=== PATIENT | female | born 1940 | race Caucasian/White ===

== ENCOUNTER 2019-04-22 18:36 | Emergency (ER) | payer MEDICARE, OTHER ==
[~2019-04-22] VITALS: Ht 170.2 cm; Wt 67.1 kg
[~2019-04-22 18:36] MED LIST: GABAPENTIN300 MG PO; LEVOTHYROXINE25 MCG PO
--- OUTSIDE RECORDS SUMMARY | 2019-04-22 18:39 | XMS REPORT ---
Author Author [facility] Address Unknown Phone Unavailable Care Team Providers Care Relationship Consultant Name Role Phone GRISEL EL Unavailable Unavailable SINANArsenio NIRAVKUMAR Unavailable Unavailable RAFAEL, CASSIUS Unavailable Unavailable Problems This patient has no known problems. Allergies, Adverse Reactions, Alerts This patient has no known allergies or adverse reactions. Medications This patient has no known medications. Results Test Description Test Time Test Comments Text Results Atomic Results Result Comments MISCELLANEOUS LAB ORDER 2019-02-27 07:25:00 SCAN RESULT (test vczj=[id number]) FINE NEEDLE ASPIRATION BY [id number] 14:39:00Medical Cytology Report Case: [id number] Authorizing Provider: Tasia El MD Collected: 02/21/2019 1447 Ordering Location: [facility] Endoscopy Received: 02/21/2019 1545 Services Pathologist: Lawson Brtohers MD Specimen: Pancreatic MERRY PANCREATIC LYMPH NODE, FNA BY CLINICIAN (CYTOSPINS AND CELL BLOCK OF ASPIRATE): - NEGATIVE FOR EPITHELIAL MALIGNANCY - LYMPHOID TISSUE PRESENT Signing Pathologist Direct Phone Line: [phone] signed by Lawson Brothers MD on 02/24/2019 at 2:39 [id number], 116327.8 cm x 4.3 cm anechoic body of pancreas lesion; (0.8 x 1.2 cm) enlarged lymph node was visualized in the peripancreatic regionPERI SIDDIQUI CREATIC LYMPH NODE FNAReceived 22.5 ml cytorich red fixative samplePrepared cell block(A2) and 4 cytospins Collected: [id number]: [id number], Department of Pathology, [address] [place] [address], T el [phone] [facility], Department of Pathology, [address] [place] [address], [facility], Department of Pathology, [address] [place] [address], Tel FINE NEEDLE ASPIRATION BY [id number] 14:24:00Medical Cytology Report Case: [id number] Authorizing Provider: Tasia El MD Collected: 02/21/2019 1446 Ordering Location: [facility] Endoscopy Received: 02/21/2019 1545 Services Pathologist: Lawson Brothers MD Specimen: Pancreas, body of pancreas cystic lesion BODY OF PANCREAS CYSTIC LESION FLUID, (CYTOSPINS AND CELL BLOCK): - NEGATIVE FOR MALIGNANCY - Macrophages and small lymphocytes present Signing Pathologist Direct Phone Line: [phone], 880030.8 cm x 4.3 cm anechoic body of pancreas lesion; (0.8 x 1.2 cm) enla rged lymph node was visualized in the peripancreatic regionBODY OF PANCREAS CYST IC LESION FLUIDReceived 27.5ml cytorich red fixative samplePrepared cell block(A 2) using collodion bag and 4 cytospinsCollected: [id number]: [id number] [facility], Department of Pathology, [address] [place] [address], [facility]ckuzvSc[facility], Department of Pathol ogy, [address] [place] [address], [facility], [facility] of [facility]ology, [address] [place] [address], OQBTTW [id number] 13:22:00Surgical Pathology Report Case: [id number] Authorizing Provider: Tasia El MD Collected: 02/21/2019 1422 Ordering Location: [facility] Endoscopy Received: 02/21/2019 1533 Services Pathologist: Shelbie Morfin MD Specimen: Duodenal, duodenal ulcer bx A. ULCER, DUODENUM BULB, BIOPSY - DUODENUM MUCOSA WITH ULCER AND FIBRINOPURULENT EXUDATE - NEGATIVE FOR DYSPLASIA OR CARCINOMA Signing Pathologist Direct Phone Line: [phone] signed by Shelbie Morfin MD on 02/22/2019 at 1:22 [id number] findings on diagnostic imaging Duodenal biopsyA. Received in formalin labeled with the patient's name, accession number and "duodenal ulcer biopsy" are two pieces of smith-white mucosal tissue each measuring 0.3 x 0.3 x 0.2 cm. The specimen is submitted in toto in cassette A1. NW/plThe duodenal biopsy consists of multiple pieces of small bowel mucosa, with ulcer, fibrinopurulent exudates and Elias's gland hyperplasia. It is negative for dysplasia or carcinoma. FINE NEEDLE ASPIRATE (FNA) [id number] 17:00:00* Test Item Value Reference Range Comments CYTOLOGY RESULT POINTER (BEAKER) (test rcbg=0172) See Separate Report FINE NEEDLE ASPIRATE (FNA) [id number] 17:00:00* Test Item Value Reference Range Comments CYTOLOGY RESULT POINTER (BEAKER) (test mera=5918) See Separate Report US, ABDOMINAL, [id number] 08:09:00Reason for Exam:->researchFINAL REPORT EXAM: US, ABDOMINAL, COMPLETEDATE: 08/08/2018 9:37 AM INDICATION: research COMPARISON: Abdominal ultrasound, 05/23/2018 FINDINGS:Grayscale and color flow Doppler ultrasound of the abdomen was perfor med. Liver: 16.9 cm span, borderline hepatomegaly. Mildly hyperechoic parenchyma which may be seen with steatosis. No intrahepatic mass or dilated bile ducts.Sp omar: Surgically absent. Biliary: The gallbladder is surgically absent. Common b ile duct 0.6 cm, normal.Pancreas: Partially obscured by overlying bowel. Visuali zed portions show no mass or ductal dilatation. Right kidney: 10.6 x 4.4 x 5.4 c m. Normal cortical thickness and echogenicity.Left kidney: 10.8 x 4.8 x 4.6 cm. Normal cortical thickness and echogenicity.No hydronephrosis or contour deformin g renal mass. Vessels: Visualized portions of aorta show atherosclerotic plaque. Proximal aortic diameter 2.4 cm, mid aorta 2.4 cm, distal aorta 2.8 cm. Measure ments are stable from previous examination.Visualized portions of IVC unremarkab le.Main portal vein 1.2 cm, normal hepatopedal flow. Ascites: None IMPRESSION: 1 . No sonographic evidence for acute abdominal pathology.2. No evidence for abdom inal aortic aneurysm. Aortic measurements are stable from previous examination.3 . Borderline hepatomegaly. Mildly increased hepatic echogenicity which may be se en with steatosis.4. Surgical absence of the gallbladder. No dilatation of the b iliary tree. Signed: Donavon Burton Verified Date/Time: 08/09/2018 08: 09:47 Reading Location: [facility] Reading Room [address] [place] [address] , ABDOMINAL, COMPLETE 2018-05-23 12:09:00Reason for Exam:->Z00.6 C25.9FINAL REPORT EXAM: Complete Abdominal UltrasoundINDICATION: COMPARISON: None. TECHNIQUE: Transverse and longitudinal images of the upper abdomen were obtained. FINDINGS: Liver: Size: 16.3 cm in the right midclavicular line, normal Appearance: Normal echogenicity, smooth contour Mass: No focal masses Spleen: Splenectomy. Gallbladder: Cholecystectomy Bile Ducts: Intrahepatic Ducts: No dilatation Extrahepatic Ducts: Common bile duct measures 0.6 cm, no dilatation Pancreas: Visualized portions of the pancreatic head, neck and proximal body are normal. Right Kidney: Size: 10.8 cm Echogenicity: Normal Parenchymal thickness: Normal Colle cting System: No hydronephrosis Stone: None Cyst/Mass: None Left Kidney: Size: 10.8 cm Echogenicity: Normal Parenchymal th ickness: Normal Collecting System: No hydronephrosis Stone: None Cyst/Mass: None Vessels: Aorta: Mild atherosclerosis. Aorta measures 2.4cm p roximally and 2.8cm distally. Inferior Vena Cava: Visualized portions are no rmal Main Portal Vein: 1.2 cm, normal size with hepatopetal flow. Free Fluid : No ascites or pleural effusion IMPRESSION: Prior cholecystectomy and splen ectomy Signed: Santos Riveraort Verified Date/Time: 05/23/2018 12:09:54 , TUNNEL CATH CENTRAL INS W/PORT [id number] 13:11:00Reason for Exam:->C25.2FINAL REPORT Procedure: Chest port placement. History: M alignancy Operators: Sinan Conscious Sedation: Versed 2 mg, fentanyl 100 mcg, (A dministered after informed consent was obtained) Vital signs were monitored th roughout the procedure by a nurse, and remained stable. Physician intra-service time was 30 minutes. Total fluoroscopy time: 11 seconds Estimated dose reporte d as ( Ka, r): 0.1 mGy Technique: Informed written consent was obtained. Th e right neck and chest were prepped. All elements maximal sterile barrier techni que was utilized for this procedure, including utilization of sterile scrub solu tion for skin prep, a large sterile sheet to cover the areas of the patient that were not prepped, and hand hygiene, mask, head covering, and sterile gown for p erforming radiologist and scrub technologist. Under direct real-time ultrasound guidance the right internal jugular vein was accessed with a micropuncture need le. A 5 Kenyan sheath and dilator was placed. A 3 J-wire was then advanced and t he access site was dilated. A 7 Kenyan peel-away introducer sheath was then plac ed. The distal end of the 5 Kenyan port catheter was then advanced through the p eel-away and placed with tip under fluoroscopic control at the atriocaval juncti on. The proximal end of the catheter was then back tunneled on the anterior ches t. A subcutaneous pocket was then made. The catheter was then attached to a sin gle-lumen port which was placed into the pocket and anchored with 2 Monocryl sut ures. The port flushed and aspirated easily following placement and was packed w ith 5cc of Heparin at 100U/cc (total dosage of 500U). The overlying skin was c losed with interrupted subcuticular sutures. Steri-strips and dressing was appl ied. There are no immediate complications. The patient tolerated the procedure w ell and left the department in the same condition. Findings: 1. Inital ultrasoun d evaluation prior to port placement showed a patent and compressible right inte rnal jugular vein. An ultrasound image was saved to PACS. 2. Spot radiograph following port placement revealed appropriate positioning with the tip projectin g at the cavoatrial junction. No immediate pneumothorax identified. Impression: Successful placement of a single-lumen right-sided chest port using sonographic and fluoroscopic guidance and conscious sedation. The tip is satisfactorily p ositioned at the atriocaval junction. A "Power" port rated for power CT inject ions was placed. Signed: Tremayne Yoo MDReport Verified Date/Time: 05/08/2018 13 :11:36 Reading Location: [facility] Radiology Reading Room /[id number] 09:26:00* Test Item Value Reference Range Comments PROTIME (BEAKER) (test ttpa=415) 10.9 sec 9.3-12.0 INR (BEAKER) (test lsdm=814) 1.0 <=5.9 PARTIAL THROMBOPLASTIN TIME (BEAKER) (test kkwv=246) 31.2 sec 23.0-35.0 RECOMMENDED COUMADIN/WARFARIN INR THERAPY RANGESSTANDARD DOSE: 2.0 - 3.0 Inclu danielle: PROPHYLAXIS for venous thrombosis, systemic embolization; TREATMENT for jeanne ous thrombosis and/or pulmonary embolus.HIGH RISK: Target INR is 2.5-3.5 for pat ients with mechanical heart valves.Final Information (Auto Output)Final Informat ion (Auto Output)Final Information (Auto Output)U/S, ABDOMINAL, COMPLETE 2018-04-27 09:58:00Reason for Exam:->maligant neoplasm of pancreasFINAL REPORT Ultrasound of the abdomen. Clinical History: maligant neoplasm of pancreas. Comparison study: CT scan of the chest dated March 24, 2018. Findings: The liver is normal in echotexture with no focal masses. It measures 16.4 cm in length. There is no evidence of intrahepatic biliary d ilatation. The proximal CBD measures 4 mm and distal CBD measures 8 mm. The main portal vein diameter is 0.9 cm. The gallbladder has been resected. The spleen has been resected. The pancreas is not well seen. Reportedly, the tail has been resected. No ascites is present. The right kidney measures 9.5 cm and left kidne y measures 9.1 cm, both within normal limits. The proximal aorta and IVC are unr emarkable. No pleural effusions are seen. Impression: 1. Pancreas not well seen. Reportedly, the tail has been resected.2. Status post cholecystectomy and splen ectomy.3. Distal CBD measures 8 mm. Signed: Jamaal Muir MDReport Verified Da te/Time: 04/27/2018 09:58:40 Reading Location: [address] Radiology Reading Room UE [id number] 17:11:00Surgical Pathology Report Case: [id number] Authorizing Provider: Cassius Del Cid MD Collected: 03/22/2018 1101 Ordering Location: [facility] PERIOPERATIVE Received: 03/22/2018 1108 SERVICES Pathologist: Luis Martinez MD Specimens: A) - Pancreas, BODY AND TAIL OF PANCREAS and spleen, Ink jaky is the Distal jaky B) - Gallbladder C) - Soft Tissue, Other, Gerota's fascia - Ink margin is gerota's fascia PART A PANCREAS, SPLEEN, DISTAL PANCREATOMY AND SPLENECTOMY:POORLY DIFFERENTIATED ADENOCARCINOMA, 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 SIX OF THIRTEEN LYMPH NODES POSITIVE FOR ADENOCARCINOMA (6/13)SOME LYMPH NODES WITH NONCASEATING GRANULOMATOUS INFLAMMATION.UNINVOLVED SPLEENAJCC CLASSIFICATIO N (8TH EDITION) [id number] B GALLBLADDER, OPEN CHOLECYSTECTOMY:CHRONIC CHOLECYS TITISCHOLELITHIASIS NEGATIVE FOR CARCINOMA.PART C SOFT TISSUE, GEROTA'S FASCIA, EXCISION:INVOLVED BY CARCINOMA, EXTENDING TO INKED MARGIN. Signing Patholog ist Direct Phone Line: [phone] signed by Luis Martinez MD on 03/29/2018 at 5:11 PMThe operative report was reviewed and discussed w braeden Del Cid, surgeon. Per our discussion, the Gerota's fascia was adher ent to the anterior surface of the distal pancreas. For these reasons, the tumor seen on the Gerota's fascia is best interpreted as a direct extension of tumor from the pancreas. As reported, the final margin of the Gerota's fascia is POSIT DAGO for tumor. The finding of noncaseating granulomatous inflammation is nonspec ific. Potential etiologies include but are not limited to autoimmunity (particul abdiaziz sarcoidosis), infections, drug reactions and environmental exposures. Speci al stains for fungal organisms (GMS) and acid fast bacilli (AFB) performed on bl ock A19 are negative. Correlation with clinical follow up, serological studies, and microbiological studies are required for complete interpretation.PANCREAS (E XOCRINE) (Pancreas Exo - All Specimens)SPECIMEN Procedure: Partial pancrea tectomy, pancreatic tail TUMOR Tumor Site: Pancreatic tail Histologic Ty pe: Ductal adenocarcinoma Histologic Grade: G3: Poorly differentiated Tumor Size: Greatest dimension in Centimeters (cm): 3.7 Centimeters (cm) Additional Dimension in Centimeters (cm): 2.5 Centimeters (cm) Additional Dimension in Centimeters (cm): 1.4 Centimeters (cm) Tumor Extent: Tumor Extension: Tumor invades peripancreatic soft tissues : Tumor invades peripancreatic soft tissue: ANTERIOR SURFACE Tumor Extension: Tumor invades other adjacent organs or structures : LEFT GEROTA'S FASC IA Accessory Findings: Lymphovascular Invasion: Present Perin eural Invasion: Present MARGINS Margins: Proximal Pancreatic Parenc hymal Margin: Uninvolved by invasive carcinoma Distance of Invasive Ca rcinoma from Margin: 3 cm Centimeters (cm) : Other Margin: LEFT GEROTA'S FASCIA MARGIN Margin Status: Involved by invasive carcinoma L YMPH NODES Number of Lymph Nodes Involved: 6 Number of Lymph Nodes Examined: 13 PATHOLOGIC STAGE CLASSIFICATION (pTNM, AJCC 8th Edition) Primary Tumor ( pT): pT2 Regional Lymph Nodes (pN): pN2 72359, 15900, 53205, 57915, 89879 A2Qvthmpxje neoplasm of the tail of the pancreas A. Pancreatectomy, splenectomy; B. Gallbladder; C. Gerota's fasciaSpecimen A is received fresh labeled with the patient's name and the same accession number and consists of a pancreatic tail (6 x 6 x 3 cm) and attached spleen (13 x 3 x 7 cm) with attached fat measuring 10 x 4 x 2 cm and stapled surgical margin measuring 5 cm. The pancreas is biva lved to show 3.7 x 1.4 x 2.5 cm infiltrated yellow-smith tumor mass. The tumor is 3 cm from the pancreatic resection margin: which appears grossly uninvolved. The outer surface of the specimen consists of yellow adipose tissue, variable in th ickness from 0.2 to 2 cm. The serosal layer appears to be grossly uninvolved by tumor, however an area of mild indentation is identified on the anterior aspect of the serosal layer in relation to the tumor mass. The remaining uninvolved siddiqui creatic parenchyma is yellow-smith and is grossly unremarkable. The spleen has a d ark red-brown homogeneous parenchyma with a slight predominance of white pulp. T here are 15 possible lymph nodes identified grossly measuring from 0.3 cm to 1 c m in the greatest dimension. A frozen section was performed in the pancreatic re section margin (en face). The specimen is inked as follows: Ink code: anterior b lack; posterior yellow.Section code: FSA1, pancreatic resection margin (en face) ; A2-A12, technical sales representatives sections from the tumor (A2-A6 nearest proximity of ant erior serosal surface, A7-A9 nearest proximity of posterior serosal surface). ; A13-A16, sections of pancreatic tissue; A17, technical sales representatives section from the spl een; A18-22, three lymph nodes each; A23-A30, technical sales representatives sections from the f at. /plSpecimen B labeled "gallbladder" consists of an intact gallbladder marjorie uring 8 x 2.5 cm, gallbladder wall thickness up to 0.2 cm. Ink code: liver surf piero is inked blue. The gallbladder is opened. The gallbladder lumen is filled wi th green thick fluid and multiple green-yellow faceted stones measuring up to 2. 5 cm. The gallbladder mucosa is smith-red velvety with no masses. Section code: B1 , margin en face; B2, gallbladder wall.Specimen C labeled "Gerota's fascia" cons ists of a segment of Gerota's fascia and adipose tissue measuring 2.5 x 2 x 0.6 cm. There is ink on one surface designating the Gerota's fascia. This area is re -inked blue. Serially sectioned. Cut surface shows some areas of fibrous tissue. No distinct masses are identified. The Gerota's fascia is entirely submitted C1 to C4. CG/pl A. A1FS - DISTAL PANCREATIC MARGIN: - NEGATIVE FOR TUMORPERFORM ED. The interpretation of this case included the use of immunohistochemistry or special stains.BLOCK A19- GMS, AFB Immunohistochemistry technical testing was pe rformed at [facility], Pathology Laboratory where it was d meloped and its performance characteristics were determined. It has not been cl eared or approved by the U.S. Food and Drug Administration. The FDA has determin ed that such clearance or approval is not necessary. The test is used for clinic al purposes. It should not be regarded as investigational or for research. This laboratory is certified under the Clinical Laboratory Improvement Amendments of 1988 (CLIA-88) as qualified to perform high complexity clinical laboratory testi ng.[id number] 13:17:00* Test Item Value Reference Range Comments LIPASE (BEAKER) (test ynda=146) 28 U/L 8-78 Run on blood drawn this amRun on blood drawn [id number] 13:17:00* Test Item Value Reference Range Comments AMYLASE (BEAKER) (test irzy=826) 39 U/L 25-125 Run on blood drawn this amRun on blood drawn thisPOCT-GLUCOSE [id number] 17:26:00* Test Item Value Reference Range Comments POC-GLUCOSE METER (BEAKER) (test clqv=3717) 113 mg/dL 70-110 TESTED AT [facility] [address] [facility] [address] CBC W/PLT COUNT & AUTO [id number] 08:56:00* Test Item Value Reference Range Comments WHITE BLOOD CELL COUNT (BEAKER) (test dyqr=156) 15.7 K/ L 3.5-10.5 RED BLOOD CELL COUNT (BEAKER) (test jbkd=828) 3.46 M/ L 3.93-5.22 HEMOGLOBIN (BEAKER) (test riqg=618) 10.9 GM/DL 11.2-15.7 HEMATOCRIT (BEAKER) (test kxay=843) 32.8 % 34.1-44.9 MEAN CORPUSCULAR VOLUME (BEAKER) (test zxza=241) 94.8 fL 79.4-94.8 MEAN CORPUSCULAR HEMOGLOBIN (BEAKER) (test vtrw=900) 31.5 pg 25.6-32.2 MEAN CORPUSCULAR HEMOGLOBIN CONC (BEAKER) (test vyaj=986) 33.2 GM/DL 32.2-35.5 RED CELL DISTRIBUTION WIDTH (BEAKER) (test hqkx=325) 12.6 % 11.7-14.4 PLATELET COUNT (BEAKER) (test dokg=117) 395 K/CU MM 150-450 MEAN PLATELET VOLUME (BEAKER) (test zfhs=223) 10.2 fL 9.4-12.3 NUCLEATED RED BLOOD CELLS (BEAKER) (test iqvc=253) 0 /100 WBC 0-0 (CELLAVISION MANUAL DIFF)2018-03-28 08:56:00* Test Item Value Reference Range Comments NEUTROPHILS - REL (CELLAVISION)(BEAKER) (test msxs=2157) 73 % LYMPHOCYTES - REL (CELLAVISION)(BEAKER) (test rpnm=1246) 14 % MONOCYTES - REL (CELLAVISION)(BEAKER) (test wuab=0363) 4 % EOSINOPHILS - REL (CELLAVISION)(BEAKER) (test umgo=6272) 2 % BANDS - REL (CELLAVISION)(BEAKER) (test pnmh=3539) 2 % 0-10 ATYPICAL LYMPHOCYTES - REL (CELLAVISION)(BEAKER) (test hies=8826) 5 % 0-0 NEUTROPHILS - ABS (CELLAVISION)(BEAKER) (test addv=3254) 11.46 K/ul 1.56-6.13 LYMPHOCYTES - ABS (CELLAVISION)(BEAKER) (test vznv=8935) 2.20 K/ul 1.18-3.74 MONOCYTES - ABS (CELLAVISION)(BEAKER) (test lpiw=8556) 0.63 K/uL 0.24-0.36 EOSINOPHILS - ABS (CELLAVISION)(BEAKER) (test zpaz=4053) 0.31 K/uL 0.04-0.36 BANDS - ABS (CELLAVISION)(BEAKER) (test urjf=3894) 0.31 K/uL 0.00-0.80 ATYPICAL LYMPHOCYTES - ABS (CELLAVISION)(BEAKER) (test iseq=5139) 0.79 K/uL 0.00-0.00 TOTAL COUNTED (BEAKER) (test upxm=2082) 100 RBC MORPHOLOGY (BEAKER) (test itsa=786) Normal PLT MORPHOLOGY (BEAKER) (test eobf=555) Normal SMUDGE CELLS (BEAKER) (test wzcs=4534) Present PLATELET CONCENTRATION (CELLAVISION)(BEAKER) (test lxlm=6185) Adequate Received comment: User comments: Slide comments: [id number] 05:37:00* Test Item Value Reference Range Comments PHOSPHORUS (BEAKER) (test rftl=141) 3.3 mg/dL 2.3-4.7 [id number] 05:37:00* Test Item Value Reference Range Comments MAGNESIUM (BEAKER) (test rrpw=033) 1.5 mg/dL 1.6-2.6 BASIC METABOLIC [id number] 05:37:00* Test Item Value Reference Range Comments SODIUM (BEAKER) (test fifg=483) 136 meq/L 136-145 POTASSIUM (BEAKER) (test twfm=162) 3.7 meq/L 3.5-5.1 CHLORIDE (BEAKER) (test oxez=297) 99 meq/L 98-107 CO2 (BEAKER) (test zsey=682) 22 meq/L 22-29 BLOOD UREA NITROGEN (BEAKER) (test jkxm=267) 18 mg/dL 7-21 CREATININE (BEAKER) (test otmw=036) 0.75 mg/dL 0.57-1.25 GLUCOSE RANDOM (BEAKER) (test xfhn=500) 95 mg/dL 70-105 CALCIUM (BEAKER) (test bkyv=493) 8.7 mg/dL 8.4-10.2 EGFR (BEAKER) (test mmaf=3872) 75 mL/min/1.73 sq m ESTIMATED GFR IS NOT ACCURATE CREATININE CLEARANCE IN PREDICTING GLOMERULAR FILTRATION RATE. ESTIMATED GFR IS NOT APPLICABLE FOR DIALYSIS PATIENTS. HEMOGLOBIN [id number] 12:48:00* Test Item Value Reference Range Comments HEMOGLOBIN A1C (BEAKER) (test bvsr=061) 5.5 % 4.3-6.1 Received comment: User comments: Slide comments: LIPID [id number] 11:30:00 * Test Item Value Reference Range Comments TRIGLYCERIDES (BEAKER) (test yuvc=128) 144 mg/dL CHOLESTEROL (BEAKER) (test nqns=750) 151 mg/dL HDL CHOLESTEROL (BEAKER) (test dwxw=521) 30 mg/dL LDL CHOLESTEROL CALCULATED (BEAKER) (test ihli=190) 92 mg/dL Triglyceride Reference Range: Low Risk <150 Borderline 150-199 High Risk 200-499 Very High Risk >=500Cholesterol Reference Range: Low Risk <200 Borderline 200-239 High Risk >240HDL Cholesterol Reference Range: Low Risk >=60 High Risk <40LDL Cholesterol Reference Range: Optimal <100 Near Optimal 100-129 Borderline 130-159 High 160-189 Very High >=190 CBC W/PLT COUNT & AUTO [id number] 09:12:00* Test Item Value Reference Range Comments WHITE BLOOD CELL COUNT (BEAKER) (test eaqg=420) 18.2 K/ L 3.5-10.5 RED BLOOD CELL COUNT (BEAKER) (test ybzl=288) 3.43 M/ L 3.93-5.22 HEMOGLOBIN (BEAKER) (test pzbi=707) 10.8 GM/DL 11.2-15.7 HEMATOCRIT (BEAKER) (test vyad=320) 32.8 % 34.1-44.9 MEAN CORPUSCULAR VOLUME (BEAKER) (test ycow=348) 95.6 fL 79.4-94.8 MEAN CORPUSCULAR HEMOGLOBIN (BEAKER) (test snxe=114) 31.5 pg 25.6-32.2 MEAN CORPUSCULAR HEMOGLOBIN CONC (BEAKER) (test eqnr=825) 32.9 GM/DL 32.2-35.5 RED CELL DISTRIBUTION WIDTH (BEAKER) (test oqly=441) 12.7 % 11.7-14.4 PLATELET COUNT (BEAKER) (test chbl=836) 363 K/CU MM 150-450 MEAN PLATELET VOLUME (BEAKER) (test hjvf=202) 10.6 fL 9.4-12.3 NUCLEATED RED BLOOD CELLS (BEAKER) (test sjym=598) 0 /100 WBC 0-0 (CELLAVISION MANUAL DIFF)2018-03-27 09:12:00* Test Item Value Reference Range Comments NEUTROPHILS - REL (CELLAVISION)(BEAKER) (test wxvp=2310) 84 % LYMPHOCYTES - REL (CELLAVISION)(BEAKER) (test cfhx=1335) 5 % MONOCYTES - REL (CELLAVISION)(BEAKER) (test mpmu=7558) 10 % EOSINOPHILS - REL (CELLAVISION)(BEAKER) (test ejgl=2443) 1 % NEUTROPHILS - ABS (CELLAVISION)(BEAKER) (test fufp=7876) 15.29 K/ul 1.56-6.13 LYMPHOCYTES - ABS (CELLAVISION)(BEAKER) (test acdq=5747) 0.91 K/ul 1.18-3.74 MONOCYTES - ABS (CELLAVISION)(BEAKER) (test pwke=0374) 1.82 K/uL 0.24-0.36 EOSINOPHILS - ABS (CELLAVISION)(BEAKER) (test chzp=0805) 0.18 K/uL 0.04-0.36 TOTAL COUNTED (BEAKER) (test vaav=1205) 100 WBC MORPHOLOGY (BEAKER) (test vtjc=442) Normal LARGE PLT(BEAKER) (test kdgo=6374) Present POLYCHROMATOPHILLIC RBCS(BEAKER) (test uchm=668) 1+ few ARTIFACT (CELLAVISION)(BEAKER) (test hklh=4916) Present PLATELET CONCENTRATION (CELLAVISION)(BEAKER) (test oxlr=5400) Adequate Received comment: User comments: Slide comments: [id number] 05:43:00* Test Item Value Reference Range Comments PHOSPHORUS (BEAKER) (test mloi=719) 2.8 mg/dL 2.3-4.7 [id number] 05:43:00* Test Item Value Reference Range Comments MAGNESIUM (BEAKER) (test yfcp=217) 1.6 mg/dL 1.6-2.6 BASIC METABOLIC [id number] 05:43:00* Test Item Value Reference Range Comments SODIUM (BEAKER) (test xbyy=676) 138 meq/L 136-145 POTASSIUM (BEAKER) (test bhsw=192) 3.8 meq/L 3.5-5.1 CHLORIDE (BEAKER) (test qzmm=815) 99 meq/L 98-107 CO2 (BEAKER) (test zkpl=511) 24 meq/L 22-29 BLOOD UREA NITROGEN (BEAKER) (test jgsg=016) 19 mg/dL 7-21 CREATININE (BEAKER) (test xnum=936) 0.70 mg/dL 0.57-1.25 GLUCOSE RANDOM (BEAKER) (test skli=576) 78 mg/dL 70-105 CALCIUM (BEAKER) (test zohi=376) 8.5 mg/dL 8.4-10.2 EGFR (BEAKER) (test uxlu=6511) 82 mL/min/1.73 sq m ESTIMATED GFR IS NOT ACCURATE CREATININE CLEARANCE IN PREDICTING GLOMERULAR FILTRATION RATE. ESTIMATED GFR IS NOT APPLICABLE FOR DIALYSIS PATIENTS. POCT-GLUCOSE [id number] 17:55:00* Test Item Value Reference Range Comments POC-GLUCOSE METER (BEAKER) (test cxcr=3277) 93 mg/dL 70-110 TESTED AT [facility] [address] [facility] [address] [id number] 13:48:00* Test Item Value Reference Range Comments MAGNESIUM (BEAKER) (test wxcc=582) 2.0 mg/dL 1.6-2.6 Specimen slightly hemolyzed [id number] 13:48:00* Test Item Value Reference Range Comments PHOSPHORUS (BEAKER) (test ddpm=065) 2.8 mg/dL 2.3-4.7 Specimen slightly hemolyzed BASIC METABOLIC [id number] 13:48:00* Test Item Value Reference Range Comments SODIUM (BEAKER) (test xjjv=690) 137 meq/L 136-145 POTASSIUM (BEAKER) (test lgjw=058) 3.8 meq/L 3.5-5.1 Specimen slightly hemolyzed CHLORIDE (BEAKER) (test qlsm=076) 97 meq/L 98-107 CO2 (BEAKER) (test efvu=337) 27 meq/L 22-29 BLOOD UREA NITROGEN (BEAKER) (test poyf=512) 14 mg/dL 7-21 CREATININE (BEAKER) (test gixf=544) 0.66 mg/dL 0.57-1.25 Specimen slightly hemolyzed GLUCOSE RANDOM (BEAKER) (test sxxz=765) 88 mg/dL 70-105 CALCIUM (BEAKER) (test isbf=990) 8.8 mg/dL 8.4-10.2 EGFR (BEAKER) (test yibm=0711) 87 mL/min/1.73 sq m ESTIMATED GFR IS NOT ACCURATE CREATININE CLEARANCE IN PREDICTING GLOMERULAR FILTRATION RATE. ESTIMATED GFR IS NOT APPLICABLE FOR DIALYSIS PATIENTS. POCT-GLUCOSE [id number] 12:03:00* Test Item Value Reference Range Comments POC-GLUCOSE METER (BEAKER) (test ktzu=7440) 100 mg/dL 70-110 TESTED AT [facility] [address] [facility] [address] POCT-GLUCOSE [id number] 06:50:00* Test Item Value Reference Range Comments POC-GLUCOSE METER (BEAKER) (test utna=9080) 92 mg/dL 70-110 TESTED AT [facility] [address] [facility] [address] TSH/FREE T4 IF [id number] 05:02:00* Test Item Value Reference Range Comments THYROID STIMULATING HORMONE (BEAKER) (test wbry=336) 0.62 uIU/mL 0.35-4.94 BASIC METABOLIC [id number] 04:15:00* Test Item Value Reference Range Comments SODIUM (BEAKER) (test uzib=916) 139 meq/L 136-145 POTASSIUM (BEAKER) (test zitm=812) 3.5 meq/L 3.5-5.1 CHLORIDE (BEAKER) (test pyed=630) 101 meq/L 98-107 CO2 (BEAKER) (test rkcz=808) 29 meq/L 22-29 BLOOD UREA NITROGEN (BEAKER) (test zyik=581) 10 mg/dL 7-21 CREATININE (BEAKER) (test tsev=026) 0.63 mg/dL 0.57-1.25 GLUCOSE RANDOM (BEAKER) (test xooq=011) 93 mg/dL 70-105 CALCIUM (BEAKER) (test pvia=213) 8.6 mg/dL 8.4-10.2 EGFR (BEAKER) (test knwh=7296) 92 mL/min/1.73 sq m ESTIMATED GFR IS NOT ACCURATE CREATININE CLEARANCE IN PREDICTING GLOMERULAR FILTRATION RATE. ESTIMATED GFR IS NOT APPLICABLE FOR DIALYSIS PATIENTS. [id number] 03:59:00* Test Item Value Reference Range Comments PHOSPHORUS (BEAKER) (test jqhs=312) 3.1 mg/dL 2.3-4.7 [id number] 03:59:00* Test Item Value Reference Range Comments MAGNESIUM (BEAKER) (test ppvm=355) 2.0 mg/dL 1.6-2.6 CBC W/PLT COUNT & AUTO [id number] 03:52:00* Test Item Value Reference Range Comments WHITE BLOOD CELL COUNT (BEAKER) (test ofoe=041) 19.5 K/ L 3.5-10.5 RED BLOOD CELL COUNT (BEAKER) (test nkyu=142) 3.59 M/ L 3.93-5.22 HEMOGLOBIN (BEAKER) (test mwfd=991) 11.2 GM/DL 11.2-15.7 HEMATOCRIT (BEAKER) (test czir=205) 35.1 % 34.1-44.9 MEAN CORPUSCULAR VOLUME (BEAKER) (test azlj=969) 97.8 fL 79.4-94.8 MEAN CORPUSCULAR HEMOGLOBIN (BEAKER) (test rhym=305) 31.2 pg 25.6-32.2 MEAN CORPUSCULAR HEMOGLOBIN CONC (BEAKER) (test pttw=806) 31.9 GM/DL 32.2-35.5 RED CELL DISTRIBUTION WIDTH (BEAKER) (test hmuv=248) 12.9 % 11.7-14.4 PLATELET COUNT (BEAKER) (test xtcu=292) 277 K/CU MM 150-450 MEAN PLATELET VOLUME (BEAKER) (test rdqp=518) 10.0 fL 9.4-12.3 NUCLEATED RED BLOOD CELLS (BEAKER) (test uznv=272) 0 /100 WBC 0-0 NEUTROPHILS RELATIVE PERCENT (BEAKER) (test byhj=777) 78 % LYMPHOCYTES RELATIVE PERCENT (BEAKER) (test gcsv=936) 11 % MONOCYTES RELATIVE PERCENT (BEAKER) (test ukli=927) 9 % EOSINOPHILS RELATIVE PERCENT (BEAKER) (test yzzg=308) 1 % BASOPHILS RELATIVE PERCENT (BEAKER) (test hddn=418) 0 % NEUTROPHILS ABSOLUTE COUNT (BEAKER) (test epke=814) 15.18 K/ L 1.56-6.13 LYMPHOCYTES ABSOLUTE COUNT (BEAKER) (test qlud=563) 2.18 K/ L 1.18-3.74 MONOCYTES ABSOLUTE COUNT (BEAKER) (test fwcp=874) 1.73 K/ L 0.24-0.36 EOSINOPHILS ABSOLUTE COUNT (BEAKER) (test znbt=589) 0.17 K/ L 0.04-0.36 BASOPHILS ABSOLUTE COUNT (BEAKER) (test ewnm=900) 0.07 K/ L 0.01-0.08 IMMATURE GRANULOCYTES-RELATIVE PERCENT (BEAKER) (test xnfp=9682) 1 % 0-1 RAD, CHEST, 1 VIEW, NON [id number] 00:53:00Reason for exam:->SOBShould this be performed at the bedside?->YesFINAL REPORT INDICATION: SOB COMPARISON: None TECHNIQUE: Single frontal view of the chest. FINDINGS: Lungs and pleura: Clear lungs. Trace left pleural effusion and adjacent atelectasisHeart and mediastinum: Normal heart size. Unremarkable mediastinal contours.Osseous structures: No acute abnormality.Other: Surgical drain projects over the left upper quadrant. IMPRESSION: Trace left pleural effusion and adjacent atelectasis Signed: Gail Ladd MDReport Verified Date/Time: 03/26/2018 00:53:33 Reading Location: [address] Neuro Reading Room C METABOLIC [id number] 20:57:00* Test Item Value Reference Range Comments SODIUM (BEAKER) (test hpqe=029) 139 meq/L 136-145 POTASSIUM (BEAKER) (test ykbx=547) 3.3 meq/L 3.5-5.1 Specimen slightly hemolyzed CHLORIDE (BEAKER) (test uriy=334) 105 meq/L 98-107 CO2 (BEAKER) (test twfj=360) 23 meq/L 22-29 BLOOD UREA NITROGEN (BEAKER) (test wqkb=489) 7 mg/dL 7-21 CREATININE (BEAKER) (test wksw=886) 0.54 mg/dL 0.57-1.25 Specimen slightly hemolyzed GLUCOSE RANDOM (BEAKER) (test jmrg=313) 95 mg/dL 70-105 CALCIUM (BEAKER) (test pdst=025) 7.4 mg/dL 8.4-10.2 EGFR (BEAKER) (test ktab=9105) 110 mL/min/1.73 sq m ESTIMATED GFR IS NOT ACCURATE CREATININE CLEARANCE IN PREDICTING GLOMERULAR FILTRATION RATE. ESTIMATED GFR IS NOT APPLICABLE FOR DIALYSIS PATIENTS. [id number] 20:43:00* Test Item Value Reference Range Comments MAGNESIUM (BEAKER) (test bynl=169) 1.3 mg/dL 1.6-2.6 Specimen slightly hemolyzed [id number] 20:43:00* Test Item Value Reference Range Comments PHOSPHORUS (BEAKER) (test fywe=221) 2.2 mg/dL 2.3-4.7 Specimen slightly hemolyzed CBC (HEMOGRAM ONLY)2018-03-25 20:24:00* Test Item Value Reference Range Comments WHITE BLOOD CELL COUNT (BEAKER) (test kqoh=331) 23.2 K/ L 3.5-10.5 RED BLOOD CELL COUNT (BEAKER) (test uzyf=157) 3.73 M/ L 3.93-5.22 HEMOGLOBIN (BEAKER) (test ghti=525) 11.7 GM/DL 11.2-15.7 HEMATOCRIT (BEAKER) (test xjax=469) 36.5 % 34.1-44.9 MEAN CORPUSCULAR VOLUME (BEAKER) (test btdp=758) 97.9 fL 79.4-94.8 MEAN CORPUSCULAR HEMOGLOBIN (BEAKER) (test dkfa=278) 31.4 pg 25.6-32.2 MEAN CORPUSCULAR HEMOGLOBIN CONC (BEAKER) (test nvcd=734) 32.1 GM/DL 32.2-35.5 RED CELL DISTRIBUTION WIDTH (BEAKER) (test rasd=082) 12.8 % 11.7-14.4 PLATELET COUNT (BEAKER) (test hbqj=781) 265 K/CU MM 150-450 MEAN PLATELET VOLUME (BEAKER) (test cria=080) 10.2 fL 9.4-12.3 NUCLEATED RED BLOOD CELLS (BEAKER) (test zzwq=504) 0 /100 WBC 0-0 B-TYPE NATRIURETIC FACTOR (BNP)2018-03-25 13:59:00* Test Item Value Reference Range Comments B-TYPE NATRIURETIC PEPTIDE (BEAKER) (test dmet=706) 359 pg/mL 0-100 [id number] 07:04:00* Test Item Value Reference Range Comments MAGNESIUM (BEAKER) (test vggi=066) 1.6 mg/dL 1.6-2.6 BASIC METABOLIC [id number] 07:04:00* Test Item Value Reference Range Comments SODIUM (BEAKER) (test dfem=857) 137 meq/L 136-145 POTASSIUM (BEAKER) (test kupe=785) 3.8 meq/L 3.5-5.1 CHLORIDE (BEAKER) (test lgpe=237) 102 meq/L 98-107 CO2 (BEAKER) (test tsec=060) 28 meq/L 22-29 BLOOD UREA NITROGEN (BEAKER) (test tuwo=647) 9 mg/dL 7-21 CREATININE (BEAKER) (test bihd=497) 0.60 mg/dL 0.57-1.25 GLUCOSE RANDOM (BEAKER) (test heyo=279) 103 mg/dL 70-105 CALCIUM (BEAKER) (test qrmn=074) 8.6 mg/dL 8.4-10.2 EGFR (BEAKER) (test mlqt=0444) 97 mL/min/1.73 sq m ESTIMATED GFR IS NOT ACCURATE CREATININE CLEARANCE IN PREDICTING GLOMERULAR FILTRATION RATE. ESTIMATED GFR IS NOT APPLICABLE FOR DIALYSIS PATIENTS. AMYLASE, BODY [id number] 06:17:00* Test Item Value Reference Range Comments AMYLASE FLUID (BEAKER) (test miba=919) 198 U/L Absence of reference range indicates that normals have not been defined.Assay pe rformance has not been validated for this type of specimen.CBC (HEMOGRAM ONLY) 2018-03-25 05:49:00* Test Item Value Reference Range Comments WHITE BLOOD CELL COUNT (BEAKER) (test mqne=952) 22.3 K/ L 3.5-10.5 RED BLOOD CELL COUNT (BEAKER) (test gfzb=777) 3.19 M/ L 3.93-5.22 HEMOGLOBIN (BEAKER) (test bngo=408) 10.0 GM/DL 11.2-15.7 HEMATOCRIT (BEAKER) (test wdlh=131) 31.3 % 34.1-44.9 MEAN CORPUSCULAR VOLUME (BEAKER) (test xcgc=134) 98.1 fL 79.4-94.8 MEAN CORPUSCULAR HEMOGLOBIN (BEAKER) (test trpn=536) 31.3 pg 25.6-32.2 MEAN CORPUSCULAR HEMOGLOBIN CONC (BEAKER) (test qddo=130) 31.9 GM/DL 32.2-35.5 RED CELL DISTRIBUTION WIDTH (BEAKER) (test hmal=987) 13.1 % 11.7-14.4 PLATELET COUNT (BEAKER) (test bssw=279) 217 K/CU MM 150-450 MEAN PLATELET VOLUME (BEAKER) (test iuwq=167) 10.2 fL 9.4-12.3 NUCLEATED RED BLOOD CELLS (BEAKER) (test fpis=298) 0 /100 WBC 0-0 CT, CHEST WITH IV CONTRAST- PE TEST [id number] 16:12:00FINAL REPORT TECHNIQUE: CT scan of the chest WITH intravenous contrast. Dose modulation, iterative reconstruction, and/or weight-based ad justment of the mA/kV was utilized to reduce the radiation dose to as low as edilberto sonably achievable. INDICATION: 77-year-old woman with shortness of breath. COMP ARISON: None. FINDINGS: LINES/TUBES: None. PULMONARY ARTERIES: Proximal to the bifurcation of the main pulmonary artery, the main pulmonary artery is 2.9 cm in diameter. No filling defects within the pulmonary arteries to suggest pulmonary embolus. LUNGS AND AIRWAYS: Bronchial wall thickening with mucus/debris in se gmental and subsegmental airways in both lower lobes. Mild consolidative opaciti es in the dependent portions of both lower lobes. Scattered mild groundglass opa cities along the right major fissure and in the anterior aspect of both upper lo bes, probable atelectasis. Pleural-parenchymal scarring in both lung apices cont ains mildly bronchiectatic airways. Few scattered 2-3 mm nodules in both lungs. Subcentimeter calcified granuloma in the left lower lobe. PLEURA: Small bilatera l pleural effusions, left greater than right. HEART AND MEDIASTINUM: The visuali zed thyroid gland is normal. Scattered mildly prominent mediastinal lymph nodes measure up to 1.1 cm and are likely reactive. The heart and pericardium are with in normal limits. Atherosclerotic calcifications in the thoracic aorta and coron fabiana arteries. SOFT TISSUES AND BONES: Osteopenia. 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 Soft tissues are unremarkable. UPPER ABDOMEN: P artially visualized surgical drain in the left upper quadrant. Trace ascites in the left upper quadrant. IMPRESSION:No pulmonary embolism. Mucus/debris in segm ental and subsegmental airways in both lower lobes. Consolidative opacities in b oth lower lobes may represent atelectasis or aspiration/pneumonia. Scattered 2-3 mm bilateral pulmonary nodules. If patient is at high risk for bronchogenic roni plasm, then optional follow-up chest CT may be obtained in 12 months to reassess these pulmonary nodules. Small bilateral pleural effusions. Signed: Arvind Corrales MDReport Verified Date/Time: 03/24/2018 16:12:33 Reading Location: [facility] B1 C013Y CT Body Reading Room ONIN [id number] 13:43:00* Test Item Value Reference Range Comments TROPONIN I (BEAKER) (test hiyl=552) 0.01 ng/mL 0.00-0.03 Troponin I (TnI) levels must be interpreted in the context of the presenting sym ptoms and the clinical findings. Elevated TnI levels indicate myocardial damage, but are not specific for ischemic heart disease. Elevated TnI levels are seen in patients with other cardiac conditions (including myocarditis and congestive h eart failure), and slight TnI elevations occur in patients with other conditions , including sepsis, renal failure, acidosis, acute neurological disease, and per sistent tachyarrhythmia.CREATINE KINASE (CK)2018-03-24 13:37:00* Test Item Value Reference Range Comments CREATINE KINASE TOTAL (BEAKER) (test dgcu=812) 649 U/L 29-200 [id number] 05:26:00* Test Item Value Reference Range Comments MAGNESIUM (BEAKER) (test vhdp=479) 1.8 mg/dL 1.6-2.6 BASIC METABOLIC [id number] 05:26:00* Test Item Value Reference Range Comments SODIUM (BEAKER) (test fokf=393) 138 meq/L 136-145 POTASSIUM (BEAKER) (test srkf=200) 4.0 meq/L 3.5-5.1 CHLORIDE (BEAKER) (test hlxo=046) 106 meq/L 98-107 CO2 (BEAKER) (test uqjh=298) 28 meq/L 22-29 BLOOD UREA NITROGEN (BEAKER) (test nrqw=747) 17 mg/dL 7-21 CREATININE (BEAKER) (test icwb=329) 0.75 mg/dL 0.57-1.25 GLUCOSE RANDOM (BEAKER) (test junn=764) 122 mg/dL 70-105 CALCIUM (BEAKER) (test raej=959) 8.6 mg/dL 8.4-10.2 EGFR (BEAKER) (test adey=2968) 75 mL/min/1.73 sq m ESTIMATED GFR IS NOT ACCURATE CREATININE CLEARANCE IN PREDICTING GLOMERULAR FILTRATION RATE. ESTIMATED GFR IS NOT APPLICABLE FOR DIALYSIS PATIENTS. CBC (HEMOGRAM ONLY)2018-03-24 05:02:00* Test Item Value Reference Range Comments WHITE BLOOD CELL COUNT (BEAKER) (test meel=911) 22.6 K/ L 3.5-10.5 RED BLOOD CELL COUNT (BEAKER) (test dizn=960) 3.36 M/ L 3.93-5.22 HEMOGLOBIN (BEAKER) (test qkvc=267) 10.4 GM/DL 11.2-15.7 HEMATOCRIT (BEAKER) (test ymjs=595) 33.4 % 34.1-44.9 MEAN CORPUSCULAR VOLUME (BEAKER) (test rcks=651) 99.4 fL 79.4-94.8 MEAN CORPUSCULAR HEMOGLOBIN (BEAKER) (test pvbu=999) 31.0 pg 25.6-32.2 MEAN CORPUSCULAR HEMOGLOBIN CONC (BEAKER) (test cfio=655) 31.1 GM/DL 32.2-35.5 RED CELL DISTRIBUTION WIDTH (BEAKER) (test zwrc=799) 13.7 % 11.7-14.4 PLATELET COUNT (BEAKER) (test rqdk=585) 194 K/CU MM 150-450 MEAN PLATELET VOLUME (BEAKER) (test rpwk=635) 10.2 fL 9.4-12.3 NUCLEATED RED BLOOD CELLS (BEAKER) (test ewli=210) 0 /100 WBC 0-0 AMYLASE, BODY [id number] 07:07:00* Test Item Value Reference Range Comments AMYLASE FLUID (BEAKER) (test bxof=374) 2219 U/L Absence of reference range indicates that normals have not been defined.Assay pe rformance has not been validated for this type of specimen.[id number] 06:09:00* Test Item Value Reference Range Comments MAGNESIUM (BEAKER) (test gwph=132) 1.6 mg/dL 1.6-2.6 BASIC METABOLIC [id number] 06:09:00* Test Item Value Reference Range Comments SODIUM (BEAKER) (test aokp=856) 139 meq/L 136-145 POTASSIUM (BEAKER) (test dvqb=023) 4.4 meq/L 3.5-5.1 CHLORIDE (BEAKER) (test hnbt=797) 110 meq/L 98-107 CO2 (BEAKER) (test zgzu=501) 23 meq/L 22-29 BLOOD UREA NITROGEN (BEAKER) (test gxaz=755) 16 mg/dL 7-21 CREATININE (BEAKER) (test lovl=403) 0.79 mg/dL 0.57-1.25 GLUCOSE RANDOM (BEAKER) (test ljil=811) 169 mg/dL 70-105 CALCIUM (BEAKER) (test apky=544) 8.4 mg/dL 8.4-10.2 EGFR (BEAKER) (test tkew=0013) 71 mL/min/1.73 sq m ESTIMATED GFR IS NOT ACCURATE CREATININE CLEARANCE IN PREDICTING GLOMERULAR FILTRATION RATE. ESTIMATED GFR IS NOT APPLICABLE FOR DIALYSIS PATIENTS. CBC (HEMOGRAM ONLY)2018-03-23 05:35:00* Test Item Value Reference Range Comments WHITE BLOOD CELL COUNT (BEAKER) (test hves=242) 19.7 K/ L 3.5-10.5 RED BLOOD CELL COUNT (BEAKER) (test xmkp=358) 3.63 M/ L 3.93-5.22 HEMOGLOBIN (BEAKER) (test ugre=794) 11.3 GM/DL 11.2-15.7 HEMATOCRIT (BEAKER) (test owve=976) 36.1 % 34.1-44.9 MEAN CORPUSCULAR VOLUME (BEAKER) (test ifbb=517) 99.4 fL 79.4-94.8 MEAN CORPUSCULAR HEMOGLOBIN (BEAKER) (test rcmi=216) 31.1 pg 25.6-32.2 MEAN CORPUSCULAR HEMOGLOBIN CONC (BEAKER) (test jrap=485) 31.3 GM/DL 32.2-35.5 RED CELL DISTRIBUTION WIDTH (BEAKER) (test ldvo=006) 13.5 % 11.7-14.4 PLATELET COUNT (BEAKER) (test lqif=152) 164 K/CU MM 150-450 MEAN PLATELET VOLUME (BEAKER) (test thni=445) 11.0 fL 9.4-12.3 NUCLEATED RED BLOOD CELLS (BEAKER) (test cuaw=603) 0 /100 WBC 0-0 BASIC METABOLIC [id number] 14:25:00* Test Item Value Reference Range Comments SODIUM (BEAKER) (test rgro=428) 139 meq/L 136-145 POTASSIUM (BEAKER) (test nazj=381) 4.4 meq/L 3.5-5.1 CHLORIDE (BEAKER) (test utnj=684) 109 meq/L 98-107 CO2 (BEAKER) (test ophy=020) 24 meq/L 22-29 BLOOD UREA NITROGEN (BEAKER) (test zviw=738) 15 mg/dL 7-21 CREATININE (BEAKER) (test afpq=352) 0.75 mg/dL 0.57-1.25 GLUCOSE RANDOM (BEAKER) (test iuvb=291) 203 mg/dL 70-105 CALCIUM (BEAKER) (test ecpm=757) 8.3 mg/dL 8.4-10.2 EGFR (BEAKER) (test sxkd=2502) 75 mL/min/1.73 sq m ESTIMATED GFR IS NOT ACCURATE CREATININE CLEARANCE IN PREDICTING GLOMERULAR FILTRATION RATE. ESTIMATED GFR IS NOT APPLICABLE FOR DIALYSIS PATIENTS. CBC (HEMOGRAM ONLY)2018-03-22 14:07:00* Test Item Value Reference Range Comments WHITE BLOOD CELL COUNT (BEAKER) (test woha=806) 16.9 K/ L 3.5-10.5 RED BLOOD CELL COUNT (BEAKER) (test qrom=948) 3.96 M/ L 3.93-5.22 HEMOGLOBIN (BEAKER) (test sbug=197) 12.3 GM/DL 11.2-15.7 HEMATOCRIT (BEAKER) (test lmct=105) 38.7 % 34.1-44.9 MEAN CORPUSCULAR VOLUME (BEAKER) (test oqcz=108) 97.7 fL 79.4-94.8 MEAN CORPUSCULAR HEMOGLOBIN (BEAKER) (test quub=360) 31.1 pg 25.6-32.2 MEAN CORPUSCULAR HEMOGLOBIN CONC (BEAKER) (test veak=056) 31.8 GM/DL 32.2-35.5 RED CELL DISTRIBUTION WIDTH (BEAKER) (test euqc=234) 13.2 % 11.7-14.4 PLATELET COUNT (BEAKER) (test iybj=202) 182 K/CU MM 150-450 MEAN PLATELET VOLUME (BEAKER) (test zvuh=837) 10.4 fL 9.4-12.3 NUCLEATED RED BLOOD CELLS (BEAKER) (test ytmw=176) 0 /100 WBC 0-0 URINALYSIS WITHOUT [id number] 11:46:00* Test Item Value Reference Range Comments COLOR (BEAKER) (test wsmg=637) Yellow CLARITY (BEAKER) (test ffmu=075) Clear SPECIFIC GRAVITY UA (BEAKER) (test slzq=076) 1.020 1.001-1.035 PH UA (BEAKER) (test jyzn=792) 5.0 5.0-8.0 PROTEIN UA (BEAKER) (test ogph=646) Negative Negative GLUCOSE UA (BEAKER) (test vbgq=063) Negative Negative KETONES UA (BEAKER) (test ejlr=183) Trace Negative BILIRUBIN UA (BEAKER) (test euus=907) Negative Negative BLOOD UA (BEAKER) (test qvqq=473) Small Negative NITRITE UA (BEAKER) (test abod=306) Negative Negative LEUKOCYTE ESTERASE UA (BEAKER) (test ucto=177) Negative Negative UROBILINOGEN UA (BEAKER) (test pqlm=429) 0.2 mg/dL 0.2-1.0 SOURCE(BEAKER) (test qitk=6643) CALCIUM, [id number] 11:25:00* Test Item Value Reference Range Comments CALCIUM IONIZED (BEAKER) (test stwm=548) 1.10 mmol/L 1.12-1.27 PH, BLOOD (BEAKER) (test pccu=0052) 7.33 BLOOD GAS, [id number] 11:25:00* Test Item Value Reference Range Comments PH ARTERIAL (BEAKER) (test rcnj=082) 7.33 7.35-7.45 PCO2 ARTERIAL (BEAKER) (test swuh=404) 48 mmHg 35-45 PO2 ARTERIAL (BEAKER) (test ulhm=064) 186 mmHg 80-90 O2 SATURATION ARTERIAL (BEAKER) (test onvp=209) 99.2 % 96.0-97.0 HCO3 ARTERIAL (BEAKER) (test ogyh=888) 25 mmol/L 21-29 BASE EXCESS ARTERIAL (BEAKER) (test wfsi=774) -1.3 mmol/L -2.0-3.0 PATIENT TEMPERATURE (BEAKER) (test irbg=7674) 37.0 C FIO2 (BEAKER) (test jnhj=3954) 100.0 % GLUCOSE-STAT [id number] 11:25:00* Test Item Value Reference Range Comments GLUCOSE RANDOM (BEAKER) (test jesq=403) 168 mg/dL 70-110 SODIUM NA-STAT [id number] 11:24:00* Test Item Value Reference Range Comments SODIUM (BEAKER) (test erli=429) 139 meq/L 135-148 POTASSIUM-STAT [id number] 11:24:00* Test Item Value Reference Range Comments POTASSIUM (BEAKER) (test hcfr=541) 4.4 meq/L 3.6-5.5 HGB/HCT (H&H) - STAT [id number] 11:24:00* Test Item Value Reference Range Comments HEMOGLOBIN (BEAKER) (test yakc=790) 12.4 g/dL 12.0-15.0 HEMATOCRIT (BEAKER) (test upem=241) 36.0 % 36.0-45.0 [id number] 10:29:00* Test Item Value Reference Range Comments PARTIAL THROMBOPLASTIN TIME (BEAKER) (test ntkw=785) 42.2 seconds 22.5-36.0 [id number] 08:41:00* Test Item Value Reference Range Comments CALCIUM (BEAKER) (test rpqe=196) 9.7 mg/dL 8.4-10.2 [id number] 08:41:00* Test Item Value Reference Range Comments LIPASE (BEAKER) (test kyxz=886) 79 U/L 8-78 [id number] 08:41:00* Test Item Value Reference Range Comments AMYLASE (BEAKER) (test tynf=742) 90 U/L 25-125 Specimen slightly hemolyzed PROTHROMBIN TIME/[id number] 08:35:00* Test Item Value Reference Range Comments PROTIME (BEAKER) (test tvmo=391) 12.8 seconds 11.7-14.7 INR (BEAKER) (test vcjd=263) 1.0 <=5.9 RECOMMENDED COUMADIN/WARFARIN INR THERAPY RANGESSTANDARD DOSE: 2.0 - 3.0 Inclu danielle: PROPHYLAXIS for venous thrombosis, systemic embolization; TREATMENT for jeanne ous thrombosis and/or pulmonary embolus.HIGH RISK: Target INR is 2.5-3.5 for pat ients with mechanical heart valves.CALCIUM, [id number] 08:34:00* Test Item Value Reference Range Comments CALCIUM IONIZED (BEAKER) (test ylft=401) 1.16 mmol/L 1.12-1.27 PH, BLOOD (BEAKER) (test yrpn=6864) 7.38 FINE NEEDLE ASPIRATION BY [id number] 14:46:00Medical Cytology Report Case: [id number] Authorizing Provider: Tasia El MD Collected: 02/21/2018 1233 Ordering Location: [facility] Endoscopy Received: 02/21/2018 1555 Services Pathologist: Rosario Eli MD Specimen: Pancreas, mass pancreas tail TAIL OF PANCREAS MASS, FNA BY CLINICIAN (CYTOSPINS AND CELL BLOCK OF ASPIRATE): - POSITIVE FOR MALIGNANCY - ADENOCARCINOMA Signing Pathologist Direct Phone Line: [phone] signed by Rosario Eli MD on 02/22/2018 at 2:46 [id number], [id number] patient's electronic medical record: irregular hypoechoic 2.4 x 2.9 cm mass identified in the pancreatic tailTAIL OF PANCREAS MASS FNAPrepared cell block(A2) and 4 cytospins from 30 ml cytorich red fixative sampleCollected: [id number]: [id number] [facility], Department of Pathology, [address] [place] [address], [facility], [address] [place] [id number], [facility] , Department of Pathology, [address] [place] [address], Tel FINE NEEDLE ASPIRATE (FNA) [id number] 17:00:00* Test Item Value Reference Range Comments CYTOLOGY RESULT POINTER (BEAKER) (test mnbf=3442) See Separate Report
[2019-04-22 19:42] LABS: BILIRUBIN,URINE NEGATIVE (NEGATIVE); CLARITY,URINE CLEAR (CLEAR); COLOR,URINE YELLOW (YELLOW); NITRITE,URINE NEGATIVE (NEGATIVE); PROTEIN,URINE DIPSTICK NEGATIVE (NEGATIVE); URINE UROBILINOGEN 0.2 mg/dL (0.2 - 1)
[2019-04-22 19:43] LABS: KETONES,URINE 1+ (NEGATIVE); LEUKOCYTE ESTERASE ,URINE TRACE (NEGATIVE)
--- NOTE | 2019-04-22 20:11 | Diagnostic Imaging Report ---
Exam: KUB - 2 views Clinical History: Abdominal pain. Comparison: None. Findings: Nonobstructive bowel gas pattern. No evidence of free intraperitoneal air. No acute bony abnormality. Diffuse osteopenia. Mild degenerative changes of bilateral hips. Surgical clips project over the upper abdomen. Coronary atherosclerosis. Impression: No acute radiographic abnormality. Signed by: Dr. Kristie Mccoy MD on 04/22/2019 8:08 PM
[2019-04-22 20:19] LABS: BASOPHILS # (AUTO) 0.2 (0.0-0.1); BASOPHILS % 1.4 % (0.0-1.0); EOSINOPHILS # (AUTO) 0.2 (0.0-0.4); EOSINOPHILS % 2.2 % (0.0-6.0); HEMATOCRIT 39.9 % (34.2-44.1); HEMOGLOBIN 13.1 g/dL (12.0-16.0); LYMPHOCYTES # (AUTO) 3.2 (1.0-3.2); LYMPHOCYTES % 28.6 % (18.0-39.1); MEAN CORPUSCULAR HEMOGLOBIN 30.8 pg (28-32); MEAN CORPUSCULAR HGB CONC 32.8 g/dL (31-35); MEAN CORPUSCULAR VOLUME 93.7 fL (81-99); MONOCYTES # (AUTO) 0.8 (0.2-0.8); MONOCYTES % 7.6 % (4.4-11.3); NEUTROPHILS # (AUTO) 6.7 (2.1-6.9); NEUTROPHILS % 59.8 % (38.7-80.0); PLATELET COUNT 395 x10e3/uL (140-360); RED BLOOD COUNT 4.26 x10e6/uL (3.6-5.1); RED CELL DISTRIBUTION WIDTH 15.6 % (11.7-14.4)
[2019-04-22 20:21] LABS: BACTERIA,URINE FEW /HPF; EPITHELIAL CELLS,URINE FEW /LPF; RBC,URINE 0-5 /HPF (0-5)
[2019-04-22 20:32] LABS: ALBUMIN 4.2 g/dL (3.5-5.0); ALBUMIN/GLOBULIN RATIO 1.2 (0.8-2.0); AMYLASE 164 U/L (25-125); ANION GAP 12.1 mmol/L (8-16); CALCIUM 9.9 mg/dL (8.4-10.2); CREATININE, SERUM 1.21 mg/dL (0.57-1.11); LIPASE 53 U/L (8-78); POTASSIUM 4.1 mmol/L (3.5-5.1)
[2019-04-22] MEDS ORDERED: SODIUM CHLORIDE 0.9% 1000ML 1,000 ML IV ONE (21:00)
[2019-04-22] MEDS ORDERED: IOPAMIDOL 370 MG/ML 200 ML INFUS..BTL INJ ONE (21:30)
[2019-04-22] MEDS ORDERED: SODIUM CHLORIDE 0.9% 50ML 50 ML ONE (21:31)
--- NOTE | 2019-04-22 22:33 | Diagnostic Imaging Report ---
EXAM: CT Abdomen and Pelvis WITH contrast INDICATION: Abdominal Pain with vomiting, history of pancreas cancer. COMPARISON: None. TECHNIQUE: Abdomen and pelvis were scanned utilizing a multidetector helical scanner from the lung base to the pubic symphysis after administration of IV contrast. Coronal and sagittal reformations were obtained. Routine protocol was performed. Scan was performed when during portal venous phase. IV CONTRAST: 100 cc of Isovue-370 ORAL CONTRAST: Water COMPLICATIONS: None RADIATION DOSE: Total DLP: 427.5 mGy*cm Estimated effective dose: (DLP x 0.015 x size factor) mSv CTDIvol has been reviewed. It is below the limits set by the Radiation Protocol Committee (RPC). FINDINGS: LINES and TUBES: None. LOWER THORAX: There is a 9 mm solid nodule in the right lower lobe on series 2, image 9, and a 6 mm nodule in the right lower lobe on image 8. HEPATOBILIARY: Hepatomegaly with hepatic steatosis. There are multiple ill-defined hyperdense lesions, for example a right hepatic dome lesion measuring 1.1 cm on series 2, image 11, a segment 8 hyperdense lesion measuring 1.5 cm on image 14, and a segment 4 lesion measuring 1.3 cm on image 14. Dilated intrahepatic and hepatic bile ducts, likely secondary to postcholecystectomy reservoir effect. GALLBLADDER: Status post cholecystectomy. SPLEEN: Status post splenectomy. PANCREAS: Status post distal pancreatectomy. There are multiple hypodense cystic lesions adjacent to one another along the superior aspect of the body of the pancreas, the largest measuring up to 4.2 cm measuring simple fluid attenuation on coronal image 35. There is an additional 1.9 cm cystic lesion on image 43 and a 2.8 cm cystic lesion on image 48. Inferiorly, there is a 1.3 cm cystic lesion near the pancreatic anastomotic sutures, on axial series 2, image 30. Mildly dilated pancreatic duct at the head, measuring up to 3 mm. ADRENALS: No adrenal nodules KIDNEYS/URETERS: Kidneys enhance symmetrically. No evidence of hydronephrosis, solid mass, or stone. GI TRACT: No evidence of wall thickening or distension. Per clinical history, the patient is status post appendectomy. PELVIC ORGANS/BLADDER: Uterus is hypodense in appearance. Prominent pelvic collaterals. LYMPH NODES: No retroperitoneal lymphadenopathy. See peritoneal section below. VESSELS: There is moderate to severe atherosclerotic disease in the aorta and major arterial branches. Ectatic infrarenal abdominal aorta, measuring up to 2.6 cm. Postsurgical changes of the celiac artery. PERITONEUM / RETROPERITONEUM: There are multiple peritoneal nodules, for example in the anterior peritoneum measuring 1.3 cm on series 2, image 50. Mesenteric soft tissue nodule measuring 2.1 x 0.7 cm on series 2, image 35. No free air or fluid. BONES AND SOFT TISSUES: No acute osseous abnormality. Postsurgical changes in the anterior abdominal wall. CONCLUSION: Status post distal pancreatectomy and splenectomy for reported history of pancreatic cancer. Peritoneal nodularity and right lower lobe pulmonary nodules, suspicious for metastases. No evidence of bowel obstruction. Hyperdense ill-defined hepatic lesions may represent metastases; hyperdense lesions would be uncommon in the setting of pancreatic adenocarcinoma, but may be seen in neuroendocrine tumor. Recommend comparison with prior imaging. Multiple cystic lesions which abut the pancreatic body, largest measuring up to 4.2 cm. The differential includes pancreatic pseudocysts. There is no significant inflammatory changes to suggest abscess. Malignancy is also on the differential. Recommend comparison with prior imaging and oncologic follow-up. Hypodense appearance of the uterus, incompletely evaluated. Recommend nonemergent follow-up pelvic ultrasound for further evaluation. Prominent pelvic collaterals, which may be seen in pelvic congestion syndrome. Signed by: Dr. Kristie Mccoy MD on 04/22/2019 10:31 PM
== END 2019-04-22 23:07 | disposition home or self-care (01) ==
LOC: ER 18:36
DX: R10.84 Generalized abdominal pain (principal); R11.2 Nausea with vomiting, unspecified; G62.9 Polyneuropathy, unspecified; E03.9 Hypothyroidism, unspecified; Z85.07 Personal history of malignant neoplasm of pancreas
CPT/HCPCS: 36415; 74018; 74177; 80053; 81001; 82150; 83690; 85025; 87086; 99284; J7030; Q9967

== ENCOUNTER 2019-10-01 15:58 | Inpatient (IN) | payer MEDICARE, OTHER ==
[~2019-10-01] VITALS: Ht 170.2 cm; Wt 57.4 kg
[2019-10-01] MEDS ORDERED: HYDROMORPHONE 1MG/1ML INJ IV STA (16:08)
[2019-10-01] MEDS ORDERED: ONDANSETRON HCL INJ 2MG/ML 2ML 2 MG/ML VIAL IV STA (16:08)
[2019-10-01] MEDS ORDERED: SODIUM CHLORIDE 0.9% 1000ML 1,000 ML IV STA ×2 (16:08→19:03)
--- NOTE | 2019-10-01 16:22 | Emergency Department Note ---
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 Patient had chemotherapy over 1 week ago and continues to have nausea vomiting. Patient states that she has had multiple episodes of emesis over the last 3 days and is unable to keep anything down. Patient's doctor is Kath Fox . Historian: Patient Arrival Mode: Car Additional Treatment RN UTILIZATION MANAGEMENT UM: NONE Onset (how long ago): day(s) (3) Location: diffuse Severity: severe Duration (how long): day(s) (3) Timing of current episode: constant Progression: worsening Chronicity: new Context: Reports other (h/o CA) Relieving factors: none Exacerbating factors: none Associated symptoms: Reports loss of appetite, Reports nausea/vomiting, Reports weakness (non focal ); Denies confusion, Denies chest pain, Denies fever/chills, Denies shortness of breath, Denies syncope (SILVIA ARNETT MD) Past Medical/Family History Physician Review I have reviewed the patient's past medical and family history. Any updates have been documented here. (SILVIA ARNETT MD) Past Medical History Recent Fever: No Clinical Suspicion of Infectio: No New/Unexplained Change in Ment: No Past Medical History: Hypothyroidism Other Medical History: NEUROPATHY pancreatic ca Past Surgical History: Cholecysctectomy, Appendectomy Other Surgery: removed part of pancreas due to pancreatic ca spleen removal (SILVIA ARNETT MD) Other Last Tetanus: 2011 (SILVIA ARNETT MD) Review of Systems Review of Systems Constitutional: Reports no symptoms EENTM: Reports no symptoms Cardiovascular: Reports no symptoms Respiratory: Reports no symptoms Gastrointestinal: Reports as per HPI Genitourinary: Reports no symptoms Musculoskeletal: Reports no symptoms Integumentary: Reports no symptoms Neurological: Reports no symptoms Psychological: Reports no symptoms Endocrine: Reports no symptoms Hematological/Lymphatic: Reports no symptoms (SILVIA ARNETT MD) Physical Exam Related Data Allergies: Coded Allergies: No Known Allergies (Unverified , 10/01/19) Triage Vital Signs Vital Signs Date Time Temp Pulse Resp B/P (MAP) Pulse Ox O2 Delivery O2 Flow Rate FiO2 10/01/19 16:04 98.1 87 18 190/97 99 Room Air Vital signs reviewed: Yes (SILVIA ARNETT MD) Physical Exam CONSTITUTIONAL Constitutional: Present other (chronically ill) HENT HENT: Present normocephalic, Present atraumatic, Present oropharynx clear/moist, Present nose normal HENT L/R: Present left ext ear normal, Present right ext ear normal EYES Eyes: Reports PERRL, Reports conjunctivae normal NECK Neck: Present ROM normal PULMONARY Pulmonary: Present effort normal, Present breath sounds normal CARDIOVASCULAR Cardiovascular: Present regular rhythm, Present heart sounds normal, Present capillary refill normal, Present normal rate GASTROINTESTINAL Abdominal: Present soft, Present bowel sounds normal, Present tender (TTP bilateral lower quadrants ) GENITOURINARY Genitourinary: Present exam deferred SKIN Skin: Present warm, Present dry MUSCULOSKELETAL Musculoskeletal: Present ROM normal NEUROLOGICAL Neurological: Present alert, Present oriented x 3, Present no gross motor or sensory deficits PSYCHOLOGICAL Psychological: Present mood/affect normal, Present judgement normal (SILVIA ARNETT MD) Results Laboratory Lab results reviewed: Yes Laboratory comments Laboratory Tests Test 10/01/19 18:41 10/01/19 16:30 10/01/19 16:14 White Blood Count 10.32 x10e3/uL (4.8-10.8) Red Blood Count 4.05 x10e6/uL (3.6-5.1) Hemoglobin 13.2 g/dL (12.0-16.0) Hematocrit 39.1 % (34.2-44.1) Mean Corpuscular Volume 96.5 fL (81-99) Mean Corpuscular Hemoglobin 32.6 pg (28-32) Mean Corpuscular Hemoglobin Concent 33.8 g/dL (31-35) Red Cell Distribution Width 17.9 % (11.7-14.4) Platelet Count 325 x10e3/uL (140-360) Neutrophils (%) (Auto) 60.7 % (38.7-80.0) Lymphocytes (%) (Auto) 27.4 % (18.0-39.1) Monocytes (%) (Auto) 9.9 % (4.4-11.3) Eosinophils (%) (Auto) 0.8 % (0.0-6.0) Basophils (%) (Auto) 0.7 % (0.0-1.0) Neutrophils # (Auto) 6.3 (2.1-6.9) Lymphocytes # (Auto) 2.8 (1.0-3.2) Monocytes # (Auto) 1.0 (0.2-0.8) Eosinophils # (Auto) 0.1 (0.0-0.4) Basophils # (Auto) 0.1 (0.0-0.1) Absolute Immature Granulocyte (auto 0.05 x10e3/uL (0-0.1) Sodium Level 142 mmol/L (136-145) Potassium Level 2.6 mmol/L (3.5-5.1) Chloride Level 98 mmol/L (98-107) Carbon Dioxide Level 22 mmol/L (22-29) Anion Gap 24.6 mmol/L (8-16) Blood Urea Nitrogen 5 mg/dL (7-26) Creatinine 0.74 mg/dL (0.57-1.11) Estimat Glomerular Filtration Rate > 60 ML/MIN (60-) BUN/Creatinine Ratio 7 (6-25) Glucose Level 78 mg/dL (74-118) Calcium Level 8.7 mg/dL (8.4-10.2) Total Bilirubin 0.8 mg/dL (0.2-1.2) Aspartate Amino Transf (AST/SGOT) 22 IU/L (5-34) Alanine Aminotransferase (ALT/SGPT) 7 IU/L (0-55) Alkaline Phosphatase 65 IU/L (40-150) Total Protein 6.3 g/dL (6.5-8.1) Albumin 3.4 g/dL (3.5-5.0) Globulin 2.9 g/dL (2.3-3.5) Albumin/Globulin Ratio 1.2 (0.8-2.0) Lipase 230 U/L (8-78) Urine Color Yellow (YELLOW) Urine Clarity Sl cloudy (CLEAR) Urine pH 6.5 (5 - 7) Urine Specific [place] 1.025 (1.010-1.025) Urine Protein Trace (NEGATIVE) Urine Glucose (UA) Negative (NEGATIVE) Urine Ketones >=160 (NEGATIVE) Urine Blood Negative (NEGATIVE) Urine Nitrite Negative (NEGATIVE) Urine Bilirubin Moderate (NEGATIVE) Urine Urobilinogen 1 mg/dL (0.2 - 1) Urine Leukocyte Esterase Small (NEGATIVE) Urine RBC 0-5 /HPF (0-5) Urine WBC 6-10 /HPF (0-5) Urine Epithelial Cells Few /LPF (NONE) Urine Amorphous Sediment Few (FEW) Urine Bacteria Moderate /HPF (NONE) Urine Hyaline Casts 6-10 (0-1) (GRISELDA PRUITT DO) Imaging Imaging results reviewed: Yes Impressions [place] [id number] [place] [id number] Patient Name: MARITZA JONES MR #: [id number] : 1940 Age/Sex: 78/F Req #: [id number] Adm Physician: Ordered by: SILVIA ARNETT MD Report #: [id number] Location: ER Room/Bed: Procedure: [id number] CT/CT ABDOMEN/PELVIS W Exam Date: 10/01/19 Exam Time: 1747 REPORT STATUS: Signed EXAM: CT Abdomen and Pelvis WITH contrast INDICATION: Abdominal pain. COMPARISON: CT abdomen and pelvis on 04/22/2019. TECHNIQUE: Abdomen and pelvis were scanned utilizing a multidetector helical scanner from the lung base to the pubic symphysis after administration of IV contrast. Coronal and sagittal reformations were obtained. Routine protocol was performed. Scan was performed when during portal venous phase. IV CONTRAST: 100 mL of Isovue 370 ORAL CONTRAST: None COMPLICATIONS: None RADIATION DOSE: Total DLP: 183.37 mGy*cm Estimated effective dose: (DLP x 0.015 x size factor) mSv CTDIvol has been reviewed. It is below the limits set by the Radiation Protocol Committee (RPC). Dose modulation, iterative reconstruction, and/or weight based adjustment of the mA/kV was utilized to reduce the radiation dose to as low as reasonably achievable. FINDINGS: LINES and TUBES: None. LOWER THORAX: Redemonstration of 6 mm nodule in the right lower lobe. HEPATOBILIARY: The liver appears diffusely compatible hepatic steatosis. No focal hepatic lesions identified. No biliary ductal dilation. GALLBLADDER: Surgically absent. SPLEEN: Status post splenectomy. PANCREAS: Status post distal pancreatectomy. There is redemonstration of hypodense nodularity is within the surgical bed, the largest measuring approximately 1.2 x 1.1 cm (series 2 image 27). ADRENALS: No adrenal nodules KIDNEYS/URETERS: Kidneys enhance symmetrically. No hydronephrosis. No cystic or solid mass lesions. No stones. GI TRACT: There is an ill-defined soft tissue mass invading the wall of the gastric antrum (series 2 images 32-36) with tethering of the adjacent mesentery. There is diffuse mucosal wall hyperenhancement and mild thickening of the ascending and transverse colon with subtle pericolonic fat stranding. Additionally, there is soft tissue attenuation in the anterior peritoneal space which appears to invade the adjacent transverse colon (series 2 images 33-38). No abnormal distention or evidence of bowel obstruction. The appendix is not visualized. PELVIC ORGANS/BLADDER: Unremarkable. LYMPH NODES: No lymphadenopathy. VESSELS: The abdominal aorta and its major abdomen and pelvic branches are patent with atherosclerotic calcification. The infrarenal abdominal aorta appears slightly ectatic measuring up to 2.8 x 2.6 cm. PERITONEUM / RETROPERITONEUM: There is redemonstration of multiple peritoneal nodules some of which have increased in size. Foreign stones 1.4 x 1.2 cm nodule (series 2 image 45) 1.9 x 1.6 cm nodule (series 2 image 53). There is small amount of ascites around the liver. BONES: There are degenerative changes in the spine. No suspicious osteolytic or osteoblastic lesions. SOFT TISSUES: Unremarkable. IMPRESSION: 1. Status post pancreatectomy and splenectomy for reported history of pancreatic cancer. There is redemonstration multiple peritoneal nodules some of which have increased in size since prior examination, suspicious for progression of metastatic disease. 2. Redemonstration of multiple cystic lesions in the pancreatic bed the largest measuring up to 1.2 cm which may represent pancreatic pseudocyst or malignancy. 3. Ill-defined soft tissue mass invading the wall of the gastric antrum with tethering of the adjacent mesentery. This finding is suspicious for metastatic disease with gastric involvement. An endoscopy with tissue sampling can be considered. 4. Diffuse mucosal wall hyperenhancement and mild thickening of the ascending and transverse colon with subtle pericolonic fat stranding which may represent colitis. 5. Hepatic steatosis and small ascites. 6. A 6 mm nodule in the right lower lobe. Signed by: Carleen Joiner MD on 10/01/2019 6:44 PM Dictated By: CARLEEN JOINER MD 43 Transcribed By: VERONICA on 10/01/191843 COPY TO: SILVIA ARNETT MD~ (GRISELDA PRUITT DO) Procedures 12 Lead ECG Interpretation ECG Interpretation : ECG: ECG 1 Pastry Chef: Interpreted by ED physician Date: Oct 01, 2019 Time: 18:11 Prior ECG tracings: reviewed Rhythm: sinus tachycardia Rate: tachycardia BPM: 142 ST segments normal: No ST segment flattening: V4, V5, V6 T waves normal: Yes Other findings: prolonged QTc interval Clinical Impression: abnormal ECG (GRISELDA PRUITT DO) Central Line Placement Central Line Location: right femoral Time out performed: Yes Patient Placed on Monitor/Puls: Yes MD Prep: mask, gown, gloves, other Local Anesthetic: lidocaine 1% Amount of anesthesia used (mL): 5 Central Line Lumen Inserted: triple Post Procedure: sutured in place, good blood return, all ports aspirated/flushed/capped, sterile dressing applied Patient tolerated procedure: well Complications: none (GRISELDA PRUITT DO) Assessment & Plan Medical Decision Making MDM Patient is a 78-year-old female with history of pancreatic cancer metastasized to the intestines here for intractable nausea and vomiting. We will workup with lab work, CT and treat symptomatically in the meantime. (SILVIA ARNETT MD) MDM Diff Dx : ACS, metastasis, SBO, biliary obstruction or pathology. During of the ED workup patient was noted to have a rate of 142 which was paroxysmal. CVC placed for admininstration of high dose potassium IV. Admitted to the service of Dr Arsenio Beaulieu (GRISELDA PRUITT DO) Assessment & Plan Final Impression: (1) Intractable nausea and vomiting (2) Pancreatitis (3) UTI (urinary tract infection) (4) Hypokalemia (5) Sinus tachycardia (GRISELDA PRUITT DO) Depart Disposition: ADMITTED Last Vital Signs Date Time Temp Pulse Resp B/P (MAP) Pulse Ox O2 Delivery O2 Flow Rate FiO2 10/01/19 16:04 98.1 87 18 190/97 99 Room Air (SILVIA ARNETT MD) Home Meds Reported Medications Gabapentin (GABAPENTIN) 300 Mg Capsule, 300 MG PO BEDTIME, #60 CAP 02/01/14 Levothyroxine Sodium (LEVOTHYROXINE SODIUM) 25 Mcg Tablet, 25 MCG PO DAILY 07/09/12 Medications in the ED Sodium Chloride 1,000 ml @ 0 mls/hr Q0M STAT IV ; Start 10/01/19 at 16:08; Stop 10/01/19 at 16:09 Hydromorphone HCl 0.5 mg NOW STAT IV ; Start 10/01/19 at 16:08; Stop 10/01/19 at 16:09 Ondansetron HCl 4 mg NOW STAT IV ; Start 10/01/19 at 16:08; Stop 10/01/19 at 16:09 (SILVIA ARNETT MD) SILVIA ARNETT MD Oct 01, 2019 16:21 GRISELDA PRUITT DO Oct 01, 2019 18:39
[2019-10-01 16:34] LABS: BILIRUBIN,URINE MODERATE (NEGATIVE); CLARITY,URINE SL CLOUDY (CLEAR); COLOR,URINE YELLOW (YELLOW); KETONES,URINE >=160 (NEGATIVE); LEUKOCYTE ESTERASE ,URINE SMALL (NEGATIVE); NITRITE,URINE NEGATIVE (NEGATIVE); PROTEIN,URINE DIPSTICK TRACE (NEGATIVE); URINE UROBILINOGEN 1 mg/dL (0.2 - 1)
[2019-10-01 16:45] LABS: AMORPHOUS SEDIMENT,URINE FEW (FEW); BACTERIA,URINE MODERATE /HPF; EPITHELIAL CELLS,URINE FEW /LPF; RBC,URINE 0-5 /HPF (0-5)
[2019-10-01 16:47] LABS: BASOPHILS # (AUTO) 0.1 (0.0-0.1); BASOPHILS % 0.7 % (0.0-1.0); EOSINOPHILS # (AUTO) 0.1 (0.0-0.4); EOSINOPHILS % 0.8 % (0.0-6.0); HEMATOCRIT 39.1 % (34.2-44.1); HEMOGLOBIN 13.2 g/dL (12.0-16.0); LYMPHOCYTES # (AUTO) 2.8 (1.0-3.2); LYMPHOCYTES % 27.4 % (18.0-39.1); MEAN CORPUSCULAR HEMOGLOBIN 32.6 pg (28-32); MEAN CORPUSCULAR HGB CONC 33.8 g/dL (31-35); MEAN CORPUSCULAR VOLUME 96.5 fL (81-99); MONOCYTES % 9.9 % (4.4-11.3); NEUTROPHILS # (AUTO) 6.3 (2.1-6.9); NEUTROPHILS % 60.7 % (38.7-80.0); PLATELET COUNT 325 x10e3/uL (140-360); RED BLOOD COUNT 4.05 x10e6/uL (3.6-5.1); RED CELL DISTRIBUTION WIDTH 17.9 % (11.7-14.4)
[2019-10-01 17:06] LABS: ALANINE AMINOTRANSFERASE 7 IU/L (0-55); ALBUMIN 3.4 g/dL (3.5-5.0); ALBUMIN/GLOBULIN RATIO 1.2 (0.8-2.0); ALKALINE PHOSPHATASE 65 IU/L (40-150); ANION GAP 24.6 mmol/L (8-16); BLOOD UREA NITROGEN 5 mg/dL (7-26); BUN/CREATININE RATIO 7 (6-25); CALCIUM 8.7 mg/dL (8.4-10.2); CARBON DIOXIDE 22 mmol/L (22-29); CHLORIDE 98 mmol/L (98-107); CREATININE, SERUM 0.74 mg/dL (0.57-1.11); EST GLOMERULAR FILTRATION RATE > 60 ML/MIN (60-); GLUCOSE 78 mg/dL (74-118); LIPASE 230 U/L (8-78); SODIUM 142 mmol/L (136-145)
[2019-10-01 17:07] LABS: POTASSIUM 2.6 mmol/L (3.5-5.1)
--- OUTSIDE RECORDS SUMMARY | 2019-10-01 17:14 | XMS REPORT | Clinical Summary ---
Author Author PARAG [employer] [facility] [employer] [facility] Address Unknown Phone Unavailable Care Team Providers Care Hydraulic Design Engineer Name Role Phone Tomás Veronica MD PCP Unavailable Allergies No Known Allergies Medications End Date Status Medication Sig Dispensed Refills Start Date Active levothyroxine (SYNTHROID, Take 75 mcg 0 LEVOTHROID) 75 MCG tablet by mouth Every morning on an empty stomach. Active gabapentin (NEURONTIN) Take 600 mg 0 600 MG tablet by mouth 2 (two) times daily. Active DULoxetine (CYMBALTA) 30 Take 30 mg by 0 MG capsule mouth daily. Active HYDROcodone-acetaminophen Take 1 tablet 0 (NORCO 7.5-325) 7.5-325 by mouth mg per tablet every 6 (six) hours as needed for Pain. Active ondansetron (ZOFRAN-ODT) Take 1 tablet 30 tablet 0 4 MG disintegrating (4 mg total) 0 tablet by mouth every 8 (eight) hours as needed for Nausea for up to 30 doses. Active loperamide (IMODIUM) 2 mg Take 2 mg by 0 capsule mouth 4 (four) times daily as needed for Diarrhea. 06/22/2019 loperamide (IMODIUM) 2 mg Take 1 30 capsule 0 capsule capsule (2 mg 0 total) by mouth 4 (four) times daily as needed for Diarrhea for up to 10 days. 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 Acute postoperative pain 03/25/2018 COPD (chronic obstructive pulmonary disease) 019 Acquired hypothyroidism 03/25/2018 Leukocytosis 03/25/2018 Pancreatic mass 03/22/2018 Encounters Care Team Description Date Type Specialty 07/09/2019 Orders Only General Internal Tx Karma Yeh DO Ali, MD Ekaterina Ortiz Rosemary, MD Intractable nausea and vomiting (Primary Dx); Chemotherapy induced diarrhea; Moderate dehydration; SVT (supraventricular tachycardia) (HCC) 07/08/2019 Emergency Cardiology - 07/10/2019 07/08/2019 Travel Reggie Singh MD Ali, Sanah Qasam, MD Dehydration (Primary Dx); Nausea and vomiting, intractability of vomiting not specified, unspecified vomiting type; Diarrhea, unspecified type 06/11/2019 Emergency General Internal Tx dicine - 06/12/2019 06/11/2019 Travel Giancarlo Lee CRNA 02/21/2019 Anesthesia Gastroenterology Event Tasia Jimenez MD UPPER ENDOSCOPY,FNA W/ULTRASOUND 02/21/2019 Surgery Gastroenterology JimenezTasia forte MD 02/21/2019 Hospital Gastroenterology Encounter 02/20/2019 Hospital Pre-Admission Testi ng Encounter after 09/30/2018 Social History Date Tobacco Use Types Packs/Day Years Used Quit: 03/22/2018 Former Smoker 1 50 Smokeless Tobacco: Never Used Tobacco Cessation: Counseling Given: No Comments: quit 03/22/2018 Alcohol Use Drinks/Week oz/Week Comments No Alcohol Habits Answer Date Recorded How often do you have a drink containing alcohol? Never 02/17/2018 How many drinks containing alcohol do you have on No t asked a typical day when you are drinking? How often do you have six or more drinks on one Not asked occasion? Sex Assigned at Date Recorded Not on file Industry Job Start Date Occupation Not on file Not on file Not on file Travel End Travel History Travel Start No recent travel history available. Last Filed Vital Signs Time Taken Vital Sign Reading 07/10/2019 5:50 AM CDT Blood Pressure 147/67 07/10/2019 5:50 AM CDT Pulse 72 07/10/2019 5:50 AM CDT Temperature 36.5 C (97.7 F) 07/10/2019 5:50 AM CDT Respiratory Rate 20 07/10/2019 5:50 AM CDT Oxygen Saturation 95% - Inhaled Oxygen - Concentration 07/08/2019 11:13 PM CDT Weight 65.8 kg (145 lb) 07/08/2019 11:13 PM CDT Height 167.6 cm (5' 6") 07/08/2019 11:13 PM CDT Body Mass Index 23.4 Plan of Treatment Not on file Implants Device Identifier Shelf Expiration Date Model / Serial / L ot Implanted Type Area Manufactur er 11/07/2019 / [id number] / [id number] Powerport Catheter Implanted: Qty: 1 on 05/08/2018 by Tom/Tremayne Nolasco MD ral Line Procedures Comments Procedure Name Priority Date/Time Associated Diag nosis REPORT OF PROCEDURE - 07/11/2019 ENDOSCOPY SCAN 2:22 PM CDT RHYTHM STRIP - SCAN 07/11/2019 2:22 PM CDT (CELLAVISION MANUAL DIFF) Routine 07/10/2019 7:47 AM CDT CBC W/PLT COUNT & AUTO Routine 07/10/2019 DIFFERENTIAL 7:47 AM CDT MAGNESIUM Routine 07/10/2019 7:47 AM CDT BASIC METABOLIC PANEL (7) Routine 07/10/2019 7:47 AM CDT CBC W/PLT COUNT & AUTO Routine 07/10/2019 DIFFERENTIAL 7:47 AM CDT (CELLAVISION MANUAL DIFF) Routine 07/09/2019 5:51 AM CDT CBC W/PLT COUNT & AUTO Routine 07/09/2019 DIFFERENTIAL 5:51 AM CDT CBC W/PLT COUNT & AUTO Routine 07/09/2019 DIFFERENTIAL 5:51 AM CDT BASIC METABOLIC PANEL (7) Routine 07/09/2019 5:51 AM CDT PHOSPHORUS Routine 07/09/2019 5:51 AM CDT MAGNESIUM Routine 07/09/2019 5:51 AM CDT ECG 12-LEAD Routine 07/09/2019 1:58 AM CDT ECG 12-LEAD Routine 07/09/2019 1:58 AM CDT Procedure Note - Interface, External Ris In - 07/09/2019 2:08 AM CDT Ventricula r Rate 86 BPM Atrial Rate 86 BPM P-R Interval 140 ms QRS Duration 74 ms Q-T Interval 388 ms QTC Calculatio n(Bazett) 464 ms P [place] 69 degrees R [place] 77 degrees T [place] 68 degrees Normal sinus rhythm Normal ECG When compared with ECG of 0 01:53, Vent. rate has decreased BY [address] no longer depressed in Inferior leads ST no longer depressed in Lateral leads T wave inversion no longer evident in Inferior leads Nonspecifi c T wave abnormalit y no longer evident in Lateral leads ECG 12-LEAD Routine 07/09/2019 1:53 AM CDT Procedure Note - Interface, External Ris In - 07/09/2019 2:08 AM CDT Ventricula r Rate 134 BPM Atrial Rate 133 BPM QRS Duration 74 ms Q-T Interval 302 ms QTC Calculatio n(Bazett) 450 ms R [place] 81 degrees T [place] -15 degrees Supravent ricular tachycardi a ST & T wave abnormalit y, consider inferior ischemia Abnormal ECG When compared with ECG of 9 13:09, ST now depressed in Inferior leads ST now depressed in Lateral leads T wave inversion now evident in Inferior leads Nonspecifi c T wave abnormalit y now evident in Anterolate ral leads ECG 12-LEAD STAT 07/09/2019 1:53 AM CDT ED ECG INTERPRETATION Routine 07/08/2019 11:53 PM CDT ED ECG INTERPRETATION Routine 07/08/2019 11:53 PM CDT HEPATIC FUNCTION PANEL STAT 07/08/2019 11:50 PM CDT BASIC METABOLIC PANEL (7) STAT 07/08/2019 11:50 PM CDT (CELLAVISION MANUAL DIFF) STAT 07/08/2019 11:26 PM CDT CBC W/PLT COUNT & AUTO STAT 07/08/2019 DIFFERENTIAL 11:26 PM CDT CBC W/PLT COUNT & AUTO STAT 07/08/2019 DIFFERENTIAL 11:26 PM CDT RHYTHM STRIP - SCAN 06/15/2019 12:30 PM CDT RHYTHM STRIP - SCAN 06/13/2019 10:40 AM CDT POCT-GLUCOSE METER Routine 06/12/2019 7:03 AM CDT CBC W/PLT COUNT & AUTO Routine 06/12/2019 DIFFERENTIAL 6:50 AM CDT CBC W/PLT COUNT & AUTO Routine 06/12/2019 DIFFERENTIAL 6:50 AM CDT BASIC METABOLIC PANEL (7) Routine 06/12/2019 6:50 AM CDT SHIGA TOXIN SCREEN Routine 06/11/2019 6:25 PM CDT STOOL CULTURE + SHIGA Routine 06/11/2019 TOXIN 6:25 PM CDT C. DIFFICILE GDH TOXIN Routine 06/11/2019 6:24 PM CDT MAGNESIUM STAT 06/11/2019 12:49 PM CDT LIPASE STAT 06/11/2019 12:49 PM CDT HEPATIC FUNCTION PANEL STAT 06/11/2019 12:49 PM CDT BASIC METABOLIC PANEL (7) STAT 06/11/2019 12:49 PM CDT XR CHEST 1 VIEW STAT 06/11/2019 PORTABLE/BEDSIDE 12:39 PM CDT (CELLAVISION MANUAL DIFF) STAT 06/11/2019 11:27 AM CDT CBC W/PLT COUNT & AUTO STAT 06/11/2019 DIFFERENTIAL 11:27 AM CDT CBC W/PLT COUNT & AUTO STAT 06/11/2019 DIFFERENTIAL 11:27 AM CDT AMYLASE PERITONEAL FLUID Routine 02/22/2019 10:46 AM CLOTH WASHER OPERATOR FINE NEEDLE ASPIRATE Routine 02/21/2019 (FNA) REQUEST 2:47 PM CLOTH WASHER OPERATOR FINE NEEDLE ASPIRATION BY AP Routine 02/21/2019 CLINICIAN 2:47 PM CLOTH WASHER OPERATOR FINE NEEDLE ASPIRATE Routine 02/21/2019 (FNA) REQUEST 2:46 PM CLOTH WASHER OPERATOR FINE NEEDLE ASPIRATION BY AP Routine 02/21/2019 CLINICIAN 2:46 PM CLOTH WASHER OPERATOR REPORT OF PROCEDURE - 02/21/2019 ENDOSCOPY URL 2:44 PM CLOTH WASHER OPERATOR MISCELLANEOUS LAB ORDER Routine 02/21/2019 2:44 PM CLOTH WASHER OPERATOR TISSUE EXAM AP Routine 02/21/2019 2:22 PM CLOTH WASHER OPERATOR UPPER ENDOSCOPY,BIOPSY 02/21/2019 Abnormal findi ngs on 1:30 PM CLOTH WASHER OPERATOR diagnostic imaging of other abdominal regions, including retroperitoneum Special Needs (LINEAR SCOPE) UPPER ENDOSCOPY,FNA 02/21/2019 Abnormal findings on W/ULTRASOUND 1:30 PM CLOTH WASHER OPERATOR diagnostic imaging of other abdominal regions, including retroperitoneum Special Needs (LINEAR SCOPE) after 09/30/2018 Results * EKG-SCANNED (07/11/2019 2:22 PM CDT) Narrative Performed At This result has an attachment that is n ot available. * RHYTHM STRIP - SCAN (07/11/2019 2:22 PM CDT) Only the most recent of 3 results within the time period is included. Narrative Performed At This result has an attachment that is n ot available. * Manual Differential (07/10/2019 7:47 AM CDT) Only the most recent of 4 results within the time period is included. % Neutros 84 % [facility] % Lymphs 6 % [facility] % Monos 5 % [facility] % Eos 2 % [facility] % Bands 3 0 - 10 % [facility] # Neutros 21.50 (H) 1.56 - 6.13 K/ul [facility] # Lymphs 1.54 1.18 - 3.74 K/ul [facility] # Monos 1.28 (H) 0.24 - 0.36 K/uL [facility] # Eos 0.51 (H) 0.04 - 0.36 K/uL [facility] # Bands 0.77 0.00 - 0.80 K/uL [facility] Total Counted 100 [facility] RBC Morphology Normal [facility] Smudge Cells Present [facility] Giant Platelet Present [facility] Toxic Granulation Present [facility] Platelet Conc Adequate [facility] Specimen Blood Narrative Performed At Healthcare Translator ID - Hailey Gabe [facility] User comments: [facility] Slide comments: Performing Organization Address City/State/Zipcode Ph one Number [address] [facility] [place] * CBC with platelet count + automated diff (07/10/2019 7:47 AM CDT) Only the most recent of 5 results within the time period is included. WBC 25.6 (H) 3.5 - 10.5 K/L [facility] RBC 3.53 (L) 3.93 - 5.22 M/L [facility] Hemoglobin 11.2 11.2 - 15.7 GM/DL [facility] Hematocrit 33.8 (L) 34.1 - 44.9 % [facility] MCV 95.8 (H) 79.4 - 94.8 fL [facility] MCH 31.7 25.6 - 32.2 pg [facility] MCHC 33.1 32.2 - 35.5 GM/DL [facility] RDW 14.8 (H) 11.7 - 14.4 % [facility] Platelets 279 150 - 450 K/CU MM [facility] MPV 9.8 9.4 - 12.3 fL [facility] nRBC 0 0 - 0 /100 WBC [facility] Specimen Blood Performing Organization Address [facility] Ph one Number [address] 0 [phone] [place] [address] * Magnesium (07/10/2019 7:47 AM CDT) Only the most recent of 3 results within the time period is included. Magnesium 2.1 1.6 - 2.6 mg/dL [facility] Specimen Blood Narrative Performed At Healthcare Translator ID - PIAYA L [facility] Performing Organization Address [facility] Ph one Number [address] 0 [phone] [place] [address] * Basic Metabolic Panel (07/10/2019 7:47 AM CDT) Only the most recent of 5 results within the time period is included. Sodium 138 136 - 145 meq/L [facility] Potassium 3.0 (L) 3.5 - 5.1 meq/L [facility] Chloride 105 98 - 107 meq/L [facility] CO2 24 22 - 29 meq/L [facility] BUN 7 7 - 21 mg/dL [facility] Creatinine 0.68 0.57 - 1.25 mg/dL [facility] Glucose 104 70 - 105 mg/dL [facility] Calcium 8.1 (L) 8.4 - 10.2 mg/dL [facility] EGFR 84Comment: ESTIMATED GFR IS mL/min/1.[address] [facility] NOT ACCURATE CREATININE [facility] CLEARANCE IN PREDICTING GLOMERULAR FILTRATION RATE. ESTIMATED GFR IS NOT APPLICABLE FOR DIALYSIS PATIENTS. Specimen Blood Narrative Performed At Healthcare Translator ID - GALE Wilkins [facility] Performing Organization Address City/[facility] Ph one Number [address] [facility] * Phosphorus (07/09/2019 5:51 AM CDT) Phosphorus 2.3 2.3 - 4.7 mg/dL [facility] Specimen Blood Narrative Performed At Healthcare Translator ID - GALE Wilkins [facility] Performing Organization Address [facility] one Number [address] [facility] * ECG 12 lead (07/09/2019 1:58 AM CDT) Only the most recent of 2 results within the time period is included. Specimen Narrative Performed At Ventricular Rate 86 BPM GE MUSE Atrial Rate 86 BPM P-R Interval 140 ms QRS Duration 74 ms Q-T Interval 388 ms QTC Calculation(Bazett) 464 ms P [place] 69 degrees R [place] 77 degrees T [place] 68 degrees Normal sinus rhythm Prolonged QT When compared with ECG of 09-JUL-2019 0 1:53, Vent. rate has decreased BY48 BPM ST no longer depressed in Inferior lead s ST no longer depressed in Lateral leads ST less elevated now in aVR T wave inversion no longer evident in I nferior leads Nonspecific T wave abnormality no longe r evident in Lateral leads QT has lengthened Confirmed by MD SAADIA, DEREK ([id number] ) on 07/09/2019 7:24:18 AM Procedure Note Interface, External Ris In - 07/09/2019 7:24 AM CDT Ventricular Rate 86 BPM Atrial Rate 86 BPM P-R Interval 140 ms QRS Duration 74 ms Q-T Interval 388 ms QTC Calculation(Bazett) 464 ms P [place] 69 degrees R [place] 77 degrees T [place] 68 degrees Normal sinus rhythm Prolonged QT When compared with ECG of 09-JUL-2019 01:53, Vent. rate has decreased BY [address] no longer depressed in Inferior leads ST no longer depressed in Lateral leads ST less elevated now in aVR T wave inversion no longer evident in Inferior leads Nonspecific T wave abnormality no longer evident in Lateral leads QT has lengthened Confirmed by MD SAADIA, [facility] ([id number]) on 07/09/2019 7:24:18 AM Performing Organization Address City/State/Zipcode Ph one Number GE MUSE * ECG/EKG Interpretation (07/08/2019 11:53 PM CDT) Only the most recent of 2 results within the time period is included. Narrative Performed At Karma Serrano DO 02:22 AM ECG/EKG Interpretation Date/Time: 07/09/2019 1:58 AM Performed by: Karma Serrano DO Authorized by: Karma Serrano DO The ECG was interpreted by ED physician . This ECG was not compared with previous ECG(s).Rate is normal rate. He art rate is 86 BPM. Conduction: conduction normal. ST segme nts normal. T waves normal. [place] is normal. Other findings: no other findings. Righ t sided lead use: right-sided leads not used. Left sided lead use: Posterior leads we re not used. Clinical Impression: non-specific ECGECG reviewed and does n ot meet STEMI criteria. * Hepatic function panel (07/08/2019 11:50 PM CDT) Only the most recent of 2 results within the time period is included. Protein, Total 6.5 6.0 - 8.3 gm/dL [facility] Albumin 3.7 3.5 - 5.0 g/dL [facility] Total Bilirubin 0.5 0.2 - 1.2 mg/dL [facility] Bilirubin, Direct 0.3 0.1 - 0.5 mg/dL [facility] Alkaline Phosphatase 123 40 - 150 U/L [facility] AST 24 5 - 34 U/L [facility] ALT 13 6 - 55 U/L [facility] Specimen Blood Narrative Performed At Healthcare Translator NORA Wilkins [facility] Performing Organization Address [facility] one Number [address] [facility] * POC-Glucose meter (06/12/2019 7:03 AM CDT) POC-Glucose Meter 99Comment: : TESTED AT [facility] 70 - 110 mg/dL [address] [address]: Healthcare Translator/Layout Mechanic ID = [id number] for [facility] Specimen Blood Performing Organization Address [facility] Ph one Number [address] [facility] * Shiga Toxin Screen (06/11/2019 6:25 PM CDT) Shiga toxin 1 Not detected Not detected [facility] Shiga toxin 2 Not detected Not detected [facility] Specimen Stool Performing Organization Address [facility] Ph one Number [address] [facility] * Stool culture + Shiga toxin (06/11/2019 6:25 PM CDT) Result No Salmonella or Shigella [facility] isolated [facility] Specimen Stool Performing Organization Address [facility] one Number [address] [facility] * Clostridium difficile [facility] Toxin (06/11/2019 6:24 PM CDT) C. Difficle Toxin Negative Negative [facility] C. Difficile GDH Antigen NegativeComment: No indication Negat edwin [facility] of Clostridium difficile [facility] infection and no colonization. Discontinue enteric isolation and therapy. Specimen Stool Narrative Performed At Testing performed by [employer] Rapid Cassette Assay.F or G[facility], published [facility] sensitivity of the assay is 98.7% sorin red to cytotoxicity testing.For Toxin [facility] AB, published sensitivity is 87.8% and specificity 99.4% compared to cytotoxicity testing. Verification of kit performance was don e by the [facility] Microbiology Lab prior to clinical use. Performing Organization Address City/[facility] Ph one Mattie [facility] [address] [place] [address] [address] [facility] * Lipase (06/11/2019 12:49 PM CDT) Lipase 70 8 - 78 U/L [facility] Specimen Blood Narrative Performed At Healthcare Translator ID - [place] [facility] Performing Organization Address City/[facility] Ph one [address] 0 [phone] [place] [address] * XR chest 1 view portable / bedside (06/11/2019 12:39 PM CDT) Specimen Narrative Performed At FINAL REPORT [facility] RAD, CHEST, 1 VIEW, NON DEPT INDICATION: DIARRHEA EMESIS COMPARISON: March 25, 2019 FINDINGS: Portable frontal view of the chest. IMPRESSION: Support Lines: Port-A-Cath tip overlies the SVC Lungs and pleura: Lungs are clear No pn eumothorax. Heart and mediastinum: Stable contours. Additional findings: None. Signed: Gail Ladd MD Report Verified Date/Time: 0 12:54:43 Reading Location: [facility] Radiolo gy Reading Room Procedure Note Interface, External Ris In - 06/11/2019 12:56 PM CDT FINAL REPORT RAD, CHEST, 1 VIEW, NON DEPT INDICATION: DIARRHEA EMESIS COMPARISON: March 25, 2019 FINDINGS: Portable frontal view of the chest. IMPRESSION: Support Lines: Port-A-Cath tip overlies the SVC Lungs and pleura: Lungs are clear No pneumothorax. Heart and mediastinum: Stable contours. Additional findings: None. Signed: Gail Ladd MD Report Verified Date/Time: 06/11/2019 12:54:43 Reading Location: [facility] Radiology Reading Room Performing Organization Address City/State/Zipcode Ph one Number GE [facility] * Amylase Peritoneal Fluid (02/22/2019 10:46 AM CLOTH WASHER OPERATOR) AMYLASE, PERITONEAL FLUID [address] [facility] Specimen Body Fluid Narrative Performed At This result has an attachment that is n ot available. Performing Organization Address City/State/Zipcode Ph one Number [facility], [address] [place] [place] [facility] [address] [address] * FINE NEEDLE ASPIRATE (FNA) REQUEST (02/21/2019 2:47 PM CLOTH WASHER OPERATOR) Only the most recent of 2 results within the time period is included. Cytology See Separate Report [facility] Specimen Fine Needle Aspirate Performing Organization Address City/[facility] Ph one Number [facility] [address] [place] [address] MEDICAL CENTER * Fine Needle Aspirate by Clinician (02/21/2019 2:47 PM CLOTH WASHER OPERATOR) Only the most recent of 2 results within the time period is included. Case Report Medical Cytology [facility] Report [facility] Case: [id number] Authorizing Provider:Tasia Jimenez MDCollected: 02/21/2019 1447 Ordering Location: [facility] Endoscopy Received: 02/21/2019 1545 Services Pathologist: Lawson Brothers MD Specimen:Pancreatic DIAGNOSIS MERRY PANCREATIC LYMPH NODE, [facility] FNA BY CLINICIAN (CYTOSPINS [facility] AND CELL BLOCK OF ASPIRATE): - NEGATIVE FOR EPITHELIAL MALIGNANCY - LYMPHOID TISSUE PRESENT Signing Pathologist Direct Phone Line: [phone] CPT Code(s) 39268, [address] [facility] CLINICAL DATA 2.8 cm x 4.3 cm anechoic body [facility] of pancreas lesion; (0.8 x 1.2 [facility] cm) enlarged lymph node was visualized in the peripancreatic region SPECIMEN SOURCE MERRY PANCREATIC LYMPH NODE FNA [facility] GROSS DESCRIPTION Received 22.5 ml cytorich red [facility] fixative sample [facility] Prepared cell block(A2) and 4 cytospins Collected: [id number] Received: [id number] Gross assessment was [facility] performed at [place], Department of [facility] Pathology, [address] [place] [id number], Technical component was [facility] performed at [place], Department of [facility] Pathology, [address] [place] [address], Professional component [facility] was performed at [place], Department of [facility] Pathology, [address] [place] [address], Specimen Fine Needle Aspirate Narrative Performed At This result has an attachment that is n ot available. Performing Organization Address City/[facility] Ph one Number [address] [facility] * REPORT OF PROCEDURE - ENDOSCOPY URL (02/21/2019 2:44 PM CLOTH WASHER OPERATOR) Narrative Performed At This result has an attachment that is n ot available. * CEA (02/21/2019 2:44 PM CLOTH WASHER OPERATOR) Scan Result [facility] Specimen Body Fluid Narrative Performed At This result has an attachment that is n ot available. Performing Organization Address City/[facility] Ph one Number [facility] [address] [place] [address] * Tissue Exam (02/21/2019 2:22 PM CLOTH WASHER OPERATOR) Case Report Surgical Pathology [facility] Report [facility] Case: [id number] Authorizing Provider:Tasia Jimenez MDCollected: 02/21/2019 1422 Ordering Location: [facility] Endoscopy Received: 02/21/2019 1533 Services Pathologist: Shelbie Morfin MD Specimen:Duodenal, duodenal ulcer bx DIAGNOSIS A. ULCER, DUODENUM BULB, [facility] BIOPSY [facility] - DUODENUM MUCOSA WITH ULCER AND FIBRINOPURULENT EXUDATE - NEGATIVE FOR DYSPLASIA OR CARCINOMA Signing Pathologist Direct Phone Line: [phone] CPT Code(s) 26410 [facility] CLINICAL HISTORY Abnormal findings on [facility] diagnostic imaging [facility] SPECIMEN SOURCE Duodenal biopsy [facility] GROSS DESCRIPTION A. Received in formalin [facility] labeled with the patient's [facility] name, accession number and "duodenal ulcer biopsy" are two pieces of smith-white mucosal tissue each measuring 0.3 x 0.3 x 0.2 cm. The specimen is submitted in toto in cassette A1. NW/pl MICROSCOPIC DESCRIPTION The duodenal biopsy consists [facility] of multiple pieces of small [facility] bowel mucosa, with ulcer, fibrinopurulent exudates and Elias's gland hyperplasia. It is negative for dysplasia or carcinoma. Specimen Tissue Performing Organization Address City/State/Zipcode Ph one Number [address] [facility] after 09/30/2018 Insurance Payer Benefit Subscriber ID Type Phone Address Plan / Group [facility] [place] MEDIC[place] ADV -[id number] Advance Directives For more information, please contact: [address] [phone] Date Inactivated Comments Code Status Date Activated 07/10/2019 1:33 PM Full Code 07/09/2019 2:44 AM This code status was determined by: Patient 06/12/2019 6:59 PM Full Code 06/11/2019 12:34 PM This code status was determined by: Patient 03/28/2018 10:14 PM Full Code 03/22/2018 6:06 AM This code status was determined by: Patient
--- OUTSIDE RECORDS SUMMARY | 2019-10-01 17:15 | XMS REPORT | Continuity of Care Document ---
Author Author [facility] t Organization [facility] Address [address] [place] [address] Phone Unavailable Care Team Providers Care Manufacturing Worker Name Role Phone Lexus DAVIS MD PCP Sobia Serrano DO Attphys Lisa Mai MD Attphys Ella Broderick MD Attphys SOBIA SERRANO Attphys Unavailable JALEN SINGH Attphys Unavailable Jalen Singh MD Attphys Catracho Del Cid MD Attphys Arsenio RICHARD Attphys Unavailable GRISEL EL Attphys Unavailable Barbara TANG, Grisel Dozier Attphys Susanna Lee CRNA Attphys Arsenio YOOKUMAR Attphys Unavailable RAFAEL, CATRACHO Attphys Unavailable ELLA BRODERICK Admphys Unavailable LISA MAI Admphys Unavailable GRISEL EL Admphys Unavailable LEI YOO Admphys Unavailable RAFAEL, CATRACHO Admphys Unavailable Payers Payer Name Policy Type Policy Number Effective Date Expiration Date Gee mejia KELSEYCAREKELSEYCARE MEDICARE ADVxxxxxxxxxxx xxxxxxxxxxx [facility] Kelsey Care Medicare Advantage [id number] [facility] Problems Condition Name Condition Details Condition Category Status Onset Date Resolution Date Last Treatment Date Treating Clinician Comments Source SVT (supraventricular tachycardia) SVT (supraventricular tachyca rdia) Disease Active 2019-07-09 00:00:00 [facility] Moderate dehydration Moderate dehydration Disease Active 00:00:00 [facility] Intractable nausea and vomiting Intractable nausea and vomiting Dis ease Active 2019-07-09 00:00:00 [facility] 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 2019-07-09 00:00:00 [facility] Dehydration Dehydration Disease Active 2019-06-11 00:00:00 [facility] Atrial tachycardia Atrial tachycardia Disease Active 2018-03-28 00:00:0 0 [facility] History of pancreatectomy History of pancreatectomy Disease Ac tive 2018-03-25 00:00:00 [facility] Acute postoperative pain Acute postoperative pain Disease Acti ve 2018-03-25 00:00:00 [facility] COPD (chronic obstructive pulmonary disease) COPD (chr onic obstructive pulmonary disease) Disease Active 2018-03-25 00:00:00 [facility] Acquired hypothyroidism Acquired hypothyroidism Disease Active 2018-03-25 00:00:00 [facility] Leukocytosis Leukocytosis Disease Active 2018-03-25 00:00:00 [facility] Pancreatic mass Pancreatic mass Disease Active 2018-03-22 00:00:00 [facility] Allergies, Adverse Reactions, Alerts This patient has no known allergies or adverse reactions. Social History Social Habit Start Date Stop Date Quantity Comments Source History SDOH Alcohol Std Drinks [facility] History SDOH Alcohol Binge [facility] Sex Assigned At [facility] Cigarettes smoked current (pack per day) - Reported 00:00:00 2019-07-08 00:00:00 [facility] Cigarette pack-years 2019-07-08 00:00:00 2019-07-08 00:00:00 [facility] Tobacco Comment 2019-02-20 00:00:00 2019-02-20 00:00:00 quit 9 [facility] History of tobacco use 2018-03-22 00:00:00 Current smoker [facility] History SDOH Alcohol Frequency 2018-02-17 00:00:00 2018-02-17 00:00:0 0 1 [facility] Smoking Status Start Date Stop Date Source Former smoker 2019-07-08 00:00:00 2019-07-08 00:00:00 [facility] Medications Ordered Medication Name Filled Medication Name Start Date Stop Da te Current Medication? Ordering Clinician Indication Dosage Frequency Signature (SIG) Comments Components Source loperamide (IMODIUM) 2 mg capsule 2019-07-09 02:43:03 Yes 2mg Take 2 mg by mouth 4 (four) times daily as needed for Diarrhea. [facility] ondansetron (ZOFRAN-ODT) 4 MG disintegrating tablet 06-11 00:00:00 Yes 4mg Take 1 tablet (4 mg total) by mouth every 8 (eight) hours as needed for Nausea for up to 30 doses. [facility] loperamide (IMODIUM) 2 mg capsule 2019-06-12 00:00:00 2019 23:59:00 No 2mg Take 1 capsule ( 2 mg total) by mouth 4 (four) times daily as needed for Diarrhea for up to 10 days. [facility] HYDROcodone-acetaminophen (NORCO 7.5-325) 7.5-325 mg per tab let 2019-06-11 13:11:16 Yes 1{tbl} Take 1 tab let by mouth every 6 (six) hours as needed for Pain. [facility] DULoxetine (CYMBALTA) 30 MG capsule 2019-02-20 19:19:06 Yes 30mg QD Take 30 mg by mouth daily. [facility] gabapentin (NEURONTIN) 600 MG tablet 2019-02-20 19:17:17 Ye s 600mg Q.5D Take 600 mg by mouth 2 (two) times daily. [facility] levothyroxine (SYNTHROID, LEVOTHROID) 75 MCG tablet 02-17 12:30:54 Yes 75ug Take 75 mcg by mouth Every morning on an empty stomach. [facility] Gabapentin 300 Mg Capsule Gabapentin 300 Mg Capsule Yes 300 Bedtime [facility] Levothyroxine Sodium 25 Mcg Tablet Levothyroxine Sodium 25 Mcg Tablet Yes 25 Daily [facility] Vital Signs Vital Name Observation Time Observation Value Comments Source Systolic blood pressure 2019-07-10 05:50:00 147 mm[Hg] [facility] Diastolic blood pressure 2019-07-10 05:50:00 67 mm[Hg] [facility] Heart rate 2019-07-10 05:50:00 72 /min [facility] Body temperature 2019-07-10 05:50:00 36.5 Cristy [facility] Respiratory rate 2019-07-10 05:50:00 20 /min [facility] Oxygen saturation in Arterial blood by Pulse oximetry 07-09 05:50:00 95 [facility] height 2019-07-08 23:13:00 167.6 cm [facility] Body weight Measured 2019-07-08 23:13:00 65.772 kg [facility] BMI 2019-07-08 23:13:00 23.40 kg/m2 [facility] Procedures Procedure Date / Time Performed Performing Clinician [facility] e REPORT OF PROCEDURE - ENDOSCOPY SCAN 2019-07-11 14:22:15 Pro vider, Default Scanning [facility] RHYTHM STRIP - SCAN 2019-07-11 14:22:13 Provider, Default Scanclovis evans [facility] BASIC METABOLIC PANEL (7) 2019-07-10 07:47:00 Marlene Mai [facility] MAGNESIUM 2019-07-10 07:47:00 [facility] CBC W/PLT COUNT & AUTO DIFFERENTIAL 2019-07-10 07:47:00 Lucian Mai [facility] (CELLAVISION MANUAL DIFF) 2019-07-10 07:47:00 Marlene Mai [facility] MAGNESIUM 2019-07-09 05:51:00 Kirit Erickson [facility] PHOSPHORUS 2019-07-09 05:51:00 Dre [facility] BASIC METABOLIC PANEL (7) 2019-07-09 05:51:00 [facility] CBC W/PLT COUNT & AUTO DIFFERENTIAL 2019-07-09 05:51:00 Dre [facility] (CELLAVISION MANUAL DIFF) 2019-07-09 05:51:00 [facility] ECG 12-LEAD 2019-07-09 01:58:21 Dre [facility] ECG 12-LEAD 2019-07-09 01:53:09 Unknown, Hl7 Doctor [facility] ED ECG INTERPRETATION 2019-07-08 23:53:28 Zach, Karmafawad [facility] BASIC METABOLIC PANEL (7) 2019-07-08 23:50:00 Zach, Karma [facility] HEPATIC FUNCTION PANEL 2019-07-08 23:50:00 Zach, Karma Pinon [facility] CBC W/PLT COUNT & AUTO DIFFERENTIAL 2019-07-08 23:26:00 Zach, Karma Sobia [facility] (CELLAVISION MANUAL DIFF) 2019-07-08 23:26:00 [facility], [facility] RHYTHM STRIP - SCAN 2019-06-15 12:30:41 Provider, Default Scanclovis [facility] RHYTHM STRIP - SCAN 2019-06-13 10:40:33 Provider, Default Scanni [facility] POCT-GLUCOSE METER 2019-06-12 07:03:00 Marlene Mai [facility] BASIC METABOLIC PANEL (7) 2019-06-12 06:50:00 Comfort Mont[place]ro [facility] CBC W/PLT COUNT & AUTO DIFFERENTIAL 2019-06-12 06:50:00 Comfort [place] [facility] STOOL CULTURE + SHIGA TOXIN 2019-06-11 18:25:00 Shaniquechristoph Comfort Treviñorina [facility] SHIGA TOXIN SCREEN 2019-06-11 18:25:00 Comfort [place] Kathrin [facility] C. DIFFICILE GDH TOXIN 2019-06-11 18:24:00 Shaniquechristoph Comfort Pena fawad [facility] BASIC METABOLIC PANEL (7) 2019-06-11 12:49:00 Reggie Singh [facility] HEPATIC FUNCTION PANEL 2019-06-11 12:49:00 Reggie Singh CH I [facility] LIPASE 2019-06-11 12:49:00 Reggie Singh [facility] MAGNESIUM 2019-06-11 12:49:00 Reggie Singh [facility] XR CHEST 1 VIEW PORTABLE/BEDSIDE 2019-06-11 12:39:00 Reggie Singh [facility] CBC W/PLT COUNT & AUTO DIFFERENTIAL 2019-06-11 11:27:00 Hailee Singh [facility] (CELLAVISION MANUAL DIFF) 2019-06-11 11:27:00 Reggie Singh [facility] Computed tomography of abdomen and pelvis with contrast 2019 00:00:00 SELENE YANCEY [facility] AMYLASE PERITONEAL FLUID 2019-02-22 10:46:00 Tasia El [facility] FINE NEEDLE ASPIRATE (FNA) REQUEST 2019-02-21 14:47:50 Coco El [facility] FINE NEEDLE ASPIRATION BY CLINICIAN 2019-02-21 14:47:00 Tasia El [facility] FINE NEEDLE ASPIRATE (FNA) REQUEST 2019-02-21 14:46:58 Coco [facility] FINE NEEDLE ASPIRATION BY CLINICIAN 2019-02-21 14:46:00 Tasia El [facility] REPORT OF PROCEDURE - ENDOSCOPY URL 2019-02-21 14:44:56 Tasia El [facility] MISCELLANEOUS LAB ORDER 2019-02-21 14:44:33 Tasia El I [facility] TISSUE EXAM 2019-02-21 14:22:00 [facility],FNA W/ULTRASOUND 2019-02-21 13:30:00 Eric [facility] UPPER ENDOSCOPY,BIOPSY 2019-02-21 13:30:00 Tasia El [facility] Encounters Start Date/Time End Date/Time Encounter Type Admission Type Attendi [facility] Care Department Encounter ID Source 2019-05-31 13:01:21 2019-05-31 13:56:23 Office Visit Tony diaz Catracho [facility] Real [id number] 2019-04-22 18:36:00 2019-04-22 23:07:00 Departed Emergency Room [address] [facility] [id number] [facility] Results Test Description Test Time Test Comments Results Result Comments Source CBC with platelet count + automated diff 2019-07-10 10:43:00 Test Item WBC (test code = 6690-2) 25.6 3.5- 10.5 K/L H RBC (test code = 789-8) 3.53 3.93- 5.22 M/L L MCHC (test code = 786-4) 33.1 32.2- 35.5 GM/DL Hematocrit (test code = 4544-3) 33.8 % 34.1-44.9 L MCV (test code = 787-2) 95.8 fL 79.4-94.8 H MCH (test code = 785-6) 31.7 pg 25.6-32.2 RDW (test code = 788-0) 14.8 % 11.7-14.4 H Platelets (test code = 777-3) 279 150- 450 K/CU MM MPV (test code = 62487-6) 9.8 fL 9.4-12.3 nRBC (test code = 413) 0 0- 0 /100 WBC Lab Interpretation (test code = 59641-6) Abnormal [facility] [id number] 10:43:00* Test Item Value Reference Range Interpretation Comments % Neutros (test code = 2816) 84 % % Lymphs (test code = 2817) 6 % % Monos (test code = 2818) 5 % % Eos (test code = 2819) 2 % % Bands (test code = 2826) 3 % 0-10 # Neutros (test code = 2830) 21.50 K/ul 1.56-6.13 H # Lymphs (test code = 2831) 1.54 K/ul 1.18-3.74 # Monos (test code = 2832) 1.28 K/uL 0.24-0.36 H # Eos (test code = 2834) 0.51 K/uL 0.04-0.36 H # Bands (test code = 2840) 0.77 K/uL 0-0.8 Total Counted (test code = 1351) 100 RBC Morphology (test code = 762) Normal Smudge Cells (test code = 1371) Present Giant Platelet (test code = 313) Present Toxic Granulation (test code = 771) Present Platelet Conc (test code = 3438) Adequate MARISELA (test code = MARISELA) Flatcar Whacker ID - Hailey [place] comments: Slid e comments: Lab Interpretation (test code = 73406-7) [facility] AUTO [id number] 10:43:00* Test Item Value Reference Range Interpretation Comments WHITE BLOOD CELL COUNT (BEAKER) (test code = 775) 25.6 K/ L 3.5- 10.5 H RED BLOOD CELL COUNT (BEAKER) (test code = 761) 3.53 M/ L 3.93-5 .22 L HEMOGLOBIN (BEAKER) (test code = 410) 11.2 GM/DL 11.2-15.7 HEMATOCRIT (BEAKER) (test code = 411) 33.8 % 34.1-44.9 L MEAN CORPUSCULAR VOLUME (BEAKER) (test code = 753) 95.8 fL 79. 4-94.8 H MEAN CORPUSCULAR HEMOGLOBIN (BEAKER) (test code = 751) 31.7 pg 25.6-32.2 MEAN CORPUSCULAR HEMOGLOBIN CONC (BEAKER) (test code = 752) 33.1 GM/DL 32.2-35.5 RED CELL DISTRIBUTION WIDTH (BEAKER) (test code = 412) 14.8 % 11.7-14.4 H PLATELET COUNT (BEAKER) (test code = 756) 279 K/CU MM 150-450 MEAN PLATELET VOLUME (BEAKER) (test code = 754) 9.8 fL 9.4-12 .3 NUCLEATED RED BLOOD CELLS (BEAKER) (test code = 413) 0 /100 WBC 0 -0 (CELLAVISION MANUAL DIFF)2019-07-10 10:43:00* Test Item Value Reference Range Interpretation Comments NEUTROPHILS - REL (CELLAVISION)(BEAKER) (test code = 2816) 84 % LYMPHOCYTES - REL (CELLAVISION)(BEAKER) (test code = 2817) 6 % MONOCYTES - REL (CELLAVISION)(BEAKER) (test code = 2818) 5 % EOSINOPHILS - REL (CELLAVISION)(BEAKER) (test code = 2819) 2 % BANDS - REL (CELLAVISION)(BEAKER) (test code = 2826) 3 % 0 -10 NEUTROPHILS - ABS (CELLAVISION)(BEAKER) (test code = 2830) 21.50 K/ul 1.56-6.13 H LYMPHOCYTES - ABS (CELLAVISION)(BEAKER) (test code = 2831) 1.54 K/ul 1.18-3.74 MONOCYTES - ABS (CELLAVISION)(BEAKER) (test code = 2832) 1.28 K/uL 0.24-0.36 H EOSINOPHILS - ABS (CELLAVISION)(BEAKER) (test code = 2834) 0.51 K/uL 0.04-0.36 H BANDS - ABS (CELLAVISION)(BEAKER) (test code = 2840) 0.77 K/uL 0 .00-0.80 TOTAL COUNTED (BEAKER) (test code = 1351) 100 RBC MORPHOLOGY (BEAKER) (test code = 762) Normal SMUDGE CELLS (BEAKER) (test code = 1371) Present GIANT PLATELETS (BEAKER) (test code = 313) Present TOXIC GRANULATION (BEAKER) (test code = 771) Present PLATELET CONCENTRATION (CELLAVISION)(BEAKER) (test code = 3438) Jeanie quate Flat[facility] Whacker ID - Hailey Santiagoshahriar comments: Slide comments: Basic Metabolic Panel 2019-07-10 08:39:00* Test Item Value Reference Range Interpretation Comments Sodium (test code = 2951-2) 138 meq/L 136-145 Potassium (test code = 2823-3) 3.0 meq/L 3.5-5.1 L Chloride (test code = 2075-0) 105 meq/L 98-107 CO2 (test code = 8-9) 24 meq/L 22-29 BUN (test code = 3094-0) 7 mg/dL 7-21 Creatinine (test code = 2160-0) 0.68 mg/dL 0.57-1.25 Glucose (test code = 2345-7) 104 mg/dL 70-105 Calcium (test code = 03264-3) 8.1 mg/dL 8.4-10.2 L EGFR (test code = 05360-2) 84 mL/min/1.73 sq m ESTIMATED GFR IS NOT ACCURATE CREATININE CLEARANCE IN PREDICTING GLOMERULAR FILTRATION RATE. ESTIMATED GFR IS NOT APPLICABLE FOR DIALYSIS PATIENTS. MARISELA (test code = MARISELA) Flat[employer] Whacker ID - VICENTEAYA L Lab Interpretation (test code = 79604-1) [facility]normal [facility] 08:39:00* Test Item Value Reference Range Interpretation Comments Magnesium (test code = 36239-1) 2.1 mg/dL 1.6-2.6 MARISELA (test code = MARISELA) Flatcar Whacker ID - PIAYA L Lab Interpretation (test code = 44194-2) [facility] 08:39:00* Test Item Value Reference Range Interpretation Comments MAGNESIUM (BEAKER) (test code = 627) 2.1 mg/dL 1.6-2.6 Flatcar Whacker ID - GALE LBASIC METABOLIC [id number] 08:39:00* Test Item Value Reference Range Interpretation Comments SODIUM (BEAKER) (test code = 381) 138 meq/L 136-145 POTASSIUM (BEAKER) (test code = 379) 3.0 meq/L 3.5-5.1 L CHLORIDE (BEAKER) (test code = 382) 105 meq/L 98-107 CO2 (BEAKER) (test code = 355) 24 meq/L 22-29 BLOOD UREA NITROGEN (BEAKER) (test code = 354) 7 mg/dL 7-21 CREATININE (BEAKER) (test code = 358) 0.68 mg/dL 0.57-1.25 GLUCOSE RANDOM (BEAKER) (test code = 652) 104 mg/dL 70-105 CALCIUM (BEAKER) (test code = 697) 8.1 mg/dL 8.4-10.2 L EGFR (BEAKER) (test code = 1092) 84 mL/min/1.73 sq m ESTIMATED GFR IS NOT ACCURATE CREATININE CLEARANCE IN PREDICTING GLOMERULAR FILTRATION RATE. ESTIMATED GFR IS NOT APPLICABLE FOR DIALYSIS PATIENTS. Flatcar Whacker ID - PIAYA LCBC W/PLT COUNT & AUTO [id number] 14:14:00* Test Item Value Reference Range Interpretation Comments WHITE BLOOD CELL COUNT (BEAKER) (test code = 775) 39.7 K/ L 3.5- 10.5 H RED BLOOD CELL COUNT (BEAKER) (test code = 761) 3.90 M/ L 3.93-5 .22 L HEMOGLOBIN (BEAKER) (test code = 410) 12.1 GM/DL 11.2-15.7 HEMATOCRIT (BEAKER) (test code = 411) 37.6 % 34.1-44.9 MEAN CORPUSCULAR VOLUME (BEAKER) (test code = 753) 96.4 fL 79. 4-94.8 H MEAN CORPUSCULAR HEMOGLOBIN (BEAKER) (test code = 751) 31.0 pg 25.6-32.2 MEAN CORPUSCULAR HEMOGLOBIN CONC (BEAKER) (test code = 752) 32.2 GM/DL 32.2-35.5 RED CELL DISTRIBUTION WIDTH (BEAKER) (test code = 412) 14.8 % 11.7-14.4 H PLATELET COUNT (BEAKER) (test code = 756) 347 K/CU MM 150-450 MEAN PLATELET VOLUME (BEAKER) (test code = 754) 9.9 fL 9.4-12 .3 NUCLEATED RED BLOOD CELLS (BEAKER) (test code = 413) 0 /100 WBC 0 -0 (CELLAVISION MANUAL DIFF)2019-07-09 14:14:00* Test Item Value Reference Range Interpretation Comments NEUTROPHILS - REL (CELLAVISION)(BEAKER) (test code = 2816) 87 % LYMPHOCYTES - REL (CELLAVISION)(BEAKER) (test code = 2817) 7 % MONOCYTES - REL (CELLAVISION)(BEAKER) (test code = 2818) 2 % BANDS - REL (CELLAVISION)(BEAKER) (test code = 2826) 4 % 0 -10 NEUTROPHILS - ABS (CELLAVISION)(BEAKER) (test code = 2830) 34.54 K/ul 1.56-6.13 H LYMPHOCYTES - ABS (CELLAVISION)(BEAKER) (test code = 2831) 2.78 K/ul 1.18-3.74 MONOCYTES - ABS (CELLAVISION)(BEAKER) (test code = 2832) 0.79 K/uL 0.24-0.36 H BANDS - ABS (CELLAVISION)(BEAKER) (test code = 2840) 1.59 K/uL 0 .00-0.80 H TOTAL COUNTED (BEAKER) (test code = 1351) 100 PLT MORPHOLOGY (BEAKER) (test code = 486) Normal SMUDGE CELLS (BEAKER) (test code = 1371) Present DOHLE BODIES (BEAKER) (test code = 359) Present TOXIC GRANULATION (BEAKER) (test code = 771) Present POIKILOCYTES (BEAKER) (test code = 966) 1+ few PLATELET CONCENTRATION (CELLAVISION)(BEAKER) (test code = 3438) Jeanie quate Flat[employer] Whacker ID - Hailey Felix comments: Slide comments: ECG 12 [id number] 07:24:21Interface, External Ris In - 07/09/2019 7:24 AM CDTVentricular Rate 86 BPMAtrial Rate 86 BPMP-R Interval 140 msQRS Duration 74 msQ-T Interval 388 msQTC Calculation(Bazett) 464 msP [place] 69 degreesR [place] 77 degreesT [place] 68 degreesNormal sinus rhythmProlonged QTWhen compared with ECG of 09-JUL-2019 01:53,Vent. rate has decreased BY 48 BPMST no longer depressed in Inferior leadsST no longer depressed in Lateral leadsST less elevated now in aVRT wave inversion no longer evident in Inferior leadsNonspecific T wave abnormality no longer evident in Lateral leadsQT has lengthenedConfirmed by MD SAADIA, [facility] ([id number]) on 07/09/2019 7:24:18 [facility] 06:52:00* Test Item Value Reference Range Interpretation Comments Phosphorus (test code = 2777-1) 2.3 mg/dL 2.3-4.7 MARISELA (test code = MARISELA) Flatcar Whacker ID Cy BEASLEY L Lab Interpretation (test code = 87756-3) Normal [id number] 06:52:00* Test Item Value Reference Range Interpretation Comments PHOSPHORUS (BEAKER) (test code = 604) 2.3 mg/dL 2.3-4.7 Flatcar Whacker ID Cy BEASLEY [id number] 06:52:00* Test Item Value Reference Range Interpretation Comments MAGNESIUM (BEAKER) (test code = 627) 1.7 mg/dL 1.6-2.6 Flatcar Whacker ID Cy BEASLEY LBASIC METABOLIC [id number] 06:52:00* Test Item Value Reference Range Interpretation Comments SODIUM (BEAKER) (test code = 381) 137 meq/L 136-145 POTASSIUM (BEAKER) (test code = 379) 3.3 meq/L 3.5-5.1 L CHLORIDE (BEAKER) (test code = 382) 102 meq/L 98-107 CO2 (BEAKER) (test code = 355) 25 meq/L 22-29 BLOOD UREA NITROGEN (BEAKER) (test code = 354) 7 mg/dL 7-21 CREATININE (BEAKER) (test code = 358) 0.74 mg/dL 0.57-1.25 GLUCOSE RANDOM (BEAKER) (test code = 652) 137 mg/dL 70-105 H CALCIUM (BEAKER) (test code = 697) 8.3 mg/dL 8.4-10.2 L EGFR (BEAKER) (test code = 1092) 76 mL/min/1.73 sq m ESTIMATED GFR IS NOT ACCURATE CREATININE CLEARANCE IN PREDICTING GLOMERULAR FILTRATION RATE. ESTIMATED GFR IS NOT APPLICABLE FOR DIALYSIS PATIENTS. Flatcar Whacker ID Cy BEASLEY LCBC W/PLT COUNT & AUTO [id number] 00:45:00* Test Item Value Reference Range Interpretation Comments WHITE BLOOD CELL COUNT (BEAKER) (test code = 775) 33.9 K/ L 3.5- 10.5 H RED BLOOD CELL COUNT (BEAKER) (test code = 761) 3.76 M/ L 3.93-5 .22 L HEMOGLOBIN (BEAKER) (test code = 410) 12.3 GM/DL 11.2-15.7 HEMATOCRIT (BEAKER) (test code = 411) 36.6 % 34.1-44.9 MEAN CORPUSCULAR VOLUME (BEAKER) (test code = 753) 97.3 fL 79. 4-94.8 H MEAN CORPUSCULAR HEMOGLOBIN (BEAKER) (test code = 751) 32.7 pg 25.6-32.2 H MEAN CORPUSCULAR HEMOGLOBIN CONC (BEAKER) (test code = 752) 33.6 GM/DL 32.2-35.5 RED CELL DISTRIBUTION WIDTH (BEAKER) (test code = 412) 15.0 % 11.7-14.4 H PLATELET COUNT (BEAKER) (test code = 756) 344 K/CU MM 150-450 MEAN PLATELET VOLUME (BEAKER) (test code = 754) 10.1 fL 9.4-12 .3 NUCLEATED RED BLOOD CELLS (BEAKER) (test code = 413) 0 /100 WBC 0 -0 (CELLAVISION MANUAL DIFF)2019-07-09 00:45:00* Test Item Value Reference Range Interpretation Comments NEUTROPHILS - REL (CELLAVISION)(BEAKER) (test code = 2816) 85 % LYMPHOCYTES - REL (CELLAVISION)(BEAKER) (test code = 2817) 1 % MONOCYTES - REL (CELLAVISION)(BEAKER) (test code = 2818) 1 % EOSINOPHILS - REL (CELLAVISION)(BEAKER) (test code = 2819) 1 % BANDS - REL (CELLAVISION)(BEAKER) (test code = 2826) 12 % 0 -10 H NEUTROPHILS - ABS (CELLAVISION)(BEAKER) (test code = 2830) 28.82 K/ul 1.56-6.13 H LYMPHOCYTES - ABS (CELLAVISION)(BEAKER) (test code = 2831) 0.34 K/ul 1.18-3.74 L MONOCYTES - ABS (CELLAVISION)(BEAKER) (test code = 2832) 0.34 K/uL 0.24-0.36 EOSINOPHILS - ABS (CELLAVISION)(BEAKER) (test code = 2834) 0.34 K/uL 0.04-0.36 BANDS - ABS (CELLAVISION)(BEAKER) (test code = 2840) 4.07 K/uL 0 .00-0.80 H TOTAL COUNTED (BEAKER) (test code = 1351) 100 WBC MORPHOLOGY (BEAKER) (test code = 487) Normal PLT MORPHOLOGY (BEAKER) (test code = 486) Normal SCHISTOCYTES (BEAKER) (test code = 765) 1+ few OVALOCYTES (BEAKER) (test code = 477) 2+ moderate NENA CELLS (BEAKER) (test code = 474) 1+ few ARTIFACT (CELLAVISION)(BEAKER) (test code = 3432) Present HELMET CELLS (CELLAVISION)(BEAKER) (test code = 3434) 1+ few PLATELET CONCENTRATION (CELLAVISION)(BEAKER) (test code = 3438) Jeanie quate Flat[employer] Whacker ID - Ana Cristina Theodore comments: Slide comments: BASIC METABOLIC PANEL 2019-07-09 00:24:00* Test Item Value Reference Range Interpretation Comments SODIUM (BEAKER) (test code = 381) 137 meq/L 136-145 POTASSIUM (BEAKER) (test code = 379) 3.2 meq/L 3.5-5.1 L CHLORIDE (BEAKER) (test code = 382) 101 meq/L 98-107 CO2 (BEAKER) (test code = 355) 24 meq/L 22-29 BLOOD UREA NITROGEN (BEAKER) (test code = 354) 9 mg/dL 7-21 CREATININE (BEAKER) (test code = 358) 0.76 mg/dL 0.57-1.25 GLUCOSE RANDOM (BEAKER) (test code = 652) 160 mg/dL 70-105 H CALCIUM (BEAKER) (test code = 697) 8.5 mg/dL 8.4-10.2 EGFR (BEAKER) (test code = 1092) 74 mL/min/1.73 sq m ESTIMATED GFR IS NOT ACCURATE CREATININE CLEARANCE IN PREDICTING GLOMERULAR FILTRATION RATE. ESTIMATED GFR IS NOT APPLICABLE FOR DIALYSIS PATIENTS. [employer] ID - PIAYA LHepatic function [id number] 00:18:00* Test Item Value Reference Range Interpretation Comments Protein, Total (test code = 2885-2) 6.5 6.0- 8.3 gm/dL Albumin (test code = 83043-9) 3.7 g/dL 3.5-5 Total Bilirubin (test code = 1975-2) 0.5 mg/dL 0.2-1.2 Bilirubin, Direct (test code = 1968-7) 0.3 mg/dL 0.1-0.5 Alkaline Phosphatase (test code = 6768-6) 123 U/L 40-150 AST (test code = 1920-8) 24 U/L 5-34 ALT (test code = 1742-6) 13 U/L 6-55 MARISELA (test code = MARISELA) [facility] [facility] ID - GALE L Lab Interpretation (test code = 91752-2) [facility] [id number] 00:18:00* Test Item Value Reference Range Interpretation Comments TOTAL PROTEIN (BEAKER) (test code = 770) 6.5 gm/dL 6.0-8.3 ALBUMIN (BEAKER) (test code = 1145) 3.7 g/dL 3.5-5.0 BILIRUBIN TOTAL (BEAKER) (test code = 377) 0.5 mg/dL 0.2-1.2 BILIRUBIN DIRECT (BEAKER) (test code = 706) 0.3 mg/dL 0.1-0.5 ALKALINE PHOSPHATASE (BEAKER) (test code = 346) 123 U/L 40-150 AST (SGOT) (BEAKER) (test code = 353) 24 U/L 5-34 ALT (SGPT) (BEAKER) (test code = 347) 13 U/L 6-55 [employer] Wh[facility] ID - GALE LECG/EKG Gavrentmvukryd1008-36-47 23:53:28Karma Serrano DO 07/09/2019 2:22 AMECG/EKG InterpretationDate/Time: 07/09/2019 1:58 AMPerformed by: Karma Serrano DOAuthorized by: Karma Serrano DO The ECG was interpreted by ED physician. This ECG was not compared with previous ECG(s).Rate is normal rate. Heart rate is 86 BPM.Conduction: conduction normal. ST segments normal. T waves normal. [place] is normal. Other findings: no other findings. Right sided lead use: right-sided leads not used. Left sided lead use: Posterior leads were not used. Clinical Impression: non-specific ECGECG reviewed and does not meet STEMI criteria. [facility] Shiga [id number] 11:34:00* Test Item Value Reference Range Interpretation Comments Result (test code = 6463-4) No Salmonella or Shigella isolated [facility] Toxin Txeegn1374-40-40 11:34:00* Test Item Value Reference Range Interpretation Comments Shiga toxin 1 (test code = 81197-1) Not detected Not detected Shiga toxin 2 (test code = 96152-3) Not detected Not detected Lab Interpretation (test code = 44913-5) [facility] [id number] 11:34:00* Test Item Value Reference Range Interpretation Comments SHIGA TOXIN 1 (BEAKER) (test code = 2177) Not detected Not detected SHIGA TOXIN 2 (BEAKER) (test code = 2179) Not detected Not detected STOOL CULTURE + SHIGA [id number] 11:34:00* Test Item Value Reference Range Interpretation Comments CULTURE (BEAKER) (test code = 1095) No Salmonella or Shigella isola sanjuana Clostridium difficile GDH [id number] 14:25:00* Test Item Value Reference Range Interpretation Comments C. Difficle Toxin (test code = 4154922076) Negative Negative C. Difficile GDH Antigen (test code = 2055966274) Negative Nega tive No indication of Clostridium difficile infection and no colonization. Discontinue enteric isolation and therapy. MARISELA (test code = MARISELA) Testing performed by [employer] apid Cassette Assay. For GDH, published sensitivity of the assay is 98.7% compared to cytotoxicity testing. For Toxin AB, published sensitivity is 87.8% and specificity 99.4% compared to cytotoxicity testing.Verification of kit performance was done by the [facility] Microbiology Lab prior to clinical use. Lab Interpretation (test code = 15407-9) [facility] DIFFICILE G[facility] [id number] 14:25:00* Test Item Value Reference Range Interpretation Comments CDT TOXIN (test code = 6084108052) Negative Negative CDT GDH ANTIGEN (test code = 4801014303) Negative Negative No indication of Clostridium difficile infection and no colonization. Discontinue enteric isolation and therapy. Testing performed by [employer] Rapid Cassette Assay. For GDH, published sensitivity of the assay is 98.7% compared to cytotoxicity testing. For Toxin AB, publishe d sensitivity is 87.8% and specificity 99.4% compared to cytotoxicity testing.Ve rification of kit performance was done by the [facility] Microbiology Lab prior to cl inical use.CBC W/PLT COUNT & AUTO [id number] 07:47:00* Test Item Value Reference Range Interpretation Comments WHITE BLOOD CELL COUNT (BEAKER) (test code = 775) 18.8 K/ L 3.5- 10.5 H RED BLOOD CELL COUNT (BEAKER) (test code = 761) 3.82 M/ L 3.93-5 .22 L HEMOGLOBIN (BEAKER) (test code = 410) 12.5 GM/DL 11.2-15.7 HEMATOCRIT (BEAKER) (test code = 411) 36.5 % 34.1-44.9 MEAN CORPUSCULAR VOLUME (BEAKER) (test code = 753) 95.5 fL 79. 4-94.8 H MEAN CORPUSCULAR HEMOGLOBIN (BEAKER) (test code = 751) 32.7 pg 25.6-32.2 H MEAN CORPUSCULAR HEMOGLOBIN CONC (BEAKER) (test code = 752) 34.2 GM/DL 32.2-35.5 RED CELL DISTRIBUTION WIDTH (BEAKER) (test code = 412) 14.3 % 11.7-14.4 PLATELET COUNT (BEAKER) (test code = 756) 274 K/CU MM 150-450 MEAN PLATELET VOLUME (BEAKER) (test code = 754) 9.8 fL 9.4-12 .3 NUCLEATED RED BLOOD CELLS (BEAKER) (test code = 413) 0 /100 WBC 0 -0 NEUTROPHILS RELATIVE PERCENT (BEAKER) (test code = 429) 78 % LYMPHOCYTES RELATIVE PERCENT (BEAKER) (test code = 430) 17 % MONOCYTES RELATIVE PERCENT (BEAKER) (test code = 431) 3 % EOSINOPHILS RELATIVE PERCENT (BEAKER) (test code = 432) 1 % BASOPHILS RELATIVE PERCENT (BEAKER) (test code = 437) 1 % NEUTROPHILS ABSOLUTE COUNT (BEAKER) (test code = 670) 14.63 K/ L 1.56-6.13 H LYMPHOCYTES ABSOLUTE COUNT (BEAKER) (test code = 414) 3.15 K/ L 1.18-3.74 MONOCYTES ABSOLUTE COUNT (BEAKER) (test code = 415) 0.47 K/ L 0. 24-0.36 H EOSINOPHILS ABSOLUTE COUNT (BEAKER) (test code = 416) 0.24 K/ L 0.04-0.36 BASOPHILS ABSOLUTE COUNT (BEAKER) (test code = 417) 0.09 K/ L 0. 01-0.08 H IMMATURE GRANULOCYTES-RELATIVE PERCENT (BEAKER) (test code = 2801) 1 % 0-1 BASIC METABOLIC [id number] 07:25:00* Test Item Value Reference Range Interpretation Comments SODIUM (BEAKER) (test code = 381) 133 meq/L 136-145 L POTASSIUM (BEAKER) (test code = 379) 3.8 meq/L 3.5-5.1 Specimen slightly hemolyzed CHLORIDE (BEAKER) (test code = 382) 105 meq/L 98-107 CO2 (BEAKER) (test code = 355) 20 meq/L 22-29 L BLOOD UREA NITROGEN (BEAKER) (test code = 354) 15 mg/dL 7-21 CREATININE (BEAKER) (test code = 358) 0.79 mg/dL 0.57-1.25 Specimen slightly hemolyzed GLUCOSE RANDOM (BEAKER) (test code = 652) 106 mg/dL 70-105 H CALCIUM (BEAKER) (test code = 697) 8.4 mg/dL 8.4-10.2 EGFR (BEAKER) (test code = 1092) 71 mL/min/1.73 sq m ESTIMATED GFR IS NOT ACCURATE CREATININE CLEARANCE IN PREDICTING GLOMERULAR FILTRATION RATE. ESTIMATED GFR IS NOT APPLICABLE FOR DIALYSIS PATIENTS. [facility] Whacker ID - PIAYA LPOC-Glucose nxhve5629-82-50 07:18:00* Test Item Value Reference Range Interpretation Comments POC-Glucose Meter (test code = 1538) 99 mg/dL 70-110 : TESTED AT [facility] [address], [address]: [employer] Whacker/Inspector Repairer [place] ID = [id number] for QUEEN MONTEMAYOR Lab Interpretation (test code = 08200-4) [facility] [id number] 07:18:00* Test Item Value Reference Range Interpretation Comments POC-GLUCOSE METER (BEAKER) (test code = 1538) 99 mg/dL 70-110 : TESTED AT [facility] [address], [address]: [employer] Whacker/Inspector Repairer [place] ID = [id number] for QUEEN MONTEMAYOR BASIC METABOLIC [id number] 13:22:00* Test Item Value Reference Range Interpretation Comments SODIUM (BEAKER) (test code = 381) 134 meq/L 136-145 L POTASSIUM (BEAKER) (test code = 379) 3.7 meq/L 3.5-5.1 CHLORIDE (BEAKER) (test code = 382) 106 meq/L 98-107 CO2 (BEAKER) (test code = 355) 19 meq/L 22-29 L BLOOD UREA NITROGEN (BEAKER) (test code = 354) 19 mg/dL 7-21 CREATININE (BEAKER) (test code = 358) 0.85 mg/dL 0.57-1.25 GLUCOSE RANDOM (BEAKER) (test code = 652) 101 mg/dL 70-105 CALCIUM (BEAKER) (test code = 697) 7.8 mg/dL 8.4-10.2 L EGFR (BEAKER) (test code = 1092) 65 mL/min/1.73 sq m ESTIMATED GFR IS NOT ACCURATE CREATININE CLEARANCE IN PREDICTING GLOMERULAR FILTRATION RATE. ESTIMATED GFR IS NOT APPLICABLE FOR DIALYSIS PATIENTS. [employer] Whacker ID - LAKE [id number] 13:18:00* Test Item Value Reference Range Interpretation Comments Lipase (test code = 3040-3) 70 U/L 8-78 MARISELA (test code = MARISELA) [employer] Whacker ID - LAKE F Lab Interpretation (test code = 81822-3) [facility]2020-[facility] 13:18:00* Test Item Value Reference Range Interpretation Comments MAGNESIUM (BEAKER) (test code = 627) 1.8 mg/dL 1.6-2.6 [employer] Whacker ID Cy BETHEA FHEPATIC FUNCTION [id number] 13:18:00* Test Item Value Reference Range Interpretation Comments TOTAL PROTEIN (BEAKER) (test code = 770) 6.3 gm/dL 6.0-8.3 ALBUMIN (BEAKER) (test code = 1145) 3.5 g/dL 3.5-5.0 BILIRUBIN TOTAL (BEAKER) (test code = 377) 0.8 mg/dL 0.2-1.2 BILIRUBIN DIRECT (BEAKER) (test code = 706) 0.3 mg/dL 0.1-0.5 ALKALINE PHOSPHATASE (BEAKER) (test code = 346) 92 U/L 40-150 AST (SGOT) (BEAKER) (test code = 353) 18 U/L 5-34 ALT (SGPT) (BEAKER) (test code = 347) 11 U/L 6-55 [employer] Wh[facility] ID - [place] [id number] 13:18:00* Test Item Value Reference Range Interpretation Comments LIPASE (BEAKER) (test code = 749) 70 U/L 8-78 [employer] Whacker ID Cy [place] FCBC W/PLT COUNT & AUTO [id number] 13:08:00* Test Item Value Reference Range Interpretation Comments WHITE BLOOD CELL COUNT (BEAKER) (test code = 775) 27.9 K/ L 3.5- 10.5 H RED BLOOD CELL COUNT (BEAKER) (test code = 761) 4.21 M/ L 3.93-5 .22 HEMOGLOBIN (BEAKER) (test code = 410) 13.7 GM/DL 11.2-15.7 HEMATOCRIT (BEAKER) (test code = 411) 40.3 % 34.1-44.9 MEAN CORPUSCULAR VOLUME (BEAKER) (test code = 753) 95.7 fL 79. 4-94.8 H MEAN CORPUSCULAR HEMOGLOBIN (BEAKER) (test code = 751) 32.5 pg 25.6-32.2 H MEAN CORPUSCULAR HEMOGLOBIN CONC (BEAKER) (test code = 752) 34.0 GM/DL 32.2-35.5 RED CELL DISTRIBUTION WIDTH (BEAKER) (test code = 412) 14.4 % 11.7-14.4 PLATELET COUNT (BEAKER) (test code = 756) 303 K/CU MM 150-450 MEAN PLATELET VOLUME (BEAKER) (test code = 754) 9.9 fL 9.4-12 .3 NUCLEATED RED BLOOD CELLS (BEAKER) (test code = 413) 0 /100 WBC 0 -0 (CELLAVISION MANUAL DIFF)2019-06-11 13:08:00* Test Item Value Reference Range Interpretation Comments NEUTROPHILS - REL (CELLAVISION)(BEAKER) (test code = 2816) 93 % LYMPHOCYTES - REL (CELLAVISION)(BEAKER) (test code = 2817) 5 % MONOCYTES - REL (CELLAVISION)(BEAKER) (test code = 2818) 2 % NEUTROPHILS - ABS (CELLAVISION)(BEAKER) (test code = 2830) 25.95 K/ul 1.56-6.13 H LYMPHOCYTES - ABS (CELLAVISION)(BEAKER) (test code = 2831) 1.40 K/ul 1.18-3.74 MONOCYTES - ABS (CELLAVISION)(BEAKER) (test code = 2832) 0.56 K/uL 0.24-0.36 H TOTAL COUNTED (BEAKER) (test code = 1351) 100 RBC MORPHOLOGY (BEAKER) (test code = 762) Normal WBC MORPHOLOGY (BEAKER) (test code = 487) Normal PLT MORPHOLOGY (BEAKER) (test code = 486) Normal ARTIFACT (CELLAVISION)(BEAKER) (test code = 3432) Present PLATELET CONCENTRATION (CELLAVISION)(BEAKER) (test code = 3438) Jeanie quate [employer] Whacker ID - Ashley Joanna comments: Slide comments: RAD, CHEST, 1 VIEW, NON [id number] 12:54:00Reason for exam:->DIARRHEAReason for exam:->EMESISShould this be performed at the bedside?->YesFINAL REPORT RAD, CHEST, 1 VIEW, NON DEPT INDICATION: DIARRHEAEMESIS COMPARISON: March 25, 2019 FINDINGS: Portable frontal view of the chest. IMPRESSION: Support Lines: Port-A-Cath tip overlies the SVC Lungs and pleura: Lungs are clear No pneumothorax.Heart and mediastinum: Stable contours. Additional findings: None. Signed: Jesika Ladd Verified Date/Time: 06/11/2019 12:54:43 Reading Location: [facility] Radiology Reading Room chest 1 view portable / [id number] 12:54:00Interface, External Ris In - 06/11/2019 12:56 PM CDTFINAL REPORT RAD, CHEST, 1 VIEW, NON DEPT INDICATION: DIARRHEAEMESIS COMPARISON: March 25, 2019 FINDINGS: Portable frontal view of the chest. IMPRESSION: Support Lines: Port-A-Cath tip overlies the SVC Lungs and pleura: Lungs are clear No pneumothorax.Heart and mediastinum: Stable contours. Additional findings: None. Signed: Jesika Ladd MDReport Verified Date/Time: 06/11/2019 12:54:43 Reading Location: [facility] Radiology Reading Room [facility] [id number] 22:08:00 [place] [address] Patient Name: MARITZA JONES MR #: [id number] : 1940 Age/Sex: 78/F Req #: [id number] Adm Physician: Ordered by: SELNEE YANCEY MD Report #: [id number] Location: ER Room/Bed: Procedure: 0315-[address]/CT ABDOMEN/PELVIS W Exam Date: 04/22/19 Exam Time: 2129 REPORT STATUS: Signed EXAM: CT Abdomen and Pelvis WITH contrast INDICATION: Abdominal Pain wit h vomiting, history of pancreas cancer. COMPARISON: None. TECHNIQUE: Abdo men and pelvis were scanned utilizing a multidetector helical scanner from the lung base to the pubic symphysis after administration of IV contrast. Coronal and sagittal reformations were obtained. Routine protocol was performed. Scan was performed when during portal venous phase. IV CONTRAST: 100 cc o f Isovue-370 ORAL CONTRAST: Water COMPLICATIONS: None RADIATION DOSE: Total DLP: 427.5 mGy*cm Estimated effective dos e: (DLP x 0.015 x size factor) mSv CTDIvol has been reviewed. It is below the limits set by the Radiation Protocol Committee (RPC). FINDINGS: LI RAF and TUBES: None. LOWER THORAX: There is a 9 mm solid nodule in the rig ht lower lobe on series 2, image 9, and a 6 mm nodule in the right lower lobe on image 8. HEPATOBILIARY: Hepatomegaly with hepatic steatosis. There are m ultiple ill-defined hyperdense lesions, for example a right hepatic dome lesio n measuring 1.1 cm on series 2, image 11, a segment 8 hyperdense lesion measur ing 1.5 cm on image 14, and a segment 4 lesion measuring 1.3 cm on image 14. Dilated intrahepatic and hepatic bile ducts, likely secondary to postcholecys tectomy reservoir effect. GALLBLADDER: Status post cholecystectomy. SP OMAR: Status post splenectomy. PANCREAS: Status post distal pancreatectomy. There are multiple hypodense cystic lesions adjacent to one another along the superior aspect of the body of the pancreas, the largest measuring up to 4.2 cm measuring simple fluid attenuation on coronal image 35. There is an additio nal 1.9 cm cystic lesion on image 43 and a 2.8 cm cystic lesion on image 48. I nferiorly, there is a 1.3 cm cystic lesion near the pancreatic anastomotic sut ures, on axial series 2, image 30. Mildly dilated pancreatic duct at the head, measuring up to 3 mm. ADRENALS: No adrenal nodules KIDNEYS/URETERS: Kidneys enhance symmetrically. No evidence of hydronephrosis, solid mass, or stone. GI TRACT: No evidence of wall thickening or distension. Per clinica l history, the patient is status post appendectomy. PELVIC ORGANS/BLADDER : Uterus is hypodense in appearance. Prominent pelvic collaterals. LYMPH NODES: No retroperitoneal lymphadenopathy. See peritoneal section below. V ESSELS: There is moderate to severe atherosclerotic disease in the aorta and m ajor arterial branches. Ectatic infrarenal abdominal aorta, measuring up to 2. 6 cm. Postsurgical changes of the celiac artery. PERITONEUM / RETROPERITONE UM: There are multiple peritoneal nodules, for example in the anterior periton eum measuring 1.3 cm on series 2, image 50. Mesenteric soft tissue nodule marjorie uring 2.1 x 0.7 cm on series 2, image 35. No free air or fluid. BONES AND SOFT TISSUES: No acute osseous abnormality. Postsurgical changes in the anter ior abdominal wall. CONCLUSION: Status post distal pancreatectomy and spl enectomy for reported history of pancreatic cancer. Peritoneal nodularity and right lower lobe pulmonary nodules, suspicious for metastases. No evidence of bowel obstruction. Hyperdense ill-defined hepatic lesions may represent metast ases; hyperdense lesions would be uncommon in the setting of pancreatic adenoc arcinoma, but may be seen in neuroendocrine tumor. Recommend comparison with p rior imaging. Multiple cystic lesions which abut the pancreatic body, larg est measuring up to 4.2 cm. The differential includes pancreatic pseudocysts. There is no significant inflammatory changes to suggest abscess. Malignancy is also on the differential. Recommend comparison with prior imaging and oncolog ic follow-up. Hypodense appearance of the uterus, incompletely evaluated. R ecommend nonemergent follow-up pelvic ultrasound for further evaluation. Promi nent pelvic collaterals, which may be seen in pelvic congestion syndrome. Signed by: Dr. Sabra Cui MD on 04/22/2019 10:31 PM Dictated By: SABRA CUI MD 30 Transcribed By : VERONICA on 04/22/192230 COPY TO: SELENE YANCEY MD Sodium [id number] 20:34:00* Test Item Value Reference Range Interpretation Comments Sodium Level (test code = 2951-2) 138 136-145 [facility] PasoPotassium Gbjch8780-55-22 20:34:00* Test Item Value Reference Range Interpretation Comments Potassium Level (test code = 2823-3) 4.1 3.5-5.1 [facility] PasoChloride [id number] 20:34:00* Test Item Value Reference Range Interpretation Comments Chloride Level (test code = 2075-0) 102 98-107 [facility] PasoCarbon Dioxide Yspnw0504-50-57 20:34:00* Test Item Value Reference Range Interpretation Comments Carbon Dioxide Level (test code = 2028-9) 28 22-29 [facility] PasoAnion [id number] 20:34:00* Test Item Value Reference Range Interpretation Comments Anion Gap (test code = 61383-9) 12.1 8-16 [facility] PasoBlood Urea [id number] 20:34:00* Test Item Value Reference Range Interpretation Comments Blood Urea Nitrogen (test code = 3094-0) 22 7-26 [facility] PasoCreatinine2020-03-15 20:34:00* Test Item Value Reference Range Interpretation Comments Creatinine (test code = 2160-0) 1.21 0.57-1.11 H [facility] PasoBUN/Creatinine Fdqyb5715-97-84 20:34:00* Test Item Value Reference Range Interpretation Comments BUN/Creatinine Ratio (test code = 3097-3) 18 6-25 [facility] PasoEstimat Glomerular Filtration Rate 2019-04-22 20:34:00* Test Item Value Reference Range Interpretation Comments Estimat Glomerular Filtration Rate (test code = 439252313) 43 >60 L Ranges were taken from the National Kidney Disease Education Program and the [place] [facility] health[facility] [employer] literature.Reference ranges:60 or greater: Ujmdgk88-94 ( for 3 consecutive months): Chronic kidney disease 15 or less: Kidney failureFoundation Surgical Hospital of El PasoGlucose Dnlig4216-44-46 20:34:00* Test Item Value Reference Range Interpretation Comments Glucose Level (test code = IWG5930) 119 74-118 H [facility] PasoCalcium Ldedb1303-88-65 20:34:00* Test Item Value Reference Range Interpretation Comments Calcium Level (test code = 63850-3) 9.9 8.4-10.2 [facility] PasoTotal Clnpqkyjp9049-83-82 20:34:00* Test Item Value Reference Range Interpretation Comments Total Bilirubin (test code = 1975-2) 0.4 0.2-1.2 [facility] PasoAspartate Amino Transf (AST/SGOT) 2019-04-22 20:34:00* Test Item Value Reference Range Interpretation Comments Aspartate Amino Transf (AST/SGOT) (test code = Aspartate Amino Transf (AST/SGOT)) 18 5-34 [facility] PasoAlanine Aminotransferase (ALT/SGPT) 2019-04-22 20:34:00* Test Item Value Reference Range Interpretation Comments Alanine Aminotransferase (ALT/SGPT) (test code = 1742-6) 12 0-55 [facility] PasoTotal Adcocqt0574-75-98 20:34:00* Test Item Value Reference Range Interpretation Comments Total Protein (test code = 2885-2) 7.7 6.5-8.1 [facility] PasoAlbumin2020-03-15 20:34:00* Test Item Value Reference Range Interpretation Comments Albumin (test code = 1751-7) 4.2 3.5-5.0 [facility] PasoGlobulin2020-03-15 20:34:00* Test Item Value Reference Range Interpretation Comments Globulin (test code = 69125-3) 3.5 2.3-3.5 [facility] PasoAlbumin/Globulin Oxulh3321-56-64 20:34:00 * Test Item Value Reference Range Interpretation Comments Albumin/Globulin Ratio (test code = 1759-0) 1.2 0.8-2.0 [facility] PasoAlkaline Tbqlvzkihwt9654-87-05 20:34:00* Test Item Value Reference Range Interpretation Comments Alkaline Phosphatase (test code = 6768-6) 72 40-150 [facility] PasoAmylase Syqfb6803-36-63 20:33:00* Test Item Value Reference Range Interpretation Comments Amylase Level (test code = 1798-8) 164 25-125 H [facility] El PasoLipase2020-03-15 20:33:00* Test Item Value Reference Range Interpretation Comments Lipase (test code = 3040-3) 53 8-78 [facility] PasoUrine HQC1528-21-23 20:21:00* Test Item Value Reference Range Interpretation Comments Urine WBC (test code = 5821-4) 6-10 0-5 H [facility] PasoUrine [id number] 20:21:00* Test Item Value Reference Range Interpretation Comments Urine RBC (test code = 53841-9) 0-5 0-5 [facility] PasoUrine Komhzbgu0155-54-47 20:21:00* Test Item Value Reference Range Interpretation Comments Urine Bacteria (test code = 28513-8) FEW NONE [facility] PasoUrine Epithelial Acfox7704-86-66 20:21:00 * Test Item Value Reference Range Interpretation Comments Urine Epithelial Cells (test code = 25411-3) FEW NONE [facility] PasoWhite Blood [id number] 20:20:00* Test Item Value Reference Range Interpretation Comments White Blood Count (test code = 6690-2) 11.10 4.8-10.8 H [facility] PasoRed Blood Dxaak6830-59-04 20:20:00* Test Item Value Reference Range Interpretation Comments Red Blood Count (test code = 789-8) 4.26 3.6-5.1 [facility] PasoHemoglobin2020-03-15 20:20:00* Test Item Value Reference Range Interpretation Comments Hemoglobin (test code = 76149-9) 13.1 12.0-16.0 [facility] PasoHematocrit2020-03-15 20:20:00* Test Item Value Reference Range Interpretation Comments Hematocrit (test code = 4544-3) 39.9 34.2-44.1 [facility] PasoMean Corpuscular Udmdkd0924-24-64 20:20:00* Test Item Value Reference Range Interpretation Comments Mean Corpuscular Volume (test code = 787-2) 93.7 81-99 [facility] PasoMean Corpuscular Zevokapnir2125-43-85 20:20:00* Test Item Value Reference Range Interpretation Comments Mean Corpuscular Hemoglobin (test code = 785-6) 30.8 28-32 [facility] PasoMean Corpuscular Hemoglobin Concent 2019-04-22 20:20:00* Test Item Value Reference Range Interpretation Comments Mean Corpuscular Hemoglobin Concent (test code = 786-4) 32.8 31-35 [facility] PasoRed Cell Distribution Jaune4492-43-84 20:20:00* Test Item Value Reference Range Interpretation Comments Red Cell Distribution Width (test code = 00013-8) 15.6 11.7 -14.4 H [facility] PasoPlatelet Keybn8769-24-50 20:20:00* Test Item Value Reference Range Interpretation Comments Platelet Count (test code = 777-3) 395 140-360 H [facility] PasoNeutrophils (%) (Auto)2019-04-22 20:20:00 * Test Item Value Reference Range Interpretation Comments Neutrophils (%) (Auto) (test code = 20263-2) 59.8 38.7-80.0 [facility] PasoLymphocytes (%) (Auto)2019-04-22 20:20:00 * Test Item Value Reference Range Interpretation Comments Lymphocytes (%) (Auto) (test code = 736-9) 28.6 18.0-39.1 [facility] PasoMonocytes (%) (Auto)2019-04-22 20:20:00* Test Item Value Reference Range Interpretation Comments Monocytes (%) (Auto) (test code = 5905-5) 7.6 4.4-11.3 [facility] PasoEosinophils (%) (Auto)2019-04-22 20:20:00 * Test Item Value Reference Range Interpretation Comments Eosinophils (%) (Auto) (test code = 713-8) 2.2 0.0-6.0 [facility] PasoBasophils (%) (Auto)2019-04-22 20:20:00* Test Item Value Reference Range Interpretation Comments Basophils (%) (Auto) (test code = 706-2) 1.4 0.0-1.0 H [facility] PasoIM GRANULOCYTES %2019-04-22 20:20:00* Test Item Value Reference Range Interpretation Comments IM GRANULOCYTES % (test code = IM GRANULOCYTES %) 0.4 0.0- 1.0 [facility] PasoNeutrophils # (Auto)2019-04-22 20:20:00* Test Item Value Reference Range Interpretation Comments Neutrophils # (Auto) (test code = 751-8) 6.7 2.1-6.9 [facility] PasoLymphocytes # (Auto)2019-04-22 20:20:00* Test Item Value Reference Range Interpretation Comments Lymphocytes # (Auto) (test code = 71647-6) 3.2 1.0-3.2 [facility] PasoMonocytes # (Auto)2019-04-22 20:20:00* Test Item Value Reference Range Interpretation Comments Monocytes # (Auto) (test code = 742-7) 0.8 0.2-0.8 [facility] PasoEosin[facility] # (Auto)2019-04-22 20:20:00* Test Item Value Reference Range Interpretation Comments Eosinophils # (Auto) (test code = 711-2) 0.2 0.0-0.4 [facility] # (Auto)2019-04-22 20:20:00* Test Item Value Reference Range Interpretation Comments Basophils # (Auto) (test code = 704-7) 0.2 0.0-0.1 H [facility] PasoAbsolute Immature Granulocyte (auto 2019-04-22 20:20:00* Test Item Value Reference Range Interpretation Comments Absolute Immature Granulocyte (auto (tyree t code = Absolute Immature Granulocyte (auto) 0.04 0-0.1 [facility] PasoABDOM[facility]1VIEW (KUB)2019-04-22 20:06:00 [place] [address] Patient Name: MARITZA JONES MR #: [id number] : [birth year] Age/Sex: 78/F Req #: [id number] Adm Physician: Ordered by: GRISELDA LIU ELECTRICAL MANUFACTURING ENGINEER Report #: [id number] Location: ER Room/Bed: Procedure: [id number] D X/ABDOMEN-1VIEW (KUB) Exam Date: 04/22/19 Exam Time: 1929 REPORT STATUS: Signed Exam : KUB - 2 views Clinical History: Abdominal pain. Comparison: None. Findings: Nonobstructive bowel gas pattern. No evidence of free intraperit acevedo air. No acute bony abnormality. Diffuse osteopenia. Mild degenerative changes of bilateral hips. Surgical clips project over the upper abdome n. Coronary atherosclerosis. Impression: No acute radiographic abnormalit y. Signed by: Dr. Sabra Cui MD on 04/22/2019 8:08 PM Dictated By: Gee CUI MD 07 Transcri bed By: VERONICA on 04/22/192007 COPY TO: GRISELDA LIU ELECTRICAL MANUFACTURING ENGINEER Urine Imoou6710-69-85 19:43:00* Test Item Value Reference Range Interpretation Comments Urine Color (test code = 5778-6) YELLOW YELLOW [facility] PasoUrine Iydzrzk9744-98-42 19:43:00* Test Item Value Reference Range Interpretation Comments Urine Clarity (test code = 46678-8) CLEAR CLEAR [facility] Paso[facility] Specific Onnmwfr7608-86-11 19:43:00 * Test Item Value Reference Range Interpretation Comments Urine Specific [place] (test code = 5811-5) 1.025 1.010-1.02 5 [facility] PasoUrine aT3660-40-27 19:43:00* Test Item Value Reference Range Interpretation Comments Urine pH (test code = 98442-9) 5 5-7 [facility] Leukocyte Sbjbfqdt0084-41-38 19:43:00* Test Item Value Reference Range Interpretation Comments Urine Leukocyte Esterase (test code = 5799-2) TRACE NEGATIVE H [facility] Paso[facility] Zcapbdc2058-00-13 19:43:00* Test Item Value Reference Range Interpretation Comments Urine Nitrite (test code = 95161-3) NEGATIVE NEGATIVE [facility] Paso[facility] Rtlajbh9740-13-02 19:43:00* Test Item Value Reference Range Interpretation Comments Urine Protein (test code = 5804-0) NEGATIVE NEGATIVE [facility] Paso[facility] Glucose (UA)2019-04-22 19:43:00* Test Item Value Reference Range Interpretation Comments Urine Glucose (UA) (test code = 2349-9) NEGATIVE NEGATIVE [facility] PasoU[facility] Fgxpkuu1636-97-10 19:43:00* Test Item Value Reference Range Interpretation Comments Urine Ketones (test code = 69957-0) 1+ NEGATIVE H [facility] PasoU[facility] Sscxujgajmte1194-85-44 19:43:00* Test Item Value Reference Range Interpretation Comments Urine Urobilinogen (test code = 12503-2) 0.2 0.2-1 [facility] Paso[facility] Pubnerrgg7368-84-19 19:43:00* Test Item Value Reference Range Interpretation Comments Urine Bilirubin (test code = 1978-6) NEGATIVE NEGATIVE [facility] Zjqpm2459-21-16 19:43:00* Test Item Value Reference Range Interpretation Comments Urine Blood (test code = 32355-4) TRACE NEGATIVE H [facility] PasoMISCELLANEOUS LAB UBFDM8190-48-86 07:25:00* Test Item Value Reference Range Interpretation Comments SCAN RESULT (test code = 1721912) UKU6371-62-43 07:25:00Scan ResultQUEST NON-INTERFACED LABSutter Delta Medical CenterFine Needle Aspirate by Snvmubzgf1373-45-85 14:39:00* Test Item Value Reference Range Interpretation Comments Case Report (test code = 104) Medical Cytology Report Case: [id number] Authorizing Provider: Tasia El MD Collected: 02/21/2019 1446 Ordering Location: [facility] Endoscopy Received: 02/21/2019 1545 Services Pathologist: Lawson Brothers MD Specimen: Siddiqui creatic DIAGNOSIS (test code = 3220) d4jryWQaOMIzm5rvRZFykUDiVoCeFnGmUaGyBsuosCPpHSfnocMuWElbc8BaK1XjCyLrCCyrbvXkQRVm AjfrxswxGNGjGDA1efIpJNKiYHmgZWVyXFfpIm7rmVGuiOtyOeTtYCWkk5dleuOFgrlmwCe0m3cyGUNs MpR2nGQhZSasJ4ghemCipVLjTQJzLJi1sY40MTOukA 9ykZRnOSfbewEjYQwsvqWpcdIqPqq2GHYwT3esRRNoRZCiD7UbOX3nVXBiVpz9UHI6LVU9nXxhi4P6rB SrtUHutYjyQmKmXoOhLPAWn3MvCJt8lGoxL5AsGIBqOlB9sXWoVODdSWzfPWYrBTCwbhN6mE31KXbzig J5aKFxl0Qgk93gz075sI8leIYuGJS7UACfDQUfdVKz XTUiCII5ZZXtuCVlM9v7ZxMloQHmO2M7HaUhaKXeH9F3SlMlyGPoV7Y3RsPbzIKuKCIiyHTfTy4lhSKm eQGyxh1cuq96SXZ4q3KodUuiBBO8XLJ5MeGcQy1moGSjZYXvCH9mVsSblDQpYGOaap21mHqtTBpxxcGp rL2oIyTtMDQrqFOhUZIxOO8uuXRjUUCbvW7dgiwnII ApMnDhnulbXKUwuBkyvjZuTl9wfBiyTKO9XRfeH2mneU0dYvG8ZZxvO6epyD3tUGh2IDergQX2MCIqwF 4kQF9nxhhcf4gkZdDzXR4rgnaot1seXoVePR5bpyu3p6ocHeUgNM3qaizgo9pdXaKfCWqzUDHkfjjbLL Kfw0MyjgnxYLCax7LkA2JuwDtaV23rzAdwF59tPYWv aZqjrT8hzLeqzO8qHlKkMsPyBUduxMphmKMkedkwUTtibbEsKRHpSNcnUQHsUKGuHxHyIJGREIMOZN4R IgQKPFcEYNsHZCJJFI1QOSHfVGFADNAZNORSOYaVRBFEVK5eZVGDYW0VLFdYYpFKRnLiZ3HRTCBBGC7P [file] p9DtPPkvFNH7RLGhe26cWKxveiP9AJrmHa7mOFVnEeo9WuwiuHAhbT3= CPT Code(s) (test code = 3357) p0twxDUbHWZhfMYiDrBnXFXmXBRxg4ljZDVnxPIgQtRkRsUfUcXfFnnhfMWtJBUnUxZvk9zei553rZVs z0dsCQSfQeG9gSOgOCMtiTTlW964e7pep1atvtIprEM9FWXiQQS4KFqytlFlwxE0BYunxDOxGwL8LOpz ycRjMRplwzLujeOsOlc8ITCbR984AKZ7gSebx8pgOO G1GKWdURAhArKkYp0chNKjU970WTLgYQMUSRXypMs6CINtvkUgqgFzoGOVz755B372r9hjMZDgzbYzaC xAnpgqf2btZ152SHQyqWUxidWmAtBtGPBkbJJueHC8HLKqMB2mooofNuIlMW3nxhnjFaRmOH4rhts6Qi IwXN3rkhixKsFxPSlpEVXfdzprYQIvs0BdkhbeKB9j I9Hei0M2uO9vcXUfAESldSNoDlOeFOAqjk1yvPYcPMgcb8YuHHH8cvG7pJDxoZDbFWMlCP98Lcfnv0Gz KlrcYLV3RKSntqMko9Wbs4dtHrFdrlVeQ6eaL5CvCUCfXTGcSQPgYjEslyEhd8Ttt0KuvGHlqQb9y4oc SUAiCNNjgHwsa7fwMTK4GTNbX4M2jQVuu9adQZrvKE KpcWZ0hfzfYIivEOXndkH6njxnIXzgOLFquNN8edzmDMwbGJReMiX4sakjFWxgKJWlRVH6CLtjn152KU T0CDkeGmlyPXylVNSuzzDsuqKlvFftBUWtKCPzIHzzRGJwTEmySNLqKQBtAqXwgYmtvGmrbN6rAiLoDn GkRRrzDL6vSUNuU2yuqLYaUSFqDOBnW0dkQdYznC3hxQniJThslnWpINf5KVhjETG4RISaHIcyTDP8 CLINICAL DATA (test code = 3355) n1wqiUXtFLIuzLGfEtXkHKFzQVTnq0pnHURdlWVgXsFfXzQwUlIaSkqrtSOhAZUqUzQyi4iwm901iNOt x4qhUWQmKbR5gMZdJPPnmCHvB287SCTbVJxai1fnb7ReJSQctWPmh1Y7XJDTmytdpRe3uKlcP69zk3G5 RgibF6btNYYuZMGmB0XdUH7nLOGsEdc5MTQ4RHV0PI OzSAKyK5McGP5eDFFcrESqNMn8r0aedHtnIFMrERN1w6bcCCeoscUiTJ7vkz1srMs8e6bjcvIjPXEfRR IopFQQWFZhP3EvgQopMb3cbYd9hVtgWyvpIZZ6Orl9YJ8geq71mak6nVyrUNQjhtwyPuX7FDixHWIlia ggZTu0YIfhKTYcwYntHZwrMSPqneqpSAsaWYUkzKne BCimRCFaIidzMAxyASIrDTO7CHyjl240UUW2FVocf8gjr2hskTYyRit2CFVnEmZgFinpYQdni9Bpr9vv GWKyqq6tRXE7iUMdkFzse1U1iIIgWOMzyDUafzVfGJMzMxQ0XEimKB3wms42MEXdGXA7zm4ajPZssMoi vjRlwDVdQKkcV8TdNDWan620ZMJrD2TwZFAeq5X8bx UhNeXtWRSeyIT4doK6VQVjUJa4yKIgggO3hvLwxCIfM0ywzD34NxEzgADfY0FtiO71ZcAexXEtR5TjnM 36WuAuxOXtZ9ObbN40GtKzbUMbWWKvbQUrGv9daLDfnIYff1HvuZNwKNshO82iw221UXKxxkUjA0umvX JyzmcxsQIergstTInfckN9QHLoLIRsSYglIPYlQPUe IwHgeMIhAnEbQbBljRzthLdsRGtgJhAiHJAmSZomQ6isAlZjEyJxJSEaWtutS27bsNN1NiIvB74bMF4d N9jjeUMpSs1bxAKvWpIzWJ1reiIogrDrZLGkr384BDtiPlqiiBMlPwYgF34rTVLrzWKkY4NcZLs4zRAo VN0yTOJhd8ObILXjd4WgdOn4SLPdyA8zzMeeNCIxidepSC3kaeWoyCxoANHaZ4tglpyuGAW1 SPECIMEN SOURCE (test code = 3377) l0xofVYgPMQmcSGoCdRaCRVwWDQuv3huMJIlcSDkWkMfPvHiYlYtKczlzCNnTAVyBuTzb9hbj424iPGo v2spPXRzQhW4hHEuDIWvyHKfL715JVAgTGszr2vht9QaQNRenROix5U9MDZWjkccrUf0pBhaF77yp0J4 XjpiX8emZWZcKKEcP8TtZT2mFGPhSil3HPZ9AJY2SV MqTUItN4XiOK0nRDJcfJLrPQv0e8qliLmfQRXzDSJ1a4cqEGmuspJrXC5fdr6efFc8y5zzqpUqDXWgSZ DoqZZVTVHiF5MbrOisEg0iwAl1jCtmWezhKJP4Rwr8EX3amy90lna5gIaqPPKyuifwIhG4XDawQLLdfr wuEWj8TVxpOCGbdNlsBRemHVLcjjqqJKziBRTazAns MZivIRAkIwudJDepWOFgZHB0QCtsn751ZPW0DXbnt8bji0qsnOJlQzr9GEDxWdLlIuvfLLntk9Kde9xu PXQozg9lRCH4lJXjgPekf2C1mATmOOMjmTQtkqBvFXZgJlB7KLtfQX6kjm62OAJwIYV3ic5erTUafZxg krMteICvOGttG2CnVUZwq255JVQnG3OxTLCcz4A1di LdJlBxOEUcnMQ3aeQ1FAIhSOt8mPVzkzY2agDlrBYkV4umoG29GmQvdDTzO3FcmJ35PjVqrVOdX4RtoF 91IbLqsITlU9TdyS68HwSclRFnTBQjkFWkVr2zhEIbsFFsy2GuhTHqTQndK11ji611MLXvxeWbB7stpJ IflpvebJHdlzgbESdfumN1AIWjSHEgBQmfEIGbROId MiDpnGSvKcBtMtJqnSowzXbhPWcuKiVkBYOsAFzsL7ugEzVnHgCjGCGQJDMDVELVWlFTYCMRCGXqDYsV JMwoHl2ODAPEKtRrbYGfiQ== GROSS DESCRIPTION (test code = 3366) h8utbNEnIYYdjJLpLlYeIUZqMSCuc2kwZAFanXMlSqUlWuOjVkFtKbodvCLiIEGyMuWvv5kvl213gMYd p8wlEMRcNsY0jOKsMATwuQPuM847YEPhFCyqm6cnj2TxVLZpiUYhe1L0NHTYginisTu6nMyeL12yo6G9 UmhlP4prFZCoVNWmY1WhME5gANGhJlv8VFX1CZM8JZ SfNAVcP5BkJL2wYECctOTzIHv8m6emoTwvOOXyVTU1t1dmNFqntpDqGN4dao7amHj3w4efdoRaLGBqAW WpqNYYESBnO6TsrBrbGu6wmGe8lZfpPfepFHO9Lto9YB3kxb83qvz7rLmbVUHcehcmPuL6KAgnFRYmho mdAUx2WYprDODrrTdcDPcxBWAejefxTJuhUMXnaXpl WYmvTCHiPsbhILquYKHyUGK2JGovr404HYN2YOjll9igv0dinWEzZny2ODRwZjAdCbacMWfxs3Bgn7pu VRHuqf5hLTI3kKJkvLstr7A9jYFqDNFgyNZlhsPgCVNeYhP8OYncJD6mgt72DRWiLXV3oe3wrCTwnOtq ncAjoZHcXLkyH5SbBAJwc623YIFpD5FyMXQfv6V9qc CwJeMtWJYwnWJ1gfZ4BAKgMNd0iQMkjdP6uuOtoLDjO3cjcX09DlKmuWOcK8EhnN77XfOmvTNyH0EylF 83RyMuoGIiM7EfjE32XzPggGIqHUXfcUTqMk6jkBEfvSGeq4EjeEKnPZqlO72gk276AZHyidXqL8yryB NweeezxIDjfjnmPYrzmcE2PXHhSYZiJWonCJPlNAWn DjRrqZHgNwGbCtWohZuhbDqgUOhmSrFgICRuFMnuS9mkClAqWsQhGpHDADQlmNNvVKRrTf43LC1yAEQ6 lF7rfUXcLZQePNJtuQpxpLd0CRMfFY9gvVSiqLKyYKBcSUFpjxAwVBLecTfnFwkhR5obGFKcMUAjQBG7 ZNN8vQ3fyCxvqyKqgSGhIJEbhJzfJ5GpCJcwNWAmCIGhLFRycaKIQMOjbPFeTQkkQCTxXYBkQKWzod8= Gross assessment was performed at (test code = 2777) [facility], Department of Pathology, [address] [place] [address], Technical component was performed at (test code = 2778 ) [facility], Department of Pathology, [address] [place] [address], Professional component was performed at (test code = 2 779) [facility], Department of Pathology, [address] [place] [address], [facility] CenterFINE NEEDLE ASPIRATION BY YKXNZBZAT9284-45-55 14:39:00Medical Cytology Report Case: [id number] Authorizing Provider: Tasia El MD Collected: 02/21/20197 Ordering Location: [facility] Endoscopy Received: 02/21/2019 1545 Services Pathologist: Lawson Brothers MD Specimen: Pancreatic MERRY PANCREATIC LYMPH NODE, FNA BY CLINICIAN (CYTOSPINS AND CELL BLOCK OF ASPIRATE): - NEGATIVE FOR EPITHELIAL MALIGNANCY - LYMPHOID TISSUE PRESENT Signing Pathologist Direct Phone Line: [phone] signed by Lawson Brothers MD on 02/24/2019 at 2:39 [id number], 692269.8 cm x 4.3 cm anechoic body of pancreas lesion; (0.8 x 1.2 cm) enlarged lymph node was visualized in the peripancreatic regionPERI PANCREATIC LYMPH NODE FNAReceived 22.5 ml cytorich red fixative samplePrepared cell block(A2) and 4 cytospins Collected: [id number]: [id number], Department of Pathology, [address] [place] [address], [facility], Department of Pathology, [address] [place] [address], SnqsesSonoma Speciality Hospital, Department of Pathology, [address] [place], [place] [address], UWMF NEEDLE ASPIRATION BY CGSPDKLGN7527-64-09 14:24:00Medical Cytology Report Case: [id number] Authorizing Provider: Tasia El MD Collected: 02/21/2019 1446 Ordering Location: [facility] Endoscopy Received: 02/21/2019 1545 Services Pathologist: Lawson Brothers MD Specimen: Pancreas, body of pancreas cystic lesion BODY OF PANCREAS CYSTIC LESION FLUID, (CYTOSPINS AND CELL BLOCK): - NEGATIVE FOR MALIGNANCY - Macrophages and small lymphocytes present Signing Pathologist Direct Phone Line: [phone] signed by Lawson Brothers MD on 02/24/2019 at 2:24 [id number], 325149.8 cm x 4.3 cm anechoic body of pancreas lesion; (0.8 x 1.2 cm) enlarged lymph node was visualized in the peripancreatic regionBODY OF PANCREAS CYSTIC LESION FLUIDReceived 27.5ml cytorich red fixative samplePrepared cell block(A2) using collodion bag and 4 cytospinsCollected: [id number]: [id number] [facility], Department of Pathology, [address] [place] [address], CfdvdhSon[facility], Department of Pathology, [address] [place] [address], HkbqfxSonoma [facility]ity Hospital, Department of Pathology, [address] [place] [address], Eqhsmrj Peritoneal Snigt1274-30-18 06:40:00* Test Item Value Reference Range Interpretation Comments AMYLASE, PERITONEAL FLUID (test code = 1797-0) [address] [facility] CenterTissue Ogea7604-18-92 13:22:00* Test Item Value Reference Range Interpretation Comments Case Report (test code = 104) Surgical Pathology Repor t Case: [id number] Authorizing Provider: Tasia El MD Collected: 02/21/2019 1422 Ordering Location: [facility] Endoscopy Received: 02/21/2019 1533 Services Pathologist: Shelbie Morfin MD Specimen: Duodenal, duodenal ulcer bx DIAGNOSIS (test code = 3220) o0msgYTzMALhr0ejIZFgaJEfIjZzTrPlDdPhMwmffGDwMEabqrBqUGcbe5KvW7LrGmJaJOfglcAePQFq WfthvmdlCNCuPRM1xmWyVUQxCReaMSXuCAerOw6keCXedIflMwVmPOKrj6udyxPUpllzuGe9m9hkVUIv SzO8dJUhNYenM0lrriWuyVPkGXIkCJo1uP32LTRyzJ 0opQGbQNvtsxDzMpS4TCzrAJAyToE9DYFzfRBpZKDjI4iuDRNtESnaFXNcOCsvnJJoJMY0nCnjs7I8gK PyeUGfyWevBtVsFrUwBGOLp4BwVWf8zJjdE6QqBORoJaM6wTKoZPNzIWxlTZFtZXCbgrS3xQ89SXxtah G0wVYgw9Xxp11uw859bG6nkTWgKQS5MRLyIVGxsCYt UEVjOQW9IAEzsXAhK4t1WzQpgRFyO6H5ZgBizSDxE9O5XhBttBYxO4X2VdGqbGDhIBIkkTGfPx8vwGAr oBEmod8gdp09CQS0p3WgfJonZLX5GIW9TiZoKi5wkTDpGTAnOL3yCmGetCXkQYHtuy07dDhlIDlohgPx aG1lPsShHKTduHMsYHBiKT1ojUPqQWFgrX6oitxsMD FyIaXkwptmBZEmpCapmkWoBm0mqXczPAB2PXmvG6hjrH3gLjL7FGomS8rfxI1qCNa2OQtrwIZ8HNWxhX 8uLF5xtlmjo5jaNtDgRU3xusyfg9pmRlViIH7ciih9r6ivRzAfXK4uqkurw2tbLsReGBbsYJZiuakvIU Brn7WpfhoiKDNkg7FrZ7MuhFdqC78vqQrdO56iQGVh wGmecD4bdSdopD9hKqIfTxZwLIpcmUcshHMoftjpTPyjzaKtHQtdfcqeQRKzXWlzR2vcZkQgGLHmyMyw BIior7ImHGIqJZJwKgLfFX9iFXcYJHNmLSNIX1BXOlEFEGBPGZNfUXFWM4CMZYmoWKWiDE1tVXFYY3YR PaXOLS1QJ12UNROHHXOVHOKEV5OZJXXRRBBKDUHOIV 0RJRRUIJvJSwMsYCyOZLSKCAerEPEeSZ9eGA8RA3XOSDXSZUAWDgCIDWKIYXGRGDChX0VnN4USE6pAA1 0PVCDcqcaqFYG7w6cwwPJsZCCchBHnYUVfXDdwuaLdIBXkZdxxrjgbEHFbRLD2nmCaJLCsCXczIZCgNS fuJv1ywXVjjTyeHxTeVLPgo1pedpEUfdlnqXs7d9oq XLYiVaG8mTEsLYwlZ2khmyEemDQdBULiDAl5tH24LQFtiI7wkQXwKGkgqmRzTtD7WGbzQTUoAdC0FGXj cQQhOPQiY5wsOAYxQSuwZCUoPFvoeYEpGUZ6jSolv9X6qLSkzAKzpFwvSwEnTwVuTjCXo7AlAIt6jDgb D1HzTELoOdS0hJWeVYDkXGvbKQTvKJUousF7fB88KP wmslV4oXNwc6Dna39se264qM4xdWNfFEY2RLYoLCSpgKQjZEIjXEK8XDZbnFCpI8juIWXjWC7jpgujQC coRBzlMEKzfDD8XAClnQYsV1TqOTWuZNprBYSbcrb8VhNeSf0niHZbtMrzQEntx0ghk7dgsTXrFyd9IJ DqUhCfRzvmXKhgt7Zkb0lfCINwhd0vCVA5fMWetVzv j3P4wTAaMZJcfHHuESNeSY0ldHNyIYOtgI9xocaqCTXqXlGttxlyALSxiKpawwGvFl3pdNncKMB0KQfc N2qmdA6kJgK0BTxgO9cudA6hDCq3IAzgPIUhpKT9mgR4IFCzcPYaL8DohB4oEMInGZ5lcru4p8deOCD4 NSyvNNIqJoN6sdA5VBFbuZXgYSLthBikVTlgp080DE O6PnUfTZSit4BhC2YlyYogM44kuBwaP23hDROnuZoivN2mkRzkaX1jHbKeCwImAOyneXqoHB7oDIFrI0 subIJhUTOcNDQvK3uxJkWecK4uiVqpRMtmuyBxWWIlWwp8LBXunNLwDPHbVik0WCBxKSYsT97ndeonBJ M2sF5ly0uit3AcJEdlKXO5NASoy30rCDpifqR7DKeuAl76YUklHJL9KYssDRP7cT== CPT Code(s) (test code = 3357) y5dvrCArCUMuhOZiMtSaDFOzRJIww7efUHPdgFDeLvIkKkYeAmVhFhvliIBlUNQgFaMrh8ywn810sIIj y7olYIBkPoL0dZEvHZOphKZoE719x9mpp7svgyOyaIK8NFCxFRC5KBkdmfQfnqF2TMzqaEGcPlR4IUjp efCeOXpkkqJhubGjIbq5CTLzO554BFI7gGglu5jiRH T1YWXqKNPzWlCkFy2rcBPhG100PBGsOFVZADUrlHq1SCQfanGfsqLjoCLWm216A937c9adJYVlupBtpP aOegslw1roH769XQGobRNvfhHxPjXbUOJvzJAqrTQ2YZXxHL7sdtbtPtUeYZ2gcdokSmOeMT5uaax0Rg SxYJ6xbllqBmIjKGqyECZkjyjqFYSih4VqqvmfUX4x X2Kvm7G0eT5ceECtOLZkcFGlPmMtQZHxoo8ivPMlOZrsn8QpOXP7wuG7wCRivESfOOZwOE51Mlhep6Gs OyqmRJD9WTPxczVkn9Rew9jdDcKuazOsX7fhB5ZdTFEaWGWaSWHnOjLuvjSkj1Yge0MdkFHxlBq0k6ur DWFqEXSnzThcu6nwQXE0OZGtI9K6eBFdx4gjXFxoVW EvdWQ5qwiiJQgkCDBczaT9rjnzMEvrOFPffEJ5owvxZGorVUGaHlT4trjuYAgcVMEmEAC3VXqmr369HI V4GSowQhwqNMtfYQYhipUabyHlkLnmJHFaKHNkQQszIUGzCFaqUXJdBNRkLrTawApwcOzhrD4oEoGrUj ZnNYhkOC3jVVVxV5jupOBfSGJjHWSkP4qvNbMieS6hvCemRAprxlZvYGb6VcM5YXZlmi3= CLINICAL HISTORY (test code = 3356) c3solSXqNTCtkDCuOnLeZZCoMJBgh9reIUVmmAMeWmRjNjWmDcHsSioybXJuBPDxQaMmd6rtq145bVEa g4yjJLCdSgU9fTApKHQwyLMdF808m5dbq0cqriLuwJG1SJEnRRU7KUbduwWpcaZ9MJqybVZaOkS9VNrc inXiVIlborEvmzOyJad1JMExI760LPU3wBolf6fcTF E1QIUoJZFeEmIeZp5zxXVlM087HQUzUHPGTVCvbFi9CTInmyOgjxAqhUOTe929V251k7bbQJYykvNdfF cRmyrur2niO765TZFpkXCowmLkIyRdTLYgmCXdzNA3ZNIrJE6nkrdeZvInIG1vufeyFwMcBZ1yzar6No UqGU9mgxfwSpDyATtjRKIztxfrQGIdm9ZepnraBI9q Z1Hqb2N8yS8weYZmYUPcbJHkMqVvAMYmsa7etMWqYCewx4TfFQC5yhY8bTNgdSRoHZOrNQ61Ueygd3Lx HpluHJY7LHIsocBah3Jix8abXoMtvaJwU1uyX5GvISXzGPNrLCXmPoGcyaTlu8Ukt2ZuvFThlYa9l3hv NYDeYRQguVfyu5dqNTF5FHZvS4C1jSNym7ahRGdiIC SidET2uzjgECvqFVCojjM8ppptMTfpGUSytWY6rfppYZyfDMVdBtW3ovhvTPtwQKPbETW8IMivk730FA U0TNbwDtinRKdcEZYwicKociCfgPwnDYMgRHTfEMrzPUBvKZubQGHyIGWbAaYopTkspYiyqD9qIyClWv OjDJncBI1wABApZ4xcsHTvVHSmDAOnW4hfLePwcF2q fWisZSitiqEvMBBbqv6mfUIsGTKpvhCsiwssYA2tLXTmGAnmm8L7eTWsjX1hW2jtCaLjdGOsxM== SPECIMEN SOURCE (test code = 3377) x7siqBIuJLHzuHOdEmJvVFIsAYPcw5bsPANlqZXiHhXnErQiXrZiEryfvHKwTHJzRtHrk8rlm873xIVx d2inRAUkJcL6zNLaKXHdeNZhY886c9vgi1ywhfIkmUC3TNCcBFQ6NPcaokQygtE1ZHkvvGDrMhR2ZYha xvCcBNvjqtBcxfWgMxq6WJDaU269JGH6iVrua4gdVJ A2OCJsSYEmIhUgLf0ayDOnH481QQGtLLDJYMFzkLe7LGXrvhZobuUsvSWUq685Z955e8vqVQNtgyNatF zSkvbco9ocK353HFZhgDRxhhUoOqTdDWGqnNBogMP1RURdSJ3ovtnaNmDeMR1zwoqzCfTxXI0rwtk6Ky KoMG6jvjhaZaAaJIteCDMyqgtuOICue9NwqqbvOJ1j O7Jie6C7yC8chGKpFTJwcTHrTjEgYKRpoa3qbZCsTEaho0InFZZ5eaV6eDJioQLoEQKzYQ51Bsded3Xy ApviTJK6VYGxggJxl1Xrs1lhUlKivvHiG2pzO8ItFEWxXVFaXDTwSyUxsdWxj9Cpr2FjjSXihHu4g3vl BNRlUHJexCxce7iePSD9CCClF2Z7tRXhj5ekHGedXO SwiYS0ounlMNxlOHXgjoU6xrqqMMdfLGYwpPZ9qkhzFYxcIEMnLnR8bceiACrlFZHqOWV8IMssy866AH Y1RAlzYjbfWLvoHDAicvQfhnJlqTrvAKIfHKEqJNjkSTTgKOkaDYXnKGYhFgJxfRxpkDbvfN9zSfIqGg EhBBllJR5vYMIjB7eoeYSkSPSrVAGlB4quStZtjD 6htKblEZkmcsZxRLE5h9YvzmTwEEKgw5VvrAkdRGU3 GROSS DESCRIPTION (test code = 3366) x0pqtTCaERUudLAaIpFrOTYiPBAji9jnKHIglODxGhBaAjOcTxTqNhshxBIyXLGqEgYab0ayp390vFYr y1bpRYGaCbN2nORcHBVylPGlS105AJOiJEugw4xad7QwJOXnzJJwv3B8BSRSrkotrUp3uDvhS78ku0B0 JnpiC7yxLTUgQInrUAOmPZxznKFqGDO0DJRoHMA1UL pqjuLwhnX5VUkscYGuBcT0BFu0g5eskQhyVNZkPBJ7j7heEBtsxzHeKD8xbx4nxOx5l6mbrhHiPCTeQE KtwCVNNAIpQ7QleHjuHc6eeNu6jTcfUduqJZI1Hii1OT0fgc16lco7dZkbUWOjpcesRyF5HOckAYGmcw bzFEi4TMmyVQRcgXfyCQtyWKYqsrvlNYywUQTujJhl VLvkMMShLnswXEnbFQIbQKA2DXxkg493XWM8MFiit5zab8wdmKCcChd5COChNbIjZsnjIDrjn4Qov2cp SNZhia5dBWD0cIGdlCbmq2Y8cKSwSLWphJLiuvTqFBOgGrC3AKgnWH6fmv95EZSjVRF4zz3mtWSmeScx scTbiREpUXsjA2SvUOKoo664PFXcV2JsFNWrt2T0dj VtQnXlUONjcKI1ptH5EXLjHUc2lNWnvjB2kzUvdPSbK7imnK01CvYyvOUiF4KfiI89KzGteOWdW7VxuK 69YbKxfFBlO2DvwR11FrLtuBXyZRUheDIeQm2egIYanKNuf9IprSGxLHupT11le680NDTjolFmQ9fxrG FpblxwbGFpblxmMFxmczIwXHFsXHBsYWluXGYwXGZz SmByzIwloS2jEiEyDeIiNDWOJmZouUsveK2vWsQlDwCjGSZJPHAqvMStWMXduqFdx3GjOBgycsCeCRDk vPMyAOczuDwczMotZVXqmSdvmxNxrpSiIX4vGJFpQ5Czk9Iyy41mmvBuIjHnFUIbSUWhPFMhCMExHZlb jIsfGGPyXaldqIU5MdYtarDvaUkkCHVaLKUyoaBjYx M7PP7xk1awgKQwyXKcf5QqdHW7wEPxxWHuFIPrxCAoQRTjbUDtsjclDA4vBDviZS7vSSjkOW7uHQGqDk GDuBQti5CbD1dpWI0dqOBjy2QprIo7vXFcEKqbKKZitQ3hhT1wH1Ghn2D3vABwlXcwwA1qMnWwSvYmJR CeLOQsTNDALq3bxNyiVUK1 MICROSCOPIC DESCRIPTION (test code = 3371) p7zwiUPjMOLqhUFnGqPhEFSkYDLwi0blNOOczEBvAkIqUdOdZtMcFifkfVMlGRSsAqHbm0rfc876nXYp t7ytOXDwPvP2cYSaEQFzeYUoM556GLOhOWrfy6erj6WyANDtnAJns8R9CVAMxxfguBf1yWxnA06fl9A0 JeewD1hpXOVdBUJxO4RgJW4oMARpZrm6HUL4CXF2UF DeSUKzU8VnAG2jRGBpmUXzYNb9w4tljSsrWQXbJKY1k8jtCHirhkNhJX8aaf1oeNn6c8nkyvCqEEYoGK PbbTALNFAeS6MnjXwtIt6seIy9oEibFezcEHF8Oqg7HU6end39ich9tLpwFFYooqreXiK8ESipYRVhmz fiQCg2ORfwAXHakOlgDWmzUEHqjcysDCedCONdfDvi BYntEJVkFijcTBtbYZNvDQW5QZyvh198UDS3NWgqc2bpp1fxhNFaEws6SWSbPwSnSmezSOwdg3Dxu4sy RNLdjj9mVLS2gHNsiYnsf9J3mUInZLPynDQlheUfISBvRrH8DAvlJQ2ypp32WFJcFNF6uc6nuUNgmRwv mcZwlVVzCOkrW9YaKIPqc852ADNjP1AmEPCef0B8xn WzEqPkZQNssHW4kmY0SCJdCKh7uVHbsmE5eqLxbUOdM5yxeK39BsCjhIIjV0ZdwD64LbSgsJNhY7GujV 13DtWosPAqJ6PvpK08HhLdsDTdVYOwsYPiIa4qdOIieEEbf9UvtVDtYEbgL03mg269NKQipmOaI7bboF TcxddtaNCyrgqhNWyqpzH5KZVrXAHwARygRZWoNJGh SnXwnSScGvYqVsUgfQjbvNabJYjvUdBnKCSxQNjsG2ymPvDhHxYhHHDEhCIjLVMdWZCdYOqkHlremCM8 NNDtzlUzc2FnLE7iYC34rJPsfNwpRHCtXFBtnyOmHyOyaXPdwFIaw5wmtFAhgDPgh6SsBKxcyDihgSqa GCMuKYJsIfIltr3sjVL1oJDziTWahLBpFWXlxyZypm DtMzG6gm4xsyszLRzxNX6eGMn0xIOleYxyw2loNsOJoTUxslVbBNjwdMw5ASAzj1PsCJyyvJelc6hmRC 1wXBXrpnFifc8mSQ9dGCCaib4= [id number] 13:22:00Surgical Pathology Report Case: [id number] Authorizing Provider: Tasia El MD Collected: 02/21/2019 1422 Ordering Location: [facility] Endoscopy Received: 02/21/2019 1533 Services Pathologist: Shelbie Morfin MD Specimen: Duodenal, duodenal ulcer bx A. ULCER, DUODENUM BULB, BIOPSY - DUODENUM MUCOSA WITH ULCER AND FIBRINOPURULENT EXUDATE - NEGATIVE FOR DYSPLASIA OR CARCINOMA Signing Pathologist Direct Phone Line: [phone] signed by Shelbie Smallwood MD on 02/22/2019 at 1:22 [id number] findings on diagnostic imagin g Duodenal biopsyA. Received in formalin labeled with the patient's name, access ion number and "duodenal ulcer biopsy" are two pieces of smith-white mucosal tissu e each measuring 0.3 x 0.3 x 0.2 cm. The specimen is submitted in toto in casset te A1. NW/plThe duodenal biopsy consists of multiple pieces of small bowel muco sa, with ulcer, fibrinopurulent exudates and Elias's gland hyperplasia. It is negative for dysplasia or carcinoma. FINE NEEDLE ASPIRATE (FNA) REQUEST 2019-02-21 17:00:00* Test Item Value Reference Range Interpretation Comments Cytology (test code = 2629) [facility] [id number] 17:00:00* Test Item Value Reference Range Interpretation Comments CYTOLOGY RESULT POINTER (BEAKER) (test code = 2629) See Separate Re port FINE NEEDLE ASPIRATE (FNA) [id number] 17:00:00* Test Item Value Reference Range Interpretation Comments CYTOLOGY RESULT POINTER (BEAKER) (test code = 2629) See Separate Re port US, ABDOMINAL, [id number] 08:09:00Reason for Exam:->researchFINAL REPORT EXAM: US, ABDOMINAL, [...] dilatation of the b iliary tree. Signed: Brian Burton Verified Date/Time: 08/09/2018 08: 09:47 Reading Location: [facility] Reading Room [address] [place] [address] , ABDOMINAL, COMPLETE 2018-05-23 12:09:00Reason for Exam:->Z00.6 [...] Prior cholecystectomy and splen ectomy Signed: Santos Rivera Verified Date/Time: 05/23/2018 12:09:54 , TUNNEL CATH CENTRAL INS W/PORT [id number] 13:11:00Reason for Exam:->C25.2FINAL REPORT Procedure: Chest port placement. History: M alignancy Operators: Naila Conscious Sedation: Versed 2 mg, fentanyl 100 [...] with a micropuncture need le. A 5 Sudanese sheath and dilator was placed. A 3 J-wire was then advanced and t he access site was dilated. A 7 Sudanese peel-away introducer sheath was then plac ed. The distal end of the 5 Sudanese port catheter was then advanced through the [...] Verified Date/Time: 05/08/2018 13 :11:36 Reading Location: [facility] Radiology Reading Room /[id number] 09:26:00* Test Item Value Reference Range Interpretation Comments PROTIME (BEAKER) (test code = 759) 10.9 sec 9.3-12.0 INR (BEAKER) (test code = 370) 1.0 <=5.9 PARTIAL THROMBOPLASTIN TIME (BEAKER) (test code = 760) 31.2 sec 23.0-35.0 RECOMMENDED COUMADIN/WARFARIN INR THERAPY [...] ectomy.3. Distal CBD measures 8 mm. Signed: Dee Muir MDReport Verified Da te/Time: 04/27/2018 09:58:40 Reading Location: [address] Radiology Reading Room UE [id number] 17:11:00Surgical Pathology Report Case: [id number] Authorizing Provider: Catracho Del Cid MD Collected: 03/22/2018 1101 Ordering Location: [facility] PERIOPERATIVE Received: 03/22/2018 1108 SERVICES Pathologist: [...] GRANULOMATOUS INFLAMMATION.UNINVOLVED SPLEENAJCC CLASSIFICATIO N (8TH EDITION) [id number] GALLBLADDER, OPEN CHOLECYSTECTOMY:CHRONIC CHOLECYS TITISCHOLELITHIASIS NEGATIVE FOR CARCINOMA.PART C SOFT TISSUE, GEROTA'S FASCIA, EXCISION:INVOLVED BY CARCINOMA, EXTENDING TO INKED MARGIN. 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 Pancreatectomy, splenectomy; B. Gallbladder; C. Gerota's fasciaSpecimen A is received fresh labeled with th e patient's name and the same accession number and consists of a pancreatic rome l (6 x 6 x 3 cm) and [...] pancreatic resection margin (en face) ; A2-A12, signs and displays sales representative sections from the tumor (A2-A6 nearest proximity of ant erior serosal surface, A7-A9 nearest proximity of posterior serosal surface). ; A13-A16, sections of pancreatic tissue; A17, signs and displays sales representative section from the spl een; A18-22, three lymph nodes each; A23-A30, signs and displays sales representative sections from the f at. /plSpecimen B [...] Immunohistochemistry technical testing was pe rformed at [facility], Pathology Laboratory where it was d eveloped and its performance characteristics were determined. It [...] to perform high complexity clinical laboratory testi ng.[id number] 13:17:00* Test Item Value Reference Range Interpretation Comments LIPASE (BEAKER) (test code = 749) 28 U/L 8-78 Run on blood drawn this amRun on blood drawn [id number] 13:17:00* Test Item Value Reference Range Interpretation Comments AMYLASE (BEAKER) (test code = 349) 39 U/L 25-125 Run on blood drawn this amRun on blood drawn thisPOCT-GLUCOSE [id number] 17:26:00* Test Item Value Reference Range Interpretation Comments POC-GLUCOSE METER (BEAKER) (test code = 1538) 113 mg/dL 70-110 H TESTED AT [facility] [address] [facility] [address] CBC W/PLT COUNT & AUTO [id number] 08:56:00* Test Item Value Reference Range Interpretation Comments WHITE BLOOD CELL COUNT (BEAKER) (test code = 775) 15.7 K/ L 3.5- 10.5 H RED BLOOD CELL COUNT (BEAKER) (test code = 761) 3.46 M/ L 3.93-5 .22 L HEMOGLOBIN (BEAKER) (test code = 410) 10.9 GM/DL 11.2-15.7 L HEMATOCRIT (BEAKER) (test code = 411) 32.8 % 34.1-44.9 L MEAN CORPUSCULAR VOLUME (BEAKER) (test code = 753) 94.8 fL 79. 4-94.8 MEAN CORPUSCULAR HEMOGLOBIN (BEAKER) (test code = 751) 31.5 pg 25.6-32.2 MEAN CORPUSCULAR HEMOGLOBIN CONC (BEAKER) (test code = 752) 33.2 GM/DL 32.2-35.5 RED CELL DISTRIBUTION WIDTH (BEAKER) (test code = 412) 12.6 % 11.7-14.4 PLATELET COUNT (BEAKER) (test code = 756) 395 K/CU MM 150-450 MEAN PLATELET VOLUME (BEAKER) (test code = 754) 10.2 fL 9.4-12 .3 NUCLEATED RED BLOOD CELLS (BEAKER) (test code = 413) 0 /100 WBC 0 -0 (CELLAVISION MANUAL DIFF)2018-03-28 08:56:00* Test Item Value Reference Range Interpretation Comments NEUTROPHILS - REL (CELLAVISION)(BEAKER) (test code = 2816) 73 % LYMPHOCYTES - REL (CELLAVISION)(BEAKER) (test code = 2817) 14 % MONOCYTES - REL (CELLAVISION)(BEAKER) (test code = 2818) 4 % EOSINOPHILS - REL (CELLAVISION)(BEAKER) (test code = 2819) 2 % BANDS - REL (CELLAVISION)(BEAKER) (test code = 2826) 2 % 0 -10 ATYPICAL LYMPHOCYTES - REL (CELLAVISION)(BEAKER) (test code = 2829) 5 % 0-0 H NEUTROPHILS - ABS (CELLAVISION)(BEAKER) (test code = 2830) 11.46 K/ul 1.56-6.13 H LYMPHOCYTES - ABS (CELLAVISION)(BEAKER) (test code = 2831) 2.20 K/ul 1.18-3.74 MONOCYTES - ABS (CELLAVISION)(BEAKER) (test code = 2832) 0.63 K/uL 0.24-0.36 H EOSINOPHILS - ABS (CELLAVISION)(BEAKER) (test code = 2834) 0.31 K/uL 0.04-0.36 BANDS - ABS (CELLAVISION)(BEAKER) (test code = 2840) 0.31 K/uL 0 .00-0.80 ATYPICAL LYMPHOCYTES - ABS (CELLAVISION)(BEAKER) (test code = 4878) 0.79 K/uL 0.00-0.00 H TOTAL COUNTED (BEAKER) (test code = 1351) 100 RBC MORPHOLOGY (BEAKER) (test code = 762) Normal PLT MORPHOLOGY (BEAKER) (test code = 486) Normal SMUDGE CELLS (BEAKER) (test code = 1371) Present PLATELET CONCENTRATION (CELLAVISION)(BEAKER) (test code = 3438) Jeanie quate Received comment: User comments: Slide comments: [id number] 05:37:00* Test Item Value Reference Range Interpretation Comments PHOSPHORUS (BEAKER) (test code = 604) 3.3 mg/dL 2.3-4.7 [id number] 05:37:00* Test Item Value Reference Range Interpretation Comments MAGNESIUM (BEAKER) (test code = 627) 1.5 mg/dL 1.6-2.6 L BASIC METABOLIC [id number] 05:37:00* Test Item Value Reference Range Interpretation Comments SODIUM (BEAKER) (test code = 381) 136 meq/L 136-145 POTASSIUM (BEAKER) (test code = 379) 3.7 meq/L 3.5-5.1 CHLORIDE (BEAKER) (test code = 382) 99 meq/L 98-107 CO2 (BEAKER) (test code = 355) 22 meq/L 22-29 BLOOD UREA NITROGEN (BEAKER) (test code = 354) 18 mg/dL 7-21 CREATININE (BEAKER) (test code = 358) 0.75 mg/dL 0.57-1.25 GLUCOSE RANDOM (BEAKER) (test code = 652) 95 mg/dL 70-105 CALCIUM (BEAKER) (test code = 697) 8.7 mg/dL 8.4-10.2 EGFR (BEAKER) (test code = 1092) 75 mL/min/1.73 sq m ESTIMATED GFR IS NOT ACCURATE CREATININE CLEARANCE IN PREDICTING GLOMERULAR FILTRATION RATE. ESTIMATED GFR IS NOT APPLICABLE FOR DIALYSIS PATIENTS. HEMOGLOBIN [id number] 12:48:00* Test Item Value Reference Range Interpretation Comments HEMOGLOBIN A1C (BEAKER) (test code = 368) 5.5 % 4.3-6.1 Received comment: User comments: Slide comments: LIPID [id number] 11:30:00 * Test Item Value Reference Range Interpretation Comments TRIGLYCERIDES (BEAKER) (test code = 540) 144 mg/dL CHOLESTEROL (BEAKER) (test code = 631) 151 mg/dL HDL CHOLESTEROL (BEAKER) (test code = 976) 30 mg/dL LDL CHOLESTEROL CALCULATED (BEAKER) (test code = 633) 92 mg/dL Triglyceride Reference Range: Low Risk <150 Borderline 150-199 High Risk 200-499 Very High Risk >=500Cholesterol Reference Range: Low Risk <200 Borderline 200-239 High Risk >240HDL Cholesterol Reference Range: Low Risk >=60 High Risk <40LDL Cholesterol Reference Range: Optimal <100 Near Optimal 100-129 Borderline 130-159 High 160-189 Very High >=190 CBC W/PLT COUNT & AUTO [id number] 09:12:00* Test Item Value Reference Range Interpretation Comments WHITE BLOOD CELL COUNT (BEAKER) (test code = 775) 18.2 K/ L 3.5- 10.5 H RED BLOOD CELL COUNT (BEAKER) (test code = 761) 3.43 M/ L 3.93-5 .22 L HEMOGLOBIN (BEAKER) (test code = 410) 10.8 GM/DL 11.2-15.7 L HEMATOCRIT (BEAKER) (test code = 411) 32.8 % 34.1-44.9 L MEAN CORPUSCULAR VOLUME (BEAKER) (test code = 753) 95.6 fL 79. 4-94.8 H MEAN CORPUSCULAR HEMOGLOBIN (BEAKER) (test code = 751) 31.5 pg 25.6-32.2 MEAN CORPUSCULAR HEMOGLOBIN CONC (BEAKER) (test code = 752) 32.9 GM/DL 32.2-35.5 RED CELL DISTRIBUTION WIDTH (BEAKER) (test code = 412) 12.7 % 11.7-14.4 PLATELET COUNT (BEAKER) (test code = 756) 363 K/CU MM 150-450 MEAN PLATELET VOLUME (BEAKER) (test code = 754) 10.6 fL 9.4-12 .3 NUCLEATED RED BLOOD CELLS (BEAKER) (test code = 413) 0 /100 WBC 0 -0 (CELLAVISION MANUAL DIFF)2018-03-27 09:12:00* Test Item Value Reference Range Interpretation Comments NEUTROPHILS - REL (CELLAVISION)(BEAKER) (test code = 2816) 84 % LYMPHOCYTES - REL (CELLAVISION)(BEAKER) (test code = 2817) 5 % MONOCYTES - REL (CELLAVISION)(BEAKER) (test code = 2818) 10 % EOSINOPHILS - REL (CELLAVISION)(BEAKER) (test code = 2819) 1 % NEUTROPHILS - ABS (CELLAVISION)(BEAKER) (test code = 2830) 15.29 K/ul 1.56-6.13 H LYMPHOCYTES - ABS (CELLAVISION)(BEAKER) (test code = 2831) 0.91 K/ul 1.18-3.74 L MONOCYTES - ABS (CELLAVISION)(BEAKER) (test code = 2832) 1.82 K/uL 0.24-0.36 H EOSINOPHILS - ABS (CELLAVISION)(BEAKER) (test code = 2834) 0.18 K/uL 0.04-0.36 TOTAL COUNTED (BEAKER) (test code = 1351) 100 WBC MORPHOLOGY (BEAKER) (test code = 487) Normal LARGE PLT(BEAKER) (test code = 2156) Present POLYCHROMATOPHILLIC RBCS(BEAKER) (test code = 478) 1+ few ARTIFACT (CELLAVISION)(BEAKER) (test code = 3432) Present PLATELET CONCENTRATION (CELLAVISION)(BEAKER) (test code = 3438) Jeanie quate Received comment: User comments: Slide comments: [id number] 05:43:00* Test Item Value Reference Range Interpretation Comments PHOSPHORUS (BEAKER) (test code = 604) 2.8 mg/dL 2.3-4.7 [id number] 05:43:00* Test Item Value Reference Range Interpretation Comments MAGNESIUM (BEAKER) (test code = 627) 1.6 mg/dL 1.6-2.6 BASIC METABOLIC [id number] 05:43:00* Test Item Value Reference Range Interpretation Comments SODIUM (BEAKER) (test code = 381) 138 meq/L 136-145 POTASSIUM (BEAKER) (test code = 379) 3.8 meq/L 3.5-5.1 CHLORIDE (BEAKER) (test code = 382) 99 meq/L 98-107 CO2 (BEAKER) (test code = 355) 24 meq/L 22-29 BLOOD UREA NITROGEN (BEAKER) (test code = 354) 19 mg/dL 7-21 CREATININE (BEAKER) (test code = 358) 0.70 mg/dL 0.57-1.25 GLUCOSE RANDOM (BEAKER) (test code = 652) 78 mg/dL 70-105 CALCIUM (BEAKER) (test code = 697) 8.5 mg/dL 8.4-10.2 EGFR (BEAKER) (test code = 1092) 82 mL/min/1.73 sq m ESTIMATED GFR IS NOT ACCURATE CREATININE CLEARANCE IN PREDICTING GLOMERULAR FILTRATION RATE. ESTIMATED GFR IS NOT APPLICABLE FOR DIALYSIS PATIENTS. POCT-GLUCOSE [id number] 17:55:00* Test Item Value Reference Range Interpretation Comments POC-GLUCOSE METER (BEAKER) (test code = 1538) 93 mg/dL 70-110 TESTED AT [facility] [address] [facility] [address] [id number] 13:48:00* Test Item Value Reference Range Interpretation Comments MAGNESIUM (BEAKER) (test code = 627) 2.0 mg/dL 1.6-2.6 Specimen slightly hemolyzed [id number] 13:48:00* Test Item Value Reference Range Interpretation Comments PHOSPHORUS (BEAKER) (test code = 604) 2.8 mg/dL 2.3-4.7 Specimen slightly hemolyzed BASIC METABOLIC [id number] 13:48:00* Test Item Value Reference Range Interpretation Comments SODIUM (BEAKER) (test code = 381) 137 meq/L 136-145 POTASSIUM (BEAKER) (test code = 379) 3.8 meq/L 3.5-5.1 Specimen slightly hemolyzed CHLORIDE (BEAKER) (test code = 382) 97 meq/L 98-107 L CO2 (BEAKER) (test code = 355) 27 meq/L 22-29 BLOOD UREA NITROGEN (BEAKER) (test code = 354) 14 mg/dL 7-21 CREATININE (BEAKER) (test code = 358) 0.66 mg/dL 0.57-1.25 Specimen slightly hemolyzed GLUCOSE RANDOM (BEAKER) (test code = 652) 88 mg/dL 70-105 CALCIUM (BEAKER) (test code = 697) 8.8 mg/dL 8.4-10.2 EGFR (BEAKER) (test code = 1092) 87 mL/min/1.73 sq m ESTIMATED GFR IS NOT ACCURATE CREATININE CLEARANCE IN PREDICTING GLOMERULAR FILTRATION RATE. ESTIMATED GFR IS NOT APPLICABLE FOR DIALYSIS PATIENTS. POCT-GLUCOSE [id number] 12:03:00* Test Item Value Reference Range Interpretation Comments POC-GLUCOSE METER (BEAKER) (test code = 1538) 100 mg/dL 70-110 TESTED AT [facility] [address] [facility] [address] POCT-GLUCOSE [id number] 06:50:00* Test Item Value Reference Range Interpretation Comments POC-GLUCOSE METER (BEAKER) (test code = 1538) 92 mg/dL 70-110 TESTED AT [facility] [address] [facility] [address] TSH/FREE T4 IF [id number] 05:02:00* Test Item Value Reference Range Interpretation Comments THYROID STIMULATING HORMONE (BEAKER) (test code = 772) 0.62 uIU/mL 0.35-4.94 BASIC METABOLIC [id number] 04:15:00* Test Item Value Reference Range Interpretation Comments SODIUM (BEAKER) (test code = 381) 139 meq/L 136-145 POTASSIUM (BEAKER) (test code = 379) 3.5 meq/L 3.5-5.1 CHLORIDE (BEAKER) (test code = 382) 101 meq/L 98-107 CO2 (BEAKER) (test code = 355) 29 meq/L 22-29 BLOOD UREA NITROGEN (BEAKER) (test code = 354) 10 mg/dL 7-21 CREATININE (BEAKER) (test code = 358) 0.63 mg/dL 0.57-1.25 GLUCOSE RANDOM (BEAKER) (test code = 652) 93 mg/dL 70-105 CALCIUM (BEAKER) (test code = 697) 8.6 mg/dL 8.4-10.2 EGFR (BEAKER) (test code = 1092) 92 mL/min/1.73 sq m ESTIMATED GFR IS NOT ACCURATE CREATININE CLEARANCE IN PREDICTING GLOMERULAR FILTRATION RATE. ESTIMATED GFR IS NOT APPLICABLE FOR DIALYSIS PATIENTS. [id number] 03:59:00* Test Item Value Reference Range Interpretation Comments PHOSPHORUS (BEAKER) (test code = 604) 3.1 mg/dL 2.3-4.7 [id number] 03:59:00* Test Item Value Reference Range Interpretation Comments MAGNESIUM (BEAKER) (test code = 627) 2.0 mg/dL 1.6-2.6 CBC W/PLT COUNT & AUTO [id number] 03:52:00* Test Item Value Reference Range Interpretation Comments WHITE BLOOD CELL COUNT (BEAKER) (test code = 775) 19.5 K/ L 3.5- 10.5 H RED BLOOD CELL COUNT (BEAKER) (test code = 761) 3.59 M/ L 3.93-5 .22 L HEMOGLOBIN (BEAKER) (test code = 410) 11.2 GM/DL 11.2-15.7 HEMATOCRIT (BEAKER) (test code = 411) 35.1 % 34.1-44.9 MEAN CORPUSCULAR VOLUME (BEAKER) (test code = 753) 97.8 fL 79. 4-94.8 H MEAN CORPUSCULAR HEMOGLOBIN (BEAKER) (test code = 751) 31.2 pg 25.6-32.2 MEAN CORPUSCULAR HEMOGLOBIN CONC (BEAKER) (test code = 752) 31.9 GM/DL 32.2-35.5 L RED CELL DISTRIBUTION WIDTH (BEAKER) (test code = 412) 12.9 % 11.7-14.4 PLATELET COUNT (BEAKER) (test code = 756) 277 K/CU MM 150-450 MEAN PLATELET VOLUME (BEAKER) (test code = 754) 10.0 fL 9.4-12 .3 NUCLEATED RED BLOOD CELLS (BEAKER) (test code = 413) 0 /100 WBC 0 -0 NEUTROPHILS RELATIVE PERCENT (BEAKER) (test code = 429) 78 % LYMPHOCYTES RELATIVE PERCENT (BEAKER) (test code = 430) 11 % MONOCYTES RELATIVE PERCENT (BEAKER) (test code = 431) 9 % EOSINOPHILS RELATIVE PERCENT (BEAKER) (test code = 432) 1 % BASOPHILS RELATIVE PERCENT (BEAKER) (test code = 437) 0 % NEUTROPHILS ABSOLUTE COUNT (BEAKER) (test code = 670) 15.18 K/ L 1.56-6.13 H LYMPHOCYTES ABSOLUTE COUNT (BEAKER) (test code = 414) 2.18 K/ L 1.18-3.74 MONOCYTES ABSOLUTE COUNT (BEAKER) (test code = 415) 1.73 K/ L 0. 24-0.36 H EOSINOPHILS ABSOLUTE COUNT (BEAKER) (test code = 416) 0.17 K/ L 0.04-0.36 BASOPHILS ABSOLUTE COUNT (BEAKER) (test code = 417) 0.07 K/ L 0. 01-0.08 IMMATURE GRANULOCYTES-RELATIVE PERCENT (BEAKER) (test code = 2801) 1 % 0-1 RAD, CHEST, 1 VIEW, NON [id number] 00:53:00Reason for exam:->SOBShould this be performed at the bedside?->YesFINAL REPORT INDICATION: SOB COMPARISON: None TECHNIQUE: Single frontal view of the chest. FINDINGS: Lungs and pleura: Clear lungs. Trace left pleural effusion and adjacent atelectasisHeart and mediastinum: Normal heart size. Unremarkable mediastinal contours.Osseous structures: No acute abnormality.Other: Surgical drain projects over the left upper quadrant. IMPRESSION: Trace left pleural effusion and adjacent atelectasis Signed: Jesika Ladd MDRst. [facility] Verified Date/Time: 03/26/2018 00:53:33 Reading Location: [address] Neuro Reading Room C METABOLIC [id number] 20:57:00* Test Item Value Reference Range Interpretation Comments SODIUM (BEAKER) (test code = 381) 139 meq/L 136-145 POTASSIUM (BEAKER) (test code = 379) 3.3 meq/L 3.5-5.1 L Specimen slightly hemolyzed CHLORIDE (BEAKER) (test code = 382) 105 meq/L 98-107 CO2 (BEAKER) (test code = 355) 23 meq/L 22-29 BLOOD UREA NITROGEN (BEAKER) (test code = 354) 7 mg/dL 7-21 CREATININE (BEAKER) (test code = 358) 0.54 mg/dL 0.57-1.25 L Specimen slightly hemolyzed GLUCOSE RANDOM (BEAKER) (test code = 652) 95 mg/dL 70-105 CALCIUM (BEAKER) (test code = 697) 7.4 mg/dL 8.4-10.2 L EGFR (BEAKER) (test code = 1092) 110 mL/min/1.73 sq m ESTIMATED GFR IS NOT ACCURATE CREATININE CLEARANCE IN PREDICTING GLOMERULAR FILTRATION RATE. ESTIMATED GFR IS NOT APPLICABLE FOR DIALYSIS PATIENTS. [id number] 20:43:00* Test Item Value Reference Range Interpretation Comments MAGNESIUM (BEAKER) (test code = 627) 1.3 mg/dL 1.6-2.6 L Specimen slightly hemolyzed [id number] 20:43:00* Test Item Value Reference Range Interpretation Comments PHOSPHORUS (BEAKER) (test code = 604) 2.2 mg/dL 2.3-4.7 L Specimen slightly hemolyzed CBC (HEMOGRAM ONLY)2018-03-25 20:24:00* Test Item Value Reference Range Interpretation Comments WHITE BLOOD CELL COUNT (BEAKER) (test code = 775) 23.2 K/ L 3.5- 10.5 H RED BLOOD CELL COUNT (BEAKER) (test code = 761) 3.73 M/ L 3.93-5 .22 L HEMOGLOBIN (BEAKER) (test code = 410) 11.7 GM/DL 11.2-15.7 HEMATOCRIT (BEAKER) (test code = 411) 36.5 % 34.1-44.9 MEAN CORPUSCULAR VOLUME (BEAKER) (test code = 753) 97.9 fL 79. 4-94.8 H MEAN CORPUSCULAR HEMOGLOBIN (BEAKER) (test code = 751) 31.4 pg 25.6-32.2 MEAN CORPUSCULAR HEMOGLOBIN CONC (BEAKER) (test code = 752) 32.1 GM/DL 32.2-35.5 L RED CELL DISTRIBUTION WIDTH (BEAKER) (test code = 412) 12.8 % 11.7-14.4 PLATELET COUNT (BEAKER) (test code = 756) 265 K/CU MM 150-450 MEAN PLATELET VOLUME (BEAKER) (test code = 754) 10.2 fL 9.4-12 .3 NUCLEATED RED BLOOD CELLS (BEAKER) (test code = 413) 0 /100 WBC 0 -0 B-TYPE NATRIURETIC FACTOR (BNP)2018-03-25 13:59:00* Test Item Value Reference Range Interpretation Comments B-TYPE NATRIURETIC PEPTIDE (BEAKER) (test code = 700) 359 pg/mL 0-100 H [id number] 07:04:00* Test Item Value Reference Range Interpretation Comments MAGNESIUM (BEAKER) (test code = 627) 1.6 mg/dL 1.6-2.6 BASIC METABOLIC [id number] 07:04:00* Test Item Value Reference Range Interpretation Comments SODIUM (BEAKER) (test code = 381) 137 meq/L 136-145 POTASSIUM (BEAKER) (test code = 379) 3.8 meq/L 3.5-5.1 CHLORIDE (BEAKER) (test code = 382) 102 meq/L 98-107 CO2 (BEAKER) (test code = 355) 28 meq/L 22-29 BLOOD UREA NITROGEN (BEAKER) (test code = 354) 9 mg/dL 7-21 CREATININE (BEAKER) (test code = 358) 0.60 mg/dL 0.57-1.25 GLUCOSE RANDOM (BEAKER) (test code = 652) 103 mg/dL 70-105 CALCIUM (BEAKER) (test code = 697) 8.6 mg/dL 8.4-10.2 EGFR (BEAKER) (test code = 1092) 97 mL/min/1.73 sq m ESTIMATED GFR IS NOT ACCURATE CREATININE CLEARANCE IN PREDICTING GLOMERULAR FILTRATION RATE. ESTIMATED GFR IS NOT APPLICABLE FOR DIALYSIS PATIENTS. AMYLASE, BODY [id number] 06:17:00* Test Item Value Reference Range Interpretation Comments AMYLASE FLUID (BEAKER) (test code = 350) 198 U/L Absence of reference range indicates that normals have not been defined.Assay pe rformance has not been validated for this type of specimen.CBC (HEMOGRAM ONLY) 2018-03-25 05:49:00* Test Item Value Reference Range Interpretation Comments WHITE BLOOD CELL COUNT (BEAKER) (test code = 775) 22.3 K/ L 3.5- 10.5 H RED BLOOD CELL COUNT (BEAKER) (test code = 761) 3.19 M/ L 3.93-5 .22 L HEMOGLOBIN (BEAKER) (test code = 410) 10.0 GM/DL 11.2-15.7 L HEMATOCRIT (BEAKER) (test code = 411) 31.3 % 34.1-44.9 L MEAN CORPUSCULAR VOLUME (BEAKER) (test code = 753) 98.1 fL 79. 4-94.8 H MEAN CORPUSCULAR HEMOGLOBIN (BEAKER) (test code = 751) 31.3 pg 25.6-32.2 MEAN CORPUSCULAR HEMOGLOBIN CONC (BEAKER) (test code = 752) 31.9 GM/DL 32.2-35.5 L RED CELL DISTRIBUTION WIDTH (BEAKER) (test code = 412) 13.1 % 11.7-14.4 PLATELET COUNT (BEAKER) (test code = 756) 217 K/CU MM 150-450 MEAN PLATELET VOLUME (BEAKER) (test code = 754) 10.2 fL 9.4-12 .3 NUCLEATED RED BLOOD CELLS (BEAKER) (test code = 413) 0 /100 WBC 0 -0 CT, CHEST WITH IV CONTRAST- PE TEST [id number] 16:12:00FINAL REPORT TECHNIQUE: CT scan of the [...] the main pulmonary artery is 2.9 cm i n diameter. No filling defects within the pulmonary arteries to suggest pulmona ry embolus. LUNGS AND AIRWAYS: Bronchial wall thickening [...] MDReport Verified Date/Time: 03/24/2018 16:12:33 Reading Location: [facility] [id number] CT Body Reading Room ONIN [id number] 13:43:00* Test Item Value Reference Range Interpretation Comments TROPONIN I (BEAKER) (test code = 397) 0.01 ng/mL 0.00-0.03 Troponin I (TnI) levels must be interpreted in the context of the presenting sym ptoms and the clinical findings. Elevated TnI levels indicate myocardial damage, but are not specific for ischemic heart disease. Elevated TnI levels are seen i n patients with other cardiac conditions (including myocarditis and congestive h eart failure), and slight TnI elevations occur in patients with other conditions , including sepsis, renal failure, acidosis, acute neurological disease, and per sistent tachyarrhythmia.CREATINE KINASE (CK)2018-03-24 13:37:00* Test Item Value Reference Range Interpretation Comments CREATINE KINASE TOTAL (BEAKER) (test code = 380) 649 U/L 29-20 0 H [id number] 05:26:00* Test Item Value Reference Range Interpretation Comments MAGNESIUM (BEAKER) (test code = 627) 1.8 mg/dL 1.6-2.6 BASIC METABOLIC [id number] 05:26:00* Test Item Value Reference Range Interpretation Comments SODIUM (BEAKER) (test code = 381) 138 meq/L 136-145 POTASSIUM (BEAKER) (test code = 379) 4.0 meq/L 3.5-5.1 CHLORIDE (BEAKER) (test code = 382) 106 meq/L 98-107 CO2 (BEAKER) (test code = 355) 28 meq/L 22-29 BLOOD UREA NITROGEN (BEAKER) (test code = 354) 17 mg/dL 7-21 CREATININE (BEAKER) (test code = 358) 0.75 mg/dL 0.57-1.25 GLUCOSE RANDOM (BEAKER) (test code = 652) 122 mg/dL 70-105 H CALCIUM (BEAKER) (test code = 697) 8.6 mg/dL 8.4-10.2 EGFR (BEAKER) (test code = 1092) 75 mL/min/1.73 sq m ESTIMATED GFR IS NOT ACCURATE CREATININE CLEARANCE IN PREDICTING GLOMERULAR FILTRATION RATE. ESTIMATED GFR IS NOT APPLICABLE FOR DIALYSIS PATIENTS. CBC (HEMOGRAM ONLY)2018-03-24 05:02:00* Test Item Value Reference Range Interpretation Comments WHITE BLOOD CELL COUNT (BEAKER) (test code = 775) 22.6 K/ L 3.5- 10.5 H RED BLOOD CELL COUNT (BEAKER) (test code = 761) 3.36 M/ L 3.93-5 .22 L HEMOGLOBIN (BEAKER) (test code = 410) 10.4 GM/DL 11.2-15.7 L HEMATOCRIT (BEAKER) (test code = 411) 33.4 % 34.1-44.9 L MEAN CORPUSCULAR VOLUME (BEAKER) (test code = 753) 99.4 fL 79. 4-94.8 H MEAN CORPUSCULAR HEMOGLOBIN (BEAKER) (test code = 751) 31.0 pg 25.6-32.2 MEAN CORPUSCULAR HEMOGLOBIN CONC (BEAKER) (test code = 752) 31.1 GM/DL 32.2-35.5 L RED CELL DISTRIBUTION WIDTH (BEAKER) (test code = 412) 13.7 % 11.7-14.4 PLATELET COUNT (BEAKER) (test code = 756) 194 K/CU MM 150-450 MEAN PLATELET VOLUME (BEAKER) (test code = 754) 10.2 fL 9.4-12 .3 NUCLEATED RED BLOOD CELLS (BEAKER) (test code = 413) 0 /100 WBC 0 -0 AMYLASE, BODY [id number] 07:07:00* Test Item Value Reference Range Interpretation Comments AMYLASE FLUID (BEAKER) (test code = 350) 2219 U/L Absence of reference range indicates that normals have not been defined.Assay pe rformance has not been validated for this type of specimen.[id number] 06:09:00* Test Item Value Reference Range Interpretation Comments MAGNESIUM (BEAKER) (test code = 627) 1.6 mg/dL 1.6-2.6 BASIC METABOLIC [id number] 06:09:00* Test Item Value Reference Range Interpretation Comments SODIUM (BEAKER) (test code = 381) 139 meq/L 136-145 POTASSIUM (BEAKER) (test code = 379) 4.4 meq/L 3.5-5.1 CHLORIDE (BEAKER) (test code = 382) 110 meq/L 98-107 H CO2 (BEAKER) (test code = 355) 23 meq/L 22-29 BLOOD UREA NITROGEN (BEAKER) (test code = 354) 16 mg/dL 7-21 CREATININE (BEAKER) (test code = 358) 0.79 mg/dL 0.57-1.25 GLUCOSE RANDOM (BEAKER) (test code = 652) 169 mg/dL 70-105 H CALCIUM (BEAKER) (test code = 697) 8.4 mg/dL 8.4-10.2 EGFR (BEAKER) (test code = 1092) 71 mL/min/1.73 sq m ESTIMATED GFR IS NOT ACCURATE CREATININE CLEARANCE IN PREDICTING GLOMERULAR FILTRATION RATE. ESTIMATED GFR IS NOT APPLICABLE FOR DIALYSIS PATIENTS. CBC (HEMOGRAM ONLY)2018-03-23 05:35:00* Test Item Value Reference Range Interpretation Comments WHITE BLOOD CELL COUNT (BEAKER) (test code = 775) 19.7 K/ L 3.5- 10.5 H RED BLOOD CELL COUNT (BEAKER) (test code = 761) 3.63 M/ L 3.93-5 .22 L HEMOGLOBIN (BEAKER) (test code = 410) 11.3 GM/DL 11.2-15.7 HEMATOCRIT (BEAKER) (test code = 411) 36.1 % 34.1-44.9 MEAN CORPUSCULAR VOLUME (BEAKER) (test code = 753) 99.4 fL 79. 4-94.8 H MEAN CORPUSCULAR HEMOGLOBIN (BEAKER) (test code = 751) 31.1 pg 25.6-32.2 MEAN CORPUSCULAR HEMOGLOBIN CONC (BEAKER) (test code = 752) 31.3 GM/DL 32.2-35.5 L RED CELL DISTRIBUTION WIDTH (BEAKER) (test code = 412) 13.5 % 11.7-14.4 PLATELET COUNT (BEAKER) (test code = 756) 164 K/CU MM 150-450 MEAN PLATELET VOLUME (BEAKER) (test code = 754) 11.0 fL 9.4-12 .3 NUCLEATED RED BLOOD CELLS (BEAKER) (test code = 413) 0 /100 WBC 0 -0 BASIC METABOLIC [id number] 14:25:00* Test Item Value Reference Range Interpretation Comments SODIUM (BEAKER) (test code = 381) 139 meq/L 136-145 POTASSIUM (BEAKER) (test code = 379) 4.4 meq/L 3.5-5.1 CHLORIDE (BEAKER) (test code = 382) 109 meq/L 98-107 H CO2 (BEAKER) (test code = 355) 24 meq/L 22-29 BLOOD UREA NITROGEN (BEAKER) (test code = 354) 15 mg/dL 7-21 CREATININE (BEAKER) (test code = 358) 0.75 mg/dL 0.57-1.25 GLUCOSE RANDOM (BEAKER) (test code = 652) 203 mg/dL 70-105 H CALCIUM (BEAKER) (test code = 697) 8.3 mg/dL 8.4-10.2 L EGFR (BEAKER) (test code = 1092) 75 mL/min/1.73 sq m ESTIMATED GFR IS NOT ACCURATE CREATININE CLEARANCE IN PREDICTING GLOMERULAR FILTRATION RATE. ESTIMATED GFR IS NOT APPLICABLE FOR DIALYSIS PATIENTS. CBC (HEMOGRAM ONLY)2018-03-22 14:07:00* Test Item Value Reference Range Interpretation Comments WHITE BLOOD CELL COUNT (BEAKER) (test code = 775) 16.9 K/ L 3.5- 10.5 H RED BLOOD CELL COUNT (BEAKER) (test code = 761) 3.96 M/ L 3.93-5 .22 HEMOGLOBIN (BEAKER) (test code = 410) 12.3 GM/DL 11.2-15.7 HEMATOCRIT (BEAKER) (test code = 411) 38.7 % 34.1-44.9 MEAN CORPUSCULAR VOLUME (BEAKER) (test code = 753) 97.7 fL 79. 4-94.8 H MEAN CORPUSCULAR HEMOGLOBIN (BEAKER) (test code = 751) 31.1 pg 25.6-32.2 MEAN CORPUSCULAR HEMOGLOBIN CONC (BEAKER) (test code = 752) 31.8 GM/DL 32.2-35.5 L RED CELL DISTRIBUTION WIDTH (BEAKER) (test code = 412) 13.2 % 11.7-14.4 PLATELET COUNT (BEAKER) (test code = 756) 182 K/CU MM 150-450 MEAN PLATELET VOLUME (BEAKER) (test code = 754) 10.4 fL 9.4-12 .3 NUCLEATED RED BLOOD CELLS (BEAKER) (test code = 413) 0 /100 WBC 0 -0 URINALYSIS WITHOUT [id number] 11:46:00* Test Item Value Reference Range Interpretation Comments COLOR (BEAKER) (test code = 470) Yellow CLARITY (BEAKER) (test code = 469) Clear SPECIFIC GRAVITY UA (BEAKER) (test code = 468) 1.020 1.001-1 .035 PH UA (BEAKER) (test code = 467) 5.0 5.0-8.0 PROTEIN UA (BEAKER) (test code = 464) Negative Negative GLUCOSE UA (BEAKER) (test code = 365) Negative Negative KETONES UA (BEAKER) (test code = 371) Trace Negative A BILIRUBIN UA (BEAKER) (test code = 462) Negative Negative BLOOD UA (BEAKER) (test code = 461) Small Negative A NITRITE UA (BEAKER) (test code = 465) Negative Negative LEUKOCYTE ESTERASE UA (BEAKER) (test code = 466) Negative Negat dago UROBILINOGEN UA (BEAKER) (test code = 463) 0.2 mg/dL 0.2-1.0 SOURCE(BEAKER) (test code = 2795) CALCIUM, [id number] 11:25:00* Test Item Value Reference Range Interpretation Comments CALCIUM IONIZED (BEAKER) (test code = 698) 1.10 mmol/L 1.12-1.27 L PH, BLOOD (BEAKER) (test code = 1810) 7.33 BLOOD GAS, [id number] 11:25:00* Test Item Value Reference Range Interpretation Comments PH ARTERIAL (BEAKER) (test code = 383) 7.33 7.35-7.45 L PCO2 ARTERIAL (BEAKER) (test code = 384) 48 mmHg 35-45 H PO2 ARTERIAL (BEAKER) (test code = 385) 186 mmHg 80-90 H O2 SATURATION ARTERIAL (BEAKER) (test code = 386) 99.2 % 96.0 -97.0 H HCO3 ARTERIAL (BEAKER) (test code = 388) 25 mmol/L 21-29 BASE EXCESS ARTERIAL (BEAKER) (test code = 387) -1.3 mmol/L -2.0-3 .0 PATIENT TEMPERATURE (BEAKER) (test code = 1818) 37.0 C FIO2 (BEAKER) (test code = 1819) 100.0 % GLUCOSE-STAT [id number] 11:25:00* Test Item Value Reference Range Interpretation Comments GLUCOSE RANDOM (BEAKER) (test code = 652) 168 mg/dL 70-110 H SODIUM NA-STAT [id number] 11:24:00* Test Item Value Reference Range Interpretation Comments SODIUM (BEAKER) (test code = 381) 139 meq/L 135-148 POTASSIUM-STAT [id number] 11:24:00* Test Item Value Reference Range Interpretation Comments POTASSIUM (BEAKER) (test code = 379) 4.4 meq/L 3.6-5.5 HGB/HCT (H&H) - STAT [id number] 11:24:00* Test Item Value Reference Range Interpretation Comments HEMOGLOBIN (BEAKER) (test code = 410) 12.4 g/dL 12.0-15.0 HEMATOCRIT (BEAKER) (test code = 411) 36.0 % 36.0-45.0 [id number] 10:29:00* Test Item Value Reference Range Interpretation Comments PARTIAL THROMBOPLASTIN TIME (BEAKER) (test code = 760) 42.2 seconds 22.5-36.0 H [id number] 08:41:00* Test Item Value Reference Range Interpretation Comments CALCIUM (BEAKER) (test code = 697) 9.7 mg/dL 8.4-10.2 [id number] 08:41:00* Test Item Value Reference Range Interpretation Comments LIPASE (BEAKER) (test code = 749) 79 U/L 8-78 H [id number] 08:41:00* Test Item Value Reference Range Interpretation Comments AMYLASE (BEAKER) (test code = 349) 90 U/L 25-125 Specimen slightly hemolyzed PROTHROMBIN TIME/[id number] 08:35:00* Test Item Value Reference Range Interpretation Comments PROTIME (BEAKER) (test code = 759) 12.8 seconds 11.7-14.7 INR (BEAKER) (test code = 370) 1.0 <=5.9 RECOMMENDED COUMADIN/WARFARIN INR THERAPY RANGESSTANDARD DOSE: 2.0 - 3.0 Inclu danielle: PROPHYLAXIS for venous thrombosis, systemic embolization; TREATMENT for jeanne ous thrombosis and/or pulmonary embolus.HIGH RISK: Target INR is 2.5-3.5 for pat ients with mechanical heart valves.CALCIUM, [id number] 08:34:00* Test Item Value Reference Range Interpretation Comments CALCIUM IONIZED (BEAKER) (test code = 698) 1.16 mmol/L 1.12-1.27 PH, BLOOD (BEAKER) (test code = 1810) 7.38 FINE NEEDLE ASPIRATION BY [id number] 14:46:00Medical Cytology Report Case: [id number] Authorizing Provider: Tasia El MD Collected: 02/21/2018 1233 Ordering Location: [facility] Endoscopy Received: 02/21/2018 1555 Services Pathologist: Rosario Eli MD Specimen: Pancreas, mass pancreas tail TAIL OF PANCREAS MASS, FNA BY CLINICIAN (CYTOSPINS AND CELL BLOCK OF ASPIRATE): - POSITIVE FOR MALIGNANCY - ADENOCARCINOMA Signing Pathologist Direct Phone Line: [phone] signed by Rosario Eli MD on 02/22/2018 at 2:46 [id number], [id number] patient's electronic medical record: irregular hypoechoic 2.4 x 2.9 cm mass identified in the pancreatic rome lTAIL OF PANCREAS MASS FNAPrepared cell block(A2) and 4 cytospins from 30 ml cyt orich red fixative sampleCollected: [id number]: [id number] [facility], Department of Pathology, [address] [place] [address], [place] [address], [facility], [facility], [address] [place] [id number], [facility] , Department of Pathology, [address] [place] [id number], Tel FINE NEEDLE ASPIRATE (FNA) [id number] 17:00:00* Test Item Value Reference Range Interpretation Comments CYTOLOGY RESULT POINTER (ALISHA) (test code = 2629) See Separate Re port
[2019-10-01] MEDS ORDERED: METOCLOPRAMIDE HCL 10 MG/2ML VIAL ONE (17:42)
[2019-10-01] MEDS ORDERED: METOCLOPRAMIDE HCL 10 MG/2ML VIAL IV ONE (18:00)
[2019-10-01] MEDS ORDERED: IOPAMIDOL 370 MG/ML 200 ML INFUS..BTL INJ ONE (18:08)
[2019-10-01] MEDS ORDERED: SODIUM CHLORIDE 0.9% 50ML 50 ML ONE (18:08)
--- NOTE | 2019-10-01 18:33 | NUR ---
PT STATES SHE WAS AT [facility] TODAY AT THE [facility] FOR IVF EARLIER TODAY.
[2019-10-01] MEDS ORDERED: POTASSIUM CHLORIDE 20MEQ/100ML 200 ML IV ONE (18:45)
--- NOTE | 2019-10-01 18:47 | Diagnostic Imaging Report ---
EXAM: CT Abdomen and Pelvis WITH contrast INDICATION: Abdominal pain. COMPARISON: CT abdomen and pelvis on 04/22/2019. TECHNIQUE: Abdomen and pelvis were scanned utilizing a multidetector helical scanner from the lung base to the pubic symphysis after administration of IV contrast. Coronal and sagittal reformations were obtained. Routine protocol was performed. Scan was performed when during portal venous phase. IV CONTRAST: 100 mL of Isovue 370 ORAL CONTRAST: None COMPLICATIONS: None RADIATION DOSE: Total DLP: 183.37 mGy*cm Estimated effective dose: (DLP x 0.015 x size factor) mSv CTDIvol has been reviewed. It is below the limits set by the Radiation Protocol Committee (RPC). Dose modulation, iterative reconstruction, and/or weight based adjustment of the mA/kV was utilized to reduce the radiation dose to as low as reasonably achievable. FINDINGS: LINES and TUBES: None. LOWER THORAX: Redemonstration of 6 mm nodule in the right lower lobe. HEPATOBILIARY: The liver appears diffusely compatible hepatic steatosis. No focal hepatic lesions identified. No biliary ductal dilation. GALLBLADDER: Surgically absent. SPLEEN: Status post splenectomy. PANCREAS: Status post distal pancreatectomy. There is redemonstration of hypodense nodularity is within the surgical bed, the largest measuring approximately 1.2 x 1.1 cm (series 2 image 27). ADRENALS: No adrenal nodules KIDNEYS/URETERS: Kidneys enhance symmetrically. No hydronephrosis. No cystic or solid mass lesions. No stones. GI TRACT: There is an ill-defined soft tissue mass invading the wall of the gastric antrum (series 2 images 32-36) with tethering of the adjacent mesentery. There is diffuse mucosal wall hyperenhancement and mild thickening of the ascending and transverse colon with subtle pericolonic fat stranding. Additionally, there is soft tissue attenuation in the anterior peritoneal space which appears to invade the adjacent transverse colon (series 2 images 33-38). No abnormal distention or evidence of bowel obstruction. The appendix is not visualized. PELVIC ORGANS/BLADDER: Unremarkable. LYMPH NODES: No lymphadenopathy. VESSELS: The abdominal aorta and its major abdomen and pelvic branches are patent with atherosclerotic calcification. The infrarenal abdominal aorta appears slightly ectatic measuring up to 2.8 x 2.6 cm. PERITONEUM / RETROPERITONEUM: There is redemonstration of multiple peritoneal nodules some of which have increased in size. Foreign stones 1.4 x 1.2 cm nodule (series 2 image 45) 1.9 x 1.6 cm nodule (series 2 image 53). There is small amount of ascites around the liver. BONES: There are degenerative changes in the spine. No suspicious osteolytic or osteoblastic lesions. SOFT TISSUES: Unremarkable. IMPRESSION: 1. Status post pancreatectomy and splenectomy for reported history of pancreatic cancer. There is redemonstration multiple peritoneal nodules some of which have increased in size since prior examination, suspicious for progression of metastatic disease. 2. Redemonstration of multiple cystic lesions in the pancreatic bed the largest measuring up to 1.2 cm which may represent pancreatic pseudocyst or malignancy. 3. Ill-defined soft tissue mass invading the wall of the gastric antrum with tethering of the adjacent mesentery. This finding is suspicious for metastatic disease with gastric involvement. An endoscopy with tissue sampling can be considered. 4. Diffuse mucosal wall hyperenhancement and mild thickening of the ascending and transverse colon with subtle pericolonic fat stranding which may represent colitis. 5. Hepatic steatosis and small ascites. 6. A 6 mm nodule in the right lower lobe. Signed by: Salvador Lazo MD on 10/01/2019 6:44 PM
--- NOTE | 2019-10-01 18:48 | NUR ---
rt femoral tlc per protocol placement successful x first attempt. site cleaned and drsg with antimicrobial square. all lines flush and return well.
--- OUTSIDE RECORDS SUMMARY | 2019-10-01 19:04 | XMS REPORT | Continuity of Care Document ---
Author Author Formerly [facility] t Organization [facility] Address 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 Name Role Phone Lexus DAVIS MD PCP GRISELDA PRUITT Attphys Unavailable Zach Sobia SANTO Attphys Lisa Mai MD Attphys Ella Broderick MD Attphys SOBIA SERRANO Attphys Unavailable JALEN SINGH Attphys Unavailable Francisco TANG, Jalen Paredes Attphys Rafael TANG, Catracho Attphys Arsenio RICHARD Attphys Unavailable GRISEL EL [...] [facility] Medicare Advantage [id number] [facility] Problems Condition Name Condition Details Condition Category Status Onset Date Resolution Date Last Treatment Date Treating Clinician Comments Source SVT (supraventricular tachycardia) SVT (supraventricular tachyca rdia) Disease Active 2019-07-09 00:00:00 [facility] Moderate dehydration Moderate dehydration Disease Active 00:00:00 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 2019-07-09 00:00:00 [facility] Dehydration Dehydration Disease Active 2019-06-11 00:00:00 [facility] Atrial tachycardia Atrial tachycardia Disease Active 2018-03-28 00:00:0 0 [facility] History of pancreatectomy History of pancreatectomy Disease Ac tive 2018-03-25 00:00:00 [facility] Acute postoperative pain Acute postoperative pain Disease Acti ve 2018-03-25 00:00:00 [facility] COPD (chronic obstructive pulmonary disease) COPD (chr onic obstructive pulmonary disease) Disease Active 2018-03-25 00:00:00 [facility] Acquired hypothyroidism Acquired hypothyroidism Disease Active 2018-03-25 00:00:00 [facility] Leukocytosis Leukocytosis Disease Active 2018-03-25 00:00:00 [facility] Pancreatic mass Pancreatic mass Disease Active 2018-03-22 00:00:00 [facility] Allergies, Adverse Reactions, Alerts This patient has no known allergies or adverse reactions. Social History Social Habit Start Date Stop Date Quantity Comments Source History SDOH Alcohol Std Drinks [facility] History SDOH Alcohol Binge [facility] Sex Assigned At [facility] Cigarettes smoked current (pack per day) - Reported 00:00:00 2019-07-08 00:00:00 [facility] Cigarette pack-years 2019-07-08 00:00:00 2019-07-08 00:00:00 [facility] Tobacco Comment 2019-02-20 00:00:00 2019-02-20 00:00:00 quit 9 [facility] History of tobacco use 2018-03-22 00:00:00 Current smoker [facility] History SDOH Alcohol Frequency 2018-02-17 00:00:00 2018-02-17 00:00:0 0 1 [facility] Smoking Status Start Date Stop Date Source Former smoker 2019-07-08 00:00:00 2019-07-08 00:00:00 [facility] Medications Ordered Medication Name Filled Medication Name Start Date Stop Da te Current Medication? Ordering Clinician Indication Dosage Frequency Signature (SIG) Comments Components Source loperamide (IMODIUM) 2 mg capsule 2019-07-09 02:43:03 Yes 2mg Take 2 mg by mouth 4 (four) times daily as needed for Diarrhea. [facility] ondansetron (ZOFRAN-ODT) 4 MG disintegrating tablet 06-11 00:00:00 Yes 4mg Take 1 tablet (4 mg total) by mouth every 8 (eight) hours as needed for Nausea for up to 30 doses. [facility] loperamide (IMODIUM) 2 mg capsule 2019-06-12 00:00:00 2019 23:59:00 No 2mg Take 1 capsule ( 2 mg total) by mouth 4 (four) times daily as needed for Diarrhea for up to 10 days. [facility] HYDROcodone-acetaminophen (NORCO 7.5-325) 7.5-325 mg per tab let 2019-06-11 13:11:16 Yes 1{tbl} Take 1 tab let by mouth every 6 (six) hours as needed for Pain. [facility] DULoxetine (CYMBALTA) 30 MG capsule 2019-02-20 19:19:06 Yes 30mg QD Take 30 mg by mouth daily. [facility] gabapentin (NEURONTIN) 600 MG tablet 2019-02-20 19:17:17 Ye s 600mg Q.5D Take 600 mg by mouth 2 (two) times daily. [facility] levothyroxine (SYNTHROID, LEVOTHROID) 75 MCG tablet 2019-0 1-11 12:30:54 Yes 75ug Take 75 mcg by mouth Every morning on an empty stomach. [facility] Gabapentin 300 Mg Capsule Gabapentin 300 Mg Capsule Yes 300 Bedtime [facility] Levothyroxine Sodium 25 Mcg Tablet Levothyroxine Sodium 25 Mcg Tablet Yes 25 Daily [facility] Vital Signs Vital Name Observation Time Observation Value Comments Source Systolic blood pressure 2019-07-10 05:50:00 147 mm[Hg] [facility] Diastolic blood pressure 2019-07-10 05:50:00 67 mm[Hg] [facility] Heart rate 2019-07-10 05:50:00 72 /min [facility] Body temperature 2019-07-10 05:50:00 36.5 Cristy [facility] Respiratory rate 2019-07-10 05:50:00 20 /min [facility] Oxygen saturation in Arterial blood by Pulse oximetry 07-09 05:50:00 95 /[facility] height 2019-07-08 23:13:00 167.6 cm [facility] Body weight Measured 2019-07-08 23:13:00 65.772 kg [facility] BMI 2019-07-08 23:13:00 23.40 kg/m2 [facility] Procedures Procedure Date / Time Performed Performing Clinician [facility] e REPORT OF PROCEDURE - ENDOSCOPY SCAN 2019-07-11 14:22:15 Pro vider, Default Scanning [facility] RHYTHM STRIP - SCAN 2019-07-11 14:22:13 Provider, Default Scanni ng [facility] BASIC METABOLIC PANEL (7) 2019-07-10 07:47:00 Marlene Mai [facility] MAGNESIUM 2019-07-10 07:47:00 Marlene Mai deb [facility] CBC W/PLT COUNT & AUTO DIFFERENTIAL 2019-07-10 07:47:00 Lucian Mai [facility] (CELLAVISION MANUAL DIFF) 2019-07-10 07:47:00 Marlene Mai [facility] MAGNESIUM 2019-07-09 05:51:00 [facility] PHOSPHORUS 2019-07-09 05:51:00 [facility] BASIC METABOLIC PANEL (7) 2019-07-09 05:51:00 [facility] Gu[facility] CBC W/PLT COUNT & AUTO DIFFERENTIAL 2019-07-09 05:51:00 [facility] (CELLAVISION MANUAL DIFF) 2019-07-09 05:51:00 Dre [facility] ECG 12-LEAD 2019-07-09 01:58:21 Dre [facility] ECG 12-LEAD 2019-07-09 01:53:09 Unknown, H[facility] ED ECG INTERPRETATION 2019-07-08 23:53:28 Zach, Karmafawad Ramsay [facility] BASIC METABOLIC PANEL (7) 2019-07-08 23:50:00 Zach, Karma [facility] HEPATIC FUNCTION PANEL 2019-07-08 23:50:00 Zach, Karma Pinon [facility] CBC W/PLT COUNT & AUTO DIFFERENTIAL 2019-07-08 23:26:00 Zach, Karmafawad Ramsay [facility] (CELLAVISION MANUAL DIFF) 2019-07-08 23:26:00 Zach, [facility] e [facility] RHYTHM STRIP - SCAN 2019-06-15 12:30:41 Provider, Default [facility] RHYTHM STRIP - SCAN 2019-06-13 10:40:33 Provider, Default [facility] POCT-GLUCOSE METER 2019-06-12 07:03:00 Marlene Mai [facility] BASIC METABOLIC PANEL (7) 2019-06-12 06:50:00 Comfort [place] [facility] CBC W/PLT COUNT & AUTO DIFFERENTIAL 2019-06-12 06:50:00 [place] [facility] STOOL CULTURE + SHIGA TOXIN 2019-06-11 18:25:00 [place] [facility] SHIGA TOXIN SCREEN 2019-06-11 18:25:00 Com[place] Kathrin [facility] C. DIFFICILE GDH TOXIN 2019-06-11 18:24:00 LanComfort fawad [facility] BASIC METABOLIC PANEL (7) 2019-06-11 12:49:00 Reggie Singh [facility] HEPATIC FUNCTION PANEL 2019-06-11 12:49:00 Reggie Singh [facility] LIPASE 2019-06-11 12:49:00 Reggie Singh [facility] MAGNESIUM 2019-06-11 12:49:00 Reggie Singh [facility] XR CHEST 1 VIEW PORTABLE/BEDSIDE 2019-06-11 12:39:00 Reggie Singh [facility] CBC W/PLT COUNT & AUTO DIFFERENTIAL 2019-06-11 11:27:00 Hailee Singh [facility] (CELLAVISION MANUAL DIFF) 2019-06-11 11:27:00 Reggie Singh [facility] Computed tomography of abdomen and pelvis with contrast 2019 00:00:00 SELENE YANCEY [facility] AMYLASE PERITONEAL FLUID 2019-02-22 10:46:00 Tasia El [facility] FINE NEEDLE ASPIRATE (FNA) REQUEST 2019-02-21 14:47:50 Coco El [facility] FINE NEEDLE ASPIRATION BY CLINICIAN 2019-02-21 14:47:00 Tasia El [facility] FINE NEEDLE ASPIRATE (FNA) REQUEST 2019-02-21 14:46:58 Coco El [facility] FINE NEEDLE ASPIRATION BY CLINICIAN 2019-02-21 14:46:00 Tasia El [facility] REPORT OF PROCEDURE - ENDOSCOPY URL 2019-02-21 14:44:56 [facility] 2019-02-21 14:44:33 Tasia El Grisel I [facility] TISSUE EXAM 2019-02-21 14:22:00 [facility],FNA W/ULTRASOUND 2019-02-21 13:30:00 Eric El [facility] UPPER ENDOSCOPY,BIOPSY 2019-02-21 13:30:00 Tasia El [facility] Encounters Start Date/Time End Date/Time Encounter Type Admission Type Attendi [facility] Care Department Encounter ID Source 2019-05-31 13:01:21 2019-05-31 13:56:23 Office Visit Tony emily Catracho [facility] Real [id number] 2019-04-22 18:36:00 2019-04-22 23:07:00 Departed Emergency Room 1 ALEXIA RICHARD [facility] [id number] [facility] Results Test Description Test Time Test Comments Results Result Comments Source CT ABDOMEN/PELVIS W 2019-10-01 17:57:00 [facility] [address] [place] [address] Patient Name: MARITZA JONES MR #: [id number] : 1940 Age/Sex: 78/F Req #: [id number] Adm Physician: Ordered by: SILVIA ARNETT MD Report #: [id number] Location: ER Room/Bed: Procedure: [id number] CT/CT ABDOMEN/PELVIS W Exam Date: 10/01/19 Exam Time: 1747 REPORT STATUS: Signed EXAM: CT Abdomen and Pelvis WITH contrast INDICATION: Abdominal pain. COMPARISON: CT abdomen and pelvis on 04/22/2019. TECHNIQUE: Abdomen and pelvis were scanned utilizing a multidetector helical scanner from the lung base to the pubic symphysis after administration of IV contrast. Coronal and sagittal reformations were obtained. Routine protocol was performed. Scan was performed when during portal venous phase. IV CONTRAST: 100 mL of Isovue 370 ORAL CONTRAST: None COMPLICATIONS: None RADIATION DOSE: Total DLP: 183.37 mGy*cm Estimated effective dose: (DLP x 0.015 x size factor) mSv CTDIvol has been reviewed. It is below the limits set by the Radiation Protocol Committee (RPC). Dose modulation, iterative reconstruction, and/or weight based adjustment of the mA/kV was utilized to reduce the radiation dose to as low as reasonably achievable. FINDINGS: LINES and TUBES: None. LOWER THORAX: Redemonstration of 6 mm nodule in the right lower lobe. HEPATOBILIARY: The liver appears diffusely compatible hepatic steatosis. No focal hepatic lesions identified. No biliary ductal dilation. GALLBLADDER: Surgically absent. SPLEEN: Status post splenectomy. PANCREAS: Status post distal pancreatectomy. There is redemonstration of hypodense nodularity is within the surgical bed, the largest measuring approximately 1.2 x 1.1 cm (series 2 image 27). ADRENALS: No adrenal nodules KIDNEYS/URETERS: Kidneys enhance symmetrically. No hydronephrosis. No cystic or solid mass lesions. No stones. GI TRACT: There is an ill-defined soft tissue mass invading the wall of the gastric antrum (series 2 images 32-36) with tethering of the adjacent mesentery. There is diffuse mucosal wall hyperenhancement and mild thickening of the ascending and transverse colon with subtle pericolonic fat stranding. Additionally, there is soft tissue attenuation in the anterior peritoneal space which appears to invade the adjacent transverse colon (series 2 images 33-38). No abnormal distention or evidence of bowel obstruction. The appendix is not visualized. PELVIC ORGANS/BLADDER: Unremarkable. LYMPH NODES: No lymphadenopathy. VESSELS: The abdominal aorta and its major abdomen and pelvic branches are patent with atherosclerotic calcification. The infrarenal abdominal aorta appears slightly ectatic measuring up to 2.8 x 2.6 cm. PERITONEUM / RETROPERITONEUM: There is redemonstration of multiple peritoneal nodules some of which have increased in size. Foreign stones 1.4 x 1.2 cm nodule (series 2 image 45) 1.9 x 1.6 cm nodule (series 2 image 53). There is small amount of ascites around the liver. BONES: There are degenerative changes in the spine. No suspicious osteolytic or osteoblastic lesions. SOFT TISSUES: Unremarkable. IMPRESSION: 1. Status post pancreatectomy and splenectomy for reported history of pancreatic cancer. There is redemonstration multiple peritoneal nodules some of which have increased in size since prior examination, suspicious for progression of metastatic disease. 2. Redemonstration of multiple cystic lesions in the pancreatic bed the largest measuring up to 1.2 cm which may represent pancreatic pseudocyst or malignancy. 3. Ill-defined soft tissue mass invading the wall of the gastric antrum with tethering of the adjacent mes entery. This finding is suspicious for metastatic disease with gastric involvement. An endoscopy with tissue sampling can be considered. 4. Diffuse mucosal wall hyperenhancement and mild thickening of the ascending and transverse colon with subtle pericolonic fat stranding which may represent colitis. 5. Hepatic steatosis and small ascites. 6. A 6 mm nodule in the right lower lobe. Signed by: Salvador Joiner MD on 10/01/2019 6:44 PM Dictated By: SALVADOR JOINER MD 43 Transcribed By: VERONICA on 10/01/191843 COPY TO: SILVIA ARNETT MD CBC with platelet count + automated diff [...] 450 K/CU MM MPV (test code = 55159-5) 9.8 fL 9.4-12.3 nRBC (test code = 413) 0 0- 0 /100 WBC Lab Interpretation (test code = 34044-6) [facility] [id number] 10:43:00* Test Item Value Reference Range Interpretation [...] 3438) Adequate MARISELA (test code = MARISELA) Services Advisor ID - Haileyarsenio BernalLuther comments: Slid e comments: Lab Interpretation (test code = 15030-9) [facility]normal [facility] & AUTO [id number] 10:43:00* Test Item Value Reference Range Interpretation [...] (CELLAVISION)(BEAKER) (test code = 3438) Jeanie quate Services Advisor ID - Hailey [place] comments: Slide comments: Basic Metabolic Panel 2019-07-10 [...] 104 mg/dL 70-105 Calcium (test code = 06643-2) 8.1 mg/dL 8.4-10.2 L EGFR (test code = 53077-6) 84 mL/min/1.73 sq m ESTIMATED GFR IS NOT ACCURATE CREATININE CLEARANCE IN PREDICTING GLOMERULAR FILTRATION RATE. ESTIMATED GFR IS NOT APPLICABLE FOR DIALYSIS PATIENTS. MARISELA (test code = MARISELA) Services Advisor ID - PIAYA L Lab Interpretation (test code = 34571-4) [facility] 08:[facility]00* Test Item Value Reference Range Interpretation Comments Magnesium (test code = 67078-2) 2.1 mg/dL 1.6-2.6 MARISELA (test code = MARISELA) Services Advisor ID - PIAYA L Lab Interpretation (test code = 05233-0) [facility] 08:39:00* Test Item Value Reference Range Interpretation Comments MAGNESIUM (BEAKER) (test code = 627) 2.1 mg/dL 1.6-2.6 Services Advisor ID - PIAYA LBASIC METABOLIC [id number] 08:39:00* Test Item Value Reference Range Interpretation [...] GFR IS NOT APPLICABLE FOR DIALYSIS PATIENTS. Services Advisor ID - PIAYA LCBC W/PLT COUNT & AUTO [id number] 14:14:00* Test Item Value Reference Range Interpretation [...] (CELLAVISION)(BEAKER) (test code = 3438) Jeanie quate Services Advisor ID - Hailey Felix comments: Slide comments: ECG 12 [id number] 07:24:21Interface, External Ris In 07/09/2019 7:24 AM CDTVentricular Rate 86 BPMAtrial Rate 86 BPMP-R Interval 140 msQRS Duration 74 msQ-T Interval 388 msQTC Calculation(Bazett) 464 msP Carmen 69 degreesR Carmen 77 degreesT Carmen 68 degreesNormal sinus rhythmProlonged QTWhen compared with ECG of 09-JUL-2019 01:53,Vent. rate has decreased BY 48 BPMST no longer depressed in Inferior leadsST no longer depressed in Lateral leadsST less elevated now in aVRT wave inversion no longer evident in Inferior leadsNonspecific T wave abnormality no longer evident in Lateral leadsQT has lengthenedConfirmed by MD SAADIA, DEREK ([id number]) on 07/09/2019 7:24:18 [facility] 06:52:00* Test Item Value Reference Range Interpretation Comments Phosphorus (test code = 2777-1) 2.3 mg/dL 2.3-4.7 MARISELA (test code = MARISELA) Services Advisor ID - GALE L Lab Interpretation (test code = 00848-1) Normal [facility]2020-[facility]-01 06:52:00* Test Item Value Reference Range Interpretation Comments PHOSPHORUS (BEAKER) (test code = 604) 2.3 mg/dL 2.3-4.7 Services Advisor ID - GALE [id number] 06:52:00* Test Item Value Reference Range Interpretation Comments MAGNESIUM (BEAKER) (test code = 627) 1.7 mg/dL 1.6-2.6 Services Advisor ID - GALE LBASIC METABOLIC [id number] 06:52:00* Test Item Value Reference Range Interpretation [...] GFR IS NOT APPLICABLE FOR DIALYSIS PATIENTS. Services Advisor ID - GALE LCBC W/PLT COUNT & AUTO [id number] 00:45:00* Test Item Value Reference Range Interpretation [...] (CELLAVISION)(BEAKER) (test code = 3438) Jeanie quate Services Advisor ID - Ana Cristina Theodore comments: Slide [...] GFR IS NOT APPLICABLE FOR DIALYSIS PATIENTS. Services Advisor ID - VICENTEAYA LHepatic function [id number] 00:18:00* Test Item Value Reference Range Interpretation Comments Protein, Total (test code = 2885-2) 6.5 6.0- 8.3 gm/dL Albumin (test code = 83849-6) 3.7 g/dL 3.5-5 Total Bilirubin (test code = 1975-2) 0.5 mg/dL 0.2-1.2 Bilirubin, Direct (test code = 1968-7) 0.3 mg/dL 0.1-0.5 Alkaline Phosphatase (test code = 6768-6) 123 U/L 40-150 AST (test code = 1920-8) 24 U/L 5-34 ALT (test code = 1742-6) 13 U/L 6-55 MARISELA (test code = MARISELA) Services Advisor ID - GALE L Lab Interpretation (test code = 77553-3) Normal [facility] [id number] 00:18:00* Test Item Value Reference Range Interpretation [...] (test code = 347) 13 U/L 6-55 Services Advisor ID - GALE LECG/EKG [id number] 23:53:28Karma Serrano DO 07/09/2019 2:22 AMECG/EKG InterpretationDate/Time: 07/09/2019 1:58 AMPerformed by: Karma Serrano DOAuthorized by: Karma Serrano DO The ECG was interpreted by ED physician. This ECG was not compared with previous ECG(s).Rate is normal rate. Heart rate is 86 BPM.Conduction: conduction normal. ST segments normal. T waves normal. Carmen is normal. Other findings: no other findings. Right sided lead use: right-sided leads not used. Left sided lead use: Posterior leads were not used. Clinical Impression: non-specific ECGECG reviewed and does not meet STEMI criteria. [facility] + Shiga [id number] 11:34:00* Test Item Value Reference Range Interpretation Comments Result (test code = 6463-4) No Salmonella or Shigella isolated [facility] Toxin [id number] 11:34:00* Test Item Value Reference Range Interpretation Comments Shiga toxin 1 (test code = 56158-8) Not detected Not detected Shiga toxin 2 (test code = 86970-0) Not detected Not detected Lab Interpretation (test code = 44492-8) Normal [facility] TO[facility]IN [id number] 11:34:00* Test Item Value Reference Range Interpretation Comments SHIGA TOXIN 1 (BEAKER) (test code = 2177) Not detected Not detected SHIGA TOXIN 2 (BEAKER) (test code = 2179) Not detected Not detected STOOL CULTURE + SHIGA [id number] 11:34:00* Test Item Value Reference Range Interpretation Comments CULTURE (BEAKER) (test code = 1095) No Salmonella or Shigella isola sanjuana Clostridium difficile GDH [id number] 14:25:00* Test Item Value Reference Range Interpretation Comments C. Difficle Toxin (test code = 9776027932) Negative Negative C. Difficile GDH Antigen (test code = 1449713270) Negative Nega tive No indication of Clostridium difficile infection and no colonization. Discontinue enteric isolation and therapy. MARISELA (test code = MARISELA) Testing performed by [employer] Cass[employer] Assay. For GDH, published sensitivity of the assay is 98.7% compared to cytotoxicity testing. For Toxin AB, published sensitivity is 87.8% and specificity 99.4% compared to cytotoxicity testing.Verification of kit performance was done by the [facility] Microbiology Lab prior to clinical use. Lab Interpretation (test code = 86013-3) [facility] DIFFICILE [facility]DH [id number] 14:25:00* Test Item Value Reference Range Interpretation Comments CDT TOXIN (test code = 4129047522) Negative Negative CDT GDH ANTIGEN (test code = 8365377049) Negative Negative No indication of Clostridium difficile infection and no colonization. Discontinue enteric isolation and therapy. Testing performed by [employer] Rapid Cassette Assay. For GDH, published sensitivity of the assay is 98.7% compared to cytotoxicity testing. For Toxin AB, publishe d sensitivity is 87.8% and specificity 99.4% compared to cytotoxicity testing.Ve rification of kit performance was done by the [facility] Microbiology Lab prior to cl inical use.CBC W/PLT COUNT & AUTO [id number] 07:47:00* Test Item Value Reference Range Interpretation [...] = 2801) 1 % 0-1 BASIC METABOLIC [id number] 07:25:00* Test Item Value Reference Range Interpretation [...] GFR IS NOT APPLICABLE FOR DIALYSIS PATIENTS. Services Advisor ID - GALE LPOC-Glucose [id number] 07:18:00* Test Item Value Reference Range Interpretation Comments POC-Glucose Meter (test code = 1538) 99 mg/dL 70-110 : TESTED AT [facility] [address] [facility], [address]: Services Advisor/Machine Umbrella Tipper ID = [id number] for QUEEN [place]OR Lab Interpretation (test code = 66866-9) Normal [facility]SE [id number] 07:18:00* Test Item Value Reference Range Interpretation Comments POC-GLUCOSE METER (BEAKER) (test code = 1538) 99 mg/dL 70-110 : TESTED AT [facility] [address] [facility], [address]: Services Advisor/Machine Umbrella Tipper ID = [id number] for QUEEN [place]EMAYOR BASIC METABOLIC [id number] 13:22:00* Test Item Value Reference Range Interpretation [...] GFR IS NOT APPLICABLE FOR DIALYSIS PATIENTS. Services Advisor ID - LAKE [id number] 13:18:00* Test Item Value Reference Range Interpretation Comments Lipase (test code = 3040-3) 70 U/L 8-78 MARISELA (test code = MARISELA) Services Advisor ID - LAKE F Lab Interpretation (test code = 56455-7) Normal [facility]2020-05-04 13:18:00* Test Item Value Reference Range Interpretation Comments MAGNESIUM (BEAKER) (test code = 627) 1.8 mg/dL 1.6-2.6 Services Advisor ID Cy BETHEA FHEPATIC FUNCTION [id number] 13:18:00* Test Item Value Reference Range Interpretation [...] (test code = 347) 11 U/L 6-55 Services Advisor ID Cy LKAE [id number] 13:18:00* Test Item Value Reference Range Interpretation Comments LIPASE (BEAKER) (test code = 749) 70 U/L 8-78 Services Advisor ID Cy BETHEA FCBC W/PLT COUNT & AUTO [id number] 13:08:00* Test Item Value Reference Range Interpretation [...] (CELLAVISION)(BEAKER) (test code = 3438) Jeanie quate Services Advisor ID - Ashley McgovernLuther comments: Slide comments: RAD, CHEST, 1 VIEW, NON [id number] 12:54:00Reason for exam:->DIARRHEAReason for exam:->EMESISShould this be performed at the bedside?->YesFINAL REPORT RAD, CHEST, 1 VIEW, NON DEPT INDICATION: DIARRHEAEMESIS COMPARISON: March 25, 2019 FINDINGS: Portable frontal view of the chest. IMPRESSION: Support Lines: Port-A-Cath tip overlies the SVC Lungs and pleura: Lungs are clear No pneumothorax.Heart and mediastinum: Stable contours. Additional findings: None. Signed: Jesika Ladd Verified Date/Time: 06/11/2019 12:54:43 Reading Location: [facility] Radiology Reading Room chest 1 view portable / spycdzc1949-24-20 12:54:00Interface, External Ris In - 06/11/2019 12:56 PM CDTFINAL REPORT RAD, CHEST, 1 VIEW, NON DEPT INDICATION: DIARRHEAEMESIS COMPARISON: March 25, 2019 FINDINGS: Portable frontal view of the chest. IMPRESSION: Support Lines: Port-A-Cath tip overlies the SVC Lungs and pleura: Lungs are clear No pneumothorax.Heart and mediastinum: Stable contours. Additional findings: None. Signed: Jesika Ladd Verified Date/Time: 06/11/2019 12:54:43 Reading Location: [facility] Radiology Reading [facility] S9622-52-73 22:08:00 [place] [address] Patient Name: MARITZA JONES MR #: [id number] : 1940 Age/Sex: 78/F Req #: [id number] Adm Physician: Ordered by: SELENE YANCEY MD Report #: [id number] Location: ER Room/Bed: Procedure: 0315-[address]/CT [...] 04/22/192230 COPY TO: SELENE YANCEY MD Sodium Qtdhh2452-74-45 20:34:00* Test Item Value Reference Range Interpretation Comments Sodium Level (test code = 2951-2) 138 136-145 [facility] AustinPotassium Lxkip7826-18-10 20:34:00* Test Item Value Reference Range Interpretation Comments Potassium Level (test code = 2823-3) 4.1 3.5-5.1 [facility] AustinChloride Vpkmi4211-48-66 20:34:00* Test Item Value Reference Range Interpretation Comments Chloride Level (test code = 2075-0) 102 98-107 [facility] AustinCarbon Dioxide Ruume2100-21-65 20:34:00* Test Item Value Reference Range Interpretation Comments Carbon Dioxide Level (test code = 2028-9) 28 22-29 [facility] AustinAnion Nkl0302-26-94 20:34:00* Test Item Value Reference Range Interpretation Comments Anion Gap (test code = 58371-2) 12.1 8-16 [facility] AustinBlood Urea Oimqsjff3245-49-75 20:34:00* Test Item Value Reference Range Interpretation Comments Blood Urea Nitrogen (test code = 3094-0) 22 7-26 [facility] AustinCreatinine2020-03-15 20:34:00* Test Item Value Reference Range Interpretation Comments Creatinine (test code = 2160-0) 1.21 0.57-1.11 H [facility] AustinBUN/Creatinine Wedlb7090-82-08 20:34:00* Test Item Value Reference Range Interpretation Comments BUN/Creatinine Ratio (test code = 3097-3) 18 6- [facility] AustinEstimat Glomerular Filtration Rate 2019-04-22 20:34:00* Test Item Value Reference Range Interpretation Comments Estimat Glomerular Filtration Rate (test code = 816174792) 43 >60 L Ranges were taken from the National Kidney Disease Education Program and the [facility] literature.Reference ranges:60 or greater: Oycrug34-67 ( for 3 consecutive months): Chronic kidney disease 15 or less: Kidney failureAscension Seton Medical Center AustinGlucose Tpxzw8718-43-89 20:34:00* Test Item Value Reference Range Interpretation Comments Glucose Level (test code = JUF9393) 119 74-118 H [facility] AustinCalcium Rwbmd8949-97-64 20:34:00* Test Item Value Reference Range Interpretation Comments Calcium Level (test code = 00536-3) 9.9 8.4-10.2 [facility] AustinTotal Stttljakw3431-55-77 20:34:00* Test Item Value Reference Range Interpretation Comments Total Bilirubin (test code = 1975-2) 0.4 0.2-1.2 [facility] AustinAspartate Amino Transf (AST/SGOT) 2019-04-22 20:34:00* Test Item Value Reference Range Interpretation Comments Aspartate Amino Transf (AST/SGOT) (test code = Aspartate Amino Transf (AST/SGOT)) 18 5-34 [facility] AustinAlanine Aminotransferase (ALT/SGPT) 2019-04-22 20:34:00* Test Item Value Reference Range Interpretation Comments Alanine Aminotransferase (ALT/SGPT) (test code = 1742-6) 12 0-55 [facility] AustinTotal Ofdjlhg5172-68-20 20:34:00* Test Item Value Reference Range Interpretation Comments Total Protein (test code = 2885-2) 7.7 6.5-8.1 [facility] AustinAlbumin2020-03-15 20:34:00* Test Item Value Reference Range Interpretation Comments Albumin (test code = 1751-7) 4.2 3.5-5.0 [facility] AustinGlobulin2020-03-15 20:34:00* Test Item Value Reference Range Interpretation Comments Globulin (test code = 94437-9) 3.5 2.3-3.5 [facility] AustinAlbumin/Globulin Vuvpj1180-65-98 20:34:00 * Test Item Value Reference Range Interpretation Comments Albumin/Globulin Ratio (test code = 1759-0) 1.2 0.8-2.0 [facility] AustinAlkaline Tmunbhvombb1170-83-26 20:34:00* Test Item Value Reference Range Interpretation Comments Alkaline Phosphatase (test code = 6768-6) 72 40-150 [facility] AustinAmylase Sqfre2906-36-49 20:33:00* Test Item Value Reference Range Interpretation Comments Amylase Level (test code = 1798-8) 164 25-125 H [facility] AustinLipase2020-03-15 20:33:00* Test Item Value Reference Range Interpretation Comments Lipase (test code = 3040-3) 53 8-78 [facility] AustinUrine RMW9377-67-82 20:21:00* Test Item Value Reference Range Interpretation Comments Urine WBC (test code = 5821-4) 6-10 0-5 H [facility] AustinUrine KYZ8246-59-90 20:21:00* Test Item Value Reference Range Interpretation Comments Urine RBC (test code = 81005-3) 0-5 0-5 [facility] AustinUrine Bruoqrro0555-12-12 20:21:00* Test Item Value Reference Range Interpretation Comments Urine Bacteria (test code = 95985-0) FEW NONE [facility] AustinUrine Epithelial Bazex6759-49-29 20:21:00 * Test Item Value Reference Range Interpretation Comments Urine Epithelial Cells (test code = 22608-1) FEW NONE [facility] AustinWhite Blood Dcncz9358-92-59 20:20:00* Test Item Value Reference Range Interpretation Comments White Blood Count (test code = 6690-2) 11.10 4.8-10.8 H [facility] AustinRed Blood Brvop5417-23-49 20:20:00* Test Item Value Reference Range Interpretation Comments Red Blood Count (test code = 789-8) 4.26 3.6-5.1 [facility] AustinHemoglobin2020-03-15 20:20:00* Test Item Value Reference Range Interpretation Comments Hemoglobin (test code = 78998-0) 13.1 12.0-16.0 [facility] AustinHematocrit2020-03-15 20:20:00* Test Item Value Reference Range Interpretation Comments Hematocrit (test code = 4544-3) 39.9 34.2-44.1 [facility] AustinMean Corpuscular Czwpff1079-16-61 20:20:00* Test Item Value Reference Range Interpretation Comments Mean Corpuscular Volume (test code = 787-2) 93.7 81-99 [facility] AustinMean Corpuscular Qxlvuhcmpn3035-14-14 20:20:00* Test Item Value Reference Range Interpretation Comments Mean Corpuscular Hemoglobin (test code = 785-6) 30.8 28-32 [facility] AustinMean Corpuscular Hemoglobin Concent 2019-04-22 20:20:00* Test Item Value Reference Range Interpretation Comments Mean Corpuscular Hemoglobin Concent (test code = 786-4) 32.8 31-35 [facility] AustinRed Cell Distribution Azfji1851-01-61 20:20:00* Test Item Value Reference Range Interpretation Comments Red Cell Distribution Width (test code = 28793-3) 15.6 11.7 -14.4 H [facility] AustinPlatelet Hulya6845-32-07 20:20:00* Test Item Value Reference Range Interpretation Comments Platelet Count (test code = 777-3) 395 140-360 H [facility] AustinNeutrophils (%) (Auto)2019-04-22 20:20:00 * Test Item Value Reference Range Interpretation Comments Neutrophils (%) (Auto) (test code = 17849-0) 59.8 38.7-80.0 [facility] AustinLymphocytes (%) (Auto)2019-04-22 20:20:00 * Test Item Value Reference Range Interpretation Comments Lymphocytes (%) (Auto) (test code = 736-9) 28.6 18.0-39.1 [facility] AustinMonocytes (%) (Auto)2019-04-22 20:20:00* Test Item Value Reference Range Interpretation Comments Monocytes (%) (Auto) (test code = 5905-5) 7.6 4.4-11.3 [facility] AustinEosinophils (%) (Auto)2019-04-22 20:20:00 * Test Item Value Reference Range Interpretation Comments Eosinophils (%) (Auto) (test code = 713-8) 2.2 0.0-6.0 [facility] AustinBasophils (%) (Auto)2019-04-22 20:20:00* Test Item Value Reference Range Interpretation Comments Basophils (%) (Auto) (test code = 706-2) 1.4 0.0-1.0 H [facility] AustinIM GRANULOCYTES %2019-04-22 20:20:00* Test Item Value Reference Range Interpretation Comments IM GRANULOCYTES % (test code = IM GRANULOCYTES %) 0.4 0.0- 1.0 [facility] AustinNeutrophils # (Auto)2019-04-22 20:20:00* Test Item Value Reference Range Interpretation Comments Neutrophils # (Auto) (test code = 751-8) 6.7 2.1-6.9 [facility] AustinLymphocytes # (Auto)2019-04-22 20:20:00* Test Item Value Reference Range Interpretation Comments Lymphocytes # (Auto) (test code = 07957-0) 3.2 1.0-3.2 [facility] AustinMonocytes # (Auto)2019-04-22 20:20:00* Test Item Value Reference Range Interpretation Comments Monocytes # (Auto) (test code = 742-7) 0.8 0.2-0.8 [facility] AustinEosinophils # (Auto)2019-04-22 20:20:00* Test Item Value Reference Range Interpretation Comments Eosinophils # (Auto) (test code = 711-2) 0.2 0.0-0.4 [facility] AustinBasophils # (Auto)2019-04-22 20:20:00* Test Item Value Reference Range Interpretation Comments Basophils # (Auto) (test code = 704-7) 0.2 0.0-0.1 H [facility] AustinAbsolute Immature Granulocyte (auto 2019-04-22 20:20:00* Test Item Value Reference Range Interpretation Comments Absolute Immature Granulocyte (auto (tyree t code = Absolute Immature Granulocyte (auto) 0.04 0-0.1 [facility] AustinABDOMEN-1VIEW (KUB)2019-04-22 20:06:00 [place] [address] Patient Name: MARITZA JONES MR #: [id number] : [birth year] Age/Sex: 78/F Req #: [id number] Adm Physician: Ordered by: GRISELDA LIU VICE PRESIDENT OF MANUFACTURING Report #: [id number] Location: ER Room/Bed: Procedure: 6267-2374 D X/ABDOMEN-1VIEW (KUB) Exam Date: 04/22/19 Exam [...] VERONICA on 04/22/192007 COPY TO: GRISELDA LIU VICE PRESIDENT OF [employer]UFA[employer]URING Urine Ygvba3059-13-78 19:43:00* Test Item Value Reference Range Interpretation Comments Urine Color (test code = 5778-6) YELLOW YELLOW [facility] AustinUrine Fgjdlmm1977-92-16 19:43:00* Test Item Value Reference Range Interpretation Comments Urine Clarity (test code = 80564-5) CLEAR CLEAR [facility] AustinUrine Specific Ntlhsxw6463-94-48 19:43:00 * Test Item Value Reference Range Interpretation Comments Urine Specific [place] (test code = 5811-5) 1.025 1.010-1.02 5 [facility] AustinUrine nW8910-52-04 19:43:00* Test Item Value Reference Range Interpretation Comments Urine pH (test code = 67238-0) 5 5-7 [facility] AustinUrine Leukocyte Cejslght2533-25-25 19:43:00* Test Item Value Reference Range Interpretation Comments Urine Leukocyte Esterase (test code = 5799-2) TRACE NEGATIVE H [facility] AustinUrine Jighoev3356-19-79 19:43:00* Test Item Value Reference Range Interpretation Comments Urine Nitrite (test code = 24278-8) NEGATIVE NEGATIVE [facility] AustinUrine Oqpieak4760-63-72 19:43:00* Test Item Value Reference Range Interpretation Comments Urine Protein (test code = 5804-0) NEGATIVE NEGATIVE [facility] AustinUrine Glucose (UA)2019-04-22 19:43:00* Test Item Value Reference Range Interpretation Comments Urine Glucose (UA) (test code = 2349-9) NEGATIVE NEGATIVE [facility] AustinUrine Ekfdrhc6180-96-73 19:43:00* Test Item Value Reference Range Interpretation Comments Urine Ketones (test code = 53134-3) 1+ NEGATIVE H [facility] AustinUrine Tdlemmjpakmu4983-30-23 19:43:00* Test Item Value Reference Range Interpretation Comments Urine Urobilinogen (test code = 53221-8) 0.2 0.2-1 [facility] AustinUrine Srkgdlkfo7083-19-15 19:43:00* Test Item Value Reference Range Interpretation Comments Urine Bilirubin (test code = 1978-6) NEGATIVE NEGATIVE [facility] AustinUrine Juuww1385-11-52 19:43:00* Test Item Value Reference Range Interpretation Comments Urine Blood (test code = 47549-0) TRACE NEGATIVE [facility] EVMWI6785-77-54 07:25:00* Test Item Value Reference Range Interpretation Comments SCAN RESULT (test code = 8384707) CPX2368-48-64 07:25:00Scan ResultQUEST NON-INTERFACED LABKaiser Medical CenterFine Needle Aspirate by Saurtghsg0283-29-28 14:39:00* Test Item Value Reference Range Interpretation Comments Case Report (test code = 104) Medical Cytology Report Case: [id number] Authorizing Provider: Tasia El MD Collected: 02/21/2019 2895 Ordering Location: [facility] Endoscopy Received: 02/21/2019 1541 Services Pathologist: Lawson Brothers MD Specimen: Siddiqui creatic DIAGNOSIS (test code = 3220) p0vyjUDlUGLqc1ktDBZjtJHtLmCaMmWtDiOgLvpafZAgONavrsGgKXgbp0FeM1PnGcAxMYzbppSjQSBz VnzgamsmXOOdNVA9jhDmHIFhGRmpFDOpMKiaQd6mtDNbeOpbXaEhOMXfs2xqohPGuraezVt3t8pjNASb PkZ5mVEtCDauT0pcmxLfrXYwEJUtLHj1iP52HAQukX 4tiXXgXYrzarNsFRownjInlnZwFvt1XELqQ5xpNZTsRHGcX5ClIG3dZMLyDtz0GPH6FUI4lMuwk0V1eY UxdHDurLwwBeUnUgKlMDUJk7BkIFp5nFqgI9BjHFWnJzW3zUQiOZWeTSuvIISbIKEwmiH1aZ57GIveuq A8zONel5Eno79ep565mZ0txQYqMEN7CKKeAJDumJTu VQEkGJB0KMWzpQYoU3l2UeVkaTKvX8F8AxXmfDFjP1N4NsEmhJKpS8F5GfKrxUUlZMUkwXVjFd8lsXYk oEOwqi4aig58HDX5d6RhzAgvLQQ3LQR0ThZzIj6xvFOyBVLcRT5lAnKxfGQpSRCtwg47sLpiZXyfksTh qR0bXnZjGIGolMGhRRZbEZ5uqOEnKXYzaE5havugHT PiFsJtwwsbWDZeyWshdhUpGw3coNftJUG6NZgbP9ogiN2iQdL2KEyoV3bgfC9lCPb3YIkfpFB1JKCcsT 1nFS7wygfjr6koLvOnGP1huufed1hgCrCiMJ0cwvl7l1mfOeIqYA0enlwjr1bvSpGdWEfbCDOmdljyIA Sgf7UnxxvzRJRfl7EmQ6LaoIikB09txRlnJ24kKWVi zOggmA7jvVndzC5hVaIuFkLoDEnadFammVVxqmdcKCrkkwUgMDDgDOlsOQJdKCKjHqBiDQFPECPENN6M CzGRBPrIYBzDTFTFOV7WEIAsHMKZQIBDVCXPKZhUIHGFVV8qVVKLOB0UREgNZpMDBqTiR6BDQXNDEU8P [file] j7EqJSpiLOS3EZCje14wTEzsqnR4TJckLd1oXBGhMmh6SyofwQHmiH9= CPT Code(s) (test code = 3357) l6fcaICbKIAupDEbYnUqLJVyLLErf4xtOCCicFZeTyWkUaOaAcXqBfqffVKlIWXyBvJdn2syz949uRAa g7ztHBGhOwZ5fLCxQQWvrHWaR306l7tvn2aimjSyaNN6CZJoXTE4DVoohsYqkdX7BZomePTuOpF7IMci bsDpPWiuxtEwsrHlUql8JFGkZ170QBN7fAbsv0zfKJ Y3DQEsYRNlDaKmAf2ryEXnT664ZLVvAXCJCJEefCe3OBLtfpRrcnFfxGHZc322H538p2gnCKJgteTefP nPzfrku6bhS499PUGcnATgrbPsFyBgLSRblZOzyRT1XHPjKJ5ukbdxUiUwWJ0zslagMcSuRV0vpoo9Gc UqMQ4xtaohQmMwJXhmSKJcarlrCWJjs6JwqkoyOM5x W0Toa7K8oN9giGAdUCIlqIIrNqFbLHEmsm6wrZMxGNndq2WrDLL6qnW0tPBenJDdQTDsLJ66Kvdja3Fc JhtxEUB8LMOhsxBeh3Yav1lgJlVmvkDuN4gbX9JqCKJgVRLjVEZdOuXrwvBgu9Vpj6JucYXazIc2q2xg VQErJPHpgMhrn1eoGNM1LRNkQ1K4wGCry1azWArzTG EccOL0tsilOCamBEVwdfH0gtpaIWurDBCniON3lseiTApoZDJfNkE8hkmqHHtmJTKaDCG3EJvgi854QR B1GBhiDhswXEcjNJWsyuVnvoEefSrcZDLuIVOvIMpnPXVjSLerEZJfKYFqEfZdsNdviZonrK4kZtVaZh OcTHmjGS2fNNVuV2qogDReDLBbTTJpB3sbVfDrtQ6fkMqaSIbzwyKlFDj0BRsuLBU7RTArSJiaQLQ0 CLINICAL DATA (test code = 3355) w8gekKKsDUQoyGBpCpZcVGMuMIXip8zfLKBraCCmXhXyTqHnBgUxNhylxWPfCTRwMzDqi4qmf871xPJb i4ipWGJpEhU1tMRpCRUsqEYhJ139QEXtVYxce0wgy1XhDDDshHXfz4Y4OGKFpskgsWg1bDzlY86dv5Z8 PwbtX9ugKFDhETLmB2DrIQ1dIMGtIob6NPZ3HFE2PL EyNDNgZ9QgBH1uTELiaIRnJOv7k0jcuPgvWDWxCME7f4laKVgmtuQhSR0uur1awSc6o7nizwVzOMKnXS VerXGXQWDvX2JmlVpyMd2uiSa7eTjnRuqvUAI2Ilj8ZG1acm81bdc4kUqnHUKvruqlAcW9NKzgDHZvel dePOz3AUdsHCZdePasOYjyRCWbhrhgBLwpXGUykZbw STyvAXAdHzsjGPzoENDoTBI2NTlqc971MLW4JAkmz0dpi9urvHMwZzx4XVYnNbZiNcgsUSaee5Xom8oz ZSDyea2gCSW6pKIkyLmqf9V1fOBjYXZazCHqnjXsAWGxHeV9ZZygWO2qvw76DVAtEWO0vb3efVFljPih cpMuyJNwVByhM3KvMWBxj774NVQpX0JfHBSly8C3yx FfWzIsVRMtsYK9wtR8GZYpHBl0yCLboxE2amWzrCVcF5shrL10EwLshCVrH2GwqI95CrCrmKLuX2PuwI 47MoKqgGJiM5CuvE41ZsCmuZKeMOAhlLKiNb1xkEXwhOFvm0CxjNSxMOqnZ68ai076CAZblvOtW7fihB EqtugrwSYtajdtKKyhvtP7VBCzEBLaXPkcMZDqOHUb SsJajAQaOhOpUlDmpFitjNvlXIjfGqOnKCVxKAasW3csNvMwSiMnNPSlDmegC91nzGH6ItZdJ19xCK3y G3fsxYWsUs5tcNHsZmCgMI8cagZezbTjASXjq768QCnzZtcoeYRkExTwN62vKIXnxUWtT4HcXPj5kEGm PW3pCHRec5VrQYObn5ArbVx4OIMjgP8mpThkSPKebgixOF2tyiXtrUciDSAqJ1xjfgctRTE4 SPECIMEN SOURCE (test code = 3377) c1cgpIQaKSZeaBScKnAkNUDgXWIlf6vsFTWpgWUsTgVkFjCyDjSnSonsmPVvFEZmLtFvn9bzx985kGXd u7swUPZgIzQ3yHVfCOBjiLUnR409HKLmDGipa4wgo7JsKNAnsNAhx5T3INOBrmcblXn4iAumP13qf9T4 VjzeI2azJWEjMABrO2KxEX7sGWOaVqf4NOO9FZX5UV GtOAFxH9JpUR9fQIMrsIAsSRx8r4dnqFctOTQoUWC5a5iuEPqgvfWtOD5omf7btZs8k9oyziHiGXWfWU IxtBNEKNBzE3AfnIehPf1jwYl7cFaeUepeHBS0Zcb8HP3ucx79tje5tUrsWPIqijbkUwC3BCgvNJBvux lyRIc1OOxaSBAmaNmoYFdoPDSzhnnjPYxdAYLjvDao VYyvBBUbYsthTUscLAYeWPN9XCnsi309FDU9SVnvi5hki5snoSUtIfk9LJOpRfCxNhazMClpg0Zwv9mt ZUGnbf8kICW5fOEvdGuhd3L3iRGiDJNmiESsrmMpFLVaUnR3YWdtZV0brm93YZBzFII1cu4dsTIedPxa kwIihIOxAEwbY0MdWJGmq734VUPsT8NlIETaf8L5qj JkLvDcCNNvkNA9uuC1TLSiQGz7oZCfjeD2ulEagLBpC7jmcD55OmZhaZUrN4TsjO06DhNryXAaD2RhwE 84UfVylNQhJ3LynB66EuDfbGPlYPVbtMCuKz7ryCAmsFKgh7NrvVBaCWqaI39mn202YYIlniYoN2ejeA OnmalfbIJybddaXCjtkoO3DTBnNYSnOWapDIAbMFAf SlLlkDHdCsInMtEntIyvjBeiOTxkFlIcQBMxPJajT8uvTeJgGoCbLKKIAABRHWJLWhNGHRNFKUIzGOrY XTxnEy8KEGBHMaRklZYzdP== GROSS DESCRIPTION (test code = 3366) p9xesGCuPGFdqFJhPcTmOPViOICmi9erXBLvlHOqOjPhRrRuWbQzJwreaGPlLZTgJbBrz3fgg028sCLy m1wqEUOsElA9dSCsYIGemIIuO561RSPtSJmgc7qqg7IaDIPpvAJmv8F2TEICoyumbCs1wWgsK62iu7I0 RjqoV4liIVIrALVzB6RzRK8hXMGqSmb2AHY2TNG4HH BwAVMkJ0LvTD3wAIHbdKJjUKl6o0sulRpuWVRgELY3k7bkLBzzanWvAT0xue5hmYj4n3vgawQlXSQoOL DecCDCEOTxR2XcyRajMo2seTn2tXhaDgwpGDU6Fyd9QK0qbn31dlw3pSkmLQKrkgrlAoB2GXrbCUZsaq tvMAi8HFswCFRjhVcpPMvsFQHqadwuFOzpCTIteMsd MXvaZYTfUtnfMHwrCOIqCJY5AJusw576XLH2FJhit7rgr0fhlRMfIgs1XDCzAjMuTnzgPEkyb3Gft7mj OIIpig5iFOO1kOZmjDcqt5U9eUSrQIJcvHDscbGtTFOiHiA4VCrmLM2wfv29ZGChSPX1wm1wgRJzvMfe tzJuwWWhZBsjN0GiFMQbm734LKKxU2SfPNKgy0P6ww FqIzGdYGOnuTP1deN6WRZyBMz6pXLiksO8chVqdWDqA3tsoZ20QlMbrCEvH2DykL69RjVgmBEyH9OqqS 65YlSxoDQrM3HypP55OxOubHAaZZNbfOAaYx1kdWTcfUEyv8YdcCElCHahD88ch081ZAYjoqKxD8fciH FxqyhjqSGdzzxbAIzmfvD0UZMaNTBuWVqcZXRuINEa VnIbhOYuWwVoVnHiiEdsrPsnGUsbTfAkFWGwYHthN5iwHnKhWzVaIeZENGSpdXKoEDCnPq22RL9eHGB1 lN4kdMZmXZJrUATebBgmlCt5AGGbZC6gcSNujRAcAQBdXBWilwSxYHUdnAriEprxW6xdFPWdHIVcXMS3 RUS3iQ7eeElfruFdnMEqRPXjsTsvN2HtEVdsRPXiOBGeIZAchcHRMFRinKOoAKojIPYpBXQbCBDzda3= Gross assessment was performed at (test code = 2777) [facility], Department of Pathology, [address] [place] [address], Technical component was performed at (test code = 2778 ) [facility], Department of Pathology, [address] [place] [address], Professional component was performed at (test code = 2 779) [facility], Department of Pathology, [address] [place] [address], [facility] CenterFINE NEEDLE ASPIRATION BY TIVNRORHJ1318-72-66 14:39:00Medical Cytology Report Case: [id number] Authorizing Provider: Tasia El MD Collected: 02/21/2019 1447 Ordering Location: [facility] Endoscopy Received: 02/21/2019 1545 Services Pathologist: Lawson Brothers MD Specimen: Pancreatic MERRY PANCREATIC LYMPH NODE, FNA BY CLINICIAN (CYTOSPINS AND CELL BLOCK OF ASPIRATE): - NEGATIVE FOR EPITHELIAL MALIGNANCY - LYMPHOID TISSUE PRESENT Signing Pathologist Direct Phone Line: [phone] signed by Lawson Brothers MD on 02/24/2019 at 2:39 [id number], 088831.8 cm x 4.3 cm anechoic body of pancreas lesion; (0.8 x 1.2 cm) enlarged lymph node was visualized in the peripancreatic regionPERI PANCREATIC LYMPH NODE FNAReceived 22.5 ml cytorich red fixative samplePrepared cell block(A2) and 4 cytospins Collected: [id number]: [id number], [facility] of [facility], [address] [place] [address], [facility], [facility], [address] [place] [address], [facility], [facility], [address] [place] [address], TCUR NEEDLE ASPIRATION BY XCVLJVOIH3557-26-50 14:24:00Medical Cytology Report Case: [id number] Authorizing Provider: Tasia El MD Collected: 02/21/2019 1446 Ordering Location: [facility] Endoscopy Received: 02/21/2019 1545 Services Pathologist: Lawson Brothers MD Specimen: Pancreas, body of pancreas cystic lesion BODY OF PANCREAS CYSTIC LESION FLUID, (CYTOSPINS AND CELL BLOCK): - NEGATIVE FOR MALIGNANCY - Macrophages and small lymphocytes present Signing Pathologist Direct Phone Line: [phone] signed by Lawson Brothers MD on 02/24/2019 at 2:24 [id number], 930198.8 cm x 4.3 cm anechoic body of pancreas lesion; (0.8 x 1.2 cm) enlarged lymph node was visualized in the peripancreatic regionBODY OF PANCREAS CYSTIC LESION FLUIDReceived 27.5ml cytorich red fixative samplePrepared cell block(A2) using collodion bag and 4 cytospinsCollected: [id number]: [id number] [facility], Department of Pathology, [address] [place] [address], [facility], [facility], [address] [place] [address], [facility], [facility], [address] [place] [address], Mlvhpoy Peritoneal [id number] 06:40:00* Test Item Value Reference Range Interpretation Comments AMYLASE, PERITONEAL FLUID (test code = 1797-0) [id number] [facility] 13:22:00* Test Item Value Reference Range Interpretation Comments Case Report (test code = 104) Surgical Pathology Repor t Case: [id number] Authorizing Provider: Tasia El MD Collected: 02/21/2019 1422 Ordering Location: [facility] Endoscopy Received: 02/21/2019 1533 Services Pathologist: Shelbie Morfin MD Specimen: Duodenal, duodenal ulcer bx DIAGNOSIS (test code = 3220) f3lknGUpOQGzf6umGUEvrMOmOwIhZnZwWtBeNtowlCQzTLoqpdDoQDnch2ReE9HsFnGfLRiigqYfBWRf IrfhwabtCTWvVFD7qwJwHPJvHJrcTZWdRQwrHf3uuWMvxQcqRnZjWUFoa8aubmOOyvikhFn6x7ujSMEs HdL2vMPqHSsnT5hkktWydGOqIMExBNz9lS11NHEtxM 8sfQSnAQteqbXzHlJ0DWkeNDOwPlX3ZYZhaCNsHYXzC6doPJVhSYsuXEDtSUpgqLQpFEJ6fNkuq5V4eL GujSSrpBgiKcHsOyPhSEBOk4FxXNk2nHspW6RqOOBnNsF1xTFiXSSsCEouGLNyWRRfmkJ2zW92TMfdeb T0iPEcv6Ajn77uu373cD1avOErIQT3SNEwUAZtgCTs VLFfAFG1FUBjsPNnT3j9IdAzeSHxF6J2SxOrzHImB3B8CkZkhGMzG8F0MvEylHNjLPJdvSJnNb0tbTJb sVYkrc1rtj18IYH2s9AycHdaFRM2FGV9HkTrAl3otSPpCZIuDQ7xByOazGTsRHBgvk59gDjiPQmnylWh tB5uPjGjTJUyeOGcIHLdBY5fbMWvFKHcjE8fkcnoOA GeJyDsnghsWOKvcHunqiXiOw5faZfiAHG0AYpdK6iynQ0lRpC0ZLctI9kauO7rBDs8PAubaAU2KNIopO 9tXY1rurbvf4lbXfYgRE3lllswb5ouJeGtAC1gsyn4v0rwOiMzGC1wiabno9wjFnLnLHmbAUNtmmxtAI Kzz9RaubndOMAih9QsD8HutEddU25ooNiwV21nEMPe aSelbX1xtMlfmV3rCjZiElVrPWqwvVfafSKkcneoKDxnvxSwLKeqltvoZVOuXEtmF4bdRnIuESFczBnx YJdwi4HvKCDvIZRmVqQgGS2ePHbOZSZgNWKAP7YIYmBTXYXFWMCfEVYYN2NGAQwfNZBsFX3zHNKLB7KA GwHJYT3ZR42DTJKLOQQJNRKXG9RKVSAPNWQHNZIHLC 4BDDLMTWzNOxFjMBeUKAHYHAcgQFUqMV8aWI8QL9XHMUHMIWCURhVECHYXPMRTZANwU4GoL5DHY3pSX8 1CLWMhfhdfALO6d5prjDXoWXIzrAGgSKTiJLsidlZePNPaQtuygiowOTAtKXU0bsQvLBIuQBheXPRdZU ibNg8bsQWspNmaLxTdNKLlv9roiuOSlqhykJx8d9wi UGVsXcJ0fOIdZCuoG0pmtnDnwIEbNZIrTBb1xI27QSPwbA6bsFImSMbhkfJvRzH9GWjpMDZrMeV0AVIu qNQjJWSyK7amODPpEBysQIOvDRefbCVzDBQ6wBudr8I7aRNkhGCwoPkcBoYtHjEbIvYEk4BuGAc3jAss O2ZrZTKoFcG9oUUzIBPuNSbbJNDtQFWhozE3lG90XG ekbvO6xPZfh3Svm54nf481fY0loGIvPHZ1SMLcMZSepJPuHFYpGZX0XLOagWKqV3nyOKFyZE3lmkryPR wwMBubDKDycWO1QYErqISoC3MtJDSeCInjYHWmcxz3PhVbEo3zlHVitYwhIVqjc6jvy1ykgWIkNpz0UH PkXiQuIevdLIohz6Hrx7uaAWInwb4eKXP5vBRvuZjo v2K4zSYzOYZrlYRzMFLqVW4pdRAcJJIvtX5kcvqmXHKjPbVggowiUZKkoIahnmGmVb4rgYfuFCI9SRkb Z0gpzZ8aYaC8UVdbN4mtsA0lQWg0SVfwOJVefMV7tkE1WQZjzDLvD9XorS6wLXSaBI4lkys8z0mjGCE2 RCsjAMPxDuG5mpM4MWZudKUpQOWazGdmQYukm402KT L4SwPeBPHeq4JlD7QsjSqhT73jbMcdJ20gGNLfxKngnY6prWjcsD1jNkFlYkXjPYcujSxcSR1lTRSpZ5 zrgTTlTIRsZFPsK1ydQuJznE9dpEaoMWqnvyXgZADtWis0LZFbsHBsOCLpRtl0WUPgDHZoI80bmlxtHU O9mC0uk3atl6MgJVxeSLI3UWUiw29uBShysaX7SMklBx62CGvhOWG5KZzbMIB0mW== CPT Code(s) (test code = 3357) r3lssVOdHTMvaDReNhPnAIThBEAqe9boDUJwsGRkQbBsCsPdZpXcFqgsuOZfYNHbScVhk2xrr774qGTl j7oiYJNaKyE2hCMzWVOatCClH447e0rgm5ybkkJncFB3JLKgHFU3AHiopwPjyhC3AHfwyELlVgH9HQpq rdBtEMeureIpjvYcYlc2TDAsY619OEJ2qScqm7keWV O0RNTwEOEmPqOjVn0vyHByX692FPXeXPLOJJHnnHw7GJPhioBbetKzhQIZj387G389q5hgAVEehcOutO mTjgzev3aiI358HUBnnHQmddSiKvUwPZGiaKYgyKG7WOTyJM8dpadgHkSjZE8ytcwsOwHzBF1rqnp2Co VbWM8utlsqZqAmOOxxGHOxmnxkOSJep3DlqcsnJG8y H6Cvf7G3yY9ncTFpKLBdwJGqRxFsKYFtdk4apDOdHIfpw7KoWTX1hvK9uOKgtGVgGNPbMI80Cprur1Jy BhfqOXH1PABsrfPtm8Mrb4tkBuHksmMgS6ruZ4QzIHLxKQTdQWYdQeOafqHne8Ttx3LqnOVsbVo2u1qu JDJbHNRbgNerl7rgETD9ALEzF3Z3lQHmf0wrXTdpDQ ErwCD1pdhmMIgtVGSgftR5plweKEzfOLRwrIW5dlsgBTjrPEDnKzX7zpmaFTpuXYCnYJL4TQnog818ZJ Y1EWkfBkruLUvmLOMeynMmsmGtbKuzMXYtEGIkRJxmSUHdHDzuMYBlNHZzMhNqqZsriImocP6rAjFfWn WjBGpnGC5pPQDdH6ggeHCoXIZlYFMqO5hqMkIowE2fqZbmWFetgdUuYXg2XsJ8HKGpuh9= CLINICAL HISTORY (test code = 3356) u0bcuLRzLXKgtYExEsIrNETvMHSnc5ylTGXofPIoJvZnBiFkMnRfLpflvPMiCQVsEcIhg0ljb038wZLy o9djANMoDgZ3zSQjHTSavRVwO976v0tgs2yggpVcwAH8VCJpVVG8DSamloZjiuB7SGxuoDEwIuS7YSor piLjPXimluBiliDcTou3AIHtN346QZN3nZsql5udKL T5EPUdVMBzYtUrWf2lqVLmL703VYSpAFACCEJlaWg7TTVnwkLliuLioQLZk966Z773x8kyUBInqaGaeC yHgugsl5qdB840WODtxKSazlOwSeCiGIFkpGXvcRE9JDCtLY6mixfoNkGlME4xntmhOlLaGT6rnyq7Za IuPA5kcgigOaBvNJezSTGkiricPCZhk8TkshfuCN8y Q2Tbx2T0dG3ncLQdPQApcYUmMdBuLYCiyj7roRMyPQtfo2SkUQM4fzI5fTRuuNZyIRFvRK61Uplua4Xu QukzBIK6DZRjddUay5Jbb3qtTkIlwnKxS6ruD9TiERYaFVRwMTRhAgBtzoUyc1Znb1NpcXTkiKw4z5hq PLJpNHXwbEtcr3xuAAP7DHTaB5R1fPUpd7pwUVjyMQ VtaBV9bvvzVEkyQHIfbaN6eppjPXllOLKymKI3qlibRYwjEUJiCgE0tblrDWnfKSEkHRR4ABodv066JH C4BQxiCxpfVTouPYDdiuCjpjOdnSezLVHtYVEpXAngXYVwRDbjPFNxNHVrFuGxsOjqhVoldD5lEaXxVy NdKLsjGS3mCNLoJ1ngfBMcIXMsMWBwU0ckBdTrtU3w kEtqSWptbyVnHLFdjg5zvPTbIVIredJvcmppHJ2yQISxGCwgo2H8qTIyzX1lR4muSqScrDVloG== SPECIMEN SOURCE (test code = 3377) p3uquQUuAUDxsVBaXzJfHHVtHUAyu0kwNBJnnBMaIzAdXiLuQpEeEjphdYVcFDFgPdMes6cbk649xWIa y4nnEPMzTeC7qECkCAJvbQQxE356r9xta6atkeGpyVQ1JULlUBO9MLxscuJtqoZ3KHsylDXyDmR5GCbe pdPzHQnpqdCaglJyKvl2OCKuX022TFR6oJmmv3vvBX U0QWAlMVKrRnBiMb8vfMBtK040WHFzLIEJTGAgyHa2ESFuzcDyrhLepQIRb099P036v4hvRNXhkcXunZ yCuuinb6wzT102WNEnnHJaadCfHhIuLLVgdYMmzHO3SWWzVO9ihemnIrXsPW5ijhefDoGlUN9hynq2Bh ZzDI9bwhsaSpQrLHqlSRYlgqwiZEBxo0GmsbhqNP3x M1Arf5B2gI3zbWVkCXElcWMqFiLiUWXxih5wlIJhLBqep8XmZCX6faI3tRBwkJCzWLMpRH35Dcmpg4Qv ZbabLON6IICbnlRyt6Kgl5zwSqYdnjPyY4jkE9GlDPEjXDIiYNQuYmQtrmUtp2Iyk4KqrQXbjJe0v0en UDYeOKQtxNizc3lpCRH9DGPpR5Q4iTXwn4dhNRbpZZ FuzWP2kesdFPvlOSBeobI5adndWGmdCTEhvUB9lobdXFxbZXRlEqQ4oyfjUHruONGyLTS4ALzmd752CN Q2OAgyGcjuMByuZOLekqMcsvAxtFneQCAuMYHrPYlzOZKnOSkcYCFmPENrCdTdwPcuxYaoyA4lYjJmIl FmLSjxWT2xHQBkO7yqwTRqXGYtFLBjY1meKaEizB 1npEksUPelneNhIGG7q2LqnrMxMEUhi4ScaIgiSNP1 GROSS DESCRIPTION (test code = 3366) t8qlkSDnAINeiDTiDoVrYTDrSHAgc0zhHVJsqGXjQyHrCvLtNwAuWtblxABxYFWwUzMid2szx697pLXa f9yaLOBsSmL7rYYtRXEhrLNiY295UYGgGXhiu6obr7FgOSOevOWqj5C3PPNPceefzFf3eJnfL22bn6Z5 EnizO4uzALMqBQhrZBRoLCfnmVXqLOC9QJQbLMO8XE hhdoLcygS9DKrfrAYdTeN2KZd3n7kzbVdfATNsEKM7i3ogUGncxnYxUA6iiz9dkMx0r9ovtmFhYBPiEV TiuYKGNCEjB8GklQogZn1nnUy9gAthUnnlDLX3Hkm7KO6fcn35hfy9vRoqPGOkuhhyOnE9IOivVGEcjv blWHf7WNyuNFRumXgiEBdzEIXenpayQKjuLTAzvOxz GVqjCLNuUdqnZJfdPEOjCVR9SKeet482AKW1HSmdt0iet7oawNEbRrh8VJKmFgQoTymjKEbqg8Tiv8jq FAOmuw8dYEP4uMZfsKuey6J7iXFnURUhzRPzlcWmZDJxXzW7UQcxAP3npm46QLBrWJB2uz6raLWwmRmo vyUfdATcUZhrA1WtTIOrr407RRHwG2NtTXEqq3P5cm OiUiCtOJXbkNO0arI8DIWaOXx6bAVgemW3onMktFBtL7zinC69JnJkwTIuW0KbvL81PoEcmLPeO3HdxC 88OcYpxRMjD7OwkF15PzZpjPPyASFqkKUdRa4btUOkeTOmw7EkdPVsEXccX25ua779EHXsogEyA9prgK FpblxwbGFpblxmMFxmczIwXHFsXHBsYWluXGYwXGZz JiAdsVxqyV2sKxEiPhYzBKDYCvQuoTglbJ4jMjTsWoXhERSDSLAhnYUiFZNwwdHax2XcVIaagxZgLLLb dIDkCSuewMuxtAkoDINagSxrwgVrzxKzRX7iZBLmK7Hvs0Ynn09isxCjKgLfEGUjAMBeVPXfJDHnWXsd nHpzBDCoQzqcvRZ3DdHxnuNbpOkzPQMoEXCateSyTd P6CA4tn4kxqMOhwWTfk8KjkIK8rBEtsHLcXOXtoTHxVSXywPCcutiiJN7dHEykRC1tSSfhLV2yTPEnVz HFoPXvg0OkA7iiKF6tfPLzv9MhtWl0dMZxXQiyGIMafY1dxE4iI0Xnv7S6tDYjgGdzgZ4kPgMkUiXjFU ItBIRkPOOWNf6ohXouUYZ3 MICROSCOPIC DESCRIPTION (test code = 3371) d6airLOcZFMkhQNrShKzGZSlXYCei0etRPYppVNiHdDmNjVgRnNoRtcroZAzYUIjMzWsr6mnt858iATk m4iwNPGiAsS1kKNbFKQhgSNjN939TZOqRCgzm9opq3WmTLQwfDMdm7F9VQDNwqoxeRt6uBvaQ66kj1Q8 AvwpD2ggPRDrWMEbL6MlCU2zBZAyYhx0CSU5POD7KI DaYNMcO2YmZU4dEJJsrVVjGCs1w5hxzUzcPIDrMOU8n7zzPVdzdrEsBN2rim7jrBu4a4liavZdSUCfUF OcjMUXJMLoJ4UzbHrxKg9llOv2sYceYgpdTVF7Ayr7RD7fib20nlt1dDxyCFKfytycDnD2EUczQZXgjk gxZHh3MQcxHWJgyLcfYDxsVELxrbbuQQfyODLzwKtj FPgdCLOpOtseVNqeYYYtVZG4ELsiv186GWW8XDwhw3kvy2oelAJjWet7KDSxPqWvWsgeQYzkg2Zvi5qy GCHjdg1cDTM4zRXuzTyym3M0hTMiQNNwlADgplMlNUWnJaU2WYqaLK5jwk20ITUtDCT3wy3yqOWubMga xzIbyQGePJqvV3DnCAEzx268NTHkK2UnGCDgu0B2wn QlLpAeIIMwlRH9wjM6MNJeUHb5fTZvotI4ssVsiMOyK3yadK44QwZahARcO4MqkI94SqGwzAImG7JkaO 70XeLxqOQlY1ZhfB93MkYnlFDbSXXgdUHhId5jdLXilZWvl8GezMYfPUbmT77we633CERokmSjS2lpaP CdzivsnNNuylsqYPxoiiR6CMZpTZVyABihNWRoVGIh LjFztYMxFlVeMoSllQluyYoeZSdpPmFdPXHiDTbdO7wrVeOmKnUjKXUMwZLkNDGxGCPhFCtkTnsjvXV3 LRPeyhYqn3OhRY2vPG72oCMyqJorIRBhVHAiukXmKoGwgFNraBSdm7npnAQmbOMhl1XtIXicgCvosTjw NUAyLOSwVnKzru9avOO7sRJhpINscNCkDXRreoJzyk ZuWxV6qw7lvdeqAEbbBR7uXJe6oUNujJsqp1cdVgSHmEHnlxSnBXrztSp7PPCzz4ErGKaqzRbpg7yfYN 6lQAPzweGaoc6cFF6yYPSyqn6= [id number] 13:22:00Surgical Pathology Report Case: [id number] Authorizing Provider: Tasia El MD Collected: 02/21/2019 1422 Ordering Location: [facility] Endoscopy Received: 02/21/2019 1533 Services Pathologist: Shelbie Morfin MD Specimen: Duodenal, duodenal ulcer bx A. ULCER, DUODENUM BULB, BIOPSY - DUODENUM MUCOSA WITH ULCER AND FIBRINOPURULENT EXUDATE - NEGATIVE FOR DYSPLASIA OR CARCINOMA Signing Pathologist Direct Phone Line: [phone] signed by Shelbie Smallwood MD on 02/22/2019 at 1:22 [id number] findings on diagnostic imagin g Duodenal biopsyA. [...] (test code = 2629) See [facility] [id number] 17:00:00* Test Item Value Reference Range Interpretation Comments CYTOLOGY RESULT POINTER (BEAKER) (test code = 2629) See Separate Re port FINE NEEDLE ASPIRATE (FNA) [id number] 17:00:00* Test Item Value Reference Range Interpretation Comments CYTOLOGY RESULT POINTER (BEAKER) (test code = 2629) See Separate Re port US, ABDOMINAL, [id number] 08:09:00Reason for Exam:->researchFINAL REPORT EXAM: US, ABDOMINAL, [...] the b iliary tree. Signed: Brian Burton MDReport Verified Date/Time: 08/09/2018 08: 09:47 Reading Location: [facility] Reading Room [address] [place] [address] , ABDOMINAL, COMPLETE 2018-05-23 12:09:00Reason for Exam:->Z00.6 [...] cholecystectomy and splen ectomy Signed: Santos Rivera MDReport Verified Date/Time: 05/23/2018 12:09:54 , [facility] INS W/PORT [id number] 13:11:00Reason for Exam:->C25.2FINAL REPORT Procedure: Chest port [...] with a micropuncture need le. A 5 Thai sheath and dilator was placed. A 3 J-wire was then advanced and t he access site was dilated. A 7 Thai peel-away introducer sheath was then plac ed. The distal end of the 5 Thai port catheter was then advanced through the [...] Verified Date/Time: 05/08/2018 13 :11:36 Reading Location: [facility] Radiology Reading Room /[id number] 09:26:00* Test Item Value Reference Range Interpretation [...] Verified Da te/Time: 04/27/2018 09:58:40 Reading Location: [address] Radiology Reading Room UE [id number] 17:11:00Surgical Pathology Report Case: [id number] Authorizing Provider: Catracho Del Cid MD Collected: 03/22/2018 1101 Ordering Location: [facility] PERIOPERATIVE Received: 03/22/2018 1108 SERVICES Pathologist: Luis [...] GRANULOMATOUS INFLAMMATION.UNINVOLVED SPLEENAJCC CLASSIFICATIO N (8TH EDITION) [id number] B GALLBLADDER, OPEN CHOLECYSTECTOMY:CHRONIC CHOLECYS TITISCHOLELITHIASIS NEGATIVE FOR CARCINOMA.PART C SOFT TISSUE, GEROTA'S FASCIA, EXCISION:INVOLVED BY CARCINOMA, EXTENDING TO INKED MARGIN. 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 ; A13-A16, sections of pancreatic tissue; A17, financial services sales representative section from the spl een; A18-22, three lymph nodes each; A23-A30, financial services sales representative sections from the f at. [...] Immunohistochemistry technical testing was pe rformed at [facility], Pathology Laboratory where it was d eveloped [...] to perform high complexity clinical laboratory testi ng.[id number] 13:17:00* Test Item Value Reference Range Interpretation Comments LIPASE (BEAKER) (test code = 749) 28 U/L 8-78 Run on blood drawn this amRun on blood drawn [id number] 13:17:00* Test Item Value Reference Range Interpretation Comments AMYLASE (BEAKER) (test code = 349) 39 U/L 25-125 Run on blood drawn this amRun on blood drawn thisPOCT-GLUCOSE [id number] 17:26:00* Test Item Value Reference Range Interpretation Comments POC-GLUCOSE METER (BEAKER) (test code = 1538) 113 mg/dL 70-[address] [facility] [address] [facility] [address] CBC W/PLT COUNT & AUTO [id number] 08:56:00* Test Item Value Reference Range Interpretation [...] LYMPHOCYTES - ABS (CELLAVISION)(BEAKER) (test code = 5038) 0.79 K/uL 0.00-0.00 H TOTAL COUNTED (BEAKER) (test code = 1351) 100 RBC MORPHOLOGY (BEAKER) (test code = 762) Normal PLT MORPHOLOGY (BEAKER) (test code = 486) Normal SMUDGE CELLS (BEAKER) (test code = 1371) Present PLATELET CONCENTRATION (CELLAVISION)(BEAKER) (test code = 3438) Jeanie quate Received comment: User comments: Slide comments: [id number] 05:37:00* Test Item Value Reference Range Interpretation Comments PHOSPHORUS (BEAKER) (test code = 604) 3.3 mg/dL 2.3-4.7 [id number] 05:37:00* Test Item Value Reference Range Interpretation Comments MAGNESIUM (BEAKER) (test code = 627) 1.5 mg/dL 1.6-2.6 L BASIC METABOLIC [id number] 05:37:00* Test Item Value Reference Range Interpretation [...] IS NOT APPLICABLE FOR DIALYSIS PATIENTS. HEMOGLOBIN [id number] 12:48:00* Test Item Value Reference Range Interpretation Comments HEMOGLOBIN A1C (BEAKER) (test code = 368) 5.5 % 4.3-6.1 Received comment: User comments: Slide comments: LIPID [id number] 11:30:00 * Test Item Value Reference Range [...] High >=190 CBC W/PLT COUNT & AUTO [id number] 09:12:00* Test Item Value Reference Range Interpretation [...] quate Received comment: User comments: Slide comments: [id number] 05:43:00* Test Item Value Reference Range Interpretation Comments PHOSPHORUS (BEAKER) (test code = 604) 2.8 mg/dL 2.3-4.7 [id number] 05:43:00* Test Item Value Reference Range Interpretation Comments MAGNESIUM (BEAKER) (test code = 627) 1.6 mg/dL 1.6-2.6 BASIC METABOLIC [id number] 05:43:00* Test Item Value Reference Range Interpretation [...] IS NOT APPLICABLE FOR DIALYSIS PATIENTS. POCT-GLUCOSE [id number] 17:55:00* Test Item Value Reference Range Interpretation Comments POC-GLUCOSE METER (BEAKER) (test code = 1538) 93 mg/dL 70-[address] [facility] [address] [facility] [address] [id number] 13:48:00* Test Item Value Reference Range Interpretation Comments MAGNESIUM (BEAKER) (test code = 627) 2.0 mg/dL 1.6-2.6 Specimen slightly hemolyzed [id number] 13:48:00* Test Item Value Reference Range Interpretation Comments PHOSPHORUS (BEAKER) (test code = 604) 2.8 mg/dL 2.3-4.7 Specimen slightly hemolyzed BASIC METABOLIC [id number] 13:48:00* Test Item Value Reference Range Interpretation [...] IS NOT APPLICABLE FOR DIALYSIS PATIENTS. POCT-GLUCOSE [id number] 12:03:00* Test Item Value Reference Range Interpretation Comments POC-GLUCOSE METER (BEAKER) (test code = 1538) 100 mg/dL 70-110 TESTED AT [place] [id number] [facility] [address] POCT-GLUCOSE [id number] 06:50:00* Test Item Value Reference Range Interpretation Comments POC-GLUCOSE METER (BEAKER) (test code = 1538) 92 mg/dL 70-110 TESTED AT [address] [address] TSH/FREE T4 IF [id number] 05:02:00* Test Item Value Reference Range Interpretation Comments THYROID STIMULATING HORMONE (BEAKER) (test code = 772) 0.62 uIU/mL 0.35-4.94 BASIC METABOLIC [id number] 04:15:00* Test Item Value Reference Range Interpretation [...] GFR IS NOT APPLICABLE FOR DIALYSIS PATIENTS. [id number] 03:59:00* Test Item Value Reference Range Interpretation Comments PHOSPHORUS (BEAKER) (test code = 604) 3.1 mg/dL 2.3-4.7 [id number] 03:59:00* Test Item Value Reference Range Interpretation Comments MAGNESIUM (BEAKER) (test code = 627) 2.0 mg/dL 1.6-2.6 CBC W/PLT COUNT & AUTO [id number] 03:52:00* Test Item Value Reference Range Interpretation [...] % 0-1 RAD, CHEST, 1 VIEW, NON [id number] 00:53:00Reason for exam:->SOBShould this be performed at [...] effusion and adjacent atelectasis Signed: Jesika Ladd MDReport Verified Date/Time: 03/26/2018 00:53:33 Reading Location: [address] Neuro Reading Room C METABOLIC [id number] 20:57:00* Test Item Value Reference Range Interpretation [...] GFR IS NOT APPLICABLE FOR DIALYSIS PATIENTS. [id number] 20:43:00* Test Item Value Reference Range Interpretation Comments MAGNESIUM (BEAKER) (test code = 627) 1.3 mg/dL 1.6-2.6 L Specimen slightly hemolyzed [id number] 20:43:00* Test Item Value Reference Range Interpretation [...] code = 700) 359 pg/mL 0-100 H [id number] 07:04:00* Test Item Value Reference Range Interpretation Comments MAGNESIUM (BEAKER) (test code = 627) 1.6 mg/dL 1.6-2.6 BASIC METABOLIC [id number] 07:04:00* Test Item Value Reference Range Interpretation [...] NOT APPLICABLE FOR DIALYSIS PATIENTS. AMYLASE, BODY [id number] 06:17:00* Test Item Value Reference Range Interpretation [...] CT, CHEST WITH IV CONTRAST- PE TEST [id number] 16:12:00FINAL REPORT TECHNIQUE: CT scan of the [...] MDReport Verified Date/Time: 03/24/2018 16:12:33 Reading Location: [facility] C013Y CT Body Reading Room ONIN [id number] 13:43:00* Test Item Value Reference Range Interpretation [...] = 380) 649 U/L 29-20 0 H [id number] 05:26:00* Test Item Value Reference Range Interpretation Comments MAGNESIUM (BEAKER) (test code = 627) 1.8 mg/dL 1.6-2.6 BASIC METABOLIC [id number] 05:26:00* Test Item Value Reference Range Interpretation [...] 0 /100 WBC 0 -0 AMYLASE, BODY [id number] 07:07:00* Test Item Value Reference Range Interpretation Comments AMYLASE FLUID (BEAKER) (test code = 350) 2219 U/L Absence of reference range indicates that normals have not been defined.Assay pe rformance has not been validated for this type of specimen.[id number] 06:09:00* Test Item Value Reference Range Interpretation Comments MAGNESIUM (BEAKER) (test code = 627) 1.6 mg/dL 1.6-2.6 BASIC METABOLIC [id number] 06:09:00* Test Item Value Reference Range Interpretation [...] 0 /100 WBC 0 -0 BASIC METABOLIC [id number] 14:25:00* Test Item Value Reference Range Interpretation [...] 0 /100 WBC 0 -0 URINALYSIS WITHOUT [id number] 11:46:00* Test Item Value Reference Range Interpretation [...] 0.2-1.0 SOURCE(BEAKER) (test code = 2795) CALCIUM, [id number] 11:25:00* Test Item Value Reference Range Interpretation Comments CALCIUM IONIZED (BEAKER) (test code = 698) 1.10 mmol/L 1.12-1.27 L PH, BLOOD (BEAKER) (test code = 1810) 7.33 BLOOD GAS, [id number] 11:25:00* Test Item Value Reference Range Interpretation [...] (test code = 1819) 100.0 % GLUCOSE-STAT [id number] 11:25:00* Test Item Value Reference Range Interpretation Comments GLUCOSE RANDOM (BEAKER) (test code = 652) 168 mg/dL 70-110 H SODIUM NA-STAT [id number] 11:24:00* Test Item Value Reference Range Interpretation Comments SODIUM (BEAKER) (test code = 381) 139 meq/L 135-148 POTASSIUM-STAT [id number] 11:24:00* Test Item Value Reference Range Interpretation Comments POTASSIUM (BEAKER) (test code = 379) 4.4 meq/L 3.6-5.5 HGB/HCT (H&H) - STAT [id number] 11:24:00* Test Item Value Reference Range Interpretation Comments HEMOGLOBIN (BEAKER) (test code = 410) 12.4 g/dL 12.0-15.0 HEMATOCRIT (BEAKER) (test code = 411) 36.0 % 36.0-45.0 [id number] 10:29:00* Test Item Value Reference Range Interpretation Comments PARTIAL THROMBOPLASTIN TIME (BEAKER) (test code = 760) 42.2 seconds 22.5-36.0 H [id number] 08:41:00* Test Item Value Reference Range Interpretation Comments CALCIUM (BEAKER) (test code = 697) 9.7 mg/dL 8.4-10.2 [id number] 08:41:00* Test Item Value Reference Range Interpretation Comments LIPASE (BEAKER) (test code = 749) 79 U/L 8-78 H [id number] 08:41:00* Test Item Value Reference Range Interpretation Comments AMYLASE (BEAKER) (test code = 349) 90 U/L 25-125 Specimen slightly hemolyzed PROTHROMBIN TIME/[id number] 08:35:00* Test Item Value Reference Range Interpretation Comments PROTIME (BEAKER) (test code = 759) 12.8 seconds 11.7-14.7 INR (BEAKER) (test code = 370) 1.0 <=5.9 RECOMMENDED COUMADIN/WARFARIN INR THERAPY RANGESSTANDARD DOSE: 2.0 - 3.0 Inclu danielle: PROPHYLAXIS for venous thrombosis, systemic embolization; TREATMENT for jeanne ous thrombosis and/or pulmonary embolus.HIGH RISK: Target INR is 2.5-3.5 for pat ients with mechanical heart valves.CALCIUM, [id number] 08:34:00* Test Item Value Reference Range Interpretation Comments CALCIUM IONIZED (BEAKER) (test code = 698) 1.16 mmol/L 1.12-1.27 PH, BLOOD (BEAKER) (test code = 1810) 7.38 FINE NEEDLE ASPIRATION BY [id number] 14:46:00Medical Cytology Report Case: [id number] Authorizing Provider: Tasia El MD Collected: 02/21/2018 1233 Ordering Location: [facility] Endoscopy Received: 02/21/2018 1555 Services Pathologist: Rosario Eli MD Specimen: Pancreas, mass pancreas tail TAIL OF PANCREAS MASS, FNA BY CLINICIAN (CYTOSPINS AND CELL BLOCK OF ASPIRATE): - POSITIVE FOR MALIGNANCY - ADENOCARCINOMA Signing Pathologist Direct Phone Line: [phone] signed by Rosario Eli MD on 02/22/2018 at 2:46 [id number] patient's electronic medical record: irregular hypoechoic 2.4 x 2.9 cm mass identified in the pancreatic rome lTAIL OF PANCREAS MASS FNAPrepared cell block(A2) and 4 cytospins from 30 ml cyt orich red fixative sampleCollected: [id number]: [id number] [facility], Department of Pathology, [address] [place] [id number], [facility], [facility], [address] [place] [id number], [facility] , [facility], [address] [place] [id number], Tel FINE NEEDLE ASPIRATE (FNA) [id number] 17:00:00* Test Item Value Reference Range Interpretation Comments CYTOLOGY RESULT POINTER (ALISHA) (test code = 2629) See Separate Re port
--- OUTSIDE RECORDS SUMMARY | 2019-10-01 19:04 | XMS REPORT | Clinical Summary ---
Author Author PARAG Setup [facility] [employer] [facility] Address Unknown Phone Unavailable Care Team Providers Care Epic Willow Analyst Name Role Phone Tomás Veronica MD PCP [...] Type Specialty 07/09/2019 Orders Only General Internal Wa Karma Yeh DO Ali, MD Ekaterina Ortiz Rosemary, MD Intractable nausea and vomiting (Primary Dx); Chemotherapy induced diarrhea; Moderate dehydration; SVT (supraventricular tachycardia) (HCC) 07/08/2019 Emergency Cardiology - 07/10/2019 07/08/2019 Travel Reggie Singh MD Ali, Sanah Qasam, MD Dehydration (Primary Dx); Nausea and vomiting, intractability of vomiting not specified, unspecified vomiting type; Diarrhea, unspecified type 06/11/2019 Emergency General Internal Wa dicine - 06/12/2019 06/11/2019 Travel Giancarlo Lee [...] Implanted Type Area Manufactur er 11/07/2019 / [id number] / [id number] Powerport Catheter Implanted: Qty: 1 on 05/08/2018 [...] ms QTC Calculatio n(Bazett) 464 ms P [place] 69 degrees R [place] 77 degrees T [place] 68 degrees Normal sinus rhythm Normal ECG [...] ms QTC Calculatio n(Bazett) 450 ms R [place] 81 degrees T [place] -15 degrees Supravent ricular tachycardi a ST [...] AMYLASE PERITONEAL FLUID Routine 02/22/2019 10:46 AM [employer] FINE NEEDLE ASPIRATE Routine 02/21/2019 (FNA) REQUEST 2:47 PM [employer] FINE NEEDLE ASPIRATION BY AP Routine 02/21/2019 CLINICIAN 2:47 PM [employer] FINE NEEDLE ASPIRATE Routine 02/21/2019 (FNA) REQUEST 2:46 PM [employer] FINE NEEDLE ASPIRATION BY AP Routine 02/21/2019 CLINICIAN 2:46 PM [employer] REPORT OF PROCEDURE - 02/21/2019 ENDOSCOPY URL 2:44 PM [employer] MISCELLANEOUS LAB ORDER Routine 02/21/2019 2:44 PM [employer] TISSUE EXAM AP Routine 02/21/2019 2:22 PM [employer] UPPER ENDOSCOPY,BIOPSY 02/21/2019 Abnormal findi ngs on 1:30 PM [employer] diagnostic imaging of other abdominal regions, including retroperitoneum Special Needs (LINEAR SCOPE) UPPER ENDOSCOPY,FNA 02/21/2019 Abnormal findings on W/ULTRASOUND 1:30 PM [employer] diagnostic imaging of other abdominal regions, including [...] period is included. % Neutros 84 % [facility] % Lymphs 6 % [facility] % Monos 5 % [facility] % Eos 2 % [facility] % Bands 3 0 - 10 % [facility] # Neutros 21.50 (H) 1.56 - 6.13 K/ul [facility] # Lymphs 1.54 1.18 - 3.74 K/ul [facility] # Monos 1.28 (H) 0.24 - 0.36 K/uL [facility] # Eos 0.51 (H) 0.04 - 0.36 K/uL [facility] # Bands 0.77 0.00 - 0.80 K/uL [facility] Total Counted 100 [facility] RBC Morphology Normal [facility] Smudge Cells Present [facility] Giant Platelet Present [facility] Toxic Granulation Present [facility] Platelet Conc Adequate [facility] Specimen Blood Narrative Performed At Commercial Appraiser ID - Hailey Gabe [facility] User comments: [facility] Slide comments: Performing Organization Address City/State/Zipcode Ph one Number [address] [facility] * CBC with platelet count + automated diff (07/10/2019 7:47 AM CDT) Only the most recent of 5 results within the time period is included. WBC 25.6 (H) 3.5 - 10.5 K/L [facility] RBC 3.53 (L) 3.93 - 5.22 M/L [facility] Hemoglobin 11.2 11.2 - 15.7 GM/DL [facility] Hematocrit 33.8 (L) 34.1 - 44.9 % [facility] MCV 95.8 (H) 79.4 - 94.[address] [facility] MCH 31.7 25.6 - 32.[address] [facility] MCHC 33.1 32.2 - 35.5 GM/DL [facility] RDW 14.8 (H) 11.7 - 14.4 % [facility] Platelets 279 150 - 450 K/CU MM [facility] MPV 9.8 9.4 - 12.[address] [facility] nRBC 0 0 - 0 /[address] [facility] Specimen Blood Performing Organization Address [facility] Ph one Number [address] 0 [phone] [place] [address] * Magnesium (07/10/2019 7:47 AM CDT) Only the most recent of 3 results within the time period is included. Magnesium 2.1 1.6 - 2.6 mg/dL [facility] Specimen Blood Narrative Performed At Commercial Appraiser ID - PIAYA L [facility] Performing Organization Address [facility] Ph one Number [phone] 0 [phone] [place] [address] * Basic Metabolic Panel (07/10/2019 7:47 AM CDT) Only the most recent of 5 results within the time period is included. Sodium 138 136 - 145 meq/L [facility] Potassium 3.0 (L) 3.5 - 5.1 meq/L [facility] Chloride 105 98 - 107 meq/L [facility] CO2 24 22 - 29 meq/L [facility] BUN 7 7 - 21 mg/dL [facility] Creatinine 0.68 0.57 - 1.25 mg/dL [facility] Glucose 104 70 - 105 mg/dL [facility] Calcium 8.1 (L) 8.4 - 10.2 mg/dL [facility] EGFR 84Comment: ESTIMATED GFR IS mL/min/1.73 sq m [facility] NOT ACCURATE CREATININE [facility] CLEARANCE IN PREDICTING GLOMERULAR FILTRATION RATE. ESTIMATED GFR IS NOT APPLICABLE FOR DIALYSIS PATIENTS. Specimen Blood Narrative Performed At Commercial Appraiser ID - GALE Wilkins [facility] Performing Organization Address City/[facility] Ph one Number [address] [facility] * Phosphorus (07/09/2019 5:51 AM CDT) Phosphorus 2.3 2.3 - 4.7 mg/dL [facility] Specimen Blood Narrative Performed At Commercial Appraiser ID - GALE Wilkins [facility] Performing Organization Address [facility] one Number [address] [facility] * ECG 12 lead (07/09/2019 1:58 AM CDT) Only the most recent of 2 results within the time period is included. Specimen Narrative Performed At Ventricular Rate 86 BPM GE MUSE Atrial Rate 86 BPM P-R Interval 140 ms QRS Duration 74 ms Q-T Interval 388 ms QTC Calculation(Bazett) 464 ms P [place] 69 degrees R [place] 77 degrees T [place] 68 degrees Normal sinus rhythm Prolonged QT [...] 388 ms QTC Calculation(Bazett) 464 ms P [place] 69 degrees R [place] 77 degrees T [place] 68 degrees Normal sinus rhythm Prolonged QT [...] QT has lengthened Confirmed by MD SAADIA, [facility] ([id number]) on 07/09/2019 7:24:18 AM Performing [...] ST segme nts normal. T waves normal. [place] is normal. Other findings: no other findings. [...] Protein, Total 6.5 6.0 - 8.3 gm/dL [facility] Albumin 3.7 3.5 - 5.0 g/dL [facility] Total Bilirubin 0.5 0.2 - 1.2 mg/dL [facility] Bilirubin, Direct 0.3 0.1 - 0.5 mg/dL [facility] Alkaline Phosphatase 123 40 - 150 U/L [facility] AST 24 5 - 34 U/L [facility] ALT 13 6 - 55 U/L [facility] Specimen Blood Narrative Performed At Commercial Appraiser NORA Wilkins [facility] Performing Organization Address [facility] one Number [address] [facility] * POC-Glucose meter (06/12/2019 7:03 AM CDT) POC-Glucose Meter 99Comment: : TESTED AT [facility] 70 - 110 mg/dL [address] [address]: Commercial Appraiser/Brazing Machine Operator ID = [id number] for [facility] Specimen Blood Performing Organization Address [facility] Ph one Number [address] [facility] * Shiga Toxin Screen (06/11/2019 6:25 PM CDT) Shiga toxin 1 Not detected Not detected [facility] Shiga toxin 2 Not detected Not detected [facility] Specimen Stool Performing Organization Address [facility] Ph one Number [address] [facility] * Stool culture + Shiga toxin (06/11/2019 6:25 PM CDT) Result No Salmonella or Shigella [facility] isolated [facility] Specimen Stool Performing Organization Address [facility] one Number [address] [facility] * Clostridium difficile GDH Toxin (06/11/2019 6:24 PM CDT) C. Difficle Toxin Negative Negative [facility] C. Difficile GDH Antigen NegativeComment: No indication Negat edwin [facility] of Clostridium difficile [facility] infection and no colonization. Discontinue enteric isolation and therapy. Specimen Stool Narrative Performed At Testing performed by Alere Rapid Cassette Assay.F or GDH, published [facility] sensitivity of the assay is 98.7% sorin red to cytotoxicity testing.For Toxin [facility] AB, published sensitivity is 87.8% and specificity 99.4% compared to cytotoxicity testing. Verification of kit performance was don e by the [facility] Microbiology Lab prior to clinical use. Performing Organization Address City/[facility] Cent[facility] Ph one Mattie [facility] [address] [place] [address] [address] [facility] * Lipase (06/11/2019 12:49 PM CDT) Lipase 70 8 - 78 U/L [facility] Specimen Blood Narrative Performed At Commercial Appraiser ID - LA[place] Stafford [facility] Performing Organization Address City/[facility] Centercode Ph one [address] 0 [phone] [place] [address] * XR chest 1 view portable / [...] Report Verified Date/Time: 0 12:54:43 Reading Location: [facility] Radiolo gy Reading Room Procedure Note Interface, [...] Report Verified Date/Time: 06/11/2019 12:54:43 Reading Location: [facility] Radiology Reading Room Performing Organization Address City/State/Zipcode Ph one Number GE RIS * Amylase Peritoneal Fluid (02/22/2019 10:46 AM [employer]) AMYLASE, PERITONEAL FLUID [address] [facility] Specimen Body Fluid Narrative Performed At This result has an attachment that is n ot available. Performing Organization Address City/State/Zipcode Ph one Number [facility] [address] [place] [place] [facility] [address] [address] * FINE NEEDLE ASPIRATE (FNA) REQUEST (02/21/2019 2:47 PM [employer]) Only the most recent of 2 results within the time period is included. Cytology See Separate Report [facility] Specimen Fine Needle Aspirate Performing Organization Address City/[facility] Cent[facility]ode Ph one Number [facility] [address] [place] [address] MEDICAL CENTER * Fine Needle Aspirate by Clinician (02/21/2019 2:47 PM [employer]) Only the most recent of 2 results within the time period is included. Case Report Medical Cytology [facility] Report [facility] Case: [id number] Authorizing Provider:Tasia Jimenez MDCollected: 02/21/2019 1447 Ordering Location: [facility] Endoscopy Received: 02/21/2019 1545 Services Pathologist: Lawson Brothers MD Specimen:Pancreatic DIAGNOSIS MERRY PANCREATIC LYMPH NODE, [facility] FNA BY CLINICIAN (CYTOSPINS [facility] AND CELL BLOCK OF ASPIRATE): - NEGATIVE FOR EPITHELIAL MALIGNANCY - LYMPHOID TISSUE PRESENT Signing Pathologist Direct Phone Line: [phone] CPT Code(s) 91826, [address] [facility] CLINICAL DATA 2.8 cm x 4.3 cm anechoic body [facility] of pancreas lesion; (0.8 x 1.2 [facility] cm) enlarged lymph node was visualized in the peripancreatic region SPECIMEN SOURCE MERRY PANCREATIC LYMPH NODE FNA [facility] GROSS DESCRIPTION Received 22.5 ml cytorich red [facility] fixative sample [facility] Prepared cell block(A2) and 4 cytospins Collected: [id number] Received: [id number] Gross assessment was [facility] performed at [place], Department of [facility] TER Pathology, [address] [place] [address], Technical component was [facility] performed at [place], Department of [facility] TER Pathology, [address] [place] [address], Professional component [facility] was performed at [place], Department of [facility] TER Pathology, [address] [place] [address], Specimen Fine Needle Aspirate Narrative Performed At This result has an attachment that is n ot available. Performing Organization Address City/[facility] Ph one Number [address] [facility] * REPORT OF PROCEDURE - ENDOSCOPY URL (02/21/2019 2:44 PM [employer]) Narrative Performed At This result has an attachment that is n ot available. * CEA (02/21/2019 2:44 PM [employer]) Scan Result [facility] Specimen Body Fluid Narrative Performed At This result has an attachment that is n ot available. Performing Organization Address City/[facility] Cent[facility] Ph one Number [facility] [address] [place] [address] * Tissue Exam (02/21/2019 2:22 PM [employer]) Case Report Surgical Pathology [facility] Report [facility] Case: [id number] Authorizing Provider:Tasia Jimenez MDCollected: 02/21/2019 1422 Ordering Location: [facility] Endoscopy Received: 02/21/2019 1533 Services Pathologist: Shelbie Morfin MD Specimen:Duodenal, duodenal ulcer bx DIAGNOSIS A. ULCER, DUODENUM BULB, [facility] BIOPSY [facility] - DUODENUM MUCOSA WITH ULCER AND FIBRINOPURULENT EXUDATE - NEGATIVE FOR DYSPLASIA OR CARCINOMA Signing Pathologist Direct Phone Line: [phone] CPT Code(s) 42810 [facility] CLINICAL HISTORY Abnormal findings on [facility] diagnostic imaging [facility] SPECIMEN SOURCE Duodenal biopsy [facility] GROSS DESCRIPTION A. Received in formalin [facility] labeled with the patient's [facility] name, accession number and "duodenal ulcer biopsy" are two pieces of smith-white mucosal tissue each measuring 0.3 x 0.3 x 0.2 cm. The specimen is submitted in toto in cassette A1. NW/pl MICROSCOPIC DESCRIPTION The duodenal biopsy consists [facility] of multiple pieces of small [facility] bowel mucosa, with ulcer, fibrinopurulent exudates and Elias's gland hyperplasia. It is negative for dysplasia or carcinoma. Specimen Tissue Performing Organization Address City/State/Zipcode Ph one Number [address] [facility] after 09/30/2018 Insurance Payer Benefit Subscriber ID Type Phone Address Plan / Group [facility] MEDIC[facility] ADV -[id number] Advance Directives For more information, please contact: [address] [phone] Date Inactivated Comments Code Status Date Activated 07/10/2019 1:33 PM Full Code 07/09/2019 2:44 AM This code status was determined by: Patient 06/12/2019 6:59 PM Full Code 06/11/2019 12:34 PM This code status was determined by: Patient 03/28/2018 10:14 PM Full Code 03/22/2018 6:06 AM This code status was determined by: Patient
--- NOTE | 2019-10-01 19:56 | NUR ---
RECEIVED REPORT FROM DANIEL ER NURSE. PATIENT ARRIVED VIA WHEELCHAIR FROM ER. PATIENT IN NO PAIN OR DISTRESS. CALL LIGHT WITHIN REACH.
[2019-10-01 20:00] VITALS: BP 170/74
[2019-10-01] MEDS: SODIUM CHLORIDE 0.9% 1000ML 1,000 ML IV SCH ×2 (20:09→22:00)
--- NOTE | 2019-10-01 20:30 | NUR ---
CALLED DR. BOWMAN OFFICE AND TALKED TO THE ANSWERING SERVICE THAT DR. BOWMAN WAS CONSULTED FOR THE PATIENT FOR METASTATIC PANCREATIC CANCER. THE LADY SAID SHE WILL INFORM DR. BOWMAN.
[2019-10-01] MEDS: ONDANSETRON HCL INJ 2MG/ML 2ML 2 MG/ML VIAL IV PRN (23:39)
[2019-10-01] MEDS: MORPHINE SULFATE INJ 4 MG/ML INJ 1ML IV PRN (23:39)
[2019-10-02] VITALS (9 sets, daily range): BP systolic 114–172; BP diastolic 61–85
[2019-10-02] MEDS: ONDANSETRON HCL INJ 2MG/ML 2ML 2 MG/ML VIAL IV PRN ×3 (03:41→22:01)
[2019-10-02] MEDS: MORPHINE SULFATE INJ 4 MG/ML INJ 1ML IV PRN ×3 (03:41→22:01)
[2019-10-02 04:28] LABS: BASOPHILS # (AUTO) 0.1 (0.0-0.1); BASOPHILS % 0.6 % (0.0-1.0); EOSINOPHILS # (AUTO) 0.2 (0.0-0.4); EOSINOPHILS % 1.4 % (0.0-6.0); HEMATOCRIT 35.3 % (34.2-44.1); HEMOGLOBIN 11.8 g/dL (12.0-16.0); LYMPHOCYTES # (AUTO) 2.2 (1.0-3.2); LYMPHOCYTES % 17.8 % (18.0-39.1); MEAN CORPUSCULAR HEMOGLOBIN 32.4 pg (28-32); MEAN CORPUSCULAR HGB CONC 33.4 g/dL (31-35); MONOCYTES # (AUTO) 1.4 (0.2-0.8); MONOCYTES % 11.2 % (4.4-11.3); NEUTROPHILS # (AUTO) 8.6 (2.1-6.9); NEUTROPHILS % 68.5 % (38.7-80.0); PLATELET COUNT 306 x10e3/uL (140-360); RED BLOOD COUNT 3.64 x10e6/uL (3.6-5.1); RED CELL DISTRIBUTION WIDTH 18.3 % (11.7-14.4)
[2019-10-02 04:45] LABS: ALANINE AMINOTRANSFERASE 6 IU/L (0-55); ALBUMIN/GLOBULIN RATIO 1.2 (0.8-2.0); ALKALINE PHOSPHATASE 64 IU/L (40-150); ANION GAP 23.3 mmol/L (8-16); BLOOD UREA NITROGEN < 5 mg/dL (7-26); CALCIUM 7.9 mg/dL (8.4-10.2); CARBON DIOXIDE 21 mmol/L (22-29); CHLORIDE 97 mmol/L (98-107); EST GLOMERULAR FILTRATION RATE > 60 ML/MIN (60-); GLUCOSE 77 mg/dL (74-118); MAGNESIUM 1.3 MG/DL (1.3-2.1); SODIUM 139 mmol/L (136-145)
[2019-10-02 04:59] LABS: BUN/CREATININE RATIO 7 (6-25)
[2019-10-02 05:00] LABS: POTASSIUM 2.3 mmol/L (3.5-5.1)
--- NOTE | 2019-10-02 05:13 | NUR ---
CALLED DR. SAUCEDO ABOUT THE PATIENT HAVING A CRITICAL LAB VALUE OF POTASSIUM OF 2.[address]READ[address] SAUCEDO ORDERED 80 MEQ OF POTASSIUM CHLORIDE IV X 1 AND MAGNESIUM SULFATE 2 GRAM X1
[2019-10-02] MEDS ORDERED: MAGNESIUM SULFATE 2GM/50ML 50 ML IV ONE (05:15)
[2019-10-02] MEDS ORDERED: POTASSIUM CHLORIDE 20MEQ/100ML 400 ML IV ONE (05:45)
[2019-10-02] MEDS ORDERED: POTASSIUM CHLORIDE 20 MEQ/100 ML IV ONE (06:15)
--- NOTE | 2019-10-02 07:20 | NUR ---
GAVE BEDSIDE SHIFT REPORT TO ONCOMING NURSE. CALL LIGHT WITHIN REACH. PATIENT IN BED. HOURLY ROUNDING PERFORMED
[2019-10-02] MEDS: SODIUM CHLORIDE 0.9% 1000ML 1,000 ML IV SCH (08:49)
[2019-10-02] MEDS ORDERED: DEXAMETHASONE SOD PHOS INJ 4 MG/ML VIAL IV ONE (09:45)
[2019-10-02] MEDS: KCL 20MEQ/.9 SOD CHL 1,000 ML IV SCH ×2 (11:11→16:39)
[2019-10-02] MEDS ORDERED: PROMETHAZINE 12.5MG/ NACL 0.9% 12.5 MG/50 ML BAG IV ONE (11:40)
--- NOTE | 2019-10-02 16:30 | Consultation ---
DATE OF CONSULTATION: 10/02/[address] Kena Beaulieu. HISTORY OF PRESENT ILLNESS: Unique Barajas is a 78-year-old white female who was referred to co for metastatic cancer of the pancreas. The patient had presented with intractable vomiting. The patient claims that she had systemic chemotherapy for metastatic cancer of the pancreas approximately a week back. HISTORY OF PAST ILLNESS: History of having had Whipple's procedure approximately a year back in 2019. The patient recently diagnosed as having metastases, subsequently has been treated with systemic chemotherapy. The nature of systemic chemotherapy is not known to her. SOCIAL HISTORY: Noncontributory. FAMILY HISTORY: Noncontributory. ALLERGIES: REPORTED NONE. MEDICATIONS: At this time, 1. Potassium chloride. 2. Magnesium sulfate. 3. Sodium chloride. 4. Ondansetron. 5. Reglan. 6. Morphine. 7. Hydromorphone. REVIEW OF SYSTEMS: HEENT: Normal. CARDIAC: Normal. RESPIRATORY: Normal. GI: Cancer of the pancreas, now intraabdominal metastases following Whipple's procedure approximately a year back. : Normal. MUSCULOSKELETAL: Normal. SKIN AND BREASTS: Normal. NEUROENDOCRINE: Normal. PHYSICAL EXAMINATION: GENERAL: A cachectic female, distressed with vomiting. The patient did vomit close to coffee-ground right in front of me. No adenopathy. HEART: Within normal limits. LUNGS: Clear. ABDOMEN: Scar surgery seen. RECTAL: Deferred. VAGINAL: Deferred. CENTRAL NERVOUS SYSTEM: Essentially normal. EXTREMITIES: Essentially normal. LABORATORY DATA: Sodium of 139, potassium 2.3, chloride is 97, CO2 of 21, BUN 5, creatinine 0.7, and glucose 77. Hemoglobin of 11.8, hematocrit 35.3, white count of 12,500, platelets of 306,000, bilirubin 0.7, SGOT 20, SGPT 6, and alkaline phosphatase 64. A high serum lipase. IMAGING DATA: CAT scan of the abdomen shows the patient to have intraabdominal metastases. The patient also has a mass invading the gastric antrum. There is involvement of the mesentery. There is involvement of the peritoneum. There is some ascites. IMPRESSION: 1. History of the cancer of the pancreas. 2. Metastases intraabdominal. 3. Intractable vomiting following chemotherapy. However, this most probably is because of massive intraperitoneal metastases. 4. Hypokalemia. 5. Hypoproteinemia of 6.3. 6. Hypoalbuminemia of 3.4. 7. Possible pancreatitis as amylase is high. 8. Mass invading the gastric antrum. 9. Involvement of the mesentery. 10. Peritoneal metastases. 11. Ascites. 12. Status post Whipple's procedure. PLAN, COMMENTS, AND SUGGESTIONS: Suggest best supportive care, IV fluids, antiemetics, and potassium supplement. A close watch on the CBC as is involvement of the gastric antrum by metastatic deposits as this is eroding into she will have a massive bleed. This patient is a hospice candidate. However, I have not discussed this with the patient. I have discussed the extent of the disease with her. I have also discussed that I would send all the records if she goes home to Dr. Rhodes, who is the medical oncologist who has treated her at [facility]. Thank you very much for allowing me to participate in the management of this nice lady with extremely advanced cancer of the pancreas with massive intraabdominal metastases. Ron Koehler MD MAQ/MODL /[id number] cc: MD Dr. Carmelo Grady
[2019-10-02] MEDS: D5.45%NS/KCL 20MEQ 1,000 ML IV SCH (18:01)
--- NOTE | 2019-10-02 19:00 | NUR ---
RECEIVED BEDSIDE SHIFT REPORT FROM PREVIOUS NURSE. CALL LIGHT WITHIN REACH. PATIENT IN BED.
[2019-10-02] MEDS: GABAPENTIN 300 MG CAP PO SCH (20:37)
[2019-10-03] VITALS (8 sets, daily range): BP systolic 118–150; BP diastolic 55–85
--- NOTE | 2019-10-03 00:47 | History and Physical ---
PRIMARY CARE PHYSICIAN: Dr. Veronica at [facility]. MEDICAL ONCOLOGIST: Dr. Rhodes. CHIEF COMPLAINT: Intractable nausea and vomiting. HISTORY OF PRESENT ILLNESS: This is a 78-year-old female with past medical history of hypothyroidism and metastatic pancreatic mass, presented to the ER with complaints of intractable nausea and vomiting. She reports the symptoms have been present for over 4 weeks now. She was on systemic chemotherapy until about 2 weeks ago, when Dr. Rhodes and the patient decided she should take a break for a few months before resuming, as it was too hard on her. She denies any hematemesis, shortness of breath, dysuria, chest pain, shortness of breath, cough, or ill contacts. She reports has not been able to the eat or drink anything, she has bile like emesis. She reports mild burning sensation in the lower quadrant, but no distention or diarrhea. In the ER, she was noted to have severe hypokalemia. It was replaced and started on IV fluids for hydration. CT abdomen and pelvis noted. PAST MEDICAL HISTORY: 1. Hypothyroidism. 2. Pancreatic mass with mets. PAST SURGICAL HISTORY: 1. Cholecystectomy. 2. Appendectomy. 3. Pancreatic resection. 4. Splenectomy. FAMILY MEDICAL HISTORY: Reports father had heart disease. SOCIAL HISTORY: She denies any tobacco, alcohol, or illicit drug use. ALLERGIES: NO KNOWN DRUG ALLERGIES. REVIEW OF SYSTEMS: A 12-system reviewed and negative except as reported in HPI. PHYSICAL EXAMINATION: VITAL SIGNS: Temperature 98.2, pulse is 75, respirations 18, blood pressure 114/85, pulse ox 98 on room air. GENERAL: Chronically ill-appearing, in no acute distress. HEENT: Normocephalic, atraumatic. NECK: Supple. LUNGS: With decreased breath sounds. CARDIOVASCULAR: Regular rate and rhythm. GI: Soft, mild tenderness in the lower quadrant. NEUROLOGIC: Alert, awake, and oriented x3. MUSCULOSKELETAL: Moves all extremities. No edema. SKIN: Dry and intact. PSYCH: Calm. LABORATORY DATA: WBC 10.32, hemoglobin 13.2, hematocrit 39.1, platelets 325. Sodium 142, potassium 3.6, CO2 22, BUN is 5, creatinine 0.74. Calcium 8.7, AST 22, ALT 7, albumin 3.4, lipase 230. UA, slightly cloudy with small leukocyte esterase, wbc, and bacteria. Coronavirus PCR is negative. IMAGING: CT abdomen and pelvis shows status post pancreatectomy and splenectomy for reported history of pancreatic cancer, multiple peritoneal nodules, some of which has increased in size since prior exam suspicious for progression of metastatic disease. Multiple cystic lesion in the pancreatic bed, ill defined soft tissue mass invading the wall of the gastric antrum with adjacent mesentery. The finding is suspicious for metastatic disease with gastric involvement. Mild thickness of the ascending and transverse colon with septal and pericolonic fat stranding, which may represent colitis. Hepatic steatosis and small ascites, small nodule in right lower lobe. IMPRESSION: 1. Intractable nausea and vomiting due to likely chemotherapy use versus metastatic cancer. We will give Zofran and Phenergan as needed. We will continue IV fluid hydration. 2. Severe hypokalemia. We will replace and recheck. We will place on cardiac telemetry to monitor. 3. Questionable urinary tract infection. We will check urine cultures. 4. History of pancreatic mass with mets to the peritoneal and intraabdominal. CT abdomen and pelvis noted and Dr. Koehler with Oncology has been consulted. Appreciate input. 5. Hypothyroidism. Resume levothyroxine daily. 6. Elevated lipase. Continue IV fluids and monitor trend. 7. Deep vein thrombosis prophylaxis. We will give Lovenox subcu. PLAN: Supportive therapy with IV fluid hydration, antiemetics, and pain management as needed. We will replace electrolytes as needed and monitor closely. Dictated by NIDIA Francis Kena Beaulieu MD MY/MODL /[id number]
[2019-10-03] MEDS: D5.45%NS/KCL 20MEQ 1,000 ML IV SCH ×2 (04:13→12:26)
[2019-10-03 05:00] LABS: BASOPHILS % 0.4 % (0.0-1.0); EOSINOPHILS # (AUTO) 0.1 (0.0-0.4); EOSINOPHILS % 0.7 % (0.0-6.0); HEMATOCRIT 32.5 % (34.2-44.1); LYMPHOCYTES # (AUTO) 2.8 (1.0-3.2); LYMPHOCYTES % 28.6 % (18.0-39.1); MEAN CORPUSCULAR HEMOGLOBIN 32.5 pg (28-32); MEAN CORPUSCULAR HGB CONC 33.8 g/dL (31-35); MEAN CORPUSCULAR VOLUME 96.2 fL (81-99); MONOCYTES # (AUTO) 1.2 (0.2-0.8); MONOCYTES % 12.3 % (4.4-11.3); NEUTROPHILS # (AUTO) 5.6 (2.1-6.9); NEUTROPHILS % 57.5 % (38.7-80.0); PLATELET COUNT 294 x10e3/uL (140-360); RED BLOOD COUNT 3.38 x10e6/uL (3.6-5.1); RED CELL DISTRIBUTION WIDTH 18.6 % (11.7-14.4)
[2019-10-03 05:15] LABS: ANION GAP 17.1 mmol/L (8-16); BLOOD UREA NITROGEN < 2 mg/dL (7-26); BUN/CREATININE RATIO 3 (6-25); CARBON DIOXIDE 24 mmol/L (22-29); CHLORIDE 102 mmol/L (98-107); CREATININE, SERUM 0.67 mg/dL (0.57-1.11); EST GLOMERULAR FILTRATION RATE > 60 ML/MIN (60-); GLUCOSE 122 mg/dL (74-118); POTASSIUM 3.1 mmol/L (3.5-5.1); SODIUM 140 mmol/L (136-145)
[2019-10-03] MEDS: ONDANSETRON HCL INJ 2MG/ML 2ML 2 MG/ML VIAL IV PRN ×2 (05:18→22:20)
[2019-10-03] MEDS: LEVOTHYROXINE SODIUM 25 MCG TABLET PO SCH (05:24)
--- NOTE | 2019-10-03 07:00 | NUR ---
RECEIVED PATIENT RESTING IN BED NO S/S OF DISTRESS. BED LOW, WHEELS LOCKED, SIDE RAILS X2. CALL LIGHT IN REACH WILL CONTINUE TO MONITOR PATIENT.
--- NOTE | 2019-10-03 07:14 | NUR ---
GAVE BEDSIDE SHIFT REPORT TO ONCOMING NURSE. CALL LIGHT WITHIN REACH. PATIENT IN BED. HOURLY ROUNDING PERFORMED.
[2019-10-03] MEDS ORDERED: POTASSIUM CHLORIDE 10MEQ/100ML 100 ML INJ ONE (09:10)
[2019-10-03] MEDS ORDERED: PROMETHAZINE 12.5MG/ NACL 0.9% 12.5 MG/50 ML BAG IV PRN (09:15)
[2019-10-03] MEDS: MORPHINE SULFATE INJ 4 MG/ML INJ 1ML IV PRN ×3 (09:25→22:20)
[2019-10-03] MEDS ORDERED: PROMETHAZINE 12.5MG/ NACL 0.9% 12.5 MG/50 ML BAG IV SCH (09:30)
[2019-10-03] MEDS ORDERED: BISACODYL 10 MG SUPP PR SCH (11:00)
[2019-10-03] MEDS: CEFTRIAXONE SOD 1 GM/NS 50 ML 50 ML IV SCH (12:26)
--- NOTE | 2019-10-03 14:55 | Diagnostic Imaging Report ---
Exam: KUB - 2 views Indication: Bowel Obstruction Comparison: CT abdomen and pelvis of 10/01/2019 Findings: Multiple dilated loops of small bowel measure up to 3.3 cm maximum diameter. Paucity of bowel gas in the colon. No free air. Right femoral central venous catheter. Surgical clips in the upper abdomen. No acute osseous injury. Impression: Multiple dilated loops of small bowel measure up to 3.3 cm. General paucity of large bowel gas. Findings concerning for small bowel obstruction. No free air. Signed by: Emelia Duong MD on 10/03/2019 2:51 PM
[2019-10-03] MEDS ORDERED: SIMETHICONE 80 MG CHEW PO PRN (15:30)
--- NOTE | 2019-10-03 16:01 | NUR ---
ABDOMEN X-RAY RESULTS CALLED TO DR. BOWMAN. NO NEW ORDERS.
[2019-10-03] MEDS: ENOXAPARIN 30 MG/0.3 ML SYR SC SCH (16:20)
--- NOTE | 2019-10-03 18:36 | Progress Note ---
DATE: 10/03/2019 LEAD BUSINESS SYSTEMS ANALYST: Dr. Koehler, oncologist. SUBJECTIVE: The patient with persistent nausea and vomiting, she reports she has not moved her bowels or passed gas for about a week. She is not eating much also. PHYSICAL EXAMINATION: VITAL SIGNS: Temperature 98.0, pulse is 71, respirations 16, blood pressure 121/57, pulse ox is 98% on room air. GENERAL: No acute distress. HEENT: Normocephalic, atraumatic. NECK: Supple. LUNGS: With decreased breath sounds. CARDIOVASCULAR: Regular rate and rhythm. GI: Soft, mild tenderness with palpation of the lower quadrant. NEUROLOGIC: Alert, awake and oriented x3. MUSCULOSKELETAL: Moves all extremities. No edema. SKIN: Dry and intact. PSYCH: Calm. LABORATORY DATA: WBC 9.81, hemoglobin 11.0, hematocrit 32.5, and platelet 294. Sodium 140, potassium 3.1, CO2 of 24, BUN less than 2, creatinine 0.67, estimated GFR is greater than 60, blood glucose 122, calcium 8.0, pending CA 19-9. Blood culture pending. Abdominal x-ray shows multiple dilated loops of small bowel measure up to 3.3 cm. General acuity of large bowel gas finding concerning for small bowel obstruction. No free air. IMPRESSION: 1. Intractable nausea and vomiting due to chemotherapy versus metastatic cancer. We will continue with antiemetics as needed. Continue IV fluid hydration. 2. Hypokalemia. We will continue to replace and monitor closely. 3. Questionable urinary tract infection. We will await on urine cultures and continue with empiric Rocephin. 4. Possible small bowel obstruction. Noted KUB. Dr. Lopez with surgical team consulted. 5. History of pancreatic mass with mets to the peritoneal and intra-abdominal cavity. CT abdomen and pelvis noted, and Dr. Koehler oncology on the case. I appreciate input. 6. Hypothyroidism. Resume levothyroxine. 7. Elevated lipase. Continue IV fluids and monitor trend. 8. Deep vein thrombosis prophylaxis. Continue Lovenox subcu. PLAN: To continue supportive therapy with IV fluid hydration, antiemetics, and pain management as needed. Dr. Lopez to evaluate for SBO. We will repeat labs in the a.m. Dictated by NIDIA Francis Yiching MD CM Nowak/MARVIN /[id number]
--- NOTE | 2019-10-03 19:05 | NUR ---
Bedside shift report received from morning nurse. Pt alert and oriented to name, lying in bed HOB 60 degrees. Denies pain at this time, previously medicated. call light within reach.
[2019-10-03] MEDS: GABAPENTIN 300 MG CAP PO SCH (20:53)
[2019-10-04] VITALS (9 sets, daily range): BP systolic 123–173; BP diastolic 58–82
[2019-10-04] MEDS: D5.45%NS/KCL 20MEQ 1,000 ML IV SCH ×3 (03:15→20:00)
[2019-10-04 05:38] LABS: ANION GAP 14.8 mmol/L (8-16); CARBON DIOXIDE 27 mmol/L (22-29); CHLORIDE 101 mmol/L (98-107); CREATININE, SERUM 0.62 mg/dL (0.57-1.11); EST GLOMERULAR FILTRATION RATE > 60 ML/MIN (60-); GLUCOSE 117 mg/dL (74-118); LIPASE 76 U/L (8-78); SODIUM 140 mmol/L (136-145)
[2019-10-04 05:52] LABS: BLOOD UREA NITROGEN < 5 mg/dL (7-26); BUN/CREATININE RATIO 8 (6-25)
[2019-10-04 05:54] LABS: POTASSIUM 2.8 mmol/L (3.5-5.1)
[2019-10-04] MEDS: LEVOTHYROXINE SODIUM 25 MCG TABLET PO SCH ×2 (06:00→20:17)
--- NOTE | 2019-10-04 06:15 | NUR ---
Right femoral central line dressing changed. Old dressing removed and discarded. Site without redness or swelling. Pt denies discomfort at site. Area cleansed with alcohol and allowed to air dry, adhesive applied. Secured with transparent membrane dressing and tape.
--- NOTE | 2019-10-04 06:26 | NUR ---
Spoke with Dr. Beaulieu regarding abnormal Potassium level, ordered KCl 80meq IV x1.
[2019-10-04] MEDS ORDERED: POTASSIUM CHLORIDE 20MEQ/100ML 200 ML IV ONE (06:30)
[2019-10-04] MEDS: POTASSIUM CHLORIDE 20MEQ/100ML 200 ML IV SCH ×2 (06:54→10:59)
--- NOTE | 2019-10-04 08:19 | Consultation ---
DATE OF CONSULTATION: 10/04/2019 HISTORY OF PRESENT ILLNESS: The patient is a 78-year-old female with history of carcinoma of the pancreas with metastases, who was admitted to the hospital with nausea and vomiting. She says she is passing some flatus. She has had previous surgery, which include distal pancreatectomy and splenectomy as well as cholecystectomy and appendectomy. CT of the abdomen and pelvis was done, which revealed findings of multiple intraabdominal nodules, suggestive of metastatic disease and x-ray suggest small bowel obstruction. The patient says her emesis has been greenish and waxes and wanes, but she says she is unable to eat. PAST MEDICAL HISTORY: As stated above, history of hypothyroidism, carcinoma of the pancreas with metastases. PAST SURGICAL HISTORY: Previous surgeries as stated above. ALLERGIES: SHE HAS NO KNOWN ALLERGIES. MEDICATIONS: Listed in the chart and she has been on chemotherapy recently, but has recently stopped this. FAMILY HISTORY: Noncontributory. SOCIAL HISTORY: The patient does not smoke cigarettes, drink alcohol, or use any illicit drugs. REVIEW OF SYSTEMS: She has had no fever. PHYSICAL EXAMINATION: GENERAL: The patient is awake and alert. VITAL SIGNS: Normal. HEENT: Sclerae is not icteric. NECK: No masses. LUNGS: Equal breath sounds. Clear bilaterally. CARDIAC: Regular rate and rhythm with no murmur. ABDOMEN: Healed midline wound. It is soft. There is no palpable mass. There is no organomegaly. EXTREMITIES: No edema. NEUROLOGIC: Grossly intact. LABORATORY TESTS: White blood cell count is normal, hemoglobin 11, hematocrit 32.5, and platelet count is normal. Chemistries reveal a potassium level 2.8, otherwise electrolytes are normal. Liver function tests were normal. ASSESSMENT: A 78-year-old female with carcinoma of the pancreas with metastases with findings of partial intestinal obstruction, likely secondary to recurrence of her pancreatic cancer. This is unlikely to improve with nonoperative therapy. Options for treatment are to do a bypass the point of obstruction if it could be determined, also possible placement of gastrostomy tube. All of this for palliation of her symptoms. This was explained to the patient. She is considering this option and plans to discuss with her oncologist. Thank you for asking me to see Ms. Barajas. MD AMAURY Horvath/MARVIN /[id number]
--- NOTE | 2019-10-04 08:44 | Diagnostic Imaging Report ---
Exam: KUB - 2 views Indication: Small bowel obstruction Comparison: KUB of 10/03/2019 Findings: Unchanged dilation of small bowel to 3.3 cm. The overall number of dilated loops appears slightly decreased compared to the KUB of 10/03/2019. No free air. Again seen is a possibly of gas in the colon. Left upper quadrant surgical clips. Right common femoral venous catheter. No acute osseous injury. Impression: Small bowel obstruction with dilated loops of small bowel again measuring up to 3.3 cm, although the overall number of dilated loops appears slightly decreased compared to the prior KUB. Signed by: Emelia Duong MD on 10/04/2019 8:41 AM
[2019-10-04] MEDS: CEFTRIAXONE SOD 1 GM/NS 50 ML 50 ML IV SCH (09:17)
[2019-10-04] MEDS: PROMETHAZINE 12.5MG/ NACL 0.9% 12.5 MG/50 ML BAG IV PRN ×2 (09:17→19:53)
[2019-10-04] MEDS: MORPHINE SULFATE INJ 4 MG/ML INJ 1ML IV PRN ×3 (09:17→22:33)
[2019-10-04] MEDS ORDERED: MAGNESIUM SULF 1GRAM/DEXTROSE 100 ML IV ONE (14:45)
[2019-10-04] MEDS: ENOXAPARIN 30 MG/0.3 ML SYR SC SCH (16:27)
--- NOTE | 2019-10-04 17:01 | Progress Note ---
DATE: 10/04/2019 CONSULTANTS: 1. Dr. Werner, oncologist. 2. Dr. Lopez, Surgery.. SUBJECTIVE: The patient is with improved nausea and vomiting. Reports has not been eating or drinking much. She reports passing some gas, but abdomen is soft. She denies any chest pain or shortness of breath. PHYSICAL EXAMINATION: VITAL SIGNS: Temperature 98.2, pulse is 67, respirations 18, blood pressure 126/63, pulse ox 95% on room air. GENERAL: Fatigue. HEENT: Normocephalic, atraumatic. NECK: Supple. LUNGS: Decreased breath sounds. CARDIOVASCULAR: Regular rate and rhythm. GI: Soft with hypoactive bowel sounds. NEUROLOGIC: Alert, awake, and oriented x3. MUSCULOSKELETAL: Moves all extremities. No edema. SKIN: Dry and intact. PSYCH: Calm. LABORATORY DATA: Sodium 140, potassium 3.8, BUN less than 5, creatinine 0.62, estimated GFR is greater than 60, lipase 76, CA 19-9 antigen 1560. Magnesium 1.5. Urine culture shows gram-negative bacillus. IMAGING: KUB shows small bowel obstruction with dilated loops of small bowel again, measuring up to 3.3 cm, although the overall number of dilated loops appear slightly decreased compare to this prior KUB. IMPRESSION: 1. Intractable nausea and vomiting, due to static pancreatic cancer. We will continue with IV fluids and antiemetics with management. 2. Hypokalemia, potassium is 3.8, we will replete and repeat labs in a.m. 3. Urinary tract infection. Urine culture is positive for gram-negative bacillus. We will continue with Rocephin. 4. Small bowel obstruction, Dr. Lopez has been consulted, considering G-tube placement. 5. History of pancreatic mass and intraabdominal cavity per CT. Oncology is on the case. 6. Hypothyroidism. Resume levothyroxine. 7. Elevated lipase, now resolved. 8. Deep vein thrombosis prophylaxis. Continue Lovenox subcu. PLAN: Continue supportive care with antiemetics, pain management and IV fluids. Replete electrolytes as needed. The patient is considering G-tube placement for long-term nutrition and is discussing it with her family. Dictated by NIDIA Francis Yiching MD CM Nowak/MARVIN /[id number] MTDD
--- NOTE | 2019-10-04 19:10 | NUR ---
RECEIVED REPORT FROM PREVIOUS NURSE. CALL LIGHT WITHIN REACH. PATIENT IN BED.
[2019-10-04] MEDS: GABAPENTIN 300 MG CAP PO SCH (20:17)
[2019-10-04] MEDS: ONDANSETRON HCL INJ 2MG/ML 2ML 2 MG/ML VIAL IV PRN (22:34)
[2019-10-05] VITALS: BP 128/67
[2019-10-05] MEDS: ONDANSETRON HCL INJ 2MG/ML 2ML 2 MG/ML VIAL IV PRN ×2 (02:36→07:09)
[2019-10-05] MEDS: MORPHINE SULFATE INJ 4 MG/ML INJ 1ML IV PRN ×4 (02:36→20:28)
[2019-10-05 04:00] VITALS: BP 153/71
[2019-10-05] MEDS: PROMETHAZINE 12.5MG/ NACL 0.9% 12.5 MG/50 ML BAG IV PRN ×3 (04:45→20:28)
[2019-10-05 05:03] LABS: ANION GAP 12.3 mmol/L (8-16); CALCIUM 7.9 mg/dL (8.4-10.2); CARBON DIOXIDE 28 mmol/L (22-29); CHLORIDE 102 mmol/L (98-107); CREATININE, SERUM 0.55 mg/dL (0.57-1.11); EST GLOMERULAR FILTRATION RATE > 60 ML/MIN (60-); GLUCOSE 132 mg/dL (74-118); POTASSIUM 3.3 mmol/L (3.5-5.1); SODIUM 139 mmol/L (136-145)
[2019-10-05 05:07] LABS: BLOOD UREA NITROGEN < 2 mg/dL (7-26); BUN/CREATININE RATIO 4 (6-25)
--- NOTE | 2019-10-05 07:07 | NUR ---
GAVE BEDSIDE SHIFT REPORT TO ONCOMING NURSE. PATIENT IN BED. CALL LIGHT WITHIN REACH. HOURLY ROUNDING PERFORMED.
[2019-10-05 07:42] VITALS: BP 146/70
[2019-10-05] MEDS: D5.45%NS/KCL 20MEQ 1,000 ML IV SCH (10:12)
[2019-10-05] MEDS: CEFTRIAXONE SOD 1 GM/NS 50 ML 50 ML IV SCH (10:13)
--- NOTE | 2019-10-05 11:03 | NUR ---
Pt apologized for being "nauseated" when she speaks. Media Sales Consultant provided information on how to reach window and siding craftsman when she feels like she can talk. Will follow as able. TRUONG WHEELER Media Sales Consultant Spiritual Care Department O: [phone]
[2019-10-05 11:47] VITALS: BP 146/70
[2019-10-05 12:00] VITALS: BP 138/69
[2019-10-05] MEDS ORDERED: POTASSIUM CHLORIDE 10MEQ/100ML 100 ML IV ONE (13:45)
--- NOTE | 2019-10-05 16:20 | Progress Note ---
DATE: 10/05/2019 CONSULTANTS: 1. Dr. Koehler, Oncology. 2. Dr. Lopez, Surgery. SUBJECTIVE: The patient reports nausea and vomiting controlled with Phenergan. Had a bowel movement yesterday, although small. She is not able to eat much. PHYSICAL EXAMINATION: VITAL SIGNS: Temperature 98.0, pulse is 75, respirations 16, blood pressure 138/69, and pulse ox is 100% on room air. GENERAL: Fatigue and generalized weakness. HEENT: Normocephalic, atraumatic. NECK: Supple. LUNGS: Decreased breath sounds. CARDIOVASCULAR: Regular rate and rhythm. GI: Soft and with mild tenderness. NEUROLOGIC: Alert, awake, and oriented x3. MUSCULOSKELETAL: Moves all extremities. No edema. SKIN: Dry and intact. PSYCH: Calm. LABORATORY DATA: Sodium 139, potassium 3.3, BUN less than 2, creatinine 0.55, estimated GFR is greater than 60, and calcium 7.9. Urine culture is positive for Escherichia coli, sensitive to Rocephin. IMPRESSION: 1. Intractable nausea and vomiting due to metastatic pancreatic cancer. We will continue with IV Phenergan, IV fluids for hydration and pain management. 2. Hypokalemia. Potassium is 3.3. We will replace. 3. Urinary tract infection with Escherichia coli. We will resume with Rocephin per sensitivity. 4. Small bowel obstruction. Dr. Lopez has been consulted. 5. History of pancreatic mass with METS to intraabdominal cavity per CT. Oncology on the case. 6. Hypothyroidism. Resume levothyroxine. 7. Poor nutrition/malnourished. PEG tube placement probably tomorrow. 8. Deep vein thrombosis prophylaxis. Continue Lovenox. PLAN: To continue supportive care, replace potassium and keep n.p.o. after midnight for G-tube placement in the morning. Dictated by NIDIA Francis Kena Beaulieu MD MY/MODL /[id number] MTDD
[2019-10-05] MEDS: ENOXAPARIN 30 MG/0.3 ML SYR SC SCH (17:16)
[2019-10-05] MEDS ORDERED: HEPARIN SOD/SOD CHLORIDE 1,000 ML ONE (18:57)
[2019-10-05 20:00] VITALS: BP 167/75
[2019-10-05] MEDS: GABAPENTIN 300 MG CAP PO SCH (21:00)
[2019-10-06] VITALS (8 sets, daily range): BP systolic 127–167; BP diastolic 66–91
[2019-10-06] MEDS: D5.45%NS/KCL 20MEQ 1,000 ML IV SCH ×4 (00:22→20:24)
[2019-10-06 05:28] LABS: ANION GAP 13.6 mmol/L (8-16); CALCIUM 8.3 mg/dL (8.4-10.2); CARBON DIOXIDE 29 mmol/L (22-29); CHLORIDE 101 mmol/L (98-107); CREATININE, SERUM 0.58 mg/dL (0.57-1.11); EST GLOMERULAR FILTRATION RATE > 60 ML/MIN (60-); GLUCOSE 130 mg/dL (74-118); POTASSIUM 3.6 mmol/L (3.5-5.1); SODIUM 140 mmol/L (136-145)
[2019-10-06 05:35] LABS: BLOOD UREA NITROGEN < 2 mg/dL (7-26); BUN/CREATININE RATIO 3 (6-25)
[2019-10-06] MEDS: LEVOTHYROXINE SODIUM 25 MCG TABLET PO SCH (06:00)
[2019-10-06] MEDS ORDERED: FENTANYL CITRATE/PF 100MCG/2 ML INJ ONE (07:34)
[2019-10-06] MEDS ORDERED: SUGAMMADEX SODIUM 200 MG/2 ML VIAL IV ONE (07:38)
[2019-10-06] MEDS ORDERED: SODIUM CHLORIDE 0.9% 50ML 50 ML ONE (07:59)
[2019-10-06] MEDS ORDERED: BUPIVACAINE 0.5%/EPI 30 ML SDV INJ ONE (08:02)
[2019-10-06] MEDS ORDERED: BUPIVACAINE 0.25% 30ML SDV INJ ONE (08:02)
[2019-10-06] MEDS ORDERED: BUPIVACAINE HCL 0.5% INJ 30 ML VIAL INJ ONE (08:02)
[2019-10-06] MEDS ORDERED: ONDANSETRON HCL INJ 2MG/ML 2ML 2 MG/ML VIAL IV PRN (08:45)
[2019-10-06] MEDS ORDERED: HYDROCODONE/APAP 7.5MG-325MG 1 EA TAB PO PRN (09:00)
[2019-10-06] MEDS ORDERED: ONDANSETRON HCL INJ 2MG/ML 2ML 2 MG/ML VIAL ONE ×2 (09:18→14:40)
[2019-10-06] MEDS ORDERED: METOCLOPRAMIDE HCL 10 MG/2ML VIAL ONE (09:18)
[2019-10-06] MEDS ORDERED: HYDROMORPHONE 1MG/1ML INJ ONE (09:22)
[2019-10-06] MEDS: CEFTRIAXONE SOD 1 GM/NS 50 ML 50 ML IV SCH (09:33)
--- NOTE | 2019-10-06 09:58 | Operative Report ---
DATE OF PROCEDURE: 10/06/2019 SURGEON: Lencho Lopez MD PREOPERATIVE DIAGNOSIS: Gastrointestinal obstruction, metastatic carcinoma of the pancreas. POSTOPERATIVE DIAGNOSIS: Gastrointestinal obstruction, metastatic carcinoma of the pancreas. PROCEDURES: Diagnostic laparoscopy, open gastrojejunostomy and open placement of gastrostomy tube. LINEN FOLDER: None. ANESTHESIA: General endotracheal. INDICATIONS AND FINDINGS: The patient is a 78-year-old female who has metastatic carcinoma of the pancreas. She had been receiving chemotherapy. She had persistent nausea and vomiting. Workup revealed gastrointestinal obstruction. At surgery, the patient was found to have dilated stomach and proximal duodenum with obstruction caused by tumor in this area. There was extensive tumor implants throughout the peritoneal cavity with findings suggestive of carcinomatosis. The small bowel was not dilated at all. The colon was collapsed also the point of obstruction being in the duodenum. TECHNIQUE: After adequate general endotracheal anesthesia, the patient in supine position, the abdomen was prepped and draped in sterile fashion with ChloraPrep solution on the left side of the abdomen away from the area of the previous surgery. Skin and subcutaneous tissue was infiltrated with 0.5% Marcaine. Incision was made, abdominal wall was elevated, and Veress needle was introduced. Pneumoperitoneum was then created. A 5 mm trocar and cannula was then passed through this wound. Laparoscopic camera was introduced. Initial laparoscopy revealed multiple tumor implants. The small bowel was identified and the skin was completely collapsed. There was one area of adhesions in and around the umbilicus and this 2nd 5 mm trocar and cannula was placed in the left lower quadrant and these adhesions lysed using electrocautery. The stomach was noted to be dilated and as seen to be obstruction was caused by something in the area of the duodenum, where there was some evidence of recurrent tumor. There were tumor implants on most of the peritoneal surfaces. The small bowel only had implants, but otherwise was free. So, at this point to convert to open surgery, an upper midline incision was made. The small bowel examined all those mesenteric somewhat short because of the tumor easily reached the stomach and a gastrojejunostomy was created in antecolic fashion using a CASSIDY stapler and TL60 stapler. After this was done, a gastrostomy tube was placed under the area of the fundus of the stomach. Pursestring suture 3-0 silk was placed. Gastrotomy made, the mushroom shaped catheter was placed in the gastrotomy. A pursestring suture tied and the 2nd pursestring suture also tied. This too was then passed through a tunnel of omentum and brought in the left upper abdomen, held in place with the provider connector and they connected to drainage bag. It was flushed prior to doing this. There was no leakage from the tube. Hemostasis was seen to be adequate. The wound was irrigated with saline, inspected for hemostasis, which was seen to be adequate. The midline fascia was then closed with a running suture of #1 PDS. Skin to all wounds closed with jeff. A sterile dressing was applied. The patient tolerated the procedure well. Estimated blood loss was 50 mL. There were no complications. All counts were correct and the patient was taken to the recovery room in satisfactory condition. MD ED HorvathG/MODL /[id number] cc: MD Kena Cardenas MD
[2019-10-06] MEDS: SODIUM CHLORIDE 0.9% 1000ML 1,000 ML IV SCH (10:59)
--- NOTE | 2019-10-06 11:59 | NUR ---
pt rerun from OR @ 950 am sergical dressing intact gastrostomy patent
--- NOTE | 2019-10-06 14:07 | NUR ---
Nutrition Intervention Note RD Recommendation(s) for Physician: Advance diet as tolerated. When medically feasible initiate Vital AF at 50ml/hr via PEG. Pt may benefit from cyclic feeds(nocturnal) to promote PO intake prior to discharge. Plan of Care: RD following, monitoring for tolerance and adequacy Nutrition reason for involvement: LOS RD Assessment Initial encounter with patient. Pt states that her UBW is 130#, but that she has had involuntary wt loss since May due to chemo and nuasea and vomiting. No difficulty chewing or swallowing and not reporting any nausea currently. PEG tube placed today for intermodal truck driver management of nausea/vomiting and suboptimal oral food and beverage intake. Principal Problems/Diagnoses:Intractable nausea, vomiting, PMH: pancreatic cancer with metastasis/chemo, SBO GI:No nausea, soft nontender. New PEG placed today Skin: intact skin. PEG placement Labs: 10/06/2019) biochemical data reviewed Meds: (10/06/2019) MAR reviewed Ht:67 in. Wt:126.5lbs BMI:19.8kg/M2 IBW:135lbs Malnutrition Evaluation (10/06/2019) The patient meets criteria for unspecified SEVERE protein-calorie malnutrition. Energy intake: <75% of estimated energy requirements for >3 months Weight loss: 7.5% in 3 months (Acute) Fat loss: Mild Muscle loss: Mild Supporting Evidence: Fluid accumulation: None Functional Status: unable to evaluate Nutrition Prescription (Diet Order): clear liquid Estimated Nutritional Needs: 1437 -1725 calories/day (25-30 kcals/kg/BW) 57-86g protein/day (1-1.5 g pro/kg/BW) Diet Adequacy: Not meeting calorie needs, Not meeting protein needs Diet Education Needs Assessment: Diet education not indicated, patient on temporary/transition diet. Nutrition Care Level: Moderate Nutrition Diagnosis: Malnutrition related to chronic illness as evidenced by involuntary wt loss suboptimal po intake greater than 7 days. Goal: Patient will meet 75-100% of estimated needs by follow up Progress: (Progressing) Interventions: General healthful diet, Schedule of food, -modified diet, Commercial beverage, Commercial food, Composition, Rate, Route, IVF, Prescription medications, Collaboration with other providers Monitoring/Evaluation: Total energy intake, Total protein intake, Formula/Solution, IVF, Prescription medication, Modified diet, Liquid supplement, Weight change, Ability to recall nutrition goals, Level of knowledge, Self management Signed: Luis Ruano RD, HALLIE, CNSC
[2019-10-06] MEDS ORDERED: PROPOFOL IV EMULSION 10 MG/ML 20 ML VIAL ONE (14:40)
[2019-10-06] MEDS ORDERED: EPHEDRINE SULFATE INJ 50 MG/ML VIAL ONE (14:40)
[2019-10-06] MEDS ORDERED: LIDOCAINE HCL 2% LOCAL INJ 5 ML SDV VIAL INJ ONE (14:40)
[2019-10-06] MEDS ORDERED: ROCURONIUM BROMIDE 10 MG/ML 5ML VIAL IV ONE (14:40)
[2019-10-06] MEDS ORDERED: SUCCINYLCHOLINE CHLORIDE 20 MG/ML 10ML VIAL ONE (14:40)
[2019-10-06] MEDS ORDERED: SEVOFLURANE INHAL SOLN 250 ML PEN BTL ONE (14:40)
[2019-10-06] MEDS ORDERED: DEXAMETHASONE SOD PHOS INJ 4 MG/ML VIAL ONE (14:40)
[2019-10-06] MEDS: ENOXAPARIN 30 MG/0.3 ML SYR SC SCH (17:00)
--- NOTE | 2019-10-06 18:05 | Progress Note ---
DATE: 10/06/2019 CONSULTANTS: 1. Dr. Koehler, Oncology. 2. Dr. Lopez, Surgery. SUBJECTIVE: The patient was seen this morning, status post G-tube placement and small bowel resection. Dressing looks intact and complaining of abdominal pain. Nausea resolved. OBJECTIVE: VITAL SIGNS: Temperature 97.7, pulse is 106, respirations 16, blood pressure 130/68, pulse ox is 100% on room air. GENERAL: Fatigue. HEENT: Normocephalic, atraumatic. NECK: Supple. LUNGS: Decreased breath sounds. CARDIOVASCULAR: Regular rate and rhythm. GI: Soft with G-tube placement and midline incision, dressing intact. NEUROLOGIC: Alert, awake, oriented x3. MUSCULOSKELETAL: Moves all extremities. No edema. SKIN: Dry and intact. PSYCH: Calm. LABORATORY DATA: Sodium 140, potassium 3.6. BUN less than 2, creatinine 0.58. Estimated GFR is greater than 60, glucose 130. IMPRESSION: 1. Intractable nausea and vomiting due to metastatic pancreatic cancer. Continue IV Phenergan and IV fluid hydration. 2. Small bowel obstruction. Status post laparoscopy, small-bowel resection. Pain management as needed. 3. Urinary tract infection with Escherichia coli. We will continue on Rocephin. 4. Hypokalemia. Replaced. 5. Hypothyroidism. Resume levothyroxine. 6. Malnutrition due to poor p.o. intake and nausea, vomiting. PEG tube placed this morning. We will consult Nutrition for tube feeding recommendations. 7. Deep vein thrombosis prophylaxis. Continue Lovenox. PLAN: Continue supportive care, pain management and antiemetics as needed. Dictated by NIDIA Francis Kena Beaulieu MD MY/MODL /[id number]
--- NOTE | 2019-10-06 19:25 | NUR ---
received report from day nurse. patient is resting comfortably in the bed. bed is in lowest position and call light is within reach. will continue to monitor patient.
[2019-10-06] MEDS: MORPHINE SULFATE INJ 4 MG/ML INJ 1ML IV PRN (20:24)
[2019-10-06] MEDS: PROMETHAZINE 12.5MG/ NACL 0.9% 12.5 MG/50 ML BAG IV PRN (20:24)
[2019-10-06] MEDS: GABAPENTIN 300 MG CAP PO SCH (21:00)
[2019-10-07] VITALS (7 sets, daily range): BP systolic 107–121; BP diastolic 55–76
[2019-10-07] MEDS: ONDANSETRON HCL INJ 2MG/ML 2ML 2 MG/ML VIAL IV PRN ×2 (01:28→06:00)
[2019-10-07] MEDS: MORPHINE SULFATE INJ 4 MG/ML INJ 1ML IV PRN ×3 (01:28→22:29)
[2019-10-07] MEDS: SODIUM CHLORIDE 0.9% 1000ML 1,000 ML IV SCH ×3 (04:45→16:06)
[2019-10-07] MEDS: LEVOTHYROXINE SODIUM 25 MCG TABLET PO SCH (06:00)
[2019-10-07] MEDS: CEFTRIAXONE SOD 1 GM/NS 50 ML 50 ML IV SCH (10:04)
[2019-10-07] MEDS: PROMETHAZINE 12.5MG/ NACL 0.9% 12.5 MG/50 ML BAG IV PRN ×2 (12:17→22:29)
[2019-10-07] MEDS ORDERED: BISACODYL 10 MG SUPP PR PRN (13:15)
--- NOTE | 2019-10-07 13:22 | Progress Note ---
DATE: 10/07/2019 CONSULTANTS: 1. Dr. Koehler, Oncology. 2. Dr. Lopez, Surgery. SUBJECTIVE: The patient still with abdominal pain and nausea. NG tube is connected to suction. Draining dark green substance. OBJECTIVE: VITAL SIGNS: Temperature 98.4, pulse is 89, respirations 16, blood pressure 121/57, pulse ox is 99% on room air. GENERAL: Fatigue, chronically ill-appearing. HEENT: Normocephalic, atraumatic. NECK: Supple. LUNGS: With decreased breath sounds. CARDIOVASCULAR: Regular rate and rhythm. GI: Soft. ET tube in place, connected to bag draining dark green fluid. Very tender to touch. NEUROLOGIC: Alert, awake, and oriented x3. MUSCULOSKELETAL: Moves all extremities. No edema. SKIN: Dry and intact. PSYCH: Calm. LABORATORY DATA: None today. IMPRESSION: 1. Intractable nausea and vomiting due to metastatic pancreatic cancer. We will continue with Phenergan and IV fluid hydration. Clear liquids as tolerated. 2. Small bowel obstruction. Status post laparoscopy, small bowel resection. NG tube in place, draining greenish substance. Pain management as needed. 3. Urinary tract infection with Escherichia coli. Continue Rocephin. 4. Hypokalemia, replaced. 5. Hypothyroidism. Resume levothyroxine. 6. Malnutrition due to poor p.o. intake. We will continue to treat nausea and vomiting with Phenergan, continue IV fluids. 7. Deep vein thrombosis prophylaxis. Continue Lovenox. PLAN: Continue supportive care, pain management and antiemetics, G-tube draining. We will continue to monitor. Dictated by NIDIA Francis Kena Beaulieu MD MY/MODL /[id number]
[2019-10-07] MEDS: D5.45%NS/KCL 20MEQ 1,000 ML IV SCH ×2 (16:06→17:40)
[2019-10-07] MEDS: ENOXAPARIN 30 MG/0.3 ML SYR SC SCH (17:41)
[2019-10-07] MEDS: GABAPENTIN 300 MG CAP PO SCH (21:00)
[2019-10-08] VITALS (8 sets, daily range): BP systolic 119–147; BP diastolic 68–82
[2019-10-08] MEDS: SODIUM CHLORIDE 0.9% 1000ML 1,000 ML IV SCH ×3 (00:45→19:25)
[2019-10-08] MEDS: D5.45%NS/KCL 20MEQ 1,000 ML IV SCH ×2 (05:12→14:01)
[2019-10-08 05:31] LABS: BASOPHILS % 0.2 % (0.0-1.0); EOSINOPHILS # (AUTO) 0.1 (0.0-0.4); EOSINOPHILS % 0.8 % (0.0-6.0); HEMATOCRIT 30.9 % (34.2-44.1); HEMOGLOBIN 10.7 g/dL (12.0-16.0); LYMPHOCYTES # (AUTO) 2.2 (1.0-3.2); LYMPHOCYTES % 16.7 % (18.0-39.1); MEAN CORPUSCULAR HEMOGLOBIN 34.5 pg (28-32); MEAN CORPUSCULAR HGB CONC 34.6 g/dL (31-35); MEAN CORPUSCULAR VOLUME 99.7 fL (81-99); MONOCYTES # (AUTO) 1.5 (0.2-0.8); MONOCYTES % 11.3 % (4.4-11.3); NEUTROPHILS # (AUTO) 9.1 (2.1-6.9); NEUTROPHILS % 70.3 % (38.7-80.0); PLATELET COUNT 252 x10e3/uL (140-360)
[2019-10-08 05:54] LABS: ANION GAP 14.3 mmol/L (8-16); BLOOD UREA NITROGEN 5 mg/dL (7-26); BUN/CREATININE RATIO 8 (6-25); CALCIUM 7.8 mg/dL (8.4-10.2); CARBON DIOXIDE 26 mmol/L (22-29); CHLORIDE 100 mmol/L (98-107); CREATININE, SERUM 0.62 mg/dL (0.57-1.11); EST GLOMERULAR FILTRATION RATE > 60 ML/MIN (60-); GLUCOSE 122 mg/dL (74-118); POTASSIUM 3.3 mmol/L (3.5-5.1); SODIUM 137 mmol/L (136-145)
[2019-10-08] MEDS: LEVOTHYROXINE SODIUM 25 MCG TABLET PO SCH (06:00)
[2019-10-08] MEDS: MORPHINE SULFATE INJ 4 MG/ML INJ 1ML IV PRN ×3 (06:01→17:04)
[2019-10-08] MEDS: PROMETHAZINE 12.5MG/ NACL 0.9% 12.5 MG/50 ML BAG IV PRN (06:01)
--- NOTE | 2019-10-08 07:00 | NUR ---
RECEIVED PATIENT AWAKE RESTING IN BED NO S/S OF DISTRESS. BED LOW, WHEELS LOCKED, SIDE RAILS X2. CALL LIGHT IN REACH WILL CONTINUE TO MONITOR PATIENT.
[2019-10-08] MEDS: CEFTRIAXONE SOD 1 GM/NS 50 ML 50 ML IV SCH (08:43)
--- NOTE | 2019-10-08 10:17 | NUR ---
PT STILL C/O NAUSEA REFUSING P.T. STATES SHE GETS UP AND GOES TO BATHROOM BUT DOESN'T FEEL LIKE GETTING UP WITH THERAPY SPOKE WITH COMPUTER COMPOSITOR FOR DR SAUCEDO WHO STATES PT IS HOSPICE APPROPRIATE BUT "ISN'T READY FOR IT" PLAN RETURN HOME FULL CODE
[2019-10-08] MEDS ORDERED: POTASSIUM CHLORIDE 10MEQ/100ML 100 ML IV ONE (11:00)
[2019-10-08] MEDS ORDERED: PROMETHAZINE 12.5MG/ NACL 0.9% 12.5 MG/50 ML BAG IV PRN (11:15)
--- NOTE | 2019-10-08 11:21 | Progress Note ---
DATE: 10/08/2019 CONSULTANTS: 1. Dr. Koehler, Oncology. 2. Dr. Lopez, Surgery. SUBJECTIVE: The patient still with significant abdominal pain and nausea. PEG tube connected to low intermittent suction, draining dark green fluid. No fever or chills. PHYSICAL EXAMINATION: VITAL SIGNS: Temperature 98.4, pulse is 88, respirations 18, blood pressure 136/70, pulse ox is 98% on room air. GENERAL: Fatigue and generalized weakness. HEENT: Normocephalic, atraumatic. NECK: Supple. LUNGS: With decreased breath sounds. CARDIOVASCULAR: Regular rate and rhythm. GI: Soft and tender. G-tube in place, connected to wall suction, draining dark yellow fluid. Reports lower quadrant burning sensation and pain. NEUROLOGIC: Alert, awake, oriented x3. MUSCULOSKELETAL: Moves all extremities. No edema. SKIN: Dry. PSYCH: Calm and withdrawn. LABORATORY DATA: WBC 12.89, hemoglobin 10.7, hematocrit 30.9, and platelets 252. Sodium 137, potassium 3.3, CO2 of 26, creatinine 0.62, estimated GFR is greater than 60, glucose 127, and calcium 7.8. IMPRESSION: 1. Intractable nausea, vomiting with abdominal pain due to metastatic pancreatic cancer. Continue Phenergan and morphine IV as needed. IV fluids for hydration. 2. Small bowel obstruction. Status post laparoscopy, small bowel resection. G-tube in place, connected to wall suction, draining green fluid. Pain management as needed. Further rec per surgical team. 3. Urinary tract infection with E coli. Continue Rocephin per sensitivity. 4. Hypokalemia. We will replace and recheck. 5. Hypothyroidism. Resume levothyroxine. 6. Malnutrition due to poor p.o. intake and intractable nausea, vomiting. We will continue antiemetics, PEG tube in place. 7. Deep vein thrombus prophylaxis. Continue Lovenox. 8. Debility. The patient refused physical therapy. Plan is to continue supportive care, antiemetics and pain management as needed. G-tube to wall suction. Further recs per surgical team. Dictated by NIDIA Francis Naomiching Santos Beaulieu MD MY/MODL /[id number]
[2019-10-08] MEDS: PROMETHAZINE 25MG/SOD CHL 0.9% 50 ML IV PRN ×2 (12:36→22:45)
--- NOTE | 2019-10-08 13:35 | NUR ---
REPORT CALLED TO HUEY SHEN.
--- NOTE | 2019-10-08 13:58 | NUR ---
PATIENT TRANSFERRED TO ROOM 209 IN STABLE CONDITION.
[2019-10-08] MEDS: ENOXAPARIN 30 MG/0.3 ML SYR SC SCH (17:04)
--- NOTE | 2019-10-08 19:26 | NUR ---
Received pt in bed awake, alert. Bed in low and locked position, no c/o at this time, no s/sx of acute distress noted. Will cont to mon, bedside report completed.
[2019-10-08] MEDS: GABAPENTIN 300 MG CAP PO SCH (21:00)
[2019-10-09] VITALS (8 sets, daily range): BP systolic 133–159; BP diastolic 71–81
[2019-10-09] MEDS: D5.45%NS/KCL 20MEQ 1,000 ML IV SCH ×3 (04:51→17:37)
[2019-10-09] MEDS: LEVOTHYROXINE SODIUM 25 MCG TABLET PO SCH (06:00)
--- NOTE | 2019-10-09 06:41 | NUR ---
Pt resting in bed, easily aroused, denies discomfort at this time. Pt refuse po medication this am,denies nausea. Assisted pt to bathroom multiple times with no diff. No s/sx of acute distress noted will report off to on coming shift
[2019-10-09] MEDS: SODIUM CHLORIDE 0.9% 1000ML 1,000 ML IV SCH ×2 (06:45→17:37)
[2019-10-09] MEDS: SODIUM CHLORIDE 0.9% 250ML IRRIG IR SCH ×4 (10:19→21:00)
[2019-10-09] MEDS: CEFTRIAXONE SOD 1 GM/NS 50 ML 50 ML IV SCH (10:19)
[2019-10-09] MEDS: MORPHINE SULFATE INJ 4 MG/ML INJ 1ML IV PRN ×3 (10:20→22:24)
--- NOTE | 2019-10-09 12:12 | Progress Note ---
DATE: 10/09/2019 CONSULTANTS: 1. Dr. Werner, Oncology. 2. Dr. Lopez, Surgery. SUBJECTIVE: The patient remains with significant abdominal pain and nausea and vomiting. PEG tube is connected to wall suction. Discussed about plan of care. Reports she does not want to go through chemo again and is open to hospice. PHYSICAL EXAMINATION: VITAL SIGNS: Temperature 98.6, pulse is 86, respirations 20, blood pressure 159/81, pulse ox is 98% on room air. GENERAL: Fatigue and withdrawn. HEENT: Normocephalic, atraumatic. NECK: Supple. LUNGS: With decreased breath sounds. CARDIOVASCULAR: Regular rate and rhythm. GI: Soft with lower quadrant pain. G tube in place connected to wall suction. NEUROLOGIC: Alert, awake, and oriented x3. MUSCULOSKELETAL: Moves all extremities. No edema. SKIN: Dry. LABORATORY DATA: No labs or imaging done today. IMPRESSION: 1. Intractable nausea and vomiting with abdominal pain due to metastatic pancreatic cancer. We will continue with Phenergan and morphine as needed. IV fluids for hydration. Oncology on the case. 2. Small bowel obstruction. Status post small bowel resection. G tube in place to wall suction. Pain management as needed. Surgical team on the case. 3. Urinary tract infection with Escherichia coli. 4. Completed 7 days of Rocephin. 5. Hypokalemia. Replace. 6. Hypothyroidism, on levothyroxine. 7. Malnutrition due to poor p.o. intake. G tube feeding once cleared by surgery. 8. Debility. The patient refused PT. 9. Deep vein thrombosis prophylaxis. Continue Lovenox. PLAN: To continue supportive therapy, discussed about hospice and is open to hearing more, we will consult Case Management or hospice. Dictated by NIDIA Francis Naomiching Santos Beaulieu MD MY/MODL /[id number]
--- NOTE | 2019-10-09 13:29 | NUR ---
SPOKE WITH PT ABOUT HOSPICE REFERRAL, GAVE OPTIONS OF TRADITIONS, RESOLUTIONS AND SEASONS. PT SIGNED CHOICE FOR RESOLUTIONS, FILED IN CHART AND FAXED CLINICALS TO COMPANY. GOT PERMISSION FOR REP TO COME SEE PT AT BEDSIDE.
[2019-10-09] MEDS: PROMETHAZINE 25MG/SOD CHL 0.9% 50 ML IV PRN ×2 (15:10→22:24)
[2019-10-09] MEDS: ENOXAPARIN 30 MG/0.3 ML SYR SC SCH ×2 (16:17→16:30)
--- NOTE | 2019-10-09 19:54 | NUR ---
Received pt in bed awake, a/o x 3. No c/o at this time, no s/sx of acute distress noted. Bed in low and locked position. Call evans and personal items within reach. Peg remains to cont wall suction with green liquid noted. IVF infusing without diff. Will cont to mon patient. Bedside report completed.
[2019-10-09] MEDS: GABAPENTIN 300 MG CAP PO SCH (21:00)
--- NOTE | 2019-10-09 21:04 | Progress Note ---
DATE: 10/09/2019 SUBJECTIVE: Ms. Barajas is a 78-year-old female, referred to me for evaluation of cancer of the pancreas. For detailed consult, please review my dictation dated 10/02/2019. The patient did have a bypass procedure as well as a gastrotomy, however, as I had written before multiple times, the patient is a hospice patient. Finally, the patient has decided hospice for massive intraperitoneal metastases for cancer of the pancreas. Thank you very much for allowing me to participate in management of this patient during this hospitalization. MD SHA Cardenas/MODL /[id number]
[2019-10-10] VITALS: BP 154/86
[2019-10-10] MEDS: SODIUM CHLORIDE 0.9% 1000ML 1,000 ML IV SCH (02:45)
[2019-10-10 04:00] VITALS: BP 172/73
[2019-10-10] MEDS: SODIUM CHLORIDE 0.9% 250ML IRRIG IR SCH (05:15)
[2019-10-10] MEDS: LEVOTHYROXINE SODIUM 25 MCG TABLET PO SCH (06:00)
[2019-10-10] MEDS: PROMETHAZINE 25MG/SOD CHL 0.9% 50 ML IV PRN ×2 (06:17→12:16)
[2019-10-10] MEDS: MORPHINE SULFATE INJ 4 MG/ML INJ 1ML IV PRN ×2 (06:17→12:10)
[2019-10-10 06:21] VITALS: BP 139/61
[2019-10-10] MEDS: D5.45%NS/KCL 20MEQ 1,000 ML IV SCH (06:38)
[2019-10-10 07:29] VITALS: BP 145/73
[2019-10-10 09:00] VITALS: BP 145/73
[2019-10-10] MEDS: CEFTRIAXONE SOD 1 GM/NS 50 ML 50 ML IV SCH (09:00)
[2019-10-10 11:27] VITALS: BP 151/79
--- NOTE | 2019-10-10 11:28 | NUR ---
PUT OOH DNR ON PACKET AND IN CHART, AMBULANCE WILL BE HERE APPROXIMATELY 12 TO TRANSPORT PT HOME ON HOSPICE.
--- NOTE | 2019-10-10 13:50 | NUR ---
Pt discharged home with hospice. Pt aox3 and able to verbalize needs at time of discharge. Right femoral line discontinued prior to discharge, lumen intact, pressure dressing applied to area and instructed pt to leave on for 24hrs. 0 s/s of acute distress at time of discharge. Pt left by ambulance on stretcher.
--- NOTE | 2019-10-10 21:19 | Discharge Summary ---
PRIMARY CARE PHYSICIAN: Dr. Veronica at [facility]. FINAL DISCHARGE DIAGNOSES: 1. Intractable nausea and vomiting due to metastatic to pancreatic cancer. 2. Small-bowel obstruction, status post small-bowel resection. 3. Urinary tract infection with Escherichia coli. 4. Hypothyroidism. 5. Malnutrition due to poor p.o. intake. 6. Debility. CONSULTANTS: 1. Dr. Werner with Oncology. 2. Dr. Lopez, Surgery. PROCEDURES: She underwent small-bowel resection with G-tube in place for decompression. HISTORY: Per HPI. HOSPITAL COURSE: This is a 78-year-old female, who presented with significant abdominal pain, nausea, and vomiting due to metastatic pancreatic cancer. CT imaging noted with multiple peritoneal intra-abdominal metastases and small-bowel obstruction. Surgical team was consulted and underwent a small-bowel resection with G-tube for decompression. She was treated with Phenergan and morphine for pain control. She reports has not had much to eat for about four weeks. Dr. Werner with Oncology was consulted due to her disease, hospice was recommended. Discussed with the patient and is finally decided to proceed with hospice at home. Case management was consulted and we will go home with hospice. PHYSICAL EXAMINATION: VITAL SIGNS: Temperature 98.9, pulse is 87, respirations 18, blood pressure 151/79, pulse ox 98% on room air. GENERAL: Fatigue and generalized weakness. HEENT: Normocephalic and atraumatic. NECK: Supple. LUNGS: With decreased breath sounds. CARDIOVASCULAR: Regular rate and rhythm. GI: Soft with right lower quadrant pain. G-tube in place. We will connect to leg bag for drainage. NEUROLOGIC: Alert, awake, and oriented x3. MUSCULOSKELETAL: Moves all extremities. No edema. SKIN: Dry. CONDITION AT DISCHARGE: Stable. DISCHARGE MEDICATIONS: Please see medication reconciliation list. FOLLOWUP: Followup with hospice. TIME SPENT: Total time of discharge is 31 minutes. Dictated by NIDIA Francis Naomiching Santos Beaulieu MD MY/MODL /[id number] cc: [facility]
--- NOTE | 2019-10-14 13:25 | Consultation ---
DATE OF CONSULTATION: 10/02/[address] Kena Beaulieu HISTORY OF PRESENT ILLNESS: Unique Barajas is a 78-year-old female, who is referred to me for metastatic cancer of the pancreas, the patient had presented with intractable vomitings. HISTORY OF PAST ILLNESS: History of Whipple's procedure a year back, the patient had relapsed, is being treated by Dr. Rhodes at [facility]. REVIEW OF SYSTEMS: HEENT: Normal. CARDIAC: Normal. GI: Cancer of the pancreas. : Normal. MUSCULOSKELETAL: Normal. SKIN AND BREASTS: Normal. NEUROENDOCRINE: Normal. ALLERGIES: REPORTED NORMAL. MEDICATIONS: At this time: 1. Potassium. 2. Magnesium. 3. Sodium chloride. 4. Morphine. 5. Reglan. PHYSICAL EXAMINATION: GENERAL: A cachectic female, no palpable adenopathy. HEART: Within normal limits. LUNGS: Clear. ABDOMEN: Obese. The patient does have a nasogastric tube. LABORATORY DATA: Sodium 139, potassium 2.3, chloride 97, CO2 of 21, BUN 5, creatinine 0.7, and glucose 77. Hemoglobin of 11.8, hematocrit 35.3, white count 12,500, and platelets of 306,000. IMPRESSION: 1. Cancer of the pancreas. 2. Metastases intraabdominal by CAT scan. 3. Intractable vomiting. 4. Hypokalemia of 2.6. 5. Hypoproteinemia of 6.3. 6. Hypoalbuminemia of 3.4. 7. Possible pancreatitis, high amylase and lipase. 8. Mass invading the gastric antrum by CAT scan. 9. Involvement of the mesentery by CAT scan. 10. Peritoneal metastases. 11. Ascites. 12. Status post Whipple's. PLAN, COMMENTS, AND SUGGESTIONS: Suggest best supportive care. Suggest fluid. Suggest antiemetics. This is a terminal case, suggest hospice. MD SHA Cardenas/MARVIN /[id number]
== END 2019-10-10 13:49 | disposition hospice, home (50) | DRG 423 ==
LOC: ER 16:30 → ERHOLD 18:51 → MED/SURG 19:56 → UNDODISIN 10-08 12:52 → MED/SURG2 10-08 15:23
PROVIDERS: ADMIT Internal Medicine; ATTEND Internal Medicine
PROC: 0DJD4ZZ Inspection of Lower Intestinal Tract, Percutaneous Endoscopic Approach (ICD-10-PCS; 2019-10-06)
PROC: 0D160ZA Bypass Stomach to Jejunum, Open Approach (ICD-10-PCS; principal; 2019-10-06 07:39)
DX: C25.9 Malignant neoplasm of pancreas, unspecified (principal); E43 Unspecified severe protein-calorie malnutrition; N39.0 Urinary tract infection, site not specified; Z68.1 Body mass index [BMI] 19.9 or less, adult; C78.6 Secondary malignant neoplasm of retroperitoneum and peritoneum; R18.0 Malignant ascites; K56.690 Other partial intestinal obstruction; E87.6 Hypokalemia; E03.9 Hypothyroidism, unspecified; B96.20 Unspecified Escherichia coli [E. coli] as the cause of diseases classified elsewhere; Z11.59 Encounter for screening for other viral diseases; E88.09 Other disorders of plasma-protein metabolism, not elsewhere classified; E77.8 Other disorders of glycoprotein metabolism; G62.9 Polyneuropathy, unspecified
CPT/HCPCS: 36415; 36555; 74018; 74177; 80048; 80053; 81001; 82948; 83690; 83735; 84132; 85025; 86301; 87086; 87186; 93005; 96361; 99284; J0330; J0696; J1100; J1170; J1650; J2001; J2270; J2405; J2550; J2765; J3010; J3475; J3480; J7030; Q9967; U0002